=== PATIENT | female | born 1965 | race Caucasian/White ===

== ENCOUNTER 2020-11-01 07:04 | Outpatient (REF) | payer OTHER, SELFPAY | END 2020-11-01 07:05 | disposition home or self-care (01) | LOC: HO.LAB 07:04 | PROVIDERS: Visit Provider Internal Medicine | DX: Z20.828 Contact with and (suspected) exposure to other viral communicable diseases (principal) | CPT/HCPCS: C9803; U0003 ==

== ENCOUNTER 2020-11-26 10:21 | Emergency (ER) | payer OTHER, SELFPAY ==
[2020-11-26 10:24] VITALS: BP 148/85; PULSE 110; RESP 18; TEMP 37.6; O2SAT 96; BMI 25.7
--- NOTE | 2020-11-26 10:42 | XR_ITS ---
EXAMINATION: XR CHEST CLINICAL INFORMATION: Cough. COMPARISON: None TECHNIQUE: Frontal view of the chest was obtained. FINDINGS: No significant abnormality is noted involving the heart, lungs, mediastinum, bony thorax or soft tissues. XR/XR chest 1V IMPRESSION: Unremarkable chest examination.
--- NOTE | 2020-11-26 10:45 | ED_ITS ---
HPI - Fever General Chief Complaint: Fever Stated Complaint: FEVER,BODY ACHES Time Seen by Provider: 11/26/20 10:42 Source: patient Mode of arrival: ambulatory History of Present Illness HPI Narrative: 55-year-old female with no significant past medical history presenting to the ED complaining of fever T-max 100.9?, body aches/myalgias, productive cough, and mild chest tightness x2 days. 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 Denies SOB, abdominal pain, LE edema, recent travel, history of blood clots MD elicited complaint: fever Related Data Previous Rx's Medication Instructions Recorded albuterol sulfate 2 puff INHALATION Q4-6H PRN #6.7 g 11/26/20 Allergies Allergy/AdvReac Type Severity Reaction Status Date / Time penicillin V Allergy Unknown swelling Verified 09/22/19 00:00 Penicillins [PENICILLINS] Allergy Unknown UNKNOWN Unverified 08/18/20 14:50 Review of Systems Review of Systems: Constitutional: No Weight loss, + Fever, No Chills ENT/Mouth: No Ear Pain, No Nasal Congestion, No Sinus Pain, No Hoarseness, No sore throat, No Rhinorrhea Cardiovascular: + Chest tightness, No SOB Respiratory: + Cough, + Sputum, No Wheezing Gastrointestinal: No Nausea, No Vomiting, No Diarrhea, No Constipation, No Abdominal pain Musculoskeletal: No joint pain, + Myalgias, No Joint Swelling Skin: No Skin Lesions, No rash Yes all other systems are reviewed and are negative PMFSH Past Medical History Attestation statement: The following information was validated with the patient. Social History Social History Advance Directives: No Advance Directives Information Provided: No Physical Exam Vital Signs: Vital Signs: Last Vital Signs Temp 97.4 F 11/26/20 11:18 Pulse 71 11/26/20 11:32 Resp 18 11/26/20 10:24 BP 123/87 11/26/20 11:18 Pulse Ox 94 11/26/20 11:32 Body Mass Index 25.7 Const: General: cooperative and healthy appearing Orien tation/consciousness: patient oriented x3 Limitations: no limitations HENMT: Head: Yes normal to inspection Ears: hearing grossly normal bilaterally General nose exam: Normal external nose present Face and sinus: Yes normal facial exam Eyes: General: appearance normal, both eyes and all related structures EOM: EOMs intact bilaterally Neck: Neck: Yes normal visual inspection and Yes no meningeal signs Resp: Effort & Inspection: normal respiratory effort Auscultation: clear to auscultation bilaterally, no rales, no rhonchi and no wheezes Cardio: Rate: regular rate Heart sounds: S1 normal heart sound present and S2 normal heart sound present GI: Inspection: Yes normal to inspection Palpation (GI): Soft to palpation Skin: Rashes: no rashes Wounds: no wounds Neuro: General: patient oriented x3 and no meningeal signs Gait exam (Neuro): Normal gait present Extrem: Other: No LE edema General: Yes normal to inspection Course Course Course Narrative: * Chest x-ray unremarkable. Heart rate improved after Tylenol. Worrisome signs and symptoms and strict return precautions discussed. Patient verbalized understanding feel safe for discharge home MDM - Fever MDM Narrative Medical decision making narrative: 55-year-old female with no significant past medical history presenting to the ED complaining of fever T-max 100.9?, body aches/myalgias, productive cough, and mild chest tightness x2 days. On exam low-grade temp 99.6?, tachycardic likely from fever, NAD/nontoxic appearing, lungs CTA. Concern for viral syndrome/COVID-19. Rule out pneumonia. Low concern for severe sepsis or ACS/PE Plan: COVID-19 testing, CXR, Tylenol, really evaluate Discharge Plan Discharge Clinical Impression: Acute viral syndrome Patient Disposition: Home, Self-Care Instructions: Viral Syndrome (ED) Additional Instructions: Based on your symptoms and history we have sent a COVID-19. Although your RESULT IS PENDING at this time. RESULTS should return within 3-7 days. At this time you will be contacted with either NEGATIVE OR POSITIVE results. -Please wait until we contact you for your results. At this time you will be okay for discharge. Please plan for self quarantine for up to 14 days. Do not expose yourself to others. You may not go to work. If testing does come back negative you may return to activities as long as you are no longer having any symptoms for at least 3 days. Please continue to follow cold instructions and wash your hands frequently. You may take Tylenol as directed on the bottle for pain or fever. CDC Guidelines for home isolation: - Stay away from others - WEAR A MASK if you are sick AND STAY HOME - Cover your mouth and nose with a tissue when you cough or sneeze. Dispose of tissues in a lined trash can and wash your hands immediately with soap and water for at least 20 seconds. If soap and water are not available, clean hands with alcohol-based hand patient services representative that contains at least 60% alcohol. - Clean your hands often with soap and water for at least 20 seconds - Avoid touching your eyes, nose and mouth with unwashed hands - Do not share dishes, drinking glasses, cups, eating utensils, towels, or bedding with other people in your home. After using these items, wash them thoroughly with soap and water or put in the hr specialist. - Clean high-touch surfaces in your isolation area ( sick room and bathroom) every day; let a caregiver clean and disinfect high-touch surfaces in other areas of the home. Clean the area or item with soap and water or another detergent if it is dirty. Then, use a household disinfectant. - Limit contact with pets and animals: If you must care for a pet, wash your hands before and after interacting with them) Prescriptions: New albuterol sulfate 90 mcg/actuation HFA aerosol inhaler 2 puff inhalation Q4-6H PRN (Reason: shortness of breath or wheezing) Qty: 6.7 RF: 0 Referrals: Tiny Soria MD [Primary Care Provider] - 2 days Stand Alone Forms: Work/School Release
[2020-11-26] MEDS: Acetaminophen 325 MG TABLET 650 MG PO (10:59)
[2020-11-26 11:18] VITALS: BP 123/87; PULSE 77; TEMP 36.3; O2SAT 95
[2020-11-26 11:32] VITALS: PULSE 71; O2SAT 94
[2020-11-26 12:47] LABS: Influenza A PCR NEGATIVE (Negative); Influenza B PCR NEGATIVE (Negative); Resp Syncy Virus RNA Qual PCR NEGATIVE (Negative); SARS COV2 PCR INHOUSE POSITIVE (Negative)
== END 2020-11-26 11:56 | disposition home or self-care (01) ==
PROVIDERS: Physician Assistant; Emergency Provider Emergency Medicine Emergency Medical Services; PCP Student in an Organized Health Care Education/Training Program
DX: U07.1 COVID-19 (principal)
CPT/HCPCS: 0241U; 71045; 99283; U0003

== ENCOUNTER 2020-11-30 18:17 | Emergency (ER) | payer OTHER, SELFPAY | END 2020-11-30 20:54 | disposition left against medical advice (07) | PROVIDERS: Emergency Provider Emergency Medicine | DX: Z20.828 Contact with and (suspected) exposure to other viral communicable diseases (principal) ==

== ENCOUNTER 2021-04-27 07:18 | Outpatient (REF) | payer OTHER, SELFPAY ==
[2021-04-27 08:29] LABS: Hematocrit 43.9 % (37-47); Hemoglobin 14.4 g/dl (12.0-16.0); Mean Corpuscular HGB Conc 32.8 g/dl (31.0-35.0); Mean Corpuscular Hemoglobin 30.6 pg (27.0-33.0); Mean Corpuscular Volume 93.2 fL (80-98); Mean Platelet Volume 10.8 fL (9.4-12.3); Platelet Count 187 X10*3/uL (160-400); Red Blood Count 4.71 X10*6/uL (4.20-5.50); Red Cell Distribution Width 13.2 % (11.0-16.0); White Blood Count 5.2 X10*3/uL (4.8-10.8)
[2021-04-27 09:06] LABS: Alanine Aminotransferase 11 U/L (0-31); Albumin Level 4.2 g/dL (3.5-5.0); Alkaline Phosphatase 65 U/L (39-117); Anion Gap 11 (12-20); Aspartate Amino Transferase 13 U/L (5-31); Bilirubin Direct 0.2 mg/dL (0.0-0.5); Bilirubin Total 0.4 mg/dL (0.0-1.0); Blood Urea Nitrogen 11 mg/dL (9-16); Calcium 9.2 mg/dL (8.4-10.2); Carbon Dioxide 26 mmol/L (22-29); Chloride 107 mmol/L (96-108); Cholesterol 204 mg/dL; Estimated Glomerular Filt Rate > 60; Glucose Random 93 mg/dL (60-115); HDL Cholesterol 62 mg/dL; LDL Cholesterol Calculated 130 mg/dl; Potassium 4.4 mmol/L (3.3-5.1); Sodium 140 mmol/L (135-145); Total Protein 6.5 g/dL (6.5-8.0); Triglycerides 61 mg/dL
[2021-04-27 09:12] LABS: Vitamin D 25-OH Total 21.3 ng/mL (>30)
== END 2021-04-27 07:19 | disposition home or self-care (01) ==
LOC: HO.LAB 07:18
PROVIDERS: PCP Student in an Organized Health Care Education/Training Program; Visit Provider Student in an Organized Health Care Education/Training Program
DX: I10 Essential (primary) hypertension (principal); G35 Multiple sclerosis
CPT/HCPCS: 36415; 80048; 80061; 80076; 82306; 85027

== ENCOUNTER 2021-05-04 08:54 | Outpatient (REF) | payer OTHER, SELFPAY ==
--- NOTE | ~2021-05-04 | MM_ITS ---
EXAMINATION: MM SCREENING DIGITAL BREAST TOMOSYNTHESIS, BILATERAL CLINICAL INFORMATION: Screening. Asymptomatic. Benign left breast biopsy decades ago. Family history breast cancer, maternal grandmother. The lifetime risk of breast cancer based on the Tyrer-Cuzick Model is 13%. COMPARISON: Mammography: 01/09/2017, 11/09/2015 (baseline). TECHNIQUE: Digital breast tomosynthesis is performed in both the craniocaudal and mediolateral oblique views along with computer-aided detection (CAD). Synthesized 2D images are generated from the tomosynthesis. FINDINGS: The breasts are heterogeneously dense, which may obscure small masses (ACR BI-RADS breast composition Category c). Parenchymal pattern is similar to prior studies. There is no interval mass or architectural abnormality or abnormal calcifications. Left breast has chronic circumscribed mass retroareolar 12:00 position measuring 2.1 x 1.7 x 1.6 cm, similar to prior studies. There are bilateral scattered vascular calcifications on current study mid upper outer quadrant. The axilla and skin contours are unremarkable. MM/MM tomosynthesis screening BI IMPRESSION: No mammographic evidence of malignancy. ASSESSMENT: BI-RADS 2: Benign RECOMMENDATION: Routine annual mammography screening. This patient's information was entered into a reminder system with a target due date for their next mammogram.
== END 2021-05-04 08:55 | disposition home or self-care (01) ==
LOC: HO.MAMMO 08:54
PROVIDERS: PCP Student in an Organized Health Care Education/Training Program; Visit Provider Student in an Organized Health Care Education/Training Program
DX: Z12.31 Encounter for screening mammogram for malignant neoplasm of breast (principal)
CPT/HCPCS: 77063; 77067

== ENCOUNTER 2021-11-09 08:45 | Outpatient (REF) | payer OTHER, SELFPAY ==
--- NOTE | ~2021-11-09 | XR_ITS ---
EXAMINATION: XR HIP, RIGHT CLINICAL INFORMATION: Right hip pain. COMPARISON: None TECHNIQUE: Two views of the right hip. FINDINGS: The bony alignments are intact. The cortices are intact. Articular margins, joint space appear unremarkable. Soft tissues are unremarkable. Mild osteitis pubis. XR/XR hip RT min 2V IMPRESSION: Unremarkable radiographic appearance of the right hip.
== END 2021-11-09 08:46 | disposition home or self-care (01) ==
LOC: HO.XRAY 08:45
PROVIDERS: PCP Student in an Organized Health Care Education/Training Program; Visit Provider Student in an Organized Health Care Education/Training Program
DX: M25.551 Pain in right hip (principal)
CPT/HCPCS: 73502

== ENCOUNTER 2023-05-14 14:25 | Emergency (ER) | payer MEDICAID, SELFPAY ==
--- NOTE | 2023-05-14 15:48 | ED_ITS ---
HPI - Abdominal Pain General Chief Complaint: Urogenital-Female Stated Complaint: Pain Uterus is Low Time Seen by Provider: 05/14/23 17:20 Source: patient Mode of arrival: ambulatory Limitations: no limitations History of Present Illness HPI narrative: Patient is a 58-year-old female with history of MS, arthritis, overactive bladder, and HTN presenting to the emergency department with complaint of bulging and discomfort in her vagina since this morning. Symptoms are lessened when sitting/laying, worsen with standing and ambulation. She denies any abnormal vaginal discharge. Denies recent fevers. Reports has not urinated since 13:00 today which is abnormal for her. History of one full term vaginal delivery and one miscarriage, tubal ligation. Denies other abdominal surgeries. Denies recent constipation or diarrhea. Denies dysuria or hematuria. She has seen urology in the past, this is who started her on the oxybutynin, but has not seen recently due to insurance issue. PCP has been refilling her oxybutynin. She does not currently have an [facility]. MD elicited complaint: other (vaginal discomfort) Onset (ago): hour(s) Pain Consistency: constant Location: groin Severity: moderate Quality: other (pressure) Radiation: none Exacerbating factors: movement Relieving factors: rest Associated symptoms: denies other symptoms Related Data Previous Rx's Medication Instructions Recorded albuterol sulfate 90 mcg/actuation 2 puff inhalation Q4-6H PRN 11/26/20 aerosol inhaler shortness of breath or wheezing #6.7 grams Allergies Allergy/AdvReac Type Severity Reaction Status Date / Time penicillin V Allergy Unknown swelling Verified 05/14/23 15:57 Penicillins [PENICILLINS] Allergy Unknown UNKNOWN Verified 05/14/23 15:57 Review of Systems Review of Systems As per HPI. Yes all other systems are reviewed and are negative Constitutional: Reports as per HPI PMFSH Social History Social History Smoked in Last 30 Days: Yes Use of substances other than those prescribed or required for medical reasons: No Advance Directives: No Advance Directives Information Provided: No Physical Exam ED Vital Signs: Vital Signs - 24 hr 05/14/23 15:57 05/14/23 18:45 Temperature 96.7 F L 97.8 F Pulse Rate 54 55 Respiratory Rate 16 16 Blood Pressure 106/64 116/50 L Pulse Oximetry 100 96 Oxygen Delivery Method Room Air Room Air BMI result Body Mass Index 24.9 Vital signs have been reviewed and appear to be correct. Blood pressure normal. Heart rate mildly bradycardic. Respiratory rate normal. Temperature normal. Oxygen saturation normal. Const General: cooperative, healthy appearing and no acute distress Orientation/consciousness: oriented to person, oriented to place, oriented to time and patient oriented x3 Limitations: no limitations HENMT Head: Yes normocephalic and Yes atraumatic Ears: external ears normal General nose exam: Normal external nose present Face and sinus: Yes face symmetric Mouth: oropharynx normal and moist mucous membranes Throat: Yes uvula midline Eyes Pupils: Equal, round and reactive pupils present Neck Neck: Yes normal visual inspection and Yes supple Resp Effort & Inspection: normal respiratory effort and able to speak in complete sentences Auscultation: clear to auscultation bilaterally Cardio Rate: regular rate Rhythm: regular rhythm Heart sounds: S1 normal heart sound present and S2 normal heart sound present GI Palpation (GI): Soft to palpation and nontender Auscultation: normoactive bowel sounds Other: Exam chaperoned by FREDY Solis. General: Yes no CVA tenderness External Female Exam: normal external appearance and No externally tender Speculum Exam - Vagina: nontender and other (uterine prolapse, no evidence of abscess, nontender) Back/Spine/Pelvis Back: no CVA tenderness Skin General skin exam: elasticity normal and turgor normal Neuro General: oriented to person, oriented to place, oriented to time, patient oriented x3, moves all extremities, no focal motor deficits and CN's II-XI intact bilaterally Cranial nerves: Yes Equal, round and reactive pupils present Cognition (Neuro): normal cognition Extrem General: Yes full ROM, Yes no pedal edema and Yes no calf tenderness Psych Mental Status: mental status grossly normal Affect: normal affect Thought process: Normal thought process present Course Course Course Narrative: RME: 58yo F w/ PMHx HTN c/o uterine prolapse noted today w/discomfort. reports mild urinary retention. denies constipation. currently takes Oxybutin. denies recent surgeries labs, UA, bladder scan ordered Full HPI, ROS and PE to be performed by primary ED provider. Medical Decision Making Medical Decision Making MDM Narrative: Patient is a 58-year-old female with history of MS, arthritis, overactive bladder, and HTN presenting to the emergency department with complaint of bulging and discomfort in her vagina since this morning. On exam patient is awake, A+Ox3, abdomen soft and nontender, no CVA tenderness, uterine prolapse on pelvic exam, no evidence of infection or abscess. Will bladder scan and check UA to ensure patient does not have urinary retention or UTI. Patient will require follow up with [facility]ATIONS [facility]IATE. Concern for uterine prolapse, urinary retention, possible abscess. 20:14 No evidence of infection on UA, patient's post-void bladder scan reveals no retention. Labs unremarkable. Feel patient is stable for discharge home with [facility] follow up. All results discussed with patient and all questions answered, return precautions discussed at bedside. Patient verbalized understanding of and agreement with plan of care. Differential Diagnosis Differential Diagnoses: The differential diagnosis associated with the presentation includes As above. Admission/Observation Consideration of admission/observation: Escalation of care including admission/observation considered Lab Data MDM Lab Attestation statement: I reviewed the patient's lab results. 05/14/23 16:04 05/14/23 16:04 Labs: Lab Results 05/14/23 05/14/23 05/14/23 Range/Units 16:04 16:04 18:44 WBC 7.2 (4.8-10.8) X10*3/uL RBC 4.55 (4.20-5.50) X10*6/uL Hgb 13.9 (12.0-16.0) g/dl Hct 42.5 (37.0-47.0) % MCV 93.4 (80.0-98.0) fL MCH 30.5 (27.0-33.0) pg MCHC 32.7 (31.0-35.0) g/dl RDW 13.3 (11.0-16.0) % Plt Count 203 (160-400) X10*3/uL MPV 10.3 (9.4-12.3) fL Immature Gran % (Auto) 0.3 (0.0-0.4) % Neut % (Auto) 56.3 (45-73) % Lymph % (Auto) 32.9 (20-40) % [place] % (Auto) 7.6 (2-11) % Eos % (Auto) 2.1 (0-4) % Baso % (Auto) 0.8 (0-2) % Lymph # (Auto) 2.4 (1.2-4.9) X10*3/uL [place] # (Auto) 0.6 (0.1-1.2) X10*3/uL Eos # (Auto) 0.2 (0.0-0.4) X10*3/uL Baso # (Auto) 0.1 (0.0-0.2) X10*3/uL Abs Immat Gran (auto) 0.02 (0.00-0.03) X10*3/uL Absolute Neuts (auto) 4.1 (2.0-8.3) x10*3/uL Absolute Nucleated RBC 0.000 (0.0-0.012) X10*3/uL Nucleated RBC % (auto) 0.0 (0.0-0.2) /100WBC Sodium 144 (135-145) mmol/L Potassium 4.1 (3.3-5.1) mmol/L Chloride 107 (96-108) mmol/L Carbon Dioxide 28 (22-29) mmol/L Anion Gap 13 (12-20) BUN 10 (9-16) mg/dL Creatinine 0.86 (0.5-1.4) mg/dL Estim Creat Clear Calc 68.2 Estimated GFR > 60 Random Glucose 90 (60-115) mg/dL Calcium 9.3 (8.4-10.2) mg/dL Magnesium 2.1 (1.6-2.6) mg/dL Total Bilirubin 0.4 (0.0-1.0) mg/dL Direct Bilirubin 0.1 (0.0-0.5) mg/dL AST 12 (5-31) U/L ALT 9 (0-31) U/L Alkaline Phosphatase 75 (39-117) U/L Total Protein 6.4 L (6.5-8.0) g/dL Albumin 3.9 (3.5-5.0) g/dL Lipase 22 (8-78) U/L Urine Color Yellow Urine Appearance Clear Urine pH 5.5 (5.0-9.0) Ur Specific [place] 1.025 (1.005-1.025) Urine Protein Negative (Neg-Trace) mg/dL Urine Glucose (UA) Negative (Negative) mg/dL Urine Ketones Trace (Negative) mg/dL Urine Blood Negative (Negative) Urine Nitrite Negative (Negative) Ur Leukocyte Esterase Negative (Negative) External Record Review External record reviewed: Inpatient record, Office record and Outpatient record Discharge Plan Discharge Clinical Impression: Uterine prolapse Patient Disposition: Home, Self-Care Instructions: Kegel Exercises for Women (DC), Uterine Prolapse (ED) Additional Instructions: Your evaluation in the emergency department today showed evidence of uterine prolapse. You should follow up with [facility]ATIONS [facility]OCIATE this week for further management. Return to the emergency department if you have difficulty urinating or having a bowel movement, abdominal pain, vaginal discharge or bleeding, fever 100.4F or greater, or for any other concerning symptoms. Prescriptions: No Action albuterol sulfate 90 mcg/actuation HFA aerosol inhaler 2 puff inhalation Q4-6H PRN (Reason: shortness of breath or wheezing) Qty: 6.7 0RF Referrals: Alonzo Edmonds MD [Physician] -
[2023-05-14 15:57] VITALS: BP 106/64; PULSE 54; RESP 16; TEMP 35.9; O2SAT 100; BMI 24.9
[2023-05-14 16:09] LABS: MANUAL DIFF FLAG NO
[2023-05-14 16:10] LABS: Basophils Absolute Auto 0.1 X10*3/uL (0.0-0.2); Basophils Percent Auto 0.8 % (0-2); Eosinophils Absolute Auto 0.2 X10*3/uL (0.0-0.4); Eosinophils Percent Auto 2.1 % (0-4); Hematocrit 42.5 % (37.0-47.0); Hemoglobin 13.9 g/dl (12.0-16.0); Imm Gran Abs Auto 0.02 X10*3/uL (0.00-0.03); Imm Gran Pct Auto 0.3 % (0.0-0.4); Lymphocytes Absolute Auto 2.4 X10*3/uL (1.2-4.9); Lymphocytes Percent Auto 32.9 % (20-40); Mean Corpuscular HGB Conc 32.7 g/dl (31.0-35.0); Mean Corpuscular Hemoglobin 30.5 pg (27.0-33.0); Mean Corpuscular Volume 93.4 fL (80.0-98.0); Mean Platelet Volume 10.3 fL (9.4-12.3); Monocytes Absolute Auto 0.6 X10*3/uL (0.1-1.2); Monocytes Percent Auto 7.6 % (2-11); Neutrophils Absolute Auto 4.1 x10*3/uL (2.0-8.3); Neutrophils Percent Auto 56.3 % (45-73); Platelet Count 203 X10*3/uL (160-400); Red Blood Count 4.55 X10*6/uL (4.20-5.50); Red Cell Distribution Width 13.3 % (11.0-16.0); White Blood Count 7.2 X10*3/uL (4.8-10.8)
[2023-05-14 16:25] LABS: Alanine Aminotransferase 9 U/L (0-31); Albumin Level 3.9 g/dL (3.5-5.0); Alkaline Phosphatase 75 U/L (39-117); Anion Gap 13 (12-20); Aspartate Amino Transferase 12 U/L (5-31); Bilirubin Direct 0.1 mg/dL (0.0-0.5); Bilirubin Total 0.4 mg/dL (0.0-1.0); Blood Urea Nitrogen 10 mg/dL (9-16); Calcium 9.3 mg/dL (8.4-10.2); Carbon Dioxide 28 mmol/L (22-29); Chloride 107 mmol/L (96-108); Creatinine Clr Calc Pharmacy 68.2; Estimated Glomerular Filt Rate > 60; Glucose Random 90 mg/dL (60-115); Lipase 22 U/L (8-78); Magnesium 2.1 mg/dL (1.6-2.6); Potassium 4.1 mmol/L (3.3-5.1); Sodium 144 mmol/L (135-145); Total Protein 6.4 g/dL (6.5-8.0)
[2023-05-14 18:45] VITALS: BP 116/50; PULSE 55; RESP 16; TEMP 36.6; O2SAT 96
[2023-05-14 18:54] LABS: Appearance Urine Clear; Color Urine Yellow; Glucose Urine UA Negative (Negative); Leukocyte Esterase Urine Negative (Negative); Nitrite Urine Negative (Negative); PH 5.5 (5.0-9.0); Specific Gravity - Urine 1.025 (1.005-1.025); Urine Blood Negative (Negative); Urine Ketones Trace mg/dL (Negative); Urine Protein Negative (Neg-Trace)
== END 2023-05-14 20:19 | disposition home or self-care (01) ==
PROVIDERS: Physician Assistant; Emergency Provider Emergency Medicine; PCP Student in an Organized Health Care Education/Training Program
DX: N81.4 Uterovaginal prolapse, unspecified (principal); N32.81 Overactive bladder; I10 Essential (primary) hypertension; Z79.899 Other long term (current) drug therapy
CPT/HCPCS: 36415; 51798; 80048; 80076; 81003; 83690; 83735; 85025; 99283; 99284

== ENCOUNTER 2023-06-11 08:14 | Outpatient (REF) | payer MEDICAID, SELFPAY ==
--- NOTE | ~2023-06-11 | MM_ITS ---
EXAMINATION: MM SCREENING DIGITAL BREAST TOMOSYNTHESIS, BILATERAL CLINICAL INFORMATION: Screening. Asymptomatic. The lifetime risk of breast cancer based on the Tyrer-Cuzick Model is 14%. COMPARISON: Mammography: This study is compared with prior exams dating back to 2017. TECHNIQUE: Digital breast tomosynthesis is performed in both the craniocaudal and mediolateral oblique views along with computer-aided detection (CAD). Synthesized 2D images are generated from the tomosynthesis. FINDINGS: The breasts are heterogeneously dense, which may obscure small masses (ACR BI-RADS breast composition Category c). There are no significant masses, abnormal calcifications, or other abnormalities. MM/MM tomosynthesis screening BI IMPRESSION: No mammographic evidence of malignancy. ASSESSMENT: BI-RADS BI-RADS 1 - Negative RECOMMENDATION: Routine annual mammography screening. 1 year F/U This examination should not preclude the clinical evaluation of a suspicious palpable abnormality. This patient's information was entered into a reminder system with a target due date for their next mammogram.
== END 2023-06-11 08:15 | disposition home or self-care (01) ==
LOC: HO.MAMMO 08:14
PROVIDERS: PCP Student in an Organized Health Care Education/Training Program; Visit Provider Student in an Organized Health Care Education/Training Program
DX: Z12.31 Encounter for screening mammogram for malignant neoplasm of breast (principal)
CPT/HCPCS: 77063; 77067

== ENCOUNTER → 2023-06-11 08:30 | Outpatient (BNV) | payer MEDICAID, SELFPAY | PROVIDERS: PCP Student in an Organized Health Care Education/Training Program; Visit Provider Radiology Diagnostic Radiology | DX: Z12.31 Encounter for screening mammogram for malignant neoplasm of breast (principal) | CPT/HCPCS: 77063; 77067 ==

== ENCOUNTER 2023-06-20 08:52 | Outpatient (AMB) | payer MEDICAID, SELFPAY ==
[2023-06-20 08:52] VITALS: BP 112/70; BMI 24.9
--- NOTE | 2023-06-20 08:52 | MHC.OFFVIS ---
Intake Vital Signs 06/20/23 08:52 Height 5 ft 4 in Weight 145 lb BMI 24.9 BP 112/70 Blood Pressure Location Lt brachial Position Sitting Intake Visit Reasons: Eval Uterine Prolapse Escalator Installer Required: No Accompanied by: Self / Same As Patient Allergies penicillin V Allergy (Unknown, Verified 06/20/23 08:53) swelling Penicillins [PENICILLINS] Allergy (Unknown, Verified 06/20/23 08:53) UNKNOWN Post menopausal: Yes HPI HPI Comments History of Present Illness Details Presenting complaining for bulge per vagina associated with urinary frequency, no leakage of her urine upon sneezing coughing or lifting heavy object, and the patient is complaining of urge incontinence PFSH Surgical History Hx of tubal ligation Family History Mother Multiple myeloma Maternal Aunt Breast cancer Colon cancer Cancer of blood vessel Social History Alcohol intake: current Alcohol intake frequency: a few times a month Patient Tobacco Use Status: Current someday Tobacco user Female Reproductive History Menstrual Age of menopause: 52 Total pregnancies: 2 Number of Living Children: 1 Ab spontaneous: 1 Review of Systems Const All systems reviewed & are unremarkable except as noted in HPI and below Physical Exam Vital Signs: Last Vital Signs BP 112/70 06/20/23 08:52 BMI result Body Mass Index 24.9 General: Yes no CVA tenderness External Female Exam: normal external appearance and normal appearance of the urethra Speculum Exam - Vagina: normal appearance of the vagina, normal palpation, no lesions, no masses and other (Moderate Cystocele central defect and left para vaginal) Speculum Exam - Cervix: normal appearance of the cervix, normal palpation, no lesions, no masses and nontender Bimanual exam- vagina & uterus: normal bimanual exam, normal palpation, uterine size normal, normal palpation, uterine shape normal, No Cervical tenderness present, non-tender and other ([id number] to Avani prolapse) Bimanual Exam- Adnexa, other: normal adnexae Back/Spine/Pelvis Back: no CVA tenderness Assessment & Plan Assessment & Plan (1) Urinary frequency: Code(s): R35.0 - Frequency of micturition Plan: Discussed with the patient differential diagnosis of urinary frequency, will refer to Urogynecology for further management (2) Cystocele with uterine prolapse: Comment: Moderate Central and left paravaginal [id number] to Avani pros Code(s): N81.4 - Uterovaginal prolapse, unspecified Plan: Discussed with the patient the finding on pelvic exam, options of treatment including expectant management, pessary is or surgical management. All pros and cons, risks and benefits of each approach were discussed with the patient of the patient would like to proceed with expectant management for the time being and will consider her decision if her symptoms get worse Orders: Referrals Urogynecology Referral N81.4 - Uterovaginal prolapse, unspecified, R35.0 - Frequency of micturition Coding Level of Care Code New Pt Level 3 (17863) Diagnoses Urinary frequency R35.0 Cystocele with uterine prolapse N81.4
== END 2023-06-20 09:58 | disposition home or self-care (01) ==
LOC: HO.HWS 08:52
PROVIDERS: PCP Student in an Organized Health Care Education/Training Program; Visit Provider Obstetrics & Gynecology
DX: R35.0 Frequency of micturition (principal); N81.4 Uterovaginal prolapse, unspecified
CPT/HCPCS: 99203

== ENCOUNTER → 2023-06-20 08:52 | Outpatient (BNVA) | payer MEDICAID, SELFPAY | PROVIDERS: PCP Student in an Organized Health Care Education/Training Program; Visit Provider Obstetrics & Gynecology | DX: N81.4 Uterovaginal prolapse, unspecified (principal); R35.0 Frequency of micturition | CPT/HCPCS: 99202 ==

== ENCOUNTER 2023-06-26 05:53 | Emergency (ER) | payer MEDICAID, SELFPAY ==
--- NOTE | ~2023-06-26 | XR_ITS ---
EXAMINATION: XR CHEST CLINICAL INFORMATION: Cough COMPARISON: 11/26/2020 TECHNIQUE: Frontal view of the chest was obtained. FINDINGS: The lungs are well expanded. There is no focal consolidation, edema, or effusion. No pneumothorax. The cardiomediastinal silhouette is within normal limits. No acute osseous abnormality. XR/XR chest 1V IMPRESSION: Clear lungs.
[2023-06-26 06:00] VITALS: BP 135/85; PULSE 72; RESP 16; TEMP 36.8; O2SAT 98; BMI 24.5
--- NOTE | 2023-06-26 06:23 | ED_ITS ---
HPI - General Adult General Chief complaint: Upper Respiratory Symptoms Stated complaint: weakness, body numbness Time Seen by Provider: 06/26/23 06:22 Source: patient and family Mode of arrival: ambulatory Limitations: no limitations History of Present Illness HPI narrative: Patient is a 58-year-old female with history of cystocele with uterine prolapse presenting to the emergency department with 10 days of cough productive of yellow/green sputum. Patient and significant other deny fevers when temperature checked but report sweats/chills. She denies ear pain or sore throat. Does endorse intermittent nausea, denies vomiting. Denies abdominal pain, diarrhea, constipation. Reports some urinary frequency which she feels is related to her prolapse. Also reports ongoing intermittent dizziness, worse with standing/movements. States the dizziness has been ongoing for several years and has seen neurologist for same, was told by initial neurologist she did not have MS. Is seeing a new neurologist this week. Feels dizziness has worsened somewhat since URI symptoms began. Denies syncope, headaches, vision changes. Denies any chest pain or dyspnea. Denies any lower extremity edema, calf pain or swelling. complaint: cough Onset (ago): day(s) Location: chest Relieving factors: rest Exacerbating factors: movement Associated symptoms: nausea/vomiting (nausea, denies vomiting) Treatments prior to arrival: none Related Data Home Medications Medication Instructions Recorded Confirmed gabapentin 100 mg capsule 100 mg PO BID 06/20/23 lisinopril 10 mg tablet 10 mg PO DAILY 06/20/23 omeprazole 20 mg capsule,delayed 20 mg PO DAILY 06/20/23 release Previous Rx's Medication Instructions Recorded azithromycin 250 mg tablet See Rx Instructions PO .COMPLEX #6 06/26/23 tabs benzonatate 100 mg capsule 100 mg PO TID PRN cough #14 caps 06/26/23 Allergies Allergy/AdvReac Type Severity Reaction Status Date / Time penicillin V Allergy Unknown swelling Verified 06/20/23 08:53 Penicillins [PENICILLINS] Allergy Unknown UNKNOWN Verified 06/20/23 08:53 Review of Systems Review of Systems: As per HPI. Yes all other systems are reviewed and are negative Constitutional: Constitutional: Reports as per HPI PMFSH Past Medical History Surgical History Hx of tubal ligation Family History Family History Mother Multiple myeloma Maternal Aunt Breast cancer Colon cancer Cancer of blood vessel Social History Social History Alcohol intake: current Alcohol intake frequency: holidays/special occasions only Patient Tobacco Use Status: Current someday Tobacco user Smoked in Last 30 Days: No Use of substances other than those prescribed or required for medical reasons: No Advance Directives: No Advance Directives Information Provided: No Patient : No Physical Exam ED Vital Signs: Vital Signs - 24 hr 06/26/23 06:00 06/26/23 07:16 06/26/23 07:17 Temperature 98.2 F Pulse Rate 72 59 57 Respiratory Rate 16 Blood Pressure 135/85 118/73 122/73 Pulse Oximetry 98 Oxygen Delivery Method Room Air 06/26/23 07:18 Temperature Pulse Rate 70 Respiratory Rate Blood Pressure 113/80 Pulse Oximetry Oxygen Delivery Method BMI result Body Mass Index 24.5 Vital signs have been reviewed and appear to be correct. Blood pressure normal. Heart rate normal. Respiratory rate normal. Temperature normal. Oxygen saturation normal. Const General: cooperative, healthy appearing and no acute distress Orientation/consciousness: oriented to person, oriented to place, oriented to time and patient oriented x3 Limitations: no limitations HENMT Head: Yes normocephalic and Yes atraumatic Ears: external ears normal General nose exam: Normal external nose present Face and sinus: Yes face symmetric Mouth: oropharynx normal and moist mucous membranes Throat: Yes uvula midline Eyes Pupils: Equal, round and reactive pupils present Neck Neck: Yes normal visual inspection and Yes supple Resp Effort & Inspection: normal respiratory effort and able to speak in complete sentences Auscultation: rhonchi throughout Cardio Rate: regular rate Rhythm: regular rhythm Heart sounds: S1 normal heart sound present and S2 normal heart sound present GI Palpation (GI): Soft to palpation and nontender Auscultation: normoactive bowel sounds General: Yes no CVA tenderness Back/Spine/Pelvis Back: no CVA tenderness Skin General skin exam: elasticity normal and turgor normal Neuro General: oriented to person, oriented to place, oriented to time, patient oriented x3, moves all extremities, no focal motor deficits and CN's II-XI intact bilaterally Cranial nerves: Yes Equal, round and reactive pupils present Cognition (Neuro): normal cognition Extrem General: Yes full ROM, Yes no pedal edema and Yes no calf tenderness Psych Mental Status: mental status grossly normal Affect: normal affect Thought process: Normal thought process present Medical Decision Making Medical Decision Making [facility] Narrative: Patient is a 58-year-old female with history of cystocele with uterine prolapse presenting to the emergency department with 10 days of cough productive of yellow/green sputum. On exam patient is awake, A+Ox3, VS WNL, afebrile, normal neurological exam without focal deficits, LS rhonchorous throughout, abd soft, nontender, no CVA tenderness. Given reported symptoms and physical exam findings, initial differential includes bronchitis, pneumonia, viral URI. Positive Joey-Hallpike on right. No concern for PE based on Wells score. Labs notable for absence of leukocytosis, electrolytes WNL, no evidence of MAX. Negative Covid. X-ray notable for no acute abnormality. My interpretation is in agreement with the radiologist's interpretation. No orthostasis observed on VS. No evidence of infection on UA. Feel patient is stable for discharge home. Will prescribe azithromycin and benzonatate for bronchitis. Discussed and demonstrated Josey maneuvers with patient, feel dizziness likely related to BPPV, but instructed patient to keep follow up appointment with neuro this week. All results discussed and questions answered, return precautions discussed at bedside. Patient verbalized understanding of and agreement with plan. Differential Diagnosis Differential Diagnoses: The differential diagnosis associated with the presentation includes As per MDM. Admission/Observation Consideration of admission/observation: Escalation of care including admission/observation considered Lab Data [facility] Lab Attestation statement: I reviewed the patient's lab results. no leukocytosis, no electolye abnormality, no MAX 06/26/23 06:20 06/26/23 06:20 Labs: Lab Results 06/26/23 06/26/23 06/26/23 Range/Units 06:20 06:20 06:20 WBC 7.2 (4.8-10.8) X10*3/uL RBC 4.89 (4.20-5.50) X10*6/uL Hgb 14.9 (12.0-16.0) g/dl Hct 44.5 (37.0-47.0) % MCV 91.0 (80.0-98.0) fL MCH 30.5 (27.0-33.0) pg MCHC 33.5 (31.0-35.0) g/dl RDW 13.2 (11.0-16.0) % Plt Count 193 (160-400) X10*3/uL MPV 10.4 (9.4-12.3) fL Immature Gran % (Auto) 0.3 (0.0-0.4) % Neut % (Auto) 61.9 (45-73) % Lymph % (Auto) 29.2 (20-40) % Gillespie % (Auto) 6.2 (2-11) % Eos % (Auto) 1.7 (0-4) % Baso % (Auto) 0.7 (0-2) % Lymph # (Auto) 2.1 (1.2-4.9) X10*3/uL Gillespie # (Auto) 0.5 (0.1-1.2) X10*3/uL Eos # (Auto) 0.1 (0.0-0.4) X10*3/uL Baso # (Auto) 0.1 (0.0-0.2) X10*3/uL Abs Immat Gran (auto) 0.02 (0.00-0.03) X10*3/uL Absolute Neuts (auto) 4.5 (2.0-8.3) x10*3/uL Absolute Nucleated RBC 0.000 (0.0-0.012) X10*3/uL Nucleated RBC % (auto) 0.0 (0.0-0.2) /100WBC Sodium 141 (135-145) mmol/L Potassium 4.1 (3.3-5.1) mmol/L Chloride 108 (96-108) mmol/L Carbon Dioxide 25 (22-29) mmol/L Anion Gap 12 (12-20) BUN 10 (9-16) mg/dL Creatinine 0.79 (0.5-1.4) mg/dL Estim Creat Clear Calc 68.6 Estimated GFR > 60 Random Glucose 94 (60-115) mg/dL Calcium 8.9 (8.4-10.2) mg/dL Total Bilirubin 0.4 (0.0-1.0) mg/dL AST 12 (5-31) U/L ALT 9 (0-31) U/L Alkaline Phosphatase 77 (39-117) U/L Total Protein 6.5 (6.5-8.0) g/dL Albumin 3.9 (3.5-5.0) g/dL Urine Color Urine Appearance Urine pH (5.0-9.0) Ur Specific [place] (1.005-1.025) Urine Protein (Neg-Trace) mg/dL Urine Glucose (UA) (Negative) mg/dL Urine Ketones (Negative) mg/dL Urine Blood (Negative) Urine Nitrite (Negative) Ur Leukocyte Esterase (Negative) COVID-19 ([facility]) Negative (Negative) COVID-19 Clin Com See Note 06/26/23 Range/Units 07:21 WBC (4.8-10.8) X10*3/uL RBC (4.20-5.50) X10*6/uL Hgb (12.0-16.0) g/dl Hct (37.0-47.0) % MCV (80.0-98.0) fL MCH (27.0-33.0) pg MCHC (31.0-35.0) g/dl RDW (11.0-16.0) % Plt Count (160-400) X10*3/uL MPV (9.4-12.3) fL Immature Gran % (Auto) (0.0-0.4) % Neut % (Auto) (45-73) % Lymph % (Auto) (20-40) % Gillespie % (Auto) (2-11) % Eos % (Auto) (0-4) % Baso % (Auto) (0-2) % Lymph # (Auto) (1.2-4.9) X10*3/uL Gillespie # (Auto) (0.1-1.2) X10*3/uL Eos # (Auto) (0.0-0.4) X10*3/uL Baso # (Auto) (0.0-0.2) X10*3/uL Abs Immat Gran (auto) (0.00-0.03) X10*3/uL Absolute Neuts (auto) (2.0-8.3) x10*3/uL Absolute Nucleated RBC (0.0-0.012) X10*3/uL Nucleated RBC % (auto) (0.0-0.2) /100WBC Sodium (135-145) mmol/L Potassium (3.3-5.1) mmol/L Chloride (96-108) mmol/L Carbon Dioxide (22-29) mmol/L Anion Gap (12-20) BUN (9-16) mg/dL Creatinine (0.5-1.4) mg/dL Estim Creat Clear Calc Estimated GFR Random Glucose (60-115) mg/dL Calcium (8.4-10.2) mg/dL Total Bilirubin (0.0-1.0) mg/dL AST (5-31) U/L ALT (0-31) U/L Alkaline Phosphatase (39-117) U/L Total Protein (6.5-8.0) g/dL Albumin (3.5-5.0) g/dL Urine Color Yellow Urine Appearance Clear Urine pH 5.5 (5.0-9.0) Ur Specific [place] 1.020 (1.005-1.025) Urine Protein Negative (Neg-Trace) mg/dL Urine Glucose (UA) Negative (Negative) mg/dL Urine Ketones Negative (Negative) mg/dL Urine Blood Negative (Negative) Urine Nitrite Negative (Negative) Ur Leukocyte Esterase Negative (Negative) COVID-19 ([facility]) (Negative) COVID-19 Clin Com Independent Interpretation I performed an independent interpretation of an: Plain X-Ray Interpretation: Normal chest Radiology Impression Discussion of test interpretation with radiology: I have reviewed the radiologist's reading. Radiologist Impression: FINDINGS: The lungs are well expanded. There is no focal consolidation, edema, or effusion. No pneumothorax. The cardiomediastinal silhouette is within normal limits. No acute osseous abnormality. XR/XR chest 1V IMPRESSION: Clear lungs. Independent Historian Clinical information obtained from an independent historian. History obtained from or confirmed by: Spouse External Record Review External record reviewed: Inpatient record, Office record and Outpatient record Prescription Management I considered prescription management with: Antibiotic and Other Discharge Plan Discharge Clinical Impression: Bronchitis Patient Disposition: Home, Self-Care Instructions: Acute Bronchitis (ED) Additional Instructions: You were evaluated in the emergency department today for cough. Your chest x- ray did not show evidence of a pneumonia. Your cough is most likely due to bronchitis from a viral illness which will improve with rest and fluids. You are being prescribed an antibiotic called azithromycin, please complete full course as prescribed. You are also being prescribed benzonatate as needed for cough. Please schedule an appointment for follow-up with your primary care physician within 2 days. Return to the emergency department if you experience worsening cough, fever 100.4? F or greater, recurrent vomiting, chest pain, shortness of breath, or any other concerning symptoms. Prescriptions: New azithromycin 250 mg tablet See Rx Instructions .ROUTE .COMPLEX Qty: 6 0RF Rx Instructions: For 250 mg dose pack: take 500 mg today (day 1), then 250 mg for 4 days (days 2-5) benzonatate 100 mg capsule 100 mg PO TID PRN (Reason: cough) Qty: 14 0RF No Action omeprazole 20 mg capsule,delayed release(DR/EC) 20 mg PO DAILY gabapentin 100 mg capsule 100 mg PO BID lisinopril 10 mg tablet 10 mg PO DAILY
[2023-06-26 06:26] LABS: Basophils Absolute Auto 0.1 X10*3/uL (0.0-0.2); Basophils Percent Auto 0.7 % (0-2); Eosinophils Absolute Auto 0.1 X10*3/uL (0.0-0.4); Eosinophils Percent Auto 1.7 % (0-4); Hematocrit 44.5 % (37.0-47.0); Hemoglobin 14.9 g/dl (12.0-16.0); Imm Gran Abs Auto 0.02 X10*3/uL (0.00-0.03); Imm Gran Pct Auto 0.3 % (0.0-0.4); Lymphocytes Absolute Auto 2.1 X10*3/uL (1.2-4.9); Lymphocytes Percent Auto 29.2 % (20-40); MANUAL DIFF FLAG NO; Mean Corpuscular HGB Conc 33.5 g/dl (31.0-35.0); Mean Corpuscular Hemoglobin 30.5 pg (27.0-33.0); Mean Platelet Volume 10.4 fL (9.4-12.3); Monocytes Absolute Auto 0.5 X10*3/uL (0.1-1.2); Monocytes Percent Auto 6.2 % (2-11); Neutrophils Absolute Auto 4.5 x10*3/uL (2.0-8.3); Neutrophils Percent Auto 61.9 % (45-73); Platelet Count 193 X10*3/uL (160-400); Red Blood Count 4.89 X10*6/uL (4.20-5.50); Red Cell Distribution Width 13.2 % (11.0-16.0); White Blood Count 7.2 X10*3/uL (4.8-10.8)
[2023-06-26 06:40] LABS: Alanine Aminotransferase 9 U/L (0-31); Albumin Level 3.9 g/dL (3.5-5.0); Alkaline Phosphatase 77 U/L (39-117); Anion Gap 12 (12-20); Aspartate Amino Transferase 12 U/L (5-31); Bilirubin Total 0.4 mg/dL (0.0-1.0); Blood Urea Nitrogen 10 mg/dL (9-16); COVID-19 Test Negative (Negative); Calcium 8.9 mg/dL (8.4-10.2); Carbon Dioxide 25 mmol/L (22-29); Chloride 108 mmol/L (96-108); Creatinine Clr Calc Pharmacy 68.6; Estimated Glomerular Filt Rate > 60; Glucose Random 94 mg/dL (60-115); IDNOW Serial# 6674DD1D; Potassium 4.1 mmol/L (3.3-5.1); Sodium 141 mmol/L (135-145); Total Protein 6.5 g/dL (6.5-8.0)
[2023-06-26 07:16] VITALS: BP 118/73; PULSE 59
[2023-06-26 07:17] VITALS: BP 122/73; PULSE 57
[2023-06-26 07:18] VITALS: BP 113/80; PULSE 70
[2023-06-26 07:35] LABS: Appearance Urine Clear; Color Urine Yellow; Glucose Urine UA Negative (Negative); Leukocyte Esterase Urine Negative (Negative); Nitrite Urine Negative (Negative); PH 5.5 (5.0-9.0); Urine Blood Negative (Negative); Urine Ketones Negative (Negative); Urine Protein Negative (Neg-Trace)
== END 2023-06-26 07:52 | disposition home or self-care (01) ==
PROVIDERS: Registered Nurse Emergency; Emergency Provider Emergency Medicine
DX: J40 Bronchitis, not specified as acute or chronic (principal); Z20.822 Contact with and (suspected) exposure to COVID-19; R42 Dizziness and giddiness
CPT/HCPCS: 71045; 80053; 81003; 85025; 87635; 99283; 99284

== ENCOUNTER 2023-06-27 09:50 | Outpatient (REF) | payer MEDICAID, SELFPAY ==
[2023-06-27 16:29] LABS: Anion Gap 17 (12-20); Blood Urea Nitrogen 9 mg/dL (9-16); Calcium 9.3 mg/dL (8.4-10.2); Carbon Dioxide 21 mmol/L (22-29); Chloride 107 mmol/L (96-108); Cholesterol 219 mg/dL; Estimated Glomerular Filt Rate > 60; Glucose Random 72 mg/dL (60-115); HDL Cholesterol 65 mg/dL; LDL Cholesterol Calculated 138 mg/dl; Magnesium 2.1 mg/dL (1.6-2.6); Potassium 3.6 mmol/L (3.3-5.1); Sodium 141 mmol/L (135-145); Triglycerides 80 mg/dL
[2023-06-27 16:42] LABS: Vitamin D 25-OH Total 53.7 ng/mL (>30)
== END 2023-06-27 09:51 | disposition home or self-care (01) ==
LOC: HO.CHCLDS 09:50
PROVIDERS: Visit Provider Student in an Organized Health Care Education/Training Program
DX: I10 Essential (primary) hypertension (principal); G35 Multiple sclerosis
CPT/HCPCS: 36415; 80048; 80061; 82306; 83735

== ENCOUNTER 2023-07-01 09:19 | Outpatient (AMB) | payer MEDICAID, SELFPAY ==
--- NOTE | 2023-07-01 09:22 | A.OFFVIS_ITS ---
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 At age 21 she was diagnosed with Multiple Sclerosis - by Dr. Granda. Her symptoms were numbness, speech problems, dizziness , urinary issues. Since then she has been having on and off numbness in her hands legs feet etc, gait issues, neck pain etc.She does not recall being on any medications for MS> she followed with Dr. Granda for 5 years.she was later seen by Dr. Caicedo, Dr. Mayes and had extensive evaluation at [facility] She does not recall any relapses but has been having generalized pain, weakness, sensory complaints. She denies loss of vision, double vision. she has on and off vertigo. she also has generalized fatigue. she reports numbness in srini hands. she has neck pain but no radiating pain. she has difficulty holding her urine - she has prolapsed uterus and scheduled to see a urologist. she says her speech is slurred and has swallowing issues sometimes when her throat is dry. Her mother in 2020 and has been having sleep issues since then. she had a in lab sleep study few years ago and sleep apnea was ruled out. she has generalized fatigue. [facility] Medical History (Updated 07/01/23 @ 10:05 by Abby Trujillo MD) Cystocele with uterine prolapse Gait disturbance GERD (gastroesophageal reflux disease) Headache HTN (hypertension) Numbness and tingling in both hands Plantar fasciitis Surgical History H/O tubal ligation Family History Mother Multiple myeloma Maternal Aunt Breast cancer Colon cancer Cancer of blood vessel Social History Alcohol intake: current Alcohol intake frequency: holidays/special occasions only Patient Tobacco Use Status: Current someday Tobacco user Review of Systems Const Reports daytime sleepiness, Reports fatigue and Reports malaise Eyes Reports blurry vision ENT Reports neck pain Reports urinary urgency Musc Reports neck pain and Reports numbness Neuro Reports numbness Psych Reports depression Endo Reports fatigue Physical Exam Vital Signs: Last Vital Signs Pulse 59 07/01/23 09:25 BP 118/70 07/01/23 09:25 Pulse Ox 99 07/01/23 09:25 Oxygen Delivery Method Room Air 07/01/23 09:25 BMI result Body Mass Index 24.7 Const General: cooperative, healthy appearing and anxious Nutritional Appearance: average body habitus Orientation/consciousness: patient oriented x3 Eyes Pupils: Equal, round and reactive pupils present Neuro General: patient oriented x3, tone normal and moves all extremities Cranial nerves: Yes Facial sensation intact/muscles of mastication intact, Yes Equal, round and reactive pupils present, Yes Bilaterally intact EOM present, Yes Nystagmus not present, Yes Normal facial strength present, Yes Symmetric palate elevation present, Yes Ability to bilaterally rotate head present and Yes Ability to bilaterally elevate shoulders present Cognition (Neuro): normal cognition Speech: Other speech findings present (Neuro) (normal) Gait exam (Neuro): Other gait observations present (drags her feet , can do tandem gait) Motor exam (neuro): 5/5 motor strength present throughout and Normal motor m uscle tone present throughout Deep tendon reflexes (DTR's): Right triceps reflex intensity grade: 3+, Left triceps reflex intensity grade: 3+, Rt Biceps (C5, C6): 3+, Left biceps reflex intensity grade: 3+, Right brachioradialis reflex intensity grade: 3+, Left brachioradialis reflex intensity grade: 3+, Right patellar reflex intensity grade: 3+, Left patellar reflex intensity grade: 3+, Right ankle reflex intensity grade: 3+ and Left ankle reflex intensity grade: 3+ Coordination: [id number] test normal Psych Affect: Labile affect present and Anxious affect present Assessment & Plan Assessment & Plan (1) Gait disturbance: Comment: ? MS Code(s): R26.9 - Unspecified abnormalities of gait and mobility (2) Numbness and tingling in both hands: Code(s): R20.0 - Anesthesia of skin; R20.2 - Paresthesia of skin Plan Reports from [place] - for review ( MRI LP , evoked potential) I will schedule her for EMG NCS UE PT for gait Reports from Dr. Truong. will consider repeat MRI after reviewing records Orders: Orders NE electromyogram (EMG) Today R20.0 - Anesthesia of skin, R20.2 - Paresthesia of skin PT Evaluation and Treatment Today R26.9 - Unspecified abnormalities of gait and mobility Coding Level of Care Code New Pt Level 4 (71823) Diagnoses Gait disturbance R26.9 Numbness and tingling in both hands R20.0; R20.2
[2023-07-01 09:25] VITALS: BP 118/70; PULSE 59; O2SAT 99; BMI 24.7
== END 2023-07-01 10:03 | disposition home or self-care (01) ==
PROVIDERS: PCP Student in an Organized Health Care Education/Training Program; Visit Provider Psychiatry & Neurology Neurology
DX: R26.9 Unspecified abnormalities of gait and mobility (principal); R20.0 Anesthesia of skin; R20.2 Paresthesia of skin
CPT/HCPCS: 99204

== ENCOUNTER → 2023-07-01 09:19 | Outpatient (BNVA) | payer MEDICAID, SELFPAY | PROVIDERS: PCP Student in an Organized Health Care Education/Training Program; Visit Provider Psychiatry & Neurology Neurology | DX: R26.9 Unspecified abnormalities of gait and mobility (principal); R20.0 Anesthesia of skin; R20.2 Paresthesia of skin | CPT/HCPCS: 99202 ==

== ENCOUNTER 2023-07-10 10:22 | Outpatient (REF) | payer OTHER, SELFPAY ==
--- NOTE | 2023-07-10 10:25 | EMG_ITS ---
Please see scanned EMG / Nerve Conduction Report. MTDD
== END 2023-07-10 10:23 | disposition home or self-care (01) ==
LOC: HO.NEURO 10:22
PROVIDERS: Visit Provider Psychiatry & Neurology Neurology
DX: R20.0 Anesthesia of skin (principal); R20.2 Paresthesia of skin
CPT/HCPCS: 95860; 95885; 95907; 95913

== ENCOUNTER 2024-01-06 09:55 | Outpatient (AMB) | payer OTHER, SELFPAY ==
--- NOTE | 2024-01-06 09:59 | A.OFFVIS_ITS ---
Intake Vital Signs 01/06/24 10:01 Height 5 ft 4 in Weight 149 lb 8 oz BMI 25.7 BP 102/70 Blood Pressure Location Rt brachial Position Sitting Respiration 16 Pulse 76 Pulse Source Pulse Oximeter Pulse Oximetry (%) 96 Oxygen Delivery Method Room Air Intake Visit Reasons: F/U Intake Note: Pt presents tot he office for 6 month follow up for gait disturbance. Pollution Control Engineer Required: No Allergies penicillin V Allergy (Unknown, Verified 01/06/24 10:00) swelling Penicillins [PENICILLINS] Allergy (Unknown, Verified 01/06/24 10:00) UNKNOWN Medication List - Last Reconciled 01/06/24 by Abby Trujillo MD gabapentin 100 mg PO BID lisinopril 10 mg PO DAILY omeprazole 20 mg PO DAILY oxybutynin chloride ER 10 mg PO DAILY HPI HPI Comments History of Present Illness Details 58y/o female comes for follow up.I revie wed her MRI C spien T spine and brain from 2019 - no evidence of demyelination. MRI brain showed some white matter changes and cavitary changes ( old lacunar infarcts ) . EMG UE done on was normal . Her main complaints are pain in back neck legs and feet. she calls it achy ,cramps, more with moving.she was told she has fibromyalgia. she reports spinning sensation on and off more when is moving around. she feels like she loses balance few times a week usually lasts 2 minutes and self resolves- for many years, she denies tinnitus.No double vision. Previous history- At age 21 she was diagnosed with Multiple Sclerosis - by Dr. Granda. Her symptoms were numbness, speech problems, dizziness , urinary issues. Since then she has been having on and off numbness in her hands legs feet etc, gait issues, neck pain etc.She does not recall being on any medications for MS> she followed with Dr. Granda for 5 years.she was later seen by Dr. Caicedo, Dr. Mayes and had extensive evaluation at [facility] She does not recall any relapses but has been having generalized pain, weakness, sensory complaints. She denies loss of vision, double vision. she has on and off vertigo. she also has generalized fatigue. she reports numbness in srini hands. she has neck pain but no radiating pain. she has difficulty holding her urine - she has prolapsed uterus and scheduled to see a urologist. she says her speech is slurred and has swallowing issues sometimes when her throat is dry. Her mother in 2020 and has been having sleep issues since then. she had a in lab sleep study few years ago and sleep apnea was ruled out. she has generalized fatigue. [facility] Medical History (Updated 07/01/23 @ 10:05 by Abby Trujillo MD) Numbness and tingling in both hands Gait disturbance GERD (gastroesophageal reflux disease) Headache Plantar fasciitis HTN (hypertension) Cystocele with uterine prolapse Surgical History (Updated 01/06/24 @ 10:06 by Jennifer Abdul CMA) H/O total hysterectomy H/O tubal ligation Family History Mother Multiple myeloma Maternal Aunt Breast cancer Colon cancer Cancer of blood vessel Social History Alcohol intake: current Alcohol intake frequency: holidays/special occasions only Patient Tobacco Use Status: Current someday Tobacco user Physical Exam Vital Signs: Last Vital Signs Pulse 76 01/06/24 10:01 Resp 16 01/06/24 10:01 BP 102/70 01/06/24 10:01 Pulse Ox 96 01/06/24 10:01 Oxygen Delivery Method Room Air 01/06/24 10:01 BMI result Body Mass Index 25.7 Const General: cooperative, healthy appearing and anxious Nutritional Appearance: average body habitus Orientation/consciousness: patient oriented x3 Eyes Pupils: Equal, round and reactive pupils present Neuro General: patient oriented x3, tone normal and moves all extremities Cranial nerves: Yes Facial sensation intact/muscles of mastication intact, Yes Equal, round and reactive pupils present, Yes Bilaterally intact EOM present, Yes Nystagmus not present, Yes Normal facial strength present, Yes Symmetric palate elevation present, Yes Ability to bilaterally rotate head present and Yes Ability to bilaterally elevate shoulders present Cognition (Neuro): normal cognition Speech: Other speech findings present (Neuro) (normal) Gait exam (Neuro): Other gait observations present (drags her feet , can do tandem gait) Motor exam (neuro): 5/5 motor strength present throughout and Normal motor muscle tone present throughout Deep tendon reflexes (DTR's): Right triceps reflex intensity grade: 3+, Left triceps reflex intensity grade: 3+, Rt Biceps (C5, C6): 3+, Left biceps reflex intensity grade: 3+, Right brachioradialis reflex intensity grade: 3+, Left brachioradialis reflex intensity grade: 3+, Right patellar reflex intensity grade: 3+, Left patellar reflex intensity grade: 3+, Right ankle reflex intensity grade: 3+ and Left ankle reflex intensity grade: 3+ Coordination: [id number] test normal Psych Affect: Labile affect present and Anxious affect present Assessment & Plan Assessment & Plan (1) Gait disturbance: Comment: ? MS Code(s): R26.9 - Unspecified abnormalities of gait and mobility (2) Numbness and tingling in both hands: Code(s): R20.0 - Anesthesia of skin; R20.2 - Paresthesia of skin Plan MRI c spine - to r/o cord compression, patient reports gait issues, very hyperreflexic Discuss with PCP about seeing a Fire Management Technician for fibromyalgia , arthritis etc. Reviewed records from [place] I will refer her to PT for gait training. Orders: Orders PT Evaluation and Treatment Today R26.9 - Unspecified abnormalities of gait and mobility MR cervical spine wo con Today R20.0 - Anesthesia of skin, R20.2 - Paresthesia of skin, R26.9 - Unspecified abnormalities of gait and mobility Coding Level of Care Code Est Pt Level 4 (30472) Diagnoses Gait disturbance R26.9 Numbness and tingling in both hands R20.0; R20.2
[2024-01-06 10:01] VITALS: BP 102/70; PULSE 76; RESP 16; O2SAT 96; BMI 25.7
== END 2024-01-06 10:27 | disposition home or self-care (01) ==
LOC: HO.HSMS 09:55
PROVIDERS: PCP Student in an Organized Health Care Education/Training Program; Visit Provider Psychiatry & Neurology Neurology
DX: R26.9 Unspecified abnormalities of gait and mobility (principal); R20.0 Anesthesia of skin; R20.2 Paresthesia of skin
CPT/HCPCS: 99214

== ENCOUNTER → 2024-01-06 09:55 | Outpatient (BNVA) | payer OTHER, SELFPAY | PROVIDERS: PCP Student in an Organized Health Care Education/Training Program; Visit Provider Psychiatry & Neurology Neurology | DX: R26.9 Unspecified abnormalities of gait and mobility (principal); R20.0 Anesthesia of skin; R20.2 Paresthesia of skin | CPT/HCPCS: 99212 ==

== ENCOUNTER 2024-02-05 18:44 | Outpatient (REF) | payer OTHER, SELFPAY ==
--- NOTE | ~2024-02-05 | MR_ITS ---
EXAMINATION: MR CERVICAL SPINE WITHOUT CONTRAST CLINICAL INFORMATION: 58-year-old with self-reported neck pain and gait disturbance with bilateral lower extremity weakness, pain and numbness. Unspecified abnormalities of gait and mobility. COMPARISON: 01/15/2019 MRI TECHNIQUE: MRI of the cervical spine was obtained using routine sequences without contrast. FINDINGS: ALIGNMENT: There is mild lordotic reversal centered at C5-C6. There is approximately 2 mm of anterolisthesis at C3-C4 and C4-C5 and there is trace retrolisthesis at C5-C6. These findings have progressed since the previous study. CRANIOCERVICAL JUNCTION/C1-C2 ARTICULATIONS: Intact and aligned. VISUALIZED INTRACRANIAL STRUCTURES: Note is made of a few small left cerebellar hemispheric infarcts and a small remote infarct in the manuel similar to the previous study. VERTEBRAL BODIES: There is [id number] chronic anterior wedging of the C5 vertebral body, stable from previous study and there is also mild loss of height of C6 stable from previous exam. Otherwise, vertebral body heights are well-maintained. DISC SPACES AND ENDPLATES: There is severe intervertebral disc space height loss at C5-C6, progressed from the previous study, with progression of Schmorl's nodes, disc desiccation and spondylosis at this level. Remaining intervertebral disc space heights are stable from previous exam and appear well-maintained. There is minor anterior marginal spondylosis at C4-C5 progressed from previous study. Minor anterior marginal spondylosis at C6-C7 is minimally progressed. BONE MARROW: There are type I degenerative marrow signal changes seen along the endplates at C5-C6 which have developed since the previous exam. Marrow edema within the C5 vertebral body approaches the superior endplate of C5, which is nonspecific. Cannot exclude a nonhealed fracture of the C5 vertebral body. C2-C3: No disc herniation or canal stenosis. There is facet joint ankylosis on the right stable in appearance. No significant neural foraminal stenosis. C3-C4: Slight unroofing of the posterior disc margin is noted, with posterior disc osteophyte complex asymmetric to the left and mild flattening of the dural sac without cord impingement or canal stenosis. There is severe left-sided and moderate right-sided facet joint arthropathy similar to the previous exam. Mild to moderate degrees of bilateral neural foraminal narrowing are noted which have progressed from previous study, partly related to anterolisthesis. C4-C5: Mild unroofing of the posterior disc margin consistent with mild anterolisthesis, with slight flattening of the ventral dural sac without cord impingement or canal stenosis. There is marked right-sided and mild left-sided facet joint arthropathy with uncovertebral spurring, right more than left, now with moderate right-sided neural foraminal stenosis. C5-C6: Broad-based disc osteophyte complex asymmetric to the left similar to the previous study with flattening of the ventral dural sac and mild chronic left-sided ventral cord deformity stable in appearance. Mild central canal stenosis is stable. There is uncovertebral spurring, left more than right and facet arthropathy with mild right-sided and moderate left-sided neural foraminal stenosis. C6-C7: Shallow left central disc protrusion stable in appearance. No cord impingement or canal stenosis. No significant DJD or neural foraminal stenosis. C7-T1: Normal annular contour. No significant DJD, canal or neural foraminal stenosis. T1-T2: Normal annular contour. No significant DJD, canal or neural foraminal stenosis. SPINAL CORD: The cervical and visualized upper thoracic spinal cord is normal in signal intensity throughout, without focal lesion, edema or syrinx. EXTRACRANIAL SOFT TISSUES: The visualized extracranial head/neck soft tissues are unremarkable within the limitations of the study. Signal voids are seen in the visualized major arterial and venous structures. MR/MR cervical spine wo con IMPRESSION: 1. Lordotic reversal centered at C5-C6 with mild anterolisthesis at C3-C4 and C4-C5 and trace retrolisthesis at C5-C6 progressed from previous exam. 2. Discogenic degenerative changes primarily at C5-C6 progressed from previous exam, with disc osteophyte complex and mild canal stenosis at this level with mild chronic left-sided ventral cord deformity stable in appearance. Posterior disc osteophyte complex asymmetric to the left at C3-C4 with severe left-sided and moderate right-sided facet joint arthropathy similar to previous exam with mild to moderate bilateral neural foraminal stenosis progressed from previous study. 3. Multilevel bilateral facet joint arthropathy and uncovertebral spurring as described above, now with moderate right-sided neural foraminal stenosis at C4-C5 and moderate left-sided neural foraminal stenosis at C5-C6. 4. Marrow edema in the C5 vertebral body approaching the superior endplate of C5 which is nonspecific. Cannot exclude a nonhealed fracture of the C5 vertebral body; however, vertebral body height is stable from the previous exam at this level. If clinically warranted, CT of the cervical spine may be of additional value. 5. 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
== END 2024-02-05 18:45 | disposition home or self-care (01) ==
LOC: HO.MRI 18:44
PROVIDERS: PCP Student in an Organized Health Care Education/Training Program; Visit Provider Psychiatry & Neurology Neurology
DX: R26.9 Unspecified abnormalities of gait and mobility (principal); R20.0 Anesthesia of skin; R20.2 Paresthesia of skin
CPT/HCPCS: 72141

== ENCOUNTER 2024-03-05 13:15 | Outpatient (AMB) | payer OTHER, SELFPAY ==
--- NOTE | 2024-03-05 13:17 | HO.SPINEOV ---
Intake Intake Visit Reasons: neck pain Intake Note: Ms. Valle is here today c/o neck pain. 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 She is a very nice 58-year-old female who has had almost 40 years of a mysterious neurological set of symptoms that include gait imbalance, intermittent periods of numbness and weakness, pain in her legs and her arms, as well as fatigue. Her family seems to think it has been getting worse over time. She has been seen by multiple neurologists. Originally was thought she had MS but then the diagnosis was excluded so at this point she is more less not had any firm diagnosis for what has been going on with her. She does intermittently get neck pain and had a cervical MRI was sent down today to see us. That is not really the main issue that is bothering her, the main thing is the diffuse body pains, numbness, gait imbalance etc.. PMH: She is reasonably healthy other than her neurological condition, history of hypertension, GERD, overactive bladder, fibromyalgia, arthritis, hysterectomy, tubal ligation Social hx: She does not smoke Medications: Lisinopril, omeprazole, oxybutynin, gabapentin, vitamin-D Allergies: Penicillin Physical exam: She is able to stand out of a chair and walk but she is unsteady, she appears to have some degree of rigidity or spasticity in her right leg. Cranial nerve testing reveals a left gaze nystagmus and possibly a beat of nystagmus with upward gaze as well. Pupils are equal responsive reactive to light and her extraocular movements are full. The rest of the cranial nerve testing was intact. She is diffusely hyperreflexic with Terry's and clonus. Her gross motor strength appears normal. Imaging review: She has a cervical MRI done at [facility] showing what appears to be an old stroke in the manuel in the left cerebellum. She has some disc degeneration at C5-6 but no significant central canal stenosis. She has mild to moderate left foraminal stenosis at C5-6. She is has other milder degenerative changes at other levels but nothing significant. Impression: 58-year-old female who has had now almost 40 years of some kind of progressive neurological condition that gives her a host of symptoms as outlined above. She does have neck pain and she does have degenerative disc disease at C5-6 but it is not anything overtly surgical. There is no spinal cord compression to explain the patient's symptoms in the arms and legs. The patient's main complaints are the neurological issues and not the neck pain so I do not think a surgery for her would give her any kind of lasting relief from the symptoms that are actually bothering her. I will defer to your opinion as to whether not these neurological issues need to have any further workup. It sounds like she has had a very thorough evaluation by multiple neurologists but her diagnosis has been elusive. Thank you for allowing us to care for your patient. The total time spent with this visit with this patient was 45 minutes reviewing history, physical exam, cervical spine imaging review, and implementation of treatment plan or further diagnostic testing Michael Mejia MD,PhD [facility] Coding Level of Care Code New Pt Level 4 (23527) Diagnoses Degenerative cervical spinal stenosis M48.02
== END 2024-03-05 13:51 | disposition home or self-care (01) ==
PROVIDERS: PCP Student in an Organized Health Care Education/Training Program; Referring Provider Nurse Practitioner Family; Visit Provider Physician Assistant
DX: M48.02 Spinal stenosis, cervical region (principal)
CPT/HCPCS: 99204

== ENCOUNTER → 2024-03-05 13:15 | Outpatient (BNVA) | payer OTHER, SELFPAY | PROVIDERS: PCP Student in an Organized Health Care Education/Training Program; Visit Provider Physician Assistant | DX: M48.02 Spinal stenosis, cervical region (principal) | CPT/HCPCS: 99202 ==

== ENCOUNTER 2024-04-14 12:26 | Outpatient (AMB) | payer OTHER, SELFPAY ==
--- NOTE | 2024-04-14 12:30 | MHC.OFFVIS ---
Vital Signs 04/14/24 12:31 Height 5 ft 4 in Weight 149 lb BMI 25.6 BP 98/58 L Blood Pressure Location Rt brachial Position Sitting Respiration 16 Pulse 74 Pulse Source Pulse Oximeter Pulse Oximetry (%) 98 Oxygen Delivery Method Room Air Intake Visit Reasons: Gait disorder, Back pain, Neck pain Intake Note: Pt presents to the office for a 3 month follow up for gait disturbance. 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 MRI brain showed some white matter changes and cavitary changes ( old lacunar infarcts ) .She had MRI LS spine few years ago - no report available today. EMG UE done on was normal . Her main complaints are pain in back neck legs and feet. she calls it achy ,cramps, more with moving.she was told she has fibromyalgia.she was seen by Neurospine and they did not think she needs surgical intervention.she is waiting to see a Body Straightener she reports spinning sensation on and off more when is moving around. she feels like she loses balance few times a week usually lasts 2 minutes and self resolves- for many years, she denies tinnitus.No double vision. Previous history- At age 21 she was diagnosed with Multiple Sclerosis - by Dr. Granda. Her symptoms were numbness, speech problems, dizziness , urinary issues. Since then she has been having on and off numbness in her hands legs feet etc, gait issues, neck pain etc.She does not recall being on any medications for MS> she followed with Dr. Granda for 5 years.she was later seen by Dr. Caicedo, Dr. Mayes and had extensive evaluation at [facility] She does not recall any relapses but has been having generalized pain, weakness, sensory complaints. She denies loss of vision, double vision. she has on and off vertigo. she also has generalized fatigue. she reports numbness in srini hands. she has neck pain but no radiating pain. she has difficulty holding her urine - she has prolapsed uterus and scheduled to see a urologist. she says her speech is slurred and has swallowing issues sometimes when her throat is dry. Her mother in 2020 and has been having sleep issues since then. she had a in lab sleep study few years ago and sleep apnea was ruled out. she has generalized fatigue. [facility] Medical History (Updated 04/14/24 @ 12:47 by Abby Trujillo MD) Numbness and tingling of both legs Degenerative cervical spinal stenosis Numbness and tingling in both hands Gait disturbance GERD (gastroesophageal reflux disease) Headache Plantar fasciitis HTN (hypertension) Cystocele with uterine prolapse Surgical History H/O total hysterectomy H/O tubal ligation Family History Mother Multiple myeloma Maternal Aunt Breast cancer Colon cancer Cancer of blood vessel Social History Alcohol intake: current Alcohol intake frequency: holidays/special occasions only Patient Tobacco Use Status: Current someday Tobacco user Physical Exam Vital Signs: Last Vital Signs Pulse 74 04/14/24 12:31 Resp 16 04/14/24 12:31 BP 98/58 L 04/14/24 12:31 Pulse Ox 98 04/14/24 12:31 Oxygen Delivery Method Room Air 04/14/24 12:31 BMI result Body Mass Index 25.6 Const General: cooperative, healthy appearing and anxious Nutritional Appearance: average body habitus Orientation/consciousness: patient oriented x3 Eyes Pupils: Equal, round and reactive pupils present Neuro General: patient oriented x3, tone normal and moves all extremities Cranial nerves: Yes Facial sensation intact/muscles of mastication intact, Yes Equal, round and reactive pupils present, Yes Bilaterally intact EOM present, Yes Nystagmus not present, Yes Normal facial strength present, Yes Symmetric palate elevation present, Yes Ability to bilaterally rotate head present and Yes Ability to bilaterally elevate shoulders present Cognition (Neuro): normal cognition Speech: Other speech findings present (Neuro) (normal) Gait exam (Neuro): Other gait observations present (drags her feet , can do tandem gait) Motor exam (neuro): 5/5 motor strength present throughout and Normal motor muscle tone present throughout Deep tendon reflexes (DTR's): Right triceps reflex intensity grade: 3+, Left triceps reflex intensity grade: 3+, Rt Biceps (C5, C6): 3+, Left biceps reflex intensity grade: 3+, Right brachioradialis reflex intensity grade: 3+, Left brachioradialis reflex intensity grade: 3+, Right patellar reflex intensity grade: 3+, Left patellar reflex intensity grade: 3+, Right ankle reflex intensity grade: 3+ and Left ankle reflex intensity grade: 3+ Coordination: [id number] test normal Psych Affect: Labile affect present and Anxious affect present Assessment & Plan Assessment & Plan (1) Gait disturbance: Comment: hyperreflexia in LE Code(s): R26.9 - Unspecified abnormalities of gait and mobility Category: Medical (2) Numbness and tingling in both hands: Code(s): R20.0 - Anesthesia of skin; R20.2 - Paresthesia of skin Category: Medical (3) Numbness and tingling of both legs: Code(s): R20.0 - Anesthesia of skin; R20.2 - Paresthesia of skin Category: Medical Plan MRI LS spine - to r/o cord compression, patient reports gait issues, very hyperreflexic F/u Body Straightener for fibromyalgia , arthritis etc. Reviewed records from [facility] Orders: Orders MR lumbar spine wo con Today R20.0 - Anesthesia of skin, R20.2 - Paresthesia of skin, R26.9 - Unspecified abnormalities of gait and mobility PT Evaluation and Treatment Today M48.02 - Spinal stenosis, cervical region, R26.9 - Unspecified abnormalities of gait and mobility Coding Level of Care Code Est Pt Level 4 (65160) Diagnoses Gait disturbance R26.9 Numbness and tingling in both hands R20.0; R20.2 Numbness and tingling of both legs R20.0; R20.2
[2024-04-14 12:31] VITALS: BP 98/58; PULSE 74; RESP 16; O2SAT 98; BMI 25.6
== END 2024-04-14 13:40 | disposition home or self-care (01) ==
PROVIDERS: PCP Student in an Organized Health Care Education/Training Program; Visit Provider Psychiatry & Neurology Neurology
DX: R26.9 Unspecified abnormalities of gait and mobility (principal); R20.0 Anesthesia of skin; R20.2 Paresthesia of skin
CPT/HCPCS: 99214

== ENCOUNTER → 2024-04-14 12:26 | Outpatient (BNVA) | payer OTHER, SELFPAY | PROVIDERS: PCP Student in an Organized Health Care Education/Training Program; Visit Provider Psychiatry & Neurology Neurology | DX: R26.9 Unspecified abnormalities of gait and mobility (principal); R20.0 Anesthesia of skin; R20.2 Paresthesia of skin | CPT/HCPCS: 99212 ==

== ENCOUNTER 2024-06-01 18:44 | Outpatient (REF) | payer OTHER, SELFPAY ==
--- NOTE | ~2024-06-01 | MR_ITS ---
EXAMINATION: MR LUMBAR SPINE WITHOUT CONTRAST CLINICAL INFORMATION: Abnormalities of gait and mobility, back pain for 2 years COMPARISON: Lumbar spine x-ray on 10/21/2010 TECHNIQUE: MRI of the lumbar spine was obtained using routine sequences without contrast. FINDINGS: The visualized lumbar vertebrae are intact with normal alignment. Evaluation of the intervertebral discs show: T12/L1: Intervertebral disc height is normal, with normal T2 signal. No focal disc herniation is seen. Bilateral T12/L1 neuroforamina are patent. Bilateral apophyseal joints are intact with normal alignment. L-1/L-2: Intervertebral disc height is normal, with normal T2 signal. No focal disc herniation is seen. Bilateral L1-L2 neuroforamina are patent. Bilateral apophyseal joints are intact with normal alignment. L2/L3: Intervertebral disc height is normal, with normal T2 signal. Mild broad-based disc bulge is seen. Bilateral L2-L3 neuroforamina are patent. Bilateral apophyseal joints are intact with normal alignment. L3/L4: Intervertebral disc height is normal, with mild loss of T2 signal. No focal disc herniation is seen. Bilateral L3-L4 neuroforamina are patent. Bilateral apophyseal joints are intact with normal alignment. L4/L5: Intervertebral disc height is mildly decreased, with mild loss of T2 signal. Mild posterior disc protrusion is seen. Bilateral L4-L5 neuroforamina are patent. Bilateral apophyseal joints are intact with normal alignment. L5/S1: Intervertebral disc height is markedly decreased, with moderate loss of T2 signal. Mild posterior and bilateral foraminal disc protrusion is seen. There is marked asymmetric right L5-S1 neural foraminal stenosis. Bandlike T2 hyperintensity is seen at inferior L5 and superior S1 vertebral endplates. Bilateral apophyseal joints are intact with normal alignment. Conus medullaris is seen normally at L1 level. A T2 hyperintense T1 hypointense expansile mass lesion is seen in the region of filum terminale at upper L3 level, measuring 0.8 cm in AP diameter, 0.8 cm in width, 1.4 cm in vertical height. MR/MR lumbar spine wo con IMPRESSION: 1. 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 2. Advanced L5-S1 degenerative disc disease with mild posterior and bilateral foraminal disc protrusion causing marked asymmetric right L5-S1 neural foraminal stenosis. 3. L5-S1 junction Modic type I degenerative vertebral endplate changes are seen. 4. Mild L4-L5 posterior disc protrusion. 5. Mild L2-L3 broad-based disc bulge.
== END 2024-06-01 18:45 | disposition home or self-care (01) ==
LOC: HO.MRI 18:44
PROVIDERS: PCP Student in an Organized Health Care Education/Training Program; Visit Provider Psychiatry & Neurology Neurology
DX: R26.9 Unspecified abnormalities of gait and mobility (principal); R20.0 Anesthesia of skin; R20.2 Paresthesia of skin
CPT/HCPCS: 72148

== ENCOUNTER 2024-06-16 14:20 | Outpatient (REF) | payer OTHER, SELFPAY ==
--- NOTE | ~2024-06-16 | MM_ITS ---
EXAMINATION: MM SCREENING DIGITAL BREAST TOMOSYNTHESIS, BILATERAL CLINICAL INFORMATION: Screening. Asymptomatic. COMPARISON: Mammography: This study is compared with prior exams dating back to 2017. TECHNIQUE: Digital breast tomosynthesis is performed in both the craniocaudal and mediolateral oblique views along with computer-aided detection (CAD). Synthesized 2D images are generated from the tomosynthesis. FINDINGS: The breasts are heterogeneously dense, which may obscure small masses (ACR BI-RADS breast composition Category c). There are no significant masses, abnormal calcifications, or other abnormalities. Few, unchanged, well-circumscribed, benign masses are present in the retroareolar and upper outer quadrant of the left breast. MM/MM tomosynthesis screening BI IMPRESSION: No mammographic evidence of malignancy. ASSESSMENT: BI-RADS BI-RADS 2 - Benign Findings RECOMMENDATION: Routine annual mammography screening. 1 year F/U This examination should not preclude the clinical evaluation of a suspicious palpable abnormality. This patient's information was entered into a reminder system with a target due date for their next mammogram.
== END 2024-06-16 14:21 | disposition home or self-care (01) ==
LOC: HO.MAMMO 14:20
PROVIDERS: PCP Student in an Organized Health Care Education/Training Program; Visit Provider Student in an Organized Health Care Education/Training Program
DX: Z12.31 Encounter for screening mammogram for malignant neoplasm of breast (principal)
CPT/HCPCS: 77063; 77067

== ENCOUNTER → 2024-06-16 14:45 | Outpatient (BNV) | payer OTHER, SELFPAY | PROVIDERS: PCP Student in an Organized Health Care Education/Training Program; Visit Provider Radiology Diagnostic Radiology | DX: Z12.31 Encounter for screening mammogram for malignant neoplasm of breast (principal) | CPT/HCPCS: 77063; 77067 ==

== ENCOUNTER 2024-07-09 08:38 | Emergency (ER) | payer OTHER, SELFPAY ==
--- NOTE | ~2024-07-09 | XR_ITS ---
EXAMINATION: XR SACRUM AND COCCYX CLINICAL INFORMATION: Pain right side after fall COMPARISON: Lumbar spine MRI 06/01/2024 Lumbar spine radiographs 10/21/2010 TECHNIQUE: 2 views of the sacrum and 2 views of the coccyx were obtained. FINDINGS: There are no fractures. There is some mild degenerative changes seen at the lower facet joints. No significant bone, joint or soft tissue abnormality is demonstrated and appearances are quite similar to 10/21/2010. The previously seen expansile mass in the region of the filum terminale at the level of L3 on the MRI would not be expected to be seen on the current study. XR/XR sacrum coccyx min 2V IMPRESSION: No evidence of an acute osseous injury. Mild degenerative changes in the lower facet joints.
[2024-07-09 08:53] VITALS: BP 115/88; PULSE 68; RESP 18; TEMP 36.2; O2SAT 98; BMI 25.0
--- NOTE | 2024-07-09 09:39 | ED.FALL ---
HPI - Fall General Chief Complaint: Fall Stated Complaint: fell today at [facility] Time Seen by Provider: 07/09/24 09:07 Source: patient Mode of arrival: ambulatory Limitations: no limitations History of Present Illness ED Provider: Gabriele Kaur PA-C HPI Narrative: 59-year-old female with a history of HTN, GERD, chronic neck and back pain who presents to the ER for evaluation of right buttock pain that travels down her leg after she slipped and fell in [facility] today. He reports pain in her tailbone immediately after the fall. She fell onto her right side. She did not hit her head or lose consciousness. She is not on anticoagulation. She reports she is on disability and has chronic neck and back issues and was worried about this injury. MD complaint: fall Fall from: standing Fall witnessed: yes, by bystander Place fall occurred: other ([facility]) Loss of consciousness: none Prolonged down time: no Symptoms prior to fall: none Context: tripped/slipped Location of injury: pelvis Associated symptoms (after fall): denies Related Data Home Medications ?Medication ?Instructions ?Recorded ?Confirmed gabapentin 100 mg capsule 100 mg PO BID 06/20/23 04/14/24 lisinopril 10 mg tablet 10 mg PO DAILY 06/20/23 04/14/24 omeprazole 20 mg capsule,delayed 20 mg PO DAILY 06/20/23 04/14/24 release oxybutynin chloride 10 mg 10 mg PO DAILY 07/01/23 04/14/24 tablet,extended release 24 hr magnesium 200 mg tablet 200 mg PO DAILY 04/14/24 04/14/24 Previous Rx's ?Medication ?Instructions ?Recorded naproxen 500 mg tablet 500 mg PO BID PRN pain #20 tabs 07/09/24 Allergies Allergy/AdvReac Type Severity Reaction Status Date / Time penicillin V Allergy Unknown swelling Verified 07/09/24 08:55 Penicillins [PENICILLINS] Allergy Unknown Rash Verified 07/09/24 08:55 Review of Systems Review of Systems: Yes all other systems are reviewed and are negative [facility] Past Medical History Medical History (Updated 07/09/24 @ 11:31 by RODRIGUEZ Ho) Numbness and tingling of both legs Degenerative cervical spinal stenosis Numbness and tingling in both hands Gait disturbance GERD (gastroesophageal reflux disease) Headache Plantar fasciitis HTN (hypertension) Cystocele with uterine prolapse Surgical History H/O total hysterectomy H/O tubal ligation Family History Family History Mother Multiple myeloma Maternal Aunt Breast cancer Colon cancer Cancer of blood vessel Social History Social History Alcohol intake: current Alcohol intake frequency: holidays/special occasions only Patient Tobacco Use Status: Current someday Tobacco user Advance Directives: No Advance Directives Information Provided: Yes Physical Exam Vital Signs: Vital Signs: Last Vital Signs Temp 97.2 F 07/09/24 08:53 Pulse 68 07/09/24 08:53 Resp 18 07/09/24 08:53 BP 115/88 07/09/24 08:53 Pulse Ox 98 07/09/24 08:53 O2 Del Method Room Air 07/09/24 08:53 BMI result Body Mass Index 25.0 Appearance: Alert. Oriented X3. No acute distress. HEENT: normal external inspection Neck: Normal inspection. Neck supple. No midline tenderness. No step-off deformity. Full range of motion CVS: Normal heart rate and rhythm. Pulses normal. Respiratory: No respiratory distress. Breath sounds normal. Abdomen: Soft and nontender. +BS x4 Skin: Skin warm and dry. Normal skin color. Normal skin turgor. No rashes. Back: Nontender midline lumbar spine, tenderness of the right SI, coccyx area Extremities: No lower extremity edema. No joint swelling. Full range of motion of the right lower extremity. No swelling or tenderness of the right lateral hip, right knee or right ankle. Neuro/psych: Oriented X 3. No motor deficit. No sensory deficit. CN II-XII intact. Normal speech and cognition. Medications Administered Discontinued Medications Generic Name Dose Route Start Last Admin Trade Name Freq PRN Reason Stop Dose Admin Acetaminophen 975 mg 07/09/24 09:20 07/09/24 09:45 Acetaminophen 325 Mg Tablet PO 07/09/24 09:21 975 mg ONCE ONE Administration Ibuprofen 600 mg 07/09/24 09:20 07/09/24 09:45 Ibuprofen 600 Mg Tablet PO 07/09/24 09:21 600 mg ONCE ONE Administration Medical Decision Making Medical Decision Making [facility] Narrative: 59-year-old female with a history of chronic low back pain presents to the ER for evaluation of right coccyx pain after a slip and fall in [place]. No loss of consciousness or head strike. She is not on anticoagulation. She is ambulatory. Recent MRI lumbar spine reviewed. No midline spinal tenderness on exam, doubt acute compression fx or spinous process fx. XR coccyx was done given her tenderness and complaints - XR without acute fracutre. she was given motrin/tylenol with improvement in pain. stable for d/c home w/ NSAID and outpatient follow up PRN. Differential Diagnosis Differential Diagnoses: The differential diagnosis associated with the presentation includes Coccyx fracture, coccyx contusion, hip fracture, lumbar compression fracture, sacral fracture Independent Interpretation I performed an independent interpretation of an: Plain X-Ray Interpretation: no acute pelvic or coccyx fx Radiology Impression Discussion of test interpretation with radiology: I have reviewed the radiologist's reading. Radiologist Impression: CLINICAL INFORMATION: Pain right side after fall COMPARISON: Lumbar spine MRI 06/01/2024 Lumbar spine radiographs 10/21/2010 TECHNIQUE: 2 views of the sacrum and 2 views of the coccyx were obtained. FINDINGS: There are no fractures. There is some mild degenerative changes seen at the lower facet joints. No significant bone, joint or soft tissue abnormality is demonstrated and appearances are quite similar to 10/21/2010. The previously seen expansile mass in the region of the filum terminale at the level of L3 on the MRI would not be expected to be seen on the current study. XR/XR sacrum coccyx min 2V IMPRESSION: No evidence of an acute osseous injury. Mild degenerative changes in the lower facet joints. Independent Historian Clinical information obtained from an independent historian. History obtained from or confirmed by: Spouse External Record Review External record reviewed: Outpatient record and Prior outpatient labs Prescription Management I considered prescription management with: Pain Medication Chronic Conditions Patient?s care impacted by: Other (chronic LBP with degenerative disc disease) Critical Care Time Critical Care Time Critical Care Time: No Discharge Plan Discharge Clinical Impression: Coccyx contusion Qualifiers: Encounter type: initial encounter Qualified Code(s): S30.0XXA - Contusion of lower back and pelvis, initial encounter Patient Disposition: Home, Self-Care Instructions: Coccyx Injury (ED) Additional Instructions: Your x-ray today was normal. Use ice several times per day for the next 48 hours. Take the prescribed anti-inflammatory medication as directed. Also recommend Tylenol 1000 mg every 6-8 hours as needed for pain. Follow up with your doctor as needed. Prescriptions: New naproxen 500 mg tablet 500 mg PO BID PRN (Reason: pain) Qty: 20 0RF No Action magnesium 200 mg tablet 200 mg PO DAILY omeprazole 20 mg capsule,delayed release(DR/EC) 20 mg PO DAILY gabapentin 100 mg capsule 100 mg PO BID lisinopril 10 mg tablet 10 mg PO DAILY oxybutynin chloride 10 mg tablet extended release 24hr 10 mg PO DAILY Referrals: Tiny Soria MD [Primary Care Provider] - Interventions: ED Discharge Assessment Last Done: 07/09/24 11:56 Print Language: Croatian
[2024-07-09] MEDS: Ibuprofen 600 MG TABLET PO (09:45)
[2024-07-09] MEDS: Acetaminophen 325 MG TABLET 975 MG PO (09:45)
[2024-07-09 11:56] VITALS: BP 115/88; PULSE 68; RESP 18; TEMP 36.2; O2SAT 98
== END 2024-07-09 11:57 | disposition home or self-care (01) ==
PROVIDERS: Emergency Provider Student in an Organized Health Care Education/Training Program; PCP Student in an Organized Health Care Education/Training Program
DX: S30.0XXA Contusion of lower back and pelvis, initial encounter (principal); W01.0XXA Fall on same level from slipping, tripping and stumbling without subsequent striking against object, initial encounter; Y93.89 Activity, other specified; Y92.512 Supermarket, store or market as the place of occurrence of the external cause; Y99.9 Unspecified external cause status
CPT/HCPCS: 72220; 99283

== ENCOUNTER 2024-12-19 09:04 | Emergency (ER) | payer OTHER, SELFPAY ==
--- NOTE | ~2024-12-19 | XR_ITS ---
CLINICAL HISTORY: cough 2 view chest x-ray Comparison: CR/SR - XR CHEST 1V - 06/26/23 06:18 EDT Findings: No consolidation or effusion. Normal size heart. No acute fracture. IMPRESSION: 1. No acute findings. This document has been electronically signed by: Winston Pace MD on 12/19/2024 09:51:38
[2024-12-19 09:06] VITALS: BP 123/83; PULSE 92; RESP 19; TEMP 36.6; O2SAT 96; BMI 24.0
[2024-12-19 09:54] VITALS: BP 98/65; PULSE 77; RESP 19; TEMP 36.8; O2SAT 94
--- NOTE | 2024-12-19 10:13 | ED_ITS ---
HPI - URI/Sore Throat General Chief Complaint: Upper Respiratory Symptoms Stated Complaint: diff breathing chest congestion Time Seen by Provider: 12/19/24 09:27 Source: patient Mode of arrival: ambulatory Limitations: no limitations History of Present Illness ED Provider: Alicia Wetzel NP HPI Narrative: Patient is a 59-year-old female with past medical history of GERD, plantar fasciitis, hypertension, cystocele with uterine prolapse who presents emergency department for evaluation of 1 week with respiratory symptoms including productive cough with yellow phlegm, congestion, intermittent shortness of breath, occasional tactile fever. Denies known sick contacts. Report a long history of cigarette smoking but quit approximately 3 years ago. Denies fevers, chills, headache, dizziness, neck pain, neck stiffness, chest pain, sore throat, nausea, vomiting, abdominal pain, numbness or tingling of the extremities, genitourinary symptoms. Related Data Home Medications ?Medication ?Instructions ?Recorded ?Confirmed gabapentin 100 mg capsule 100 mg PO BID 06/20/23 04/14/24 lisinopril 10 mg tablet 10 mg PO DAILY 06/20/23 04/14/24 omeprazole 20 mg capsule,delayed 20 mg PO DAILY 06/20/23 04/14/24 release oxybutynin chloride 10 mg 10 mg PO DAILY 07/01/23 04/14/24 tablet,extended release 24 hr magnesium 200 mg tablet 200 mg PO DAILY 04/14/24 04/14/24 Previous Rx's ?Medication ?Instructions ?Recorded naproxen 500 mg tablet 500 mg PO BID PRN pain #20 tabs 07/09/24 albuterol sulfate 90 mcg/actuation 2 puff inhalation Q4-6H PRN 12/19/24 aerosol inhaler shortness of breath or wheezing #6.7 grams azithromycin 250 mg tablet See Rx Instructions PO .COMPLEX #6 12/19/24 tabs benzonatate 100 mg capsule 100 mg PO TID PRN cough #14 caps 12/19/24 Allergies Allergy/AdvReac Type Severity Reaction Status Date / Time penicillin V Allergy Unknown swelling Verified 12/19/24 09:09 Penicillins [PENICILLINS] Allergy Unknown Rash Verified 12/19/24 09:09 Review of Systems Review of Systems: Yes all other systems are reviewed and are negative PMFSH Past Medical History Attestation statement: The following information was validated with the patient. Source: old records reviewed Medical History Numbness and tingling of both legs Degenerative cervical spinal stenosis Numbness and tingling in both hands Gait disturbance GERD (gastroesophageal reflux disease) Headache Plantar fasciitis HTN (hypertension) Cystocele with uterine prolapse Surgical History H/O total hysterectomy H/O tubal ligation Family History Family History Mother Multiple myeloma Maternal Aunt Breast cancer Colon cancer Cancer of blood vessel Social History Social History Alcohol intake: current Alcohol intake frequency: holidays/special occasions o nly Patient Tobacco Use Status: Current someday Tobacco user Advance Directives: No Advance Directives Information Provided: No Do you have a plan to hurt others: No Plan Physical Exam Vital Signs: Vital Signs: Last Vital Signs Temp 98.2 F 12/19/24 09:54 Pulse 77 12/19/24 09:54 Resp 19 12/19/24 09:54 BP 98/65 12/19/24 09:54 Pulse Ox 94 12/19/24 09:54 O2 Del Method Room Air 12/19/24 09:54 BMI result Body Mass Index 24.0 Appearance: Alert.?Oriented to person, place and time. No acute distress.?Normal affect. Eyes: Pupils equal, round and reactive to light.? ENT: TM normal bilaterally. Pharynx normal.?? Neck: Normal inspection.? Neck supple.??No cervical adenopathy CVS: Heart sounds normal. Normal heart rate and rhythm.? Pulses normal.?? Respiratory: No respiratory distress.? Lung sounds rhonchorous throughout bilaterally? Abdomen: Soft and non-tender. Normoactive bowel sounds. Skin: Skin warm and dry.? Normal skin color.? ? Extremities: No lower extremity edema.? Neuro: Moves all extremities spontaneously. Sensation intact bilaterally. No motor deficits. Ambulates with normal steady gait. Medical Decision Making Medical Decision Making MDM Narrative: Patient is a 59-year-old female with past medical history of GERD, plantar fasciitis, hypertension, cystocele with uterine prolapse presenting to emergency department for evaluation of respiratory symptoms as per HPI. COVID-19 testing _. Influenza testing _. Chest x-ray is without evidence of consolidation or infiltrate to suggest pneumonia. At this time history and physical exam not consistent with ACS/PE. Well-appearing, nontoxic, afebrile, no tachycardia or tachypnea/hypoxia. Speaking clear full sentences, ambulatory with steady gait. Given her history of cigarette smoking I suspect that she likely has some degree of undiagnosed lung disease such as COPD, she is notably no gross throughout auscultation. Discussed plan of care for treatment with azithromycin in addition to benzonatate for cough, albuterol inhaler to use as needed for shortness of breath. Discussed conservative treatment including rest, hydration, Tylenol/ibuprofen as needed for fever and body aches, saline nasal spray, humidifier, rkzx-dzi-[id number] cold medication. Advised to follow-up with primary care provider as needed, discussed reasons to return back to the emergency department. All questions were answered. Patient discharged home in stable condition. Differential Diagnosis Differential Diagnoses: The differential diagnosis associated with the presentation includes ( See narrative above) Admission/Observation Consideration of admission/observation: Escalation of care including admission/observation considered ( see narrative above) Lab Data MDM Lab Attestation statement: I reviewed the patient's lab results. ( see narrative above) Independent Interpretation I performed an independent interpretation of an: Plain X-Ray (See narrative above) Radiology Impression Discussion of test interpretation with radiology: I have reviewed the radiologist's reading. Radiologist Impression: 2 view chest x-ray Comparison: CR/SR - XR CHEST 1V - 06/26/23 06:18 EDT Findings: No consolidation or effusion. Normal size heart. No acute fracture. IMPRESSION: 1. No acute findings. Independent Historian Clinical information obtained from an independent historian. History obtained from or confirmed by: Spouse External Record Review External record reviewed: Outpatient record Prescription Management I considered prescription management with: Pain Medication ( acetaminophen/ibuprofen) Chronic Conditions Patient?s care impacted by: Other (See narrative above) Discharge Plan Discharge Clinical Impression: Bronchitis Patient Disposition: Home, Self-Care Instructions: Acute Bronchitis (ED) Additional Instructions: Chest x-ray does not show evidence of pneumonia. COVID-19/influenza/RSV testing negative. Prescriptions have been sent to your pharmacy for azithromycin, benzonatate to use as needed for cough, albuterol inhaler to use as needed if you are experiencing shortness of breath/difficulty breathing. Be sure to rest, stay well hydrated drinking plenty of fluids, eat small frequent meals. Tylenol/ibuprofen can be used as needed for fever/pain. Sucn-pbi-xsskdif cold medications may be helpful as well for symptoms. Saline nasal spray, humidifier may be helpful for nasal congestion. You may return to the emergency department with any new or worsening symptoms or concerns. Follow-up with your primary care provider as needed. Prescriptions: New azithromycin 250 mg tablet See Rx Instructions .ROUTE .COMPLEX Qty: 6 0RF Rx Instructions: For 250 mg dose pack: take 500 mg today (day 1), then 250 mg for 4 days (days 2-5) benzonatate 100 mg capsule 100 mg PO TID PRN (Reason: cough) Qty: 14 0RF albuterol sulfate 90 mcg/actuation HFA aerosol inhaler 2 puff inhalation Q4-6H PRN (Reason: shortness of breath or wheezing) Qty: 6.7 0RF No Action naproxen 500 mg tablet 500 mg PO BID PRN (Reason: pain) Qty: 20 0RF magnesium 200 mg tablet 200 mg PO DAILY omeprazole 20 mg capsule,delayed release(DR/EC) 20 mg PO DAILY gabapentin 100 mg capsule 100 mg PO BID lisinopril 10 mg tablet 10 mg PO DAILY oxybutynin chloride 10 mg tablet extended release 24hr 10 mg PO DAILY Referrals: Tiny Soria MD [Primary Care Provider] - Print Language: Hungarian
[2024-12-19 11:15] LABS: Influenza A PCR NEGATIVE (Negative); Influenza B PCR NEGATIVE (Negative); Resp Syncy Virus RNA Qual PCR NEGATIVE (Negative); SARS COV2 PCR INHOUSE NEGATIVE (Negative)
[2024-12-19 11:48] VITALS: BP 105/63; PULSE 53; RESP 16; TEMP 36.6; O2SAT 95
[2024-12-19 11:49] VITALS: BP 105/63; PULSE 53; RESP 16; TEMP 36.6; O2SAT 95
== END 2024-12-19 11:50 | disposition home or self-care (01) ==
PROVIDERS: Emergency Provider Emergency Medicine; PCP Student in an Organized Health Care Education/Training Program
DX: J40 Bronchitis, not specified as acute or chronic (principal); R05.9 Cough, unspecified; Z03.818 Encounter for observation for suspected exposure to other biological agents ruled out; I10 Essential (primary) hypertension; Z87.891 Personal history of nicotine dependence; Z79.899 Other long term (current) drug therapy
CPT/HCPCS: 0241U; 71046; 99283

== ENCOUNTER → 2024-12-19 09:10 | Outpatient (BNV) | payer OTHER, SELFPAY | PROVIDERS: PCP Student in an Organized Health Care Education/Training Program; Visit Provider Radiology Diagnostic Radiology | DX: R05.9 Cough, unspecified (principal) | CPT/HCPCS: 71046 ==

== ENCOUNTER 2025-05-03 10:14 | Outpatient (REF) | payer OTHER, SELFPAY ==
--- OUTSIDE RECORDS SUMMARY | 2025-05-03 11:10 | XMS_ITS ---
Author Organization [facility] Address [address] [place] [address] Care Team Providers Care Allied Health Instructor Name Role Phone Tiny Soria Primary Care Provider Akanksha Coelho Unavailable [phone] Allergies Allergen (clinical drug ingredient) Drug/Non Drug Allergy documented on EMR Reaction Allergy Type Onset Date Status sulfamethoxazole / trimethoprim Bactrim Unknown Drug Allergy Active Penicillin Unknown Drug Allergy Active Medications Medication SIG (Take, Route, Frequency, Duration) Notes Start Date End Date Status Vitamin D3 Active Gabapentin Active Magnesium Active Lisinopril Active oxyBUTYnin Active Omeprazole Active Encounters Encounter Location Date Provider Diagnosis [facility] [address] [place] [address] 03/08/2025 Akanksha Soto Plan Of Treatment No Information Progress Notes * Meera FIERROOB:[birth year]10 (59 yo F)Acc No.[id number]:03/08/2025 Progress Note Patient:?Norma FIERRO Provider:?Akanksha Soto DPM :1965???Age:59 Y???Sex:Female D ate:03/08/2025 Address:[address] [place], [place] [address] Pcp:Tiny Soria Subjective: * Chief Complaints: * ??? * Medical History:?Back,Hip,an d Knee pain, Covid-19, Fibromyalgia, High Blood Pressure, Numbness, Psoriasis/eczema, Reflux ( GERD), Chicken pox. * Medications:?Taking Omeprazo le , Taking oxyBUTYnin , Taking Lisinopril , Taking Gabapentin , Taking Vitamin D3 , Taking Magnesium * Allergies:?Penicillin, Bactr im. Objective: * Vitals:? Assessment: Plan: * Treatment: * Images: * The named appointment provid er may or may not be the originator of this progress note, and it is not deemed complete until electronically signed by the appointment provider. Sign off status: Pending * Provider:?Akanksha Soto DPM Date:?0 03/08/2025 Generated for Alberto lundberg/Solange/eTrosasmitting on:?05/03/2025 11:10 AM EDT
[2025-05-04 12:46] LABS: Adenovirus F 40/41 Not Detected (Not Detect.); Astrovirus Not Detected (Not Detect.); Campylobacter Not Detected (Not Detect.); Cryptosporidium Not Detected (Not Detect.); Cyclospora cayetanensis Not Detected (Not Detect.); E. coli EAEC Not Detected (Not Detect.); E. coli EPEC Not Detected (Not Detect.); E. coli ETEC Not Detected (Not Detect.); E. coli STEC Not Detected (Not Detect.); Entamoeba histolytica Not Detected (Not Detect.); Giardia lamblia Not Detected (Not Detect.); Norovirus GI/GII Not Detected (Not Detect.); Plesiomonas shigelloides Not Detected (Not Detect.); Rotavirus A Not Detected (Not Detect.); Salmonella Not Detected (Not Detect.); Sapovirus Not Detected (Not Detect.); Shigella sp./EIEC Not Detected (Not Detect.); Vibrio Not Detected (Not Detect.); Vibrio Cholerae Not Detected (Not Detect.); Yersinia enterocolitica Not Detected (Not Detect.)
== END 2025-05-03 10:15 | disposition home or self-care (01) ==
LOC: HO.CHCLNP 10:14
PROVIDERS: PCP Student in an Organized Health Care Education/Training Program; Visit Provider Student in an Organized Health Care Education/Training Program
DX: R19.7 Diarrhea, unspecified (principal)
CPT/HCPCS: 87507

== ENCOUNTER 2025-06-15 13:47 | Outpatient (AMB) | payer OTHER, SELFPAY ==
--- OUTSIDE RECORDS SUMMARY | 2025-03-08 09:00 | XMS_ITS ---
Author Organization [facility] Address [address] [place] [address] Care Team Providers Care Apprentice Lineman Third Step Name Role Phone Tiny Soria Primary Care Provider Akanksha Coelho Unavailable [phone] Allergies Allergen (clinical drug ingredient) Drug/Non Drug Allergy documented on EMR Reaction Allergy Type Onset Date Status sulfamethoxazole / trimethoprim Bactrim Unknown Drug Allergy Active Penicillin Unknown Drug Allergy Active Medications Medication SIG (Take, Route, Frequency, Duration) Notes Start Date End Date Status Vitamin D3 Active Gabapentin Active Magnesium Active Lisinopril Active oxyBUTYnin Active Omeprazole Active Encounters Encounter Location Date Provider Diagnosis [address] [address] 03/08/2025 Akanksha Soto Plan Of Treatment Next Appt Details Provider Name:Akanksha jenkins, 06/16/2025 04:00:00 PM, [address] [place] [address], [phone], Progress Notes * Meera FIERROOB:[birth year] (60 yo F)Acc No.[id number]:03/08/2025 Progress Note Patient: Sapphire Norma FRANCO Provider: Tyree Soto DPM :1965 A ge:59 Y S ex:Female Date:03/08/2025 Address:[address] [facility] [id number] Pcp:Tiny Soria Subjective: * Chief Complaints: * [...] 0 03/08/2025 Generated for Alberto lundberg/Solange/Torin on: 0 06/15/2025 03:10 PM EDT
--- NOTE | 2025-06-15 14:14 | MHC.OFFVIS ---
Vital Signs 06/15/25 14:15 Height 5 ft 4 in Weight 153 lb 0.013 oz BMI 26.3 BP 86/56 L Blood Pressure Location Lt brachial Position Sitting Pulse 72 Intake Visit Reasons: gerd Intake Note: New pt for initial eval of GERD. FMHx colon cancer (M. Aunt). PCP Dr. Soria due to schedule Colonoscopy. CC; on and off diarrhea and constipation. Mild nausea in the morning. Denies vomiting. Management Developer Required: No Accompanied by: Tre boyfriend Allergies penicillin V Allergy (Unknown, Verified 06/15/25 14:22) swelling Medication List - Last Reconciled 06/15/25 by BARNEY Faustin-ARY famotidine 20 mg PO BEDTIME gabapentin 100 mg PO BID lisinopril 10 mg PO DAILY magnesium 200 mg PO DAILY naproxen 500 mg PO BID PRN oxybutynin chloride ER 10 mg PO DAILY HPI HPI gerd: Details: 60-year-old female with past medical history of hypertension, degenerative cervical spinal stenosis, hyperflexion of left extremity, plantar fasciitis, cystocele is here today for initial consultation. Patient was sent to us by her PCP for evaluation of her epigastric pain. Patient reports that she was started on omeprazole by her PCP, however this was not working. Currently she is taking famotidine which is helping some with symptoms of epigastric pain. However patient reports trouble swallowing that is getting worse.. Patient reports that she feels like food gets stuck in the lower part of her esophagus. Patient reports frequent belching and abdominal bloating. Reports that she is moving her bowels well. [facility] Medical History (Updated 06/15/25 @ 20:08 by NOEMY Faustin) Postprandial epigastric pain Numbness and tingling of both legs Degenerative cervical spinal stenosis Numbness and tingling in both hands Gait disturbance GERD (gastroesophageal reflux disease) Headache Plantar fasciitis HTN (hypertension) Cystocele with uterine prolapse Surgical History H/O total hysterectomy H/O tubal ligation Family History Mother Multiple myeloma Maternal Aunt Breast cancer Colon cancer Cancer of blood vessel Social History Alcohol intake: current Alcohol intake frequency: holidays/special occasions only Patient Tobacco Use Status: Current someday Tobacco user Review of Systems Const Denies weight gain and Denies weight loss ENT Reports no additional complaints, Reports dysphagia and Denies odynophagia Card Reports no additional complaints Resp Reports no additional complaints GI Reports abdominal pain (epigastric), Denies belching, Denies melena, Reports bloating, Denies change in bowel habits, Reports constipation, Reports dysphagia, Denies excessive flatus, Denies dyspepsia, Reports heartburn, Denies diarrhea, Denies loose stools, Denies nausea, Denies odynophagia and Denies vomiting Reports no additional complaints Musc Reports no additional complaints Neuro Reports no additional complaints Psych Reports no additional complaints Endo Reports no additional complaints Physical Exam Vital Signs: Last Vital Signs Pulse 72 06/15/25 14:15 BP 86/56 L 06/15/25 14:15 BMI result Body Mass Index 26.3 Const General: healthy appearing, no acute distress and well developed Nutritional Appearance: well nourished Orientation/consciousness: patient oriented x3 Resp Effort & Inspection: normal respiratory effort, able to speak in complete sentences, no tracheal deviation and symmetric chest movement Auscultation: clear to auscultation bilaterally Cardio Rate: regular rate GI Inspection: Yes normal to inspection and No distended Palpation (GI): Soft to palpation, not firm, nontender and No hepatosplenomegaly present Auscultation: normal bowel sounds General: Yes no CVA tenderness Back/Spine/Pelvis Back: no CVA tenderness Skin General skin exam: elasticity normal, turgor normal and dry skin Neuro General: patient oriented x3 Psych Appearance: grossly normal Mental Status: mental status grossly normal Assessment & Plan Assessment & Plan (1) GERD (gastroesophageal reflux disease): Code(s): K21.9 - Gastro-esophageal reflux disease without esophagitis Category: Medical Qualifiers: Esophagitis presence: esophagitis presence not specified Qualified Code(s): K21.9 - Gastro-esophageal reflux disease without esophagitis (2) Postprandial epigastric pain: Code(s): R10.13 - Epigastric pain Category: Medical (3) Postprandial abdominal bloating: Code(s): R14.0 - Abdominal distension (gaseous) (4) Dysphagia: Code(s): R13.10 - Dysphagia, unspecified Qualifiers: Dysphagia type: esophageal phase Qualified Code(s): R13.19 - Other dysphagia Plan Patient will use famotidine at night time is needed. She will start taking pantoprazole every morning half an hour before breakfast. Avoid dietary triggers and like that snacking. Will check H pylori via stool study. Will check vitamin-D, B12, folate check transglutaminase to rule out celiac, lipase to rule out chronic pancreatitis. Patient will be sent for upper GI with barium swallow. We will send her for colonoscopy and endoscopy. Patient never had colonoscopy in the past. She will return in 2 months and we will discuss going for both procedures. She will call our office if she will have any GI concerning symptoms. She is agreeable to this plan and verbalizes understanding of instructions. She was given the opportunity to ask questions all questions answered. Thank you for allowing me to participate in her care Orders: Orders Vitamin D 25-OH (D2 and D3) Today E55.9 - Vitamin D deficiency, unspecified Lipase Today R10.9 - Unspecified abdominal pain FL upper GI w Ba Swallow Today K21.9 - Gastro-esophageal reflux disease without esophagitis H pylori Ag Stool Today K21.9 - Gastro-esophageal reflux disease without esophagitis Transglutaminase IgA Today R10.9 - Unspecified abdominal pain Vitamin B12 and Folate Today R19.7 - Diarrhea, unspecified Medications: New pantoprazole take one tablet half an hour before breakfast 40 mg PO DAILY 30 tabs 2RF K21.9 - Gastro-esophageal reflux disease without esophagitis Coding Level of Care Code New Pt Level 4 (87161) Diagnoses Gastroesophageal reflux disease, unspecified whether esophagitis present K21.9 Esophagitis presence: esophagitis presence not specified Postprandial epigastric pain R10.13 Postprandial abdominal bloating R14.0 Esophageal dysphagia R13.19 Dysphagia type: esophageal phase Time Spent (min) 45 Comment 35 minutes spent with patient and additional 10 minutes spent reviewing her records
[2025-06-15 14:15] VITALS: BP 86/56; PULSE 72; BMI 26.3
--- OUTSIDE RECORDS SUMMARY | 2025-06-15 15:10 | XMS_ITS | Clinical Summary ---
Author Organization [employer] Address [address] [facility] [address] [place] [address] Care Team Providers Care Network Support Manager Name Role Phone Tiny Soria MD Primary Care Provider [phone] Allergies Active Allergy Reactions Criticality Noted Date Comments Penicillin G Rash Low 02/26/2024 Penicillins Rash,Swelling Low 10/01/2016 Allergy Medications * This document contains information received from the source organization and may not represent a complete record from that organization. albuterol (ProAir HFA) 108 (90 Base) MCG/ACT inhaler inhale 2 puff by inhalation route every 4-6 hrs 11/30/20 20 Active lisinopril 10 MG tablet TAKE ONE TABLET DAILY 90 tablet 3 06/14/20 23 Active gabapentin (Neurontin) 100 MG capsule TAKE TWO CAPSULES BY MOUTH AT BEDTIME 60 capsule 11 06/12/20 24 Active ibuprofen (IBU) 800 MG tablet TAKE ONE TABLET EVERY 8 HOURS NEEDED FOR FEVER 60 tablet 1 12/25/19 25 Active esomeprazole (NexIUM) [address] capsuleIndicati ons:Gastroesoph ageal reflux disease without esophagitis Take 1 capsule (20 mg) by mouth before breakfast. Do not open capsule. 30 capsule 01/19/20 25 026 Active pantoprazole (Protonix) 20 MG EC tablet Take 1 tablet (20 mg) by mouth before breakfast. Do not crush, chew, or split. 30 tablet 03/04/20 25 026 Active oxybutynin (Ditropan) 5 MG tabletIndicatio ns:Urinary incontinence, unspecified type TAKE ONE TABLET BY MOUTH TWICE DAILY 60 tablet 5 03/17/20 25 Active magnesium 100 MG tablet Take 1 tab at bedtime 30 tablet 3 04/29/20 25 Active Calcium Carb-Cholecalci ferol (Calcium 500 + D) 500-3.125 MG-MCG tablet Take 500 mg by mouth Once per day. 90 tablet 3 04/29/20 25 026 Active betamethasone valerate (Valisone) 0.1 % cream APPLY TO THE AFFECTED AREA(S) TWICE DAILY IN THE MORNING AND AT BEDTIME NEEDED 45 g 2 05/17/20 25 Active betamethasone valerate (Valisone) 0.1 % cream Apply topically if needed in the morning and at bedtime (dryness). 45 g 2 01/19/20 25 025 Discontinued Active Problems Problem Noted Date Diagnosed Date Acute viral syndrome 08/14/2024 Anesthesia of skin 08/14/2024 Bronchitis 08/14/2024 Coccyx contusion 08/14/2024 Cystocele with uterine prolapse 08/14/2024 Degenerative cervical spinal stenosis 08/14/2024 Ependymoma 08/14/2024 Headache 08/14/2024 Plantar fasciitis 08/14/2024 Urinary frequency 08/14/2024 GERD (gastroesophageal reflux disease) HTN (hypertension) 08/14/2024 Primary hypertension 05/21/2023 Gait disturbance 04/20/2015 Gastroesophageal reflux disease 04/20/2015 Encounters Date Type Department Care Team Description 05/17/2025 Refill [facility] [address] [place] [address] Tiny Soria MD 2025 Orders Only [facility] [address] [place] [address] Tiny Soria MD Gait disturbance (Primary Dx) 05/07/2025 Telephone [employer] [address] [place] [phone] Tiny Soria MD 05/03/2025 Orders Only [facility] [address] [place] [address] Tiny Soria MD 04/29/2025 11:30 AM EDT Office Visit [facility] [address] [place] [address] Tiny Soria MD Neuropathy (Primary Dx); Encounter for screening for malignant neoplasm of colon; Acute diarrhea; Primary hypertension; Encounter for immunization 04/29/2025 Travel 04/19/[address] [facility] [address] [place] [address] Tiny Soria MD Pre-visit Planning (SDOH screening negative and Tobacco screening negative) 03/16/[address] [facility] [address] [place], [place] [phone] Tiny Soria MD Urinary incontinence, unspecified type from Last 3 Months Immunizations Immunization Administration Dates Next Due Pneumococcal Conjugate PCV 20 04/29/2025 Tdap 04/19/2017 Social History Tobacco Use Types Packs/Day Years Used Date Smoking Tobacco: Former Cigarettes Q uit: 2019 Smokeless Tobacco: Never Tobacco Cessation:Counseling Given: Not Answered Alcohol Use Standard Drinks/Week Comments Defer 0 (1 standard drink = 0.6 oz pur e alcohol) Depression Answer Date Recorded Patient Health Questionnaire-9 Score 2 04/29/2025 Patient Health Questionnaire-9 Score 2 04/29/2025 Last PHQ-9: Questionnaire Data Not on file 0 04/29/2025 Housing Stability Answer Date Recorded What is your housing situation today? I have cornell loera 04/19/[address] you li ve. Do you have problems with any of the following? None of the above 04/19/2025 Food Insecurity Answer Date Recorded Within the past 12 months, y ou worried that your food would run out before you got money to buy more: Never True 04/19/2025 Within the past 12 months,th e food you bought just didn't last and you didn't have enough money to get more: Never True Transportation Answer Date Recorded In the past 12 months, has l ack of transportation kept you from medical appts, meetings, work or from getting things needed for daily living? No 04/19/2025 Utilities Answer Date Recorded In the past 12 months, has t he electric, gas, oil or water company threatened to shut off services in your home? No 04/19/2025 Depression Answer Date Recorded Patient Health Questionnaire-2 Score 0 04/29/2025 Internet Access Answer Date Recorded Internet Access Q1 Yes 04/19/2025 Internet Access Q2 Not on file 04/19/2025 Comments No Sex and Gender Information Value Date Recorded Sex Assigned at Female 10/01/2022 10:14 AM EDT Legal Sex Female 10:14 AM EDT Gender Identity Female 10/01/2022 10:14 AM EDT Sexual Orientation Straight 10/01/2022 10 :14 AM EDT Last Filed Vital Signs Vital Sign Reading Time Taken Comments Blood Pressure 127/83 04/29/2025 11:29 AM EDT Pulse 79 04/29/2025 11:29 AM EDT Temperature 36.4 C (97.6 F) 04/29/2025 11:29 AM EDT Respiratory Rate 18 04/29/2025 11:29 AM EDT Oxygen Saturation 96% 02/26/2024 9:55 AM EDT Inhaled Oxygen Concentration - - Weight 66.7 kg (147 lb) 04/29/2025 11:29 AM EDT Height 160 cm (5' 3 ) 04/29/2025 11:29 AM EDT Body Mass Index 26.04 04/29/2025 11:29 AM EDT Plan of Treatment Health Maintenance Due Date Last Done Comments CT Colonography 1967 Colonoscopy 1967 Colorectal Cancer Screening 1967 FIT DNA/Cologuard 1967 FIT 1967 FOBT 1967 HIV Screening 1967 Sigmoidoscopy 1967 Alcohol/Substance Use Screening 1979 Hepatitis C Screening 1985 Hepatitis B Vaccines (1 of 3 - 19+ 3-dose series) 1986 Zoster Vaccines (1 of 2) 2017 COVID-19 Vaccine (1 - 2023-2 5 season) 2024 Mammogram 06/16/2025 06/16/2024, 06/11/2023, 05/04/2021 Influenza Vaccine (#1) 2025 SDOH Screening 04/19/2026 04/19/2025 Depression Screening 04/29/2026 04/29/2025, 04/29/2025 Disability Screening 04/29/2026 04/29/2025 Tobacco Screening 04/29/2026 04/29/2025 DTaP/Tdap/Td Vaccines (2 - T d or Tdap) 04/19/2027 04/19/2017 Lipid Panel 06/27/2028 06/27/2023, 11/08/2021 RSV Patients and Patients Aged 60 years or older (1 - 1-dose 75+ series) 2042 Cervical Cancer Screening Discontinued HPV/Cotest Discontinued 06/02/2019 Pneumococcal Vaccine: 50+ Years Completed 04/29/2025 HIB Vaccines Aged Out No longer eligi ble based on patient's age to complete this topic HPV Vaccines Aged Out No longer eligi ble based on patient's age to complete this topic Hepatitis A Vaccines Aged Out No long er eligible based on patient's age to complete this topic IPV Vaccines Aged Out No longer eligi ble based on patient's age to complete this topic Meningococcal B Vaccine Aged Out No l onger eligible based on patient's age to complete this topic Meningococcal Vaccine Aged Out No lemuel nolan eligible based on patient's age to complete this topic Pap Smear Discontinued RSV under 20 months Aged Out No longe r eligible based on patient's age to complete this topic Rotavirus Vaccines Aged Out No longer eligible based on patient's age to complete this topic Procedures Procedure Name Priority Date/Time Associated Diagnosis Comments GASTROINTESTINAL PANEL Routine 4:00 AM EDT BI MAMMOGRAM SCREENING TOMOSYNTHESIS BILATERAL Routine 06/16/2024 2:45 PM EDT LIPID PANEL, STANDARD Routine 06/27/2023 9:54 AM EDT Primary hypertension ZZZ HISTORICAL HPV MRNA E6/E7 Routine 06/02/2019 4:15 PM EDT from Last 3 Months or Most Recently Relevant to Health Maintenance Results * Gastrointestinal panel (05/03/2025 4:00 AM EDT) Campylobacter Not Detected Not Detect. [facility] Plesiomonas shigelloides Not Detected Not Detect. [facility] Salmonella Not Detected Not Detect. [facility] Vibrio Not Detected Not Detect. [facility] Vibrio cholerae Not Detected Not Detect. [facility] YERSINIA ENTEROCOLITICA Not Detected Not Detect. [facility] Enteroaggregative E. coli (EAEC) Not Detected Not Detect. [facility] Enteropathogenic E. coli (EPEC) Not Detected Not Detect. [facility] Enterotoxigenic E. coli (ETEC) lt/st Not Detected Not Detect. [facility] Shiga-like toxin-producing E. coli (STEC) stx1/stx2 Not Detected Not Detect. [facility] E coli O157 Not applicable Not Detect. [facility] Comment:E. coli containing t he O157 antigen are a subset ofShiga-like toxin- producing E. coli (STEC). Shigella/Enteroinvasive E. coli (EIEC) Not Detected Not Detect. [facility] Cryptosporidium Not Detected Not Detect. [facility] Cyclospora cayetanensis Not Detected Not Detect. [facility] Entamoeba histolytica Not Detected Not Detect. [facility] Giardia lamblia Not Detected Not Detect. [facility] Adenovirus F 40/41 Not Detected Not Detect. [facility] Astrovirus Not Detected Not Detect. [facility] Norovirus GI/GII Not Detected Not Detect. [facility] Rotavirus A Not Detected Not Detect. [facility] Sapovirus Not Detected Not Detect. [facility] Comment: All results must be correlated with clinical findings.Negative results do not exclude the possibility ofgastrointestinal infection and should not be used as thesole basis for diagnosis, treatment, or other managementdecisions. Virus, bacteria, and parasite nucleic acid maypersist in vivo independently of organism viability.Additionally, some organisms may be carriedasymptomatically.Detection of organism targets does not imply that thecorresponding organisms are infectious or are the causativeagents for clinical symptoms. There is a risk of falsenegative values due to the presence of sequence variants inthe gene targets of the assay, amplification inhibitors inspecimens, or inadequate numbers of organisms foramplification.The identification of several diarrheagenic E. colipathotypes has historically relied upon phenotypiccharacteristics. This panel targets genetic determinantscharacteristic of most pathogenic strains, but may notdetect all strains having phenotypic characteristics of apathotype.The performance of this test has not been established formonitoring treatment of infection with any of the panelorganisms.This assay is performed by Multiplexed PCR, utilizing [employer]. 05/03/2025 4:00 AM EDT 05/03/2025 2:10 PM EDT Tiny Soria MD LAB MICROBIOLOGY - GENERAL ORDER ADRIANO Final Result [facility] [address] [place] [phone] * BI Mammogram Screening Tomosynthesis Bilateral (06/16/2024 2:45 PM EDT) Anatomical Region Laterality Modality Breast Bilateral Mammography 06/16/2024 2:45 PM EDT Narrative 07/08/2024 9:40 AM EDT [address] [place] [address] Mammography Report Signed Patient: Norma Valle MR#: [id number] : 1965 Acct:[id number] Age/Sex: 59 / F ADM Date: 06/16/24 Loc: HO.MAMMO Attending Dr: Tiny Soria MD Ordering Physician: Tiny Soria MD Results: 2Benign Findings Date of Service: 06/16/24 Follow Up: 1 Year From [facility] Mammogram Procedure(s): MM tomosynthesis screening BI Accession Number(s): [id number] cc: Tiny Soria MD EXAMINATION: MM SCREENING DIGITAL BREAST TOMOSYNTHESIS, BILATERAL CLINICAL INFORMATION: Screening. Asymptomatic. COMPARISON: Mammography: This study is compared with prior exams dating back to 2017. TECHNIQUE: Digital breast tomosynthesis is performed in both the craniocaudal and mediolateral oblique views along with computer-aided detection (CAD). Synthesized 2D images are generated from the tomosynthesis. FINDINGS: The breasts are heterogeneously dense, which may obscure small masses (ACR BI-RADS breast composition Category c). There are no significant masses, abnormal calcifications, or other abnormalities. Few, unchanged, well-circumscribed, benign masses are present in the retroareolar and upper outer quadrant of the left breast. MM/MM tomosynthesis screening BI IMPRESSION: No mammographic evidence of malignancy. ASSESSMENT: BI-RADS BI-RADS 2 - Benign Findings RECOMMENDATION: Routine annual mammography screening. 1 year F/U This examination should not preclude the clinical evaluation of a suspicious palpable abnormality. This patient's information was entered into a reminder system with a target due date for their next mammogram. Dictated By: Leora Guaman MD Signed By: <Electronically signed by Leora Guaman MD in OV> 07/08/24 0937 DD/ 1445 TD/TT: Fountain Supervisor: Procedure Note Donotuseinterpreter, Image - 07/08/2024 [facility] [address] [place] [address] Mammography Report Signed Patient: Norma Valle MMR#: [id number] : 1965Acct:[id number] Age/Sex: 59 / FADM Date: 06/16/24 Loc: HO.MAMMO Attending Dr: Tiny Soria MD Ordering Physician: Tiny Soria MDResults: 2Benign Findings Date of Service: 06/16/24Follow Up: 1 Year From [facility] Mammogram Procedure(s): MM tomosynthesis screening BI Accession Number(s): [id number] cc: Tiny Soria MD EXAMINATION: MM SCREENING DIGITAL BREAST TOMOSYNTHESIS, BILATERAL CLINICAL INFORMATION: Screening. Asymptomatic. COMPARISON: Mammography: This study is compared with prior exams dating back to 2017. TECHNIQUE: Digital breast tomosynthesis is performed in both the craniocaudal and mediolateral oblique views along with computer-aided detection (CAD). Synthesized 2D images are generated from the tomosynthesis. FINDINGS: The breasts are heterogeneously dense, which may obscure small masses (ACR BI-RADS breast composition Category c). There are no significant masses, abnormal calcifications, or other abnormalities. Few, unchanged, well-circumscribed, benign masses are present in the retroareolar and upper outer quadrant of the left breast. MM/MM tomosynthesis screening BI IMPRESSION: No mammographic evidence of malignancy. ASSESSMENT: BI-RADS BI-RADS 2 - Benign Findings RECOMMENDATION: Routine annual mammography screening. 1 year F/U This examination should not preclude the clinical evaluation of a suspicious palpable abnormality. This patient's information was entered into a reminder system with a target due date for their next mammogram. Dictated By: Leora Guaman MD Signed By: <Electronically signed by Leora Guaman MD in OV> 07/08/24 0937 DD/ 1445 TD/TT: Fountain Supervisor: us Tiny Soria MD IMG BI PROCEDURES Edited Result - Final * Lipid Panel, Standard (06/27/2023 9:54 AM EDT) Triglycerides 80 mg/dL [facility] Comment:Desirable Triglyceri de: less than 150 mg/dLBorderline High Triglyceride 150-199 mg/dLHigh Triglyceride: 200-499 mg/dLVery High Triglyceride: greater than or equal to 5OO mg/dL Cholesterol 219 mg/dL [facility] Comment:Desirable Cholestero l: less than 200 mg/dLBorderline High Cholesterol: 200-239 mg/dLHigh Cholesterol: greater than 239 mg/dL LDL Cholesterol Calculated 138 mg/dl [facility] Comment:Desirable LDL: less than 100 mg/dLNear Optimal/Above Optimal LDL: 110- 129 mg/dLBorderline High LDL: 130-159 mg/dLHigh LDL: 160-189 mg/dLVery High LDL: greater than or equal to 190 mg/dL HDL Cholesterol 65 mg/dL [facility] Comment:Desirable HDL: great er than 40 mg/dL Note: This HDL assay may give artificially low results in patients with liver disease. Blood Venous blood specimen / Unknown 06/27/2023 9:54 AM EDT 06/27/2023 2:07 PM EDT us Tiny Soria MD LAB BLOOD ORDERABLES Final Resul t [facility] [address] [place], [place] [phone] * HPV mRNA E6/E7 (06/02/2019 4:15 PM EDT) HPV mRNA E6/E7 Not Detected NOT DETECTED [facility] Comment: This test was performed using the APTIMA(R) HPV Assay ([employer] This assay detects E6/E7 viral messenger RNA (mRNA) from 14 high-risk HPV types (16,18,31,33,35,39,45,51, 52,56,58,59,66,68). For additional information please refer to: http://education.Wish Days/faq/RIZ685y8 (This link is being provided for informational/ educational purposes only.) The analytical performance characteristics of this assay have been determined by [employer] [place], [place]. The modifications have not been cleared or approved by the FDA. This assay has been validated pursuant to the CLIA regulations and is used for clinical purposes. [facility], [facility], [address] [place] [address] Rodney You M.D., Ph.D., Director of Laboratories , CLIA [id number] Please note: Effective 08/13/2016, HPV testing will be performed using [employer] APTIMA test which targets mRNA. Detecting mRNA instead of DNA, as in older methods, offers significant improvements in specificity. 06/02/2019 4:15 PM EDT us Tiny Soria MD HISTORICAL/NON ORDERABLE LABS Fi nal Result [facility] [address] from Last 3 Months or Most Recently Relevant to Health Maintenance Insurance [facility] CARE < [address] [id number] Care Teams Network Support Manager Relationship Specialty Start Date End Date Tiny Soria MD [address] [place] [phone] PCP - General Family Medicine 04/20/15
== END 2025-06-15 14:58 | disposition home or self-care (01) ==
LOC: HO.HGI 13:48
PROVIDERS: PCP Student in an Organized Health Care Education/Training Program; Visit Provider Nurse Practitioner Family
DX: K21.9 Gastro-esophageal reflux disease without esophagitis (principal); R10.13 Epigastric pain; R14.0 Abdominal distension (gaseous); R13.19 Other dysphagia
CPT/HCPCS: 99204

== ENCOUNTER → 2025-06-15 13:47 | Outpatient (BNVA) | payer OTHER, SELFPAY | PROVIDERS: PCP Student in an Organized Health Care Education/Training Program; Visit Provider Nurse Practitioner Family | DX: K21.9 Gastro-esophageal reflux disease without esophagitis (principal); R10.13 Epigastric pain; R14.0 Abdominal distension (gaseous); R13.19 Other dysphagia; R19.7 Diarrhea, unspecified | CPT/HCPCS: 99202 ==

== ENCOUNTER 2025-07-13 14:28 | Outpatient (REF) | payer OTHER, SELFPAY ==
--- OUTSIDE RECORDS SUMMARY | 2025-03-08 09:00 | XMS_ITS ---
Author Organization [facility] Address [address] [place] [address] Care Team Providers Care Driver Material Handler Name Role Phone Tiny Soria Primary Care Provider Akanksha Coelho Unavailable [phone] Allergies Allergen (clinical drug ingredient) Drug/Non Drug Allergy documented on EMR Reaction Allergy Type Onset Date Status sulfamethoxazole / trimethoprim Bactrim Unknown Drug Allergy Active Penicillin Unknown Drug Allergy Active Medications Medication SIG (Take, Route, Frequency, Duration) Notes Start Date End Date Status Vitamin D3 Active Gabapentin Active Magnesium Active Lisinopril Active oxyBUTYnin Active Omeprazole Active Encounters Encounter Location Date Provider Diagnosis [facility] [address] [place] [address] 03/08/2025 Akanksha Soto Plan Of Treatment No Information Progress Notes * Meera FIERROOB:[birth year]10 (60 yo F)Acc No.[id number]:03/08/2025 Progress Note Patient: Sapphire BARTHOLOMEWNUBIA Norma Provider: Tyree Soto DPM :1965 A ge:59 Y S ex:Female Date:03/08/2025 [facility] [id number] Pcp:Tiny Soria Subjective: * Chief Complaints: * [...] 03/08/2025 Generated for Alberto lundberg/Solange/Torin on: 0 07/13/2025 03:25 PM EDT
--- NOTE | ~2025-07-13 | MM_ITS ---
EXAMINATION: MM SCREENING DIGITAL BREAST TOMOSYNTHESIS, BILATERAL CLINICAL INFORMATION: Screening. Asymptomatic. COMPARISON: Comparison made to multiple prior, most recent June 16, 2024, and most remote January 09, 2017. TECHNIQUE: Digital breast tomosynthesis is performed in both the craniocaudal and mediolateral oblique views along with computer-aided detection (CAD). FINDINGS: BREAST COMPOSITION: The breasts are heterogeneously dense, which may obscure small masses (ACR BI-RADS breast composition Category c). RIGHT BREAST: No significant masses, suspicious calcifications or other abnormalities are seen. LEFT BREAST: Benign mass in the subareolar region is unchanged from 2017. No significant masses, suspicious calcifications or other abnormalities are seen. MM/MM tomosynthesis screening BI IMPRESSION: BILATERAL BREASTS: Benign, no mammographic evidence of malignancy. Normal interval follow-up is recommended in 12 months. ASSESSMENT: BI-RADS 2 - Benign Findings RECOMMENDATION: Routine annual mammography screening. FOLLOW-UP: 1 year F/U This examination should not preclude the clinical evaluation of a suspicious palpable abnormality. This patient's information was entered into a reminder system with a target due date for their next mammogram. Electronically signed by: Cayetano John MD 07/19/2025 04:41 PM EDT
[2025-07-13 17:07] LABS: Lipase 41 U/L (8-78)
[2025-07-13 17:44] LABS: Folate 9.8 ng/mL (> or = 4.0); Vitamin B12 550 pg/mL (200-900)
[2025-07-18 13:58] LABS: Vitamin D 25-OH, D2 <4 ng/mL; Vitamin D 25-OH, D3 33 ng/mL; Vitamin D 25-OH, Total 33 ng/mL (30-100)
== END 2025-07-13 14:29 | disposition home or self-care (01) ==
LOC: HO.MAMMO 14:28
PROVIDERS: Absent Provider Nurse Practitioner Family; Visit Provider Student in an Organized Health Care Education/Training Program
DX: Z12.31 Encounter for screening mammogram for malignant neoplasm of breast (principal); R10.9 Unspecified abdominal pain; R19.7 Diarrhea, unspecified; E55.9 Vitamin D deficiency, unspecified
CPT/HCPCS: 36415; 77063; 77067; 82306; 82607; 82746; 83690; 86364

== ENCOUNTER → 2025-07-13 14:45 | Outpatient (BNV) | payer OTHER, SELFPAY | PROVIDERS: Absent Provider Nurse Practitioner Family; Visit Provider Radiology Body Imaging | DX: Z12.31 Encounter for screening mammogram for malignant neoplasm of breast (principal) | CPT/HCPCS: 77063; 77067 ==

== ENCOUNTER 2025-07-14 07:32 | Outpatient (REF) | payer OTHER, SELFPAY ==
--- OUTSIDE RECORDS SUMMARY | 2025-03-08 09:00 | XMS_ITS ---
Author Organization [facility] Address [address] [place] [address] Care Team Providers Care Screen Cutter And Trimmer Name Role Phone Tiny Soria Primary Care Provider Akanksha Coelho Unavailable [phone] Allergies Allergen (clinical drug ingredient) Drug/Non Drug Allergy documented on EMR Reaction Allergy Type Onset Date Status sulfamethoxazole / trimethoprim Bactrim Unknown Drug Allergy Active Penicillin Unknown Drug Allergy Active Medications Medication SIG (Take, Route, Frequency, Duration) Notes Start Date End Date Status Vitamin D3 Active Gabapentin Active Magnesium Active Lisinopril Active oxyBUTYnin Active Omeprazole Active Encounters Encounter Location Date Provider Diagnosis [facility] [address] [place] [address] 03/08/2025 Akanksha Soto Plan Of Treatment No Information Progress Notes * Meera FIERROOB:[birth year]10 (60 yo F)Acc No.[id number]:03/08/2025 Progress Note Patient: Sapphire BARTHOLOMEWNUBIA Norma Provider: Tyree Soto DPM :1965 A ge:59 Y S ex:Female Date:03/08/2025 [facility] [facility] Pcp:Tiny Soria Subjective: * Chief Complaints: * [...] 0 03/08/2025 Generated for Alberto lundberg/Solange/Torin on: 07/14/2025 07:34 AM EDT
== END 2025-07-14 07:33 | disposition home or self-care (01) ==
LOC: HO.LNP 07:32
PROVIDERS: Visit Provider Nurse Practitioner Family
DX: K21.9 Gastro-esophageal reflux disease without esophagitis (principal)
CPT/HCPCS: 87338

== ENCOUNTER 2025-08-30 14:36 | Outpatient (AMB) | payer OTHER, SELFPAY ==
--- OUTSIDE RECORDS SUMMARY | 2025-03-08 09:00 | XMS_ITS ---
Author Organization [facility] Address [address] [place] [address] Care Team Providers Care Wool Supplier Name Role Phone Tiny Soria Primary Care Provider Akanksha Coelho Unavailable [phone] Allergies Allergen (clinical drug ingredient) Drug/Non Drug Allergy documented on EMR Reaction Allergy Type Onset Date Status sulfamethoxazole / trimethoprim Bactrim Unknown Drug Allergy Active Penicillin Unknown Drug Allergy Active Medications Medication SIG (Take, Route, Frequency, Duration) Notes Start Date End Date Status Vitamin D3 Active Gabapentin Active Magnesium Active Lisinopril Active oxyBUTYnin Active Omeprazole Active Encounters Encounter Location Date Provider Diagnosis [facility] [address] [place] [address] 03/08/2025 Akanksha Soto Plan Of Treatment No Information Progress Notes * Meera FIERROOB:[birth year]10 (60 yo F)Acc No.[id number]:03/08/2025 Progress Note Patient: Sapphire BARTHOLOMEWNUBIA Norma Provider: Tyree Soto DPM :1965 A ge:59 Y S ex:Female Date:03/08/2025 [facility] [facility] Pcp:Tiny Soria Subjective: * Chief Complaints: * [...] 0 03/08/2025 Generated for Alberto lundberg/Solange/Torin on: 08/30/2025 04:26 PM EDT
--- NOTE | 2025-08-30 14:39 | A.OFFVIS_ITS ---
Vital Signs 08/30/25 14:42 Height 5 ft 4 in Weight 150 lb BMI 25.7 BP 114/72 Blood Pressure Location Rt brachial Position Sitting Pulse 64 Pulse Source Pulse Oximeter Pulse Oximetry (%) 96 Oxygen Delivery Method Room Air Intake Visit Reasons: discuss colo 30 per kait Intake Note: Est pt for mgmt of GERD + Dysphagia. Rediscuss colo. CC: C.O. GERD, epigastric pain, and dysphagia persistence despite current therapies. Pt denies any new GI sx or concerns at this time. 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 She will start taking pantoprazole every morning half an hour before breakfast. Avoid dietary triggers and like that snacking. Will check H pylori via stool study. Will check vitamin- D, B12, folate check transglutaminase to rule out celiac, lipase to rule out chronic pancreatitis. Patient will be sent for upper GI with barium swallow. We will send her for colonoscopy and endoscopy. Patient never had colonoscopy in the past. She will return in 2 months and we will discuss going for both procedures. She will call our office if she will have any GI concerning symptoms. She is agreeable to this plan and verbalizes understanding of instructions. She was given the opportunity to ask questions all questions answered. ? Thank you for allowing me to participate in her care Orders Vitamin D 25-OH (D2 and D3) Today E55.9 Lipase Today R10.9 FL upper GI w Ba Swallow Today K21.9 H pylori Ag Stool Today K21.9 Transglutaminase IgA Today R10.9 Vitamin B12 and Folate Today R19.7 New pantoprazole take one tablet half an hour before breakfast 40 mg PO DAILY 30 tabs 2RF K21.9 TODAY'S VISIT Patient is here today for follow-up and to discuss going for upper endoscopy and colonoscopy. Patient reports that she is taking pantoprazole in every morning and she continues to have epigastric pain and burning. Patient has not changed her diet. Patient continues to smoke cigarettes. Patient has upper GI series scheduled for September 29. Patient reports minimal relief after taking pantoprazole. Patient takes famotidine at bedtime. Tries not to eat late at night, however reports occasional snacking. Patient reports constipation. Patient reports that she has to push in order to have a bowel movement. Hard stool followed by diarrhea. Patient denies melena, hematochezia, unintentional weight loss or ribbon like stools. Reports occasional dyspepsia without dysphagia or odynophagia. [facility] Medical History (Updated 08/30/25 @ 15:24 by Zonia Roth, [facility]) Constipation Postprandial epigastric pain Numbness and tingling of both legs Degenerative cervical spinal stenosis Numbness and tingling in both hands Gait disturbance GERD (gastroesophageal reflux disease) Headache Plantar fasciitis HTN (hypertension) Cystocele with uterine prolapse Surgical History H/O total hysterectomy H/O tubal ligation Family History Mother Multiple myeloma Maternal Aunt Breast cancer Colon cancer Cancer of blood vessel Social History Alcohol intake: current Alcohol intake frequency: holidays/special occasions only Patient Tobacco Use Status: Current someday Tobacco user Review of Systems Const Denies weight gain and Denies weight loss ENT Reports no additional complaints, Reports dysphagia and Denies odynophagia Card Reports no additional complaints Resp Reports no additional complaints GI Reports abdominal pain (epigastric), Denies belching, Denies melena, Reports bloating, Denies change in bowel habits, Reports constipation, Reports dysphagia, Denies excessive flatus, Reports dyspepsia (Occasional), Reports heartburn, Denies diarrhea, Denies loose stools, Denies nausea, Denies odynophagia and Denies vomiting Reports no additional complaints Musc Reports no additional complaints Neuro Reports no additional complaints Psych Reports no additional complaints Endo Reports no additional complaints Physical Exam Vital Signs: Last Vital Signs Pulse 64 08/30/25 14:42 BP 114/72 08/30/25 14:42 Pulse Ox 96 08/30/25 14:42 Oxygen Delivery Method Room Air 08/30/25 14:42 BMI result Body Mass Index 25.7 Const General: healthy appearing, no acute distress and well developed Nutritional Appearance: well nourished Orientation/consciousness: patient oriented x3 Resp Effort & Inspection: normal respiratory effort, able to speak in complete sentences, no tracheal deviation and symmetric chest movement Auscultation: clear to auscultation bilaterally Cardio Rate: regular rate GI Inspection: Yes normal to inspection and No distended Palpation (GI): Soft to palpation, not firm, nontender and No hepatosplenomegaly present Auscultation: normal bowel sounds General: Yes no CVA tenderness Back/Spine/Pelvis Back: no CVA tenderness Skin General skin exam: elasticity normal, turgor normal and dry skin Neuro General: patient oriented x3 Psych Appearance: grossly normal Mental Status: mental status grossly normal Results Reviewed Results Reviewed: Laboratory Tests 07/13/25 15:25 Lipase 41 Vitamin B12 550 25-OH Vitamin D Total 33 Folate 9.8 Tiss Transglutamin IgA <1.0 Assessment & Plan Assessment & Plan (1) GERD (gastroesophageal reflux disease): Code(s): K21.9 - Gastro-esophageal reflux disease without esophagitis Category: Medical Qualifiers: Esophagitis presence: esophagitis presence not specified Qualified Code(s): K21.9 - Gastro-esophageal reflux disease without esophagitis (2) Postprandial epigastric pain: Code(s): R10.13 - Epigastric pain Category: Medical (3) Constipation: Code(s): K59.00 - Constipation, unspecified Category: Medical Qualifiers: Constipation type: slow transit constipation Qualified Code(s): K59.01 - Slow transit constipation (4) Postprandial abdominal bloating: Code(s): R14.0 - Abdominal distension (gaseous) Plan What to expect before during and after procedure discussed with patient. Stressed importance of good bowel prep and clear liquid diet day before procedure. Patient will be sent also for upper endoscopy. She continues to have epigastric pain, occasional dyspepsia with epigastric burning. Will switch PPI to Nexium. Discussed with patient avoiding dietary triggers and late night snacking. Staying upright for minimum 3 hours after meals discussed with patient. Patient will call us if she will have any GI concerning symptoms. Message sent to Surgical schedules tubal procedure for patient. She is agreeable to current plan of care and verbalizes understanding of instructions. She was given the opportunity to ask questions and all questions answered. Thank you for allowing me to participate in her care Orders: Referrals GI Procedure Notification K21.9 - Gastro-esophageal reflux disease without esophagitis, R10.13 - Epigastric pain, Z12.11 - Encounter for screening for malignant neoplasm of colon Medications: New polyethylene glycol 3350 (Miralax) As directed by gastroenterology department at [facility] 238 grams PO ONCE 238 grams 0RF Z12.11 - Encounter for screening for malignant neoplasm of colon esomeprazole magnesium (Nexium) 40 mg PO DAILY 30 caps 3RF K21.9 - Gastro- esophageal reflux disease without esophagitis bisacodyl (Dulcolax (bisacodyl)) 10 mg (2 x 5 mg) PO BEDTIME 180 tabs 4RF Discontinued pantoprazole take one tablet half an hour before breakfast Discontinued Reason: Doctor's Order 40 mg PO DAILY 30 tabs 2RF K21.9 - Gastro-esophageal reflux disease without esophagitis Coding Level of Care Code Est Pt Level 4 (97501) Complex EM visit Add On G2211 Diagnoses Gastroesophageal reflux disease, unspecified whether esophagitis present K21.9 Esophagitis presence: esophagitis presence not specified Postprandial epigastric pain R10.13 Slow transit constipation K59.01 Constipation type: slow transit constipation Postprandial abdominal bloating R14.0 Time Spent (min) 35 Comment 25 minutes spent with patient and additional 10 minutes spent reviewing her records
[2025-08-30 14:42] VITALS: BP 114/72; PULSE 64; O2SAT 96; BMI 25.7
--- OUTSIDE RECORDS SUMMARY | 2025-08-30 16:26 | XMS_ITS | Clinical Summary ---
Author Organization [employer] Address [address] [facility] [address] [place] [address] Care Team Providers Care Crepe Sole Scourer Name Role Phone Tiny Soria MD Primary Care Provider [phone] Allergies Active Allergy Reactions Criticality Noted Date Comments Penicillin G Rash Low 02/26/2024 Penicillins Rash,Swelling Low 10/01/2016 Allergy Medications * This document contains information received from the source organization and may not represent a complete record from that organization. albuterol (ProAir HFA) 108 (90 Base) MCG/ACT inhaler inhale 2 puff by inhalation route every 4-6 hrs 0 Active lisinopril 10 MG tablet TAKE ONE TABLET DAILY 90 tablet 3 3 Active ibuprofen (IBU) 800 MG tablet TAKE ONE TABLET EVERY 8 HOURS NEEDED FOR FEVER 60 tablet 1 5 Active esomeprazole (NexIUM) [address] capsuleIndicatio ns:Gastroesophag eal reflux disease without esophagitis Take 1 capsule (20 mg) by mouth before breakfast. Do not open capsule. 30 capsule 11 5 01/19/20 26 Active pantoprazole (Protonix) 20 MG EC tablet Take 1 tablet (20 mg) by mouth before breakfast. Do not crush, chew, or split. 30 tablet 11 5 03/04/20 26 Active oxybutynin (Ditropan) 5 MG tabletIndication s:Urinary incontinence, unspecified type TAKE ONE TABLET BY MOUTH TWICE DAILY 60 tablet 5 5 Active magnesium 100 MG tablet Take 1 tab at bedtime 30 tablet 3 5 Active Calcium Carb-Cholecalcif jerzy (Calcium 500 + D) 500-3.125 MG-MCG tablet Take 500 mg by mouth Once per day. 90 tablet 3 5 04/29/20 Active betamethasone valerate (Valisone) 0.1 % cream APPLY TO THE AFFECTED AREA(S) TWICE DAILY IN THE MORNING AND AT BEDTIME NEEDED 45 g 2 5 Active gabapentin (Neurontin) 100 MG capsule TAKE TWO CAPSULES EVERY NIGHT AT BEDTIME 60 capsule 11 5 Active Active Problems Problem Noted Date Diagnosed Date Acute viral syndrome 08/14/2024 Anesthesia of skin 08/14/2024 Bronchitis 08/14/2024 Coccyx contusion 08/14/2024 Cystocele with uterine prolapse 08/14/2024 Degenerative cervical spinal stenosis 08/14/2024 Ependymoma (CMS/HCC) 08/14/2024 Headache 08/14/2024 Plantar fasciitis 08/14/2024 Urinary frequency 08/14/2024 GERD (gastroesophageal reflux disease) HTN (hypertension) 08/14/2024 Primary hypertension 05/21/2023 Gait disturbance 04/20/2015 Gastroesophageal reflux disease 04/20/2015 Encounters Date Type Department Care Team Description 07/13/2025 Orders Only GENERIC EXTERNAL DATA DEPARTMENT Provider, Generic External Data 06/18/2025 Refill [facility] [address] [place] [address] Tiny Soria MD from Last 3 Months Immunizations Immunization Administration Dates Next Due Pneumococcal Conjugate PCV 20 04/29/2025 Tdap 04/19/2017 Social History Tobacco Use Types Packs/Day Years Used Date Smoking Tobacco: Former Cigarettes Q uit: 2020 Smokeless Tobacco: Never Tobacco Cessation:Counseling Given: Not [...] of 2) 2017 COVID-19 Vaccine (1 - 2023- season) 2025 Influenza Vaccine (#1) 2025 09/01/2024 SDOH Screening 04/19/2026 04/19/2025 Depression Screening 04/29/2026 04/29/2025, 04/29/20 25 Disability Screening 04/29/2026 04/29/2025 Tobacco Screening 04/29/2026 04/29/2025 Mammogram 07/13/2026 07/13/2025, 06/01, 06/11/2023, Additional history exists DTaP/Tdap/Td Vaccines (2 - Td or Tdap) 04/19/2027 04/19/2017 Lipid Panel 06/27/2028 [...] Procedure Name Priority Date/Time Associated Diagnosis Comments VITAMIN D 25-OH (D2 AND D3) Routine 07/13/2025 3:25 PM EDT TISSUE TRANSGLUTAMINASE AB, IGA Routine 07/13/2025 3:25 PM EDT VITAMIN B12/FOLATE, SERUM PANEL Routine 07/13/2025 3:25 PM EDT LIPASE Routine 07/13/2025 3:25 PM EDT BI MAMMOGRAM SCREENING TOMOSYNTHESIS BILATERAL Routine 07/13/2025 2:35 PM EDT LIPID PANEL, STANDARD Routine 06/27/2023 9:54 AM EDT Primary hypertension ZZZ HISTORICAL HPV MRNA E6/E7 Routine 06/02/2019 4:15 PM EDT from Last 3 Months or Most Recently Relevant to Health Maintenance Results * VITAMIN D 25-OH (D2 AND D3) (07/13/2025 3:25 PM EDT) Vitamin D, 25-OH, D2 <4 ng/mL [facility] Comment:This test was develo ped and its analytical performancecharacteristics have been determined by [employer] [place], [place]. It hasnot been cleared or approved by the U.S. Food and DrugAdministration. This assay has been validated pursuantto the CLIA regulations and is used for clinicalpurposes.THIS TEST WAS PERFORMED AT:[employer]/[id number] [place] [address]MOEFAZLRODNEY CAMPOS MD,PHD Vitamin D, 25-OH, D3 33 ng/mL [facility] Comment:This test was develo ped and its analytical performancecharacteristics have been determined by [employer] [place], [place]. It hasnot been cleared or approved by the U.S. Food and DrugAdministration. This assay has been validated pursuantto the CLIA regulations and is used for clinicalpurposes. Vitamin D, 25-OH, Total 33 30 - 100 ng/mL [facility] Comment:Vitamin D, 25-Hydrox y reports concentrations of twocommon forms, 25-OHD2 and 25-OHD3. 25-OHD3 indicatesboth endogenous production and supplementation.25-OHD2 is an indicator of exogenous sources such asdiet or supplementation. Therapy is based onmeasurement of Total 25-OHD, with levels <20 ng/mLindicative of Vitamin D deficiency, while levelsbetween 20 ng/mL and 30 ng/mL suggest insufficiency.Optimal levels are > or = 30 ng/mL.For additional information, please refer tohttp://education.Pixelligent/faq/VMP862(This link is being provided for informational/educational purposes only.) 07/13/2025 3:25 PM EDT 07/13/2025 3:25 PM EDT Generic External Data Provider LAB BLOOD ORDERAB LES Final Result Performing Organization Address [facility] Co de Phone Number [facility] [address] [place] [phone] * Vitamin B12 (Cobalamin) and Folate Panel, Serum (07/13/2025 3:25 PM EDT) Vitamin B12 550 200 - 900 pg/mL [facility] Comment:NORMAL 200-900 PG/ML INDETERMINATE 160-199 PG/ML DEFICIENT < 160 PG/ML Folate 9.8 > or = 4.0 ng/mL [facility] Comment:Reference Values:> o r = 4.0 ng/mL< 4.0 ng/mL suggests folate deficiency Methotrexate, aminopterin and folinic acid(leucovorin) are chemotherapeutic agents whose molecularstructures are similar to folate; therefore, the Architectfolate assay cannot be used for patients using these drugs. 07/13/2025 3:25 PM EDT 07/13/2025 3:25 PM EDT Generic External Data Provider LAB BLOOD ORDERAB LES Final Result Performing Organization Address [facility] Co de Phone Number [facility] [address] [place] [phone] * Tissue Transglutaminase Antibody, IgA (07/13/2025 3:25 PM EDT) Transglutaminase IgA <1.0 U/mL [facility] Comment:Value Interpretation ----- <15.0 Antibody not detected> or = 15.0 Antibody detectedTHIS TEST WAS PERFORMED AT:[employer] [place] [phone] HULL MD 07/13/2025 3:25 PM EDT 07/13/2025 3:25 PM EDT Generic External Data Provider LAB BLOOD ORDERAB LES Final Result Performing Organization Address [facility] Co de Phone Number [facility] [address] [place] [phone] * Lipase (07/13/2025 3:25 PM EDT) Lipase 41 8 - 78 U/L [facility] 07/13/2025 3:25 PM EDT 07/13/2025 3:25 PM EDT [employer] External Data Provider LAB BLOOD ORDERAB LES Final Result Performing Organization Address [facility] de Phone Number [facility] [address] [place] [phone] * BI Mammogram Screening Tomosynthesis Bilateral (07/13/2025 2:35 PM EDT) Anatomical Region Laterality Modality Breast Bilateral Mammography 07/13/2025 2:35 PM EDT Narrative 07/19/2025 4:43 PM EDT [facility] [address] [place] [address] Mammography Report Signed Patient: Norma Valle MR#: [id number] : 1965 Acct:[id number] Age/Sex: 60 / F ADM Date: 07/13/25 Loc: HO.MAMMO Attending Dr: Tiny Soria MD Ordering Physician: Tiny Soria MD Results: 2Benign Findings Date of Service: 07/13/25 Follow Up: 1 Year From Orig ina Mammogram Procedure(s): MM tomosynthesis screening BI Accession Number(s): [id number] cc: Tiny Soria MD EXAMINATION: MM SCREENING DIGITAL BREAST TOMOSYNTHESIS, BILATERAL CLINICAL INFORMATION: Screening. Asymptomatic. COMPARISON: Comparison made to multiple prior, most recent June 16, 2024, and most remote January 09, 2017. TECHNIQUE: Digital breast tomosynthesis is performed in both the craniocaudal and mediolateral oblique views along with computer-aided detection (CAD). FINDINGS: BREAST COMPOSITION: The breasts are heterogeneously dense, which may obscure small masses (ACR BI-RADS breast composition Category c). RIGHT BREAST: No significant masses, suspicious calcifications or other abnormalities are seen. LEFT BREAST: Benign mass in the subareolar region is unchanged from 2017. No significant masses, suspicious calcifications or other abnormalities are seen. MM/MM tomosynthesis screening BI IMPRESSION: BILATERAL BREASTS: Benign, no mammographic evidence of malignancy. Normal interval follow-up is recommended in 12 months. ASSESSMENT: BI-RADS 2 - Benign Findings RECOMMENDATION: Routine annual mammography screening. FOLLOW-UP: 1 year F/U This examination should not preclude the clinical evaluation of a suspicious palpable abnormality. This patient's information was entered into a reminder system with a target due date for their next mammogram. Electronically signed by: Cayetano John MD 07/19/2025 04:41 PM EDT Dictated By: Cayetano John MD Signed By: <Electronically signed by Cayetano John MD in OV> 07/19/25 1641 DD/ 1435 TD/TT: 07/13/25 1455 Private Eye: Procedure Note Donotuseinterpreter, Image - [facility] [address] [place], [place] [address] Mammography Report Signed Patient: Norma Valle MMR#: [id number] : 1965Acct:[id number] Age/Sex: 60 / FADM Date: 07/13/25 Loc: HO.MAMMO Attending Dr: Tiny Soria MD Ordering Physician: Tiny Soria MDResults: 2Benign Findings Date of Service: 07/13/25Follow Up: 1 Year From Orig inal Mammogram Procedure(s): MM tomosynthesis screening BI Accession Number(s): [id number] cc: Tiny Soria MD EXAMINATION: MM SCREENING DIGITAL BREAST TOMOSYNTHESIS, BILATERAL CLINICAL INFORMATION: Screening. Asymptomatic. COMPARISON: Comparison made to multiple prior, most recent June 16, 2024, and most remote January 09, 2017. TECHNIQUE: Digital breast tomosynthesis is performed in both the craniocaudal and mediolateral oblique views along with computer-aided detection (CAD). FINDINGS: BREAST COMPOSITION: The breasts are heterogeneously dense, which may obscure small masses (ACR BI-RADS breast composition Category c). RIGHT BREAST: No significant masses, suspicious calcifications or other abnormalities are seen. LEFT BREAST: Benign mass in the subareolar region is unchanged from 2017. No significant masses, suspicious calcifications or other abnormalities are seen. MM/MM tomosynthesis screening BI IMPRESSION: BILATERAL BREASTS: Benign, no mammographic evidence of malignancy. Normal interval follow-up is recommended in 12 months. ASSESSMENT: BI-RADS 2 - Benign Findings RECOMMENDATION: Routine annual mammography screening. FOLLOW-UP: 1 year F/U This examination should not preclude the clinical evaluation of a suspicious palpable abnormality. This patient's information was entered into a reminder system with a target due date for their next mammogram. Electronically signed by: Cayetano John MD 07/19/2025 04:41 PM EDT RP Dictated By: Cayetano John MD Signed By: <Electronically signed by Cayetano John MD in OV> 07/19/25 1641 DD/ 1435 TD/TT: 07/13/25 1455 Private Eye: Tiny Soria MD IMG BI PROCEDURES Final Result * Lipid Panel, Standard (06/27/2023 9:54 AM EDT) Triglycerides 80 mg/dL [facility] Comment:Desirable Triglyceri de: less than 150 mg/dLBorderline High Triglyceride 150-199 mg/dLHigh Triglyceride: 200-499 mg/dLVery High Triglyceride: greater than or equal to 5OO mg/dL Cholesterol 219 mg/dL [facility] Comment:Desirable Cholestero l: less than 200 mg/dLBorderline High Cholesterol: 200-239 mg/dLHigh Cholesterol: greater than 239 mg/dL LDL Cholesterol Calculated 138 mg/dl [facility] Comment:Desirable LDL: less than 100 mg/dLNear Optimal/Above Optimal LDL: 110- 129 mg/dLBorderline High LDL: 130-159 mg/dLHigh LDL: 160-189 mg/dLVery High LDL: greater than or equal to 190 mg/dL HDL Cholesterol 65 mg/dL [facility] Comment:Desirable HDL: great er than 40 mg/dL Note: This HDL assay may give artificially low results in patients with liver disease. Blood Venous blood specimen / Unknown 06/27/2023 9:54 AM EDT 06/27/2023 2:07 PM EDT us Tiny Soria MD LAB BLOOD ORDERABLES Final Resul t [facility] [address] [place] [phone] * HPV mRNA E6/E7 (06/02/2019 4:15 PM EDT) HPV mRNA E6/E7 Not Detected NOT DETECTED [facility] Comment: This test was performed using the APTIMA(R) HPV Assay ([employer] This assay detects E6/E7 viral messenger RNA (mRNA) from 14 high-risk HPV types (16,18,31,33,35,39,45,51, 52,56,58,59,66,68). For additional information please refer to: http://education.[employer]/faq/SXL005g7 (This link is being provided for informational/ educational purposes only.) The analytical performance characteristics of this assay have been determined by [employer] [place], [place]. The modifications have not been cleared or approved by the FDA. This assay has been validated pursuant to the CLIA regulations and is used for clinical purposes. Test Performed by [facility], [employer] [place], [address] [place] [address] Rodney Campos M.D., Ph.D., Director of Laboratories , CLIA [id number] Please note: Effective 08/13/2016, HPV testing will be performed using [employer] APTIMA test which targets mRNA. Detecting mRNA instead of DNA, as in older methods, offers significant improvements in specificity. 06/02/2019 4:15 PM EDT us Tiny Soria MD HISTORICAL/NON ORDERABLE LABS Fi nal Result Performing Organization Address City/State/[facility] Co de Phone Number [facility] [address] from Last 3 Months or Most Recently Relevant to Health Maintenance Insurance [facility] ONE CARE < [address] [place] [place] [id number] Care Teams Crepe Sole Scourer Relationship Specialty Start Date End Date Tiny Soria MD [address] [place] [phone] PCP - General Family Medicine 04/20/15
--- OUTSIDE RECORDS SUMMARY | 2025-08-30 16:26 | XMS_ITS | Encounter Summary ---
Author Organization [employer] Address [address] [facility] 7[address] [place] [address] Care Team Providers Care Professor Of Medicine Name Role Phone Tiny Soria MD Primary Care Provider [phone] Reason for Visit * Reason Onset Date Comments Referral 11/23/2024 Encounter Details Date Type Department Care Team ([facility] st Contact Info) Description 11/23/[address] [facility] MEDICINE [address] [place] [address] Tiny Soria MD [address] [place], [place] [phone] Referral Social History Tobacco Use Types Packs/Day Years Used Date Smoking Tobacco: Former Cigarettes Q uit: 2020 Smokeless Tobacco: Never Alcohol Use Standard Drinks/Week Comments Defer 0 (1 standard drink = 0.6 oz pur e alcohol) Depression Answer Date Recorded Patient Health Questionnaire-9 Score 0 05/21/2023 Housing Stability Answer Date Recorded What is your housing situation today? I have cornell loera 09/18/[address] you li ve. Do you have problems with any of the following? None of the above 09/18/2023 Food Insecurity Answer Date Recorded Within the past 12 months, y ou worried that your food would run out before you got money to buy more: Never True 09/18/2023 Within the past 12 months,th e food you bought just didn't last and you didn't have enough money to get more: Never True Transportation Answer Date Recorded In the past 12 months, has l ack of transportation kept you from medical appts, meetings, work or from getting things needed for daily living? No 09/18/2023 Utilities Answer Date Recorded In the past 12 months, has t he electric, gas, oil or water company threatened to shut off services in your home? No 09/18/2023 Depression Answer Date Recorded Patient Health Questionnaire-2 Score 0 05/21/2023 Comments No Sex and Gender Information Value Date Recorded Sex Assigned at Female 10/01/2022 10:14 AM EDT Legal Sex Female 10:14 AM EDT Gender Identity Female 10/01/2022 10:14 AM EDT Sexual Orientation Straight 10/01/2022 10 :14 AM EDT documented as of this encounter Miscellaneous Notes * Telephone Encounter - Alfreda Rosario RN - 11/23/2024 11:20 AM EST Telephone call returned to patient in regards to below message. Patient stated has been talking with pco for a year. Has issues where it feels like she swallows a hard candy and it is stuck. Patient stated she has felt it happen more often and has been telling PCP who told her to go to a gastritisdoctor . Per legacy encounters patient has been having this issue documented since 2021. Patient verbalized understanding and denied having any further questions or concerns at this time. Patient to follow up as needed. * Telephone Encounter - Frank Abdul - 11/23/2024 10:31 AM EST Tc from pt requesting referral for gastroenterology. If any questions you can contact pt at [phone]. documented in this encounter Plan of Treatment Not on file documented as of this encounter Visit Diagnoses Not on filedocumented in this encounter Additional Health Concerns Assessment Noted Time PHQ-9 Depression Total Score: 0 05/21/20 10:07 AM EDT documented as of this encounter Care Teams Professor Of Medicine Relationship Specialty Start Date End Date Tiny Soria MD [address] [place] [phone] PCP - General Family Medicine 04/20/15 documented as of this encounter
--- OUTSIDE RECORDS SUMMARY | 2025-08-30 16:27 | XMS_ITS | Patient Health Record ---
Author Organization [facility] [place] Address [address] [facility] [place] [address] Care Team Providers Care Band Head Saw Operator Name Role Phone Tiny Soria Primary Care Provider Akanksha Coelho Unavailable [phone] Allergies Allergen (clinical drug ingredient) Drug/Non Drug Allergy documented on EMR Reaction Allergy Type Onset Date Status sulfamethoxazole / trimethoprim Bactrim Unknown Drug Allergy Active Penicillin Unknown Drug Allergy Active Reason For Referral No Information Medications Medication SIG (Take, Route, Frequency, Duration) Notes Start Date End Date Status predniSONE 5 MG 1 tablet 4 times a d ay for 3 days, 1 tablet 3 times a day for 3 days, 1 tablet 2 times a day for 3 days, 1 tablet once a day for 3 days Orally; Duration: 12 days 05/13/2025 Active Betamethasone Valerate 0.1 % External; Duration: 23 Days Active Magnesium 250 MG 1 capsule Orally Onc e a day Active Omeprazole Not-Takin g Oyster Shell Calcium + D3 500-10 MG-MCG TAKE ONE TABLET DAILY Oral; Duration: 90 Days Active Lisinopril 10 MG 1 tablet Orally Once a day Active oxyBUTYnin Active Vitamin D3 Active Gabapentin 100 MG 1 capsule at bedtime Orally Once a day Active Immunizations Vaccine Route Administration Date Status Comme nts Influenza Unknown 09/01/2024 Administered Social History Tobacco Use: Social History Observation Description Date Details (start date - stop date) Never Smoker NA - NA Tobacco use other than smoking: Question Answer Notes Are you an other tobacco user? No Tobacco Control (Standard) Question Answer Notes Tobacco use: Nonsmoker Additional Findings: Tobacco non-user Current no nsmoker AUDIT-C (Standard) Question Answer Notes Did you have a drink containing alcohol in the p ast year? 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 Resistant to previous conservative treatment Problem Plantar fascial fibromatosis (43868897) Plantar fasciitis, bilateral (M72.2) Active confirmed Vital Signs Blood pressure diastolic 65 mm Hg 06/16/2025 Height 5ft 4in in 06/16/2025 Blood pressure systolic 128 mm Hg 06/16/2025 Weight 147 lbs 06/16/2025 BMI 25.23 kg/m2 06/16/2025 Procedures Procedure Date Ordered Date Performed Result Body Sit e 29922, J0702- Neuroma/Injection 12/10/2024 N/A Encounters Encounter Location Date Provider Diagnosis [facility] [address] [address] 12/10/2024 Akanksha Soto Pain in left foot M79.672 ; Cedillo's neuroma of left foot G57.62 ; Pain in left ankle and joints of left foot M25.572 ; Bursitis of left foot M77.52 ; Hallux valgus (acquired), left foot M20.12 ; Pain in right foot M79.671 ; Pain in right ankle and joints of right foot M25.571 ; Bursitis of right foot M77.51 ; Hallux valgus (acquired), right foot M20.11 and Plantar fasciitis, bilateral M72.[address] [facility] [address] 05/13/2025 Akanksha Soto Cedillo's neuroma of left foot G57.62 ; Pain in left foot M79.672 ; Pain in left ankle and joints of left foot M25.572 ; Bursitis of left foot M77.52 ; Hallux valgus (acquired), left foot M20.12 ; Pain in right foot M79.671 ; Pain in right ankle and joints of right foot M25.571 ; Bursitis of right foot M77.51 ; Hallux valgus (acquired), right foot M20.11 and Plantar fasciitis, bilateral M72.[address] [facility] [address] 06/16/2025 Akanksha Cedillo's neuroma of left foot G57.62 ; Pain in left foot M79.672 ; Pain in left ankle and joints of left foot M25.572 ; Bursitis of left foot M77.52 ; Hallux valgus (acquired), left foot M20.12 ; Pain in right foot M79.671 ; Pain in right ankle and joints of right foot M25.571 ; Bursitis of right foot M77.51 ; Hallux valgus (acquired), right foot M20.11 and Plantar fasciitis, bilateral M72.[address] [address] 10/14/2024 Akanksha Soto [address] [address] 11/26/2024 Akanksha Soto [address] [address] 12/10/2024 Akanksha Soto [address] [address] 12/10/2024 Akanksha Soto [address] [address] 03/08/2025 Akanksha Soto [address] [address] 05/13/2025 Akanksha Soto Assessments Encounter Date Diagnosis (ICD Code) Assessment Notes Treatment Notes Treatment Clinical Notes Section Notes 12/10/2024 Pain in left foot (ICD-10 - M79.672) 12/10/2024 Cedillo's neuroma of left foot (ICD-10 - G57.62) Resistant to previous conservative treatment Patient Educated with: RICE THERAPY.pdf (RICE THERAPY.pdf) Patient Educated with: INJECTIONTHERA PY.pdf (INJECTIONTHER APY.pdf) Patient Educated with: INJECTIONTHERA PY.pdf (INJECTIONTHER APY.pdf) 05/13/2025 Cedillo's neuroma of left foot (ICD-10 - G57.62) Resistant to previous conservative treatment Patient Educated with: RICE THERAPY.pdf (RICE THERAPY.pdf) Patient Educated with: INJECTIONTHERA PY.pdf (INJECTIONTHER APY.pdf) Patient Educated with: INJECTIONTHERA PY.pdf (INJECTIONTHER APY.pdf) Patient Educated with: RICE THERAPY.pdf (RICE THERAPY.pdf) Patient Educated with: INJECTIONTHERA PY.pdf (INJECTIONTHER APY.pdf) Patient Educated with: INJECTIONTHERA PY.pdf (INJECTIONTHER APY.pdf) 06/16/2025 Cedillo's neuroma of left foot (ICD-10 - G57.62) Resistant to previous conservative treatment 06/16/2025 Pain in left foot (ICD-10 - M79.672) 05/13/2025 Pain in left foot (ICD-10 - M79.672) 12/10/2024 Pain in left ankle and joints of left foot (ICD-10 - M25.572) 12/10/2024 Bursitis of left foot (ICD-10 - M77.52) 05/13/2025 Pain in left ankle and joints of left foot (ICD-10 - M25.572) 06/16/2025 Pain in left ankle and joints of left foot (ICD-10 - M25.572) 05/13/2025 Bursitis of left foot (ICD-10 - M77.52) 06/16/2025 Bursitis of left foot (ICD-10 - M77.52) 12/10/2024 Hallux valgus (acquired), left foot (ICD-10 - M20.12) 12/10/2024 Pain in right foot (ICD-10 - M79.671) 05/13/2025 Hallux valgus (acquired), left foot (ICD-10 - M20.12) 06/16/2025 Hallux valgus (acquired), left foot (ICD-10 - M20.12) 06/16/2025 Pain in right foot (ICD-10 - M79.671) 05/13/2025 Pain in right foot (ICD-10 - M79.671) 12/10/2024 Pain in right ankle and joints of right foot (ICD-10 - M25.571) 05/13/2025 Pain in right ankle and joints of right foot (ICD-10 - M25.571) 12/10/2024 Bursitis of right foot (ICD-10 - M77.51) 06/16/2025 Pain in right ankle and joints of right foot (ICD-10 - M25.571) 06/16/2025 Bursitis of right foot (ICD-10 - M77.51) 12/10/2024 Hallux valgus (acquired), right foot (ICD-10 - M20.11) 05/13/2025 Bursitis of right foot (ICD-10 - M77.51) 05/13/2025 Hallux valgus (acquired), right foot (ICD-10 - M20.11) 12/10/2024 Plantar fasciitis, bilateral (ICD-10 - M72.2) 06/16/2025 Hallux valgus (acquired), right foot (ICD-10 - M20.11) 05/13/2025 Plantar fasciitis, bilateral (ICD-10 - M72.2) 06/16/2025 Plantar fasciitis, bilateral (ICD-10 - M72.2) 12/10/2024 Other Plan Of Treatment Pending Test Test Name Order Date X ray : Foot, left 3V 12/10/2024 X ray : Foot, left 3V 05/13/2025 X ray : Foot, right 3V 12/10/2024 30209, J0702- Neuroma/Injection 12/10/19 25 Insurance Providers Payer Name Payer Address Payer Phone Subscriber Number Group Number Insured Name Patient Relationship to Insured Coverage Start Date Coverage End Date [facility] [employer] Claims [address] [place] [id number] Norma Valle Self - patient is the insured Medical (General) History Medical History History ICD Code Back,Hip,and Knee pain covid-19 Fibromyalgia High Blood Pressure Numbness Psoriasis/eczema Reflux ( GERD) Chicken pox Surgical History Surgery Date(Month/Year) hysterectomy Tubes tied
== END 2025-08-30 15:30 | disposition home or self-care (01) ==
LOC: HO.HGI 14:36
PROVIDERS: PCP Student in an Organized Health Care Education/Training Program; Visit Provider Nurse Practitioner Family
DX: K21.9 Gastro-esophageal reflux disease without esophagitis (principal); R10.13 Epigastric pain; K59.01 Slow transit constipation; R14.0 Abdominal distension (gaseous)
CPT/HCPCS: 99214; G2211

== ENCOUNTER → 2025-08-30 14:36 | Outpatient (BNVA) | payer OTHER, SELFPAY | PROVIDERS: PCP Student in an Organized Health Care Education/Training Program; Visit Provider Nurse Practitioner Family | DX: K21.9 Gastro-esophageal reflux disease without esophagitis (principal); R10.13 Epigastric pain; K59.01 Slow transit constipation; R14.0 Abdominal distension (gaseous) | CPT/HCPCS: 99212 ==

== ENCOUNTER 2025-09-09 13:25 | Outpatient (REF) | payer OTHER, SELFPAY ==
--- OUTSIDE RECORDS SUMMARY | 2025-03-08 09:00 | XMS_ITS ---
Author Organization [facility] Address [address] [place] [address] Care Team Providers Care Traffic Rate Computer Name Role Phone Tiny Soria Primary Care Provider Akanksha Coelho Unavailable [phone] Allergies Allergen (clinical drug ingredient) Drug/Non Drug [...] Provider Diagnosis [facility] [address] [place] [address] 03/08/2025 Akanksha Soto Plan Of Treatment No Information Progress Notes * Meera FIERROOB:[birth year]10 (60 yo F)Acc No.[id number]:03/08/2025 Progress Note Patient: Sapphire BARTHOLOMEWNUBIA Norma Provider: Tyree Soto DPM :1965 A ge:59 Y S ex:Female Date:03/08/2025 [facility] [id number] Pcp:Tiny Soria Subjective: * Chief Complaints: * [...] 0 03/08/2025 Generated for Alberto lundberg/Solange/Torin on: 11:21 AM EDT
--- NOTE | ~2025-09-09 | XR_ITS ---
EXAMINATION: XR HIP, RIGHT CLINICAL INFORMATION: hip pain COMPARISON: 11/09/2021. TECHNIQUE: Two views of the right hip. FINDINGS: No fracture, dislocation, or suspicious bone lesion. There is normal alignment. There is preservation of the right hip joint space. There is normal acetabular coverage. There is normal femoral head contour without evidence of AVN. There is no soft tissue abnormality. XR/XR hip RT min 2V IMPRESSION: Essentially normal right hip radiographs. No significant change from the prior exam. Electronically signed by: Anam Sears MD 09/09/2025 02:10 PM EDT
--- OUTSIDE RECORDS SUMMARY | 2025-09-09 11:30 | XMS_ITS | Encounter Summary ---
Author Organization [employer] Address [address] [place] [address] [address] [address] Care Team Providers Care Domestic Helper Name Role Phone Joan Soto MD Primary Care Provider [phone] Reason for Referral * Consultation (Urgent) - Pending Review Specialty Diagnoses / Procedures Referred By Beatriz nguyen Referred To Contact Urology Diagnoses Microscopic hematuria Tiny Soria MD [address] [place] [address] Phone: tel: fax: Referral ID Status Reason Start Date Expiration Date Visits Requested Visits Authorized [id number] Pending Review Specialty Services Required 09/09/2025 09/09/2026 1 1 Reason for Visit * Reason Comments Hip Pain painful urination Encounter Details Date Type Department Care Team ([facility] st Contact Info) Description 09/09/2025 11:30 AM EDT Office Visit [facility] [address] [place], [place] [phone] Tiny Soria MD [address] [place], [place] [phone] Right hip pain (Primary Dx); Painful urination; Microscopic hematuria Social History Tobacco Use Types Packs/Day Years [...] AM EDT documented as of this encounter Last Filed Vital Signs Vital Sign Reading Time Taken Comments Blood Pressure 137/89 09/09/2025 11:34 AM EDT Pulse 72 09/09/2025 11:34 AM EDT Temperature 36.3 C (97.4 F) 09/09/2025 11:34 AM EDT Respiratory Rate 18 09/09/2025 11:34 AM EDT Oxygen Saturation - - Inhaled Oxygen Concentration - - Weight 68 kg (150 lb) 09/09/2025 11:34 AM EDT Height 160 cm (5' 3 ) 09/09/2025 11:34 AM EDT Body Mass Index 26.57 09/09/2025 11:34 AM EDT documented in this encounter Plan of Treatment Scheduled Orders Name Type Priority Associated Diagnoses Orde r Schedule XR Hip 2 or 3 Views Right Imaging Routine Right hip pain Expected: 09/09/2025, Expires: 09/09/2026 Scheduled Referrals Name Type Priority Associated Diagnoses Orde r Schedule Referral to Urology Outpatient Referral Urgent Microscopic hematuria Expected: 09/09/2025 (Approximate), Expires: 09/09/2026 documented as of this encounter Procedures Procedure Name Priority Date/Time Associated Diagnosis Comments POCT URINALYSIS DIPSTICK Routine 09/09/2025 11:36 AM EDT Painful urination documented in this encounter Results * (ABNORMAL) POCT Urinalysis (09/09/2025 11:36 AM EDT) Color, UA Yellow Clarity, UA Clear Glucose, UA Negative Bilirubin, UA Negative Ketones, UA Negative Spec Grav, UA 1.025 Blood, UA Positive(A) Negative, None Detected Comment:trace-intact pH, UA 5.5 Protein, UA Negative Urobilinogen, UA 0.2 Leukocytes, UA Negative Negative, Rare, Trace Nitrite, UA Negative Negative, None Detected Appearance, UA clear QC Media Lot # [id number] Lot# Expiration Date 6,026 Urine 09/09/2025 11:3 6 AM EDT Tiny Soria MD POINT OF CARE TEST ENTER/EDIT OR DERABLES Final Result documented in this encounter Visit Diagnoses Diagnosis Right hip pain- Primary Pain in joint, pelvic region and thigh Painful urination Dysuria Microscopic hematuria documented in this encounter Additional Health Concerns Assessment Noted Time PHQ-9 Depression Total Score: 2 04/29/20 25 12:00 PM EDT documented as of this encounter Care Teams Domestic Helper Relationship Specialty Start Date End Date Joan oSto MD [address] [place] [phone] PCP - General Internal Medicine 09/09/25 documented as of this encounter
--- OUTSIDE RECORDS SUMMARY | 2025-09-09 13:29 | XMS_ITS | Encounter Summary ---
Author Organization [employer] Address [address] [facility] [address] [place] [address] Care Team Providers Care Director Of Women'S Services Name Role Phone Joan Soto MD Primary Care Provider [phone] Encounter Details Date Type Department Care Team (Latest Contact Info) Description 09/09/2025 Travel Social History Tobacco Use Types Packs/Day Years [...] AM EDT documented as of this encounter Plan of Treatment Not on file documented as of this encounter Visit Diagnoses Not on filedocumented in this encounter Additional Health Concerns Assessment Noted Time PHQ-9 Depression Total Score: 2 04/29/20 12:00 PM EDT documented as of this encounter Care Teams Director Of Women'S Services Relationship Specialty Start Date End Date Joan Soto MD [address] [place] [address] PCP - General Internal Medicine 09/09/25 documented as of this encounter
--- OUTSIDE RECORDS SUMMARY | 2025-09-09 13:29 | XMS_ITS | Patient Health Record ---
Author Organization [facility] gordo Gheens Address [address] [facility] [place] [address] Care Team Providers Care Production Estimator Name Role Phone Tiny Soria Primary Care Provider Akanksha Coelho Unavailable [phone] Allergies Allergen (clinical drug ingredient) Drug/Non Drug [...] Status Risk Notes Problem Acquired hallux valgus (31316773) Hallux valgus (acquired), left foot (M20.12) Active confirmed Problem Acquired hallux valgus (73190292) Hallux valgus (acquired), right foot (M20.11) Active confirmed Problem Cedillo's neuroma of right foot (89544598489518 8) 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 Problem Cedillo's neuroma of left foot (78144025250542 5) 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 Resistant to previous conservative treatment Problem Plantar fascial fibromatosis (87388801) Plantar fasciitis, bilateral (M72.2) Active confirmed Vital Signs Blood pressure diastolic 65 mm Hg 06/16/2025 Height 5ft 4in in 06/16/2025 Blood pressure systolic 128 mm Hg 06/16/2025 Weight 147 lbs 06/16/2025 BMI 25.23 kg/m2 06/16/2025 Procedures Procedure Date Ordered Date Performed Result Body Sit e 03901, J0702- Neuroma/Injection 12/10/2024 N/A Encounters Encounter Location Date Provider Diagnosis [facility] [address] [address] 12/10/2024 Akanksha Soto Pain in left foot [...] foot M20.11 and Plantar fasciitis, bilateral M72.[address] [facility] [address] 05/13/2025 Akanksha Soto Cedillo's neuroma of left [...] foot M20.11 and Plantar fasciitis, bilateral M72.[address] [facility] [address] 06/16/2025 Akanksha Cedillo's neuroma of left foot [...] foot M20.11 and Plantar fasciitis, bilateral M72.[address] [address] 10/14/2024 Akanksha Soto [address] [address] 11/26/2024 Akanksha Soto [address] [address] 12/10/2024 Akanksha Soto [address] [address] 12/10/2024 Akanksha Soto [address] [address] 03/08/2025 Akanksha Soto [address] [address] 05/13/2025 Akanksha Soto Assessments Encounter Date Diagnosis [...] X ray : Foot, right 3V 12/10/2024 19556, J0702- Neuroma/Injection 12/10/19 25 Insurance Providers Payer Name Payer Address Payer Phone Subscriber Number Group Number Insured Name Patient Relationship to Insured Coverage Start Date Coverage End Date [facility] SCO Claims [address] [place] [id number] Norma Valle Self - patient is the insured Medical (General) History Medical History History ICD Code Back,Hip,and Knee pain covid-19 Fibromyalgia High Blood Pressure Numbness Psoriasis/eczema Reflux ( GERD) Chicken pox Surgical History Surgery Date(Month/Year) hysterectomy Tubes tied
--- OUTSIDE RECORDS SUMMARY | 2025-09-09 13:29 | XMS_ITS | Clinical Summary ---
Author Organization [employer] Address [address] [facility] 7t [place] [address] Care Team Providers Care Billing Analyst Name Role Phone Joan Soto MD Primary Care Provider [phone] Allergies Active Allergy Reactions Criticality Noted Date [...] per day. 90 tablet 3 5 04/29/20 26 Active betamethasone valerate (Valisone) 0.1 % cream APPLY TO THE AFFECTED AREA(S) TWICE DAILY IN THE MORNING AND AT BEDTIME NEEDED 45 g 2 5 Active gabapentin (Neurontin) 100 MG capsule TAKE TWO CAPSULES EVERY NIGHT AT BEDTIME 60 capsule 11 5 Active nitrofurantoin, macrocrystal-mon ohydrate, (Macrobid) 100 MG capsule Take 1 capsule (100 mg) by mouth 2 times daily for 5 days. 10 capsule 5 09/14/20 25 Active celecoxib (CeleBREX) 50 MG capsule Take 1 capsule (50 mg) by mouth Once per day. 30 capsule 3 5 10/09/20 25 Active Active Problems Problem Noted Date Diagnosed [...] Encounters Date Type Department Care Team Description 09/09/2025 11:30 AM EDT Office Visit [facility] [address] [place] [address] Tiny Soria MD Right hip pain (Primary Dx); Painful urination; Microscopic hematuria 09/09/2025 Travel 09/07/2025 Telephone [facility] [address] [place] [address] Tiny Soria MD Nurse Triage 07/13/2025 Orders Only GENERIC EXTERNAL DATA DEPARTMENT Provider, Generic External Data 06/18/2025 Refill [facility] [address] [place] [address] Tiny Soria MD from Last 3 Months [...] 18 09/09/2025 11:34 AM EDT Oxygen Saturation 96% 02/26/2024 9:55 AM EDT Inhaled Oxygen Concentration - - Weight 68 kg (150 lb) 09/09/2025 11:34 AM EDT Height 160 cm (5' 3 ) 09/09/2025 11:34 AM EDT Body Mass Index 26.57 09/09/2025 11:34 AM EDT Plan of Treatment Health Maintenance Due Date Last Done Comments CT Colonography 1965 Colonoscopy 1967 Colorectal Cancer Screening 1965 FIT DNA/Cologuard 1967 FIT 1967 FOBT 1967 HIV Screening 1965 Sigmoidoscopy 1967 Alcohol/Substance Use Screening 1979 Hepatitis C Screening 1985 Hepatitis B Vaccines (1 of 3 - 19+ 3-dose series) 1986 Zoster Vaccines (1 of 2) 2017 COVID-19 Vaccine ( - season) 2025 Influenza Vaccine (#1) 2025 09/01/2024 SDOH Screening 04/19/2026 04/19/2025 Depression Screening 04/29/2026 04/29/2025, 04/29/20 25 Disability Screening 04/29/2026 04/29/2025 Tobacco Screening 04/29/2026 04/29/2025 Mammogram 07/13/2026 07/13/2025, 07/05/2024, 06/11/2023, Additional history exists DTaP/Tdap/Td Vaccines (2 [...] Associated Diagnosis Comments POCT URINALYSIS DIPSTICK Routine 025 11:36 AM EDT Painful urination VITAMIN D 25-OH (D2 AND D3) Routine [...] Recently Relevant to Health Maintenance Results * (ABNORMAL) POCT Urinalysis (09/09/2025 11:36 [...] Media Lot # [id number] Lot# Expiration Date Urine 09/09/2025 11:3 6 AM EDT Tiny Soria MD POINT OF CARE TEST ENTER/EDIT OR DERABLES Final Result * VITAMIN D 25-OH (D2 AND D3) (07/13/2025 3:25 PM EDT) Vitamin D, 25-OH, D2 <4 ng/mL [facility] Comment:This test was develo ped and its analytical performancecharacteristics have been determined by [facility] [place], [place]. It hasnot been cleared or approved by the U.S. Food and DrugAdministration. This assay has been validated pursuantto the CLIA regulations and is used for clinicalpurposes.THIS TEST WAS PERFORMED AT:[id number] [place] [address]URDJWVE W. MASON,MD,PHD Vitamin D, 25-OH, D3 33 ng/mL [facility] Comment:This test was develo ped and its analytical performancecharacteristics have been determined by [facility] [place], [place]. It hasnot been cleared or approved by the U.S. Food and DrugAdministration. This assay has been validated pursuantto the CLIA regulations and is used for clinicalpurposes. Vitamin D, 25-OH, Total 33 30 - 100 ng/mL [facility] Comment:Vitamin D, 25-Hydrox y reports [...] = 30 ng/mL.For additional information, please refer tohttp://education.[facility].[employer]/faq/HZO046(This link is being provided for informational/educational purposes only.) 07/13/2025 3:25 PM EDT 07/13/2025 3:25 PM EDT Generic External Data Provider LAB BLOOD ORDERAB LES Final Result Performing Organization Address [facility] Co de Phone Number [facility] [address] [place] [phone] * Vitamin B12 (Cobalamin) and Folate Panel, Serum (07/13/2025 3:25 PM EDT) Pathologist [facility] Vitamin B12 550 200 - 900 pg/mL [facility] Comment:NORMAL 200-900 PG/ML INDETERMINATE 160-199 PG/ML DEFICIENT < 160 PG/ML Folate 9.8 > or = 4.0 ng/mL [facility] Comment:Reference Values:> o r = 4.0 ng/mL< 4.0 ng/mL suggests folate deficiency Methotrexate, aminopterin and folinic acid(leucovorin) are chemotherapeutic agents whose molecularstructures are similar to folate; therefore, the Architectfolate assay cannot be used for patients using these drugs. 07/13/2025 3:25 PM EDT 07/13/2025 3:25 PM EDT [employer] External Data Provider LAB BLOOD ORDERAB LES Final Result Performing Organization Address [facility] de Phone Number [facility] [address] [place] [address] [phone] * Tissue Transglutaminase Antibody, IgA (07/13/2025 3:25 PM EDT) Pathologist [facility] Transglutaminase IgA <1.0 U/mL [facility] Comment:Value Interpretation ----- <15.0 Antibody not detected> or = 15.0 Antibody detectedTHIS TEST WAS PERFORMED AT:[employer] [place] [phone] HULL MD 07/13/2025 3:25 PM EDT 07/13/2025 3:25 PM EDT Generic External Data Provider LAB BLOOD ORDERAB LES Final Result Performing Organization Address [facility]/ZIP Co de Phone Number [facility] [address] [place] [phone] * Lipase (07/13/2025 3:25 PM EDT) Lipase 41 8 - 78 U/L [facility] 07/13/2025 3:25 PM EDT 07/13/2025 3:25 PM EDT Generic External Data Provider LAB BLOOD ORDERAB LES Final Result Performing Organization Address [facility] Co de Phone Number [facility] [address] [place] [phone] * BI Mammogram Screening Tomosynthesis Bilateral (07/13/2025 2:35 PM EDT) Anatomical Region Laterality Modality Breast Bilateral Mammography 07/13/2025 2:35 PM EDT Narrative 07/19/2025 4:43 PM EDT [facility] [address] [place] [address] Mammography Report Signed Patient: Norma Valle MR#: [id number] : 1965 Acct:[id number] Age/Sex: 60 / F ADM Date: 07/13/25 Loc: HO.MAMMO Attending Dr: Tiny Soria MD Ordering Physician: Tiny Soria MD Results: 2Benign Findings Date of Service: 07/13/25 Follow Up: 1 Year From Orig inal Mammogram Procedure(s): MM tomosynthesis screening BI Accession Number(s): [id number] cc: Tiny Soria MD EXAMINATION: MM SCREENING [...] 07/19/25 1641 DD/ 1435 TD/TT: 07/13/25 1455 Business Services Intern: Procedure Note Donotuseinterpreter, Image - 07/19/[facility] [address] [place] [address] Mammography Report Signed Patient: Norma Valle [facility]#: [id number] : 1965Acct:[id number] Age/Sex: 60 / FADM Date: 07/13/25 Loc: HO.MAMMO Attending Dr: Tiny Soria MD Ordering Physician: Tiny Soria MDResults: 2Benign Findings Date of Service: 07/13/25Follow Up: 1 [facility] From [facility] Mamm[facility] Procedure(s): MM tomosynthesis screening BI Accession Number(s): [id number] cc: Tiny Soria MD EXAMINATION: MM SCREENING [...] 07/19/25 1641 DD/ 1435 TD/TT: 07/13/25 1455 Business Services Intern: us Tiny Soria MD [facility] BI PROCEDURES Final Result * Lipid Panel, Standard (06/27/2023 9:54 AM EDT) Triglycerides 80 mg/dL [facility] Comment:Desirable Triglyceri de: less than 150 mg/dLBorderline High Triglyceride 150-199 mg/dLHigh Triglyceride: 200-499 mg/dLVery High Triglyceride: greater than or equal to 5OO mg/dL Cholesterol 219 mg/dL [facility] Comment:Desirable Cholestero l: less than 200 mg/dLBorderline High Cholesterol: 200-239 mg/dLHigh Cholesterol: greater than 239 mg/dL LDL Cholesterol Calculated 138 mg/dl [facility] Comment:Desirable LDL: less than 100 mg/dLNear Optimal/Above Optimal LDL: 110- 129 mg/dLBorderline High LDL: 130-159 mg/dLHigh LDL: 160-189 mg/dLVery High LDL: greater than or equal to 190 mg/dL HDL Cholesterol 65 mg/dL [facility] Comment:Desirable HDL: great er than 40 mg/dL Note: This HDL assay may give artificially low results in patients with liver disease. Blood Venous blood specimen / Unknown 06/27/2023 9:54 AM EDT 06/27/2023 2:07 PM EDT Tiny Soria MD LAB BLOOD ORDERABLES Final Resul t [facility] [address] [place] [phone] * HPV mRNA E6/E7 (06/02/2019 4:15 PM EDT) HPV mRNA E6/E7 Not Detected NOT DETECTED [facility] Comment: This test was performed using the APTIMA(R) HPV Assay ([employer] This assay detects E6/E7 viral messenger RNA (mRNA) from 14 high-risk HPV types (16,18,31,33,35,39,45,51, 52,56,58,59,66,68). For additional information please refer to: http://education.[employer]/faq/JEJ093j8 (This link is being provided for informational/ educational purposes only.) The analytical performance characteristics of this assay have been determined by [employer] [place], [place]. The modifications have not been cleared or approved by the FDA. This assay has been validated pursuant to the CLIA regulations and is used for clinical purposes. Test Performed by [employer], [employer] [facility], [address] [place] [address] Rodney You M.D., Ph.D., Director of Laboratories , [facility] [id number] Please note: Effective 08/13/2016, HPV testing will be performed using [employer]'s APTIMA test which targets mRNA. Detecting mRNA instead of DNA, as in older methods, offers significant improvements in specificity. 06/02/2019 4:15 PM EDT us Tiny Soria MD HISTORICAL/NON ORDERABLE LABS Fi nal Result [facility] [address] from Last 3 Months or Most Recently Relevant to Health Maintenance Insurance [facility] < [address] [place] [id number] Care Teams Billing Analyst Relationship Specialty Start Date End Date Joan Soto MD [address] [place] [phone] PCP - General Internal Medicine 09/09/25
--- OUTSIDE RECORDS SUMMARY | 2025-09-09 13:29 | XMS_ITS | Encounter Summary ---
Author Organization [employer] Address [address] [facility] [address] [place] [address] Care Team Providers Care Liquor Tester Name Role Phone Tiny Soria MD Primary Care Provider [phone] Reason for Visit * Reason Onset Date Comments Nurse Triage 09/07/2025 Encounter Details Date Type Department Care Team ([facility] st Contact Info) Description 09/07/2025 Telephone [facility] [address] [place] [address] Tiny Soria MD [address] [place] [address] Nurse Triage Social History Tobacco Use Types Packs/Day Years [...] encounter Miscellaneous Notes * Telephone Encounter - Radha Cedeño RN - 09/07/2025 10:26 AM EDT T/C returned to pt to triage. Pt reports stomach pain that has been ongoing. Sees [facility] for this and is scheduled for Upper endoscopy 09/29/25. For the past 2 weeks pt has had a new pain located on right side on her hip. Pt reports that pain is intermittent and seems to occur when she steps hard . Pain not happening right now. Pt reports that it isn't very painful, just uncomfortable. Pt deniesvomiting, blood in stool, fever, constipation, changes in voiding urine, numbness of extremities, or any other Sx. Pt reports that she is usually constipated but her concrete building assembler gave her an Rxfor dulcolax 1 week ago that has really helped. Pt only wants to see PCP. Booked for 09/09/25 with PCP. Gave ED precautions: if you start vomiting, have a fever, have severe pain, or have changes in voiding go to the ED. Can apply heat to the area 20 min on, 20 min off as needed for pain. Pt agrees with plan. Protocol Used: Abdominal Pain - Female (Adult) Protocol-Based Disposition: See in Office or Video Visit Today or Tomorrow Positive Triage Question: * Mild pain (e.g., does not interfere with normal activities) and pain comes and goes (cramps) lasts > 48 hours (Exception: This same abdominal pain is a chronic symptom recurrent or ongoing AND present > 4 weeks.) * All higher-acuity triage questions were negative Care Advice Discussed: * Reasons To Call Back - Severe pain lasts over 1 hour - Constant pain lasts over 2 hours - You become worse * Telephone Encounter - Cristóbal Yepez - 09/07/2025 10:07 AM EDT Symptom: Abdominal Pain - Female - Not Outcome: Schedule an urgent appointment (within 4 hours) or talk to a nurse or provider soon Reason: Getting worse The caller accepted this outcome. Duration 2x weeks documented in this encounter Plan of Treatment Not on file documented as of this encounter Visit Diagnoses Not on filedocumented in this encounter Additional Health Concerns Assessment Noted Time PHQ-9 Depression Total Score: 2 04/29/20 25 12:00 PM EDT documented as of this encounter Care Teams Liquor Tester Relationship Specialty Start Date End Date Tiny Soria MD [address] [place] [id number] PCP - General Family Medicine 04/20/15 09/08/25 documented as of this encounter
--- OUTSIDE RECORDS SUMMARY | 2025-09-09 13:29 | XMS_ITS | Encounter Summary ---
Author Organization [employer] Address [address] [facility] [address] [place] [address] Care Team Providers Care Water Filtration Technician Name Role Phone Tiny Soria MD Primary Care Provider [phone] Joan Soto MD Primary Care Provider [phone] Reason for Visit * Reason Onset Date Comments Referral 11/23/2024 Encounter Details Date Type Department Care Team ([facility] st Contact Info) Description 11/23/2024 Telephone [facility] MED[facility]INE [address] [place] [address] Tiny Soria MD [address] [place], [place] [id number] Referral Social History Tobacco Use Types Packs/Day [...] any questions you can contact pt at [phone]. documented in this encounter Plan of Treatment Not on file documented as of this encounter Visit Diagnoses Not on filedocumented in this encounter Additional Health Concerns Assessment Noted Time PHQ-9 Depression Total Score: 0 05/21/20 10:07 AM EDT documented as of this encounter Care Teams Water Filtration Technician Relationship Specialty Start Date End Date Tiny Soria MD [address] [place] [id number] PCP - General Family Medicine 04/20/15 09/08/25 Joan Soto MD [address] [place] [id number] PCP - General Internal Medicine 09/09/25 documented as of this encounter
== END 2025-09-09 13:26 | disposition home or self-care (01) ==
LOC: HO.XRAY 13:25
PROVIDERS: PCP Student in an Organized Health Care Education/Training Program; Visit Provider Student in an Organized Health Care Education/Training Program
DX: M25.551 Pain in right hip (principal)
CPT/HCPCS: 73502

== ENCOUNTER → 2025-09-09 13:27 | Outpatient (BNV) | payer OTHER, SELFPAY | PROVIDERS: PCP Student in an Organized Health Care Education/Training Program; Visit Provider Radiology Diagnostic Radiology | DX: M25.551 Pain in right hip (principal) | CPT/HCPCS: 73502 ==

== ENCOUNTER 2025-09-24 06:19 | Emergency (ER) | payer OTHER, SELFPAY ==
--- NOTE | ~2025-09-24 | CT_ITS ---
EXAMINATION: CT ABDOMEN AND PELVIS WITH CONTRAST CLINICAL INFORMATION: Lower abdominal pain. Bloody stools. COMPARISON: None available. TECHNIQUE: Multidetector volumetric images were obtained from the superior aspect of the liver through the pubic symphysis following administration 85 mL of Omnipaque 350 intravenous contrast. Sagittal and coronal reformatted images were obtained on the technologist's workstation. Oral contrast: No This CT examination was performed using dose optimization techniques as appropriate, variously including the following: *Automated exposure control *Adjustment of mA and/or kV according to patient size (this includes techniques or standardized protocols for targeted exams where dose is matched to indication/reason for exam; i.e. extremities or head) *Use of iterative reconstruction technique. DLP: 461 mGy centimeters. FINDINGS: LUNG BASES: Atelectasis lung bases and lingula. LIVER, GALLBLADDER, AND BILIARY TREE: Liver measures 15 cm. No focal mass. Less than 3 mm hypodensities too small to be fully characterized by CT. Main portal veins and hepatic veins and intrahepatic portion of the IVC are patent. Gallbladder is nondistended. No pericholecystic fluid collection or gallbladder wall thickening. No intrahepatic or extrahepatic biliary ductal dilatation. PANCREAS: No focal mass. No peripancreatic fluid collection. No main pancreatic ductal dilatation. SPLEEN: 10 cm. No focal mass. 2 mm hypodensity too small to be fully characterized. ADRENAL GLANDS: No nodular lesions. KIDNEYS AND URETERS: Normal enhancement pattern of the renal cortex. No hydronephrosis. No gross nephrolithiasis. No enhancing renal mass. No dilatation of the ureters. BLADDER: Fluid-filled. GASTROINTESTINAL TRACT: Collapsed appearance of the left hemicolon mostly the ascending colon and proximal sigmoid colon. Questionable intestinal wall thickening in the descending and sigmoid colon. Gas and fluid-filled mildly prominent distal small bowel loops. Terminal ileum is collapsed with questionable intestinal wall thickening. Appendix is normal. No intestinal obstruction pattern. No pneumoperitoneum. No ascites. No peripheral enhancing fluid collections, peritoneal cavity. ABDOMINAL WALL: Small fat-containing umbilical hernia. LYMPH NODES: Prominent, less than 1.5 cm retroperitoneum lymph nodes. VASCULAR: Mixed plaques in the abdominal aorta wall and iliac arteries. No aneurysm or dissection, abdominal aorta. PELVIC VISCERA: Absent uterus. No masses in the ovaries. OSSEOUS STRUCTURES: Spondylosis L5-S1. Sclerosis and vacuum phenomenon in the sacroiliac joints. No acute fracture or gross listhesis. Degenerative changes in the symphysis pubis. Probable bony island, right hemisacrum. No lytic or blastic lesions. CT/CT abdomen pelvis w IV con IMPRESSION: Concerning acute inflammatory bowel disease in the correct clinical settings. Prominent retroperitoneal lymph nodes. Small fat-containing umbilical hernia. Spondylosis L5-S1. Fleischner guidelines were followed. Electronically signed by: Jorge Bunn MD 09/24/2025 08:29 AM EDT
[2025-09-24 06:22] VITALS: BP 153/89; PULSE 67; RESP 14; TEMP 36.8; O2SAT 95; BMI 25.7
--- NOTE | 2025-09-24 06:28 | ECG_ITS ---
Test Reason : gi bleed Blood Pressure : */* mmHG Vent. Rate : 61 BPM Atrial Rate : 61 BPM P-R Int : 164 ms QRS Dur : 72 ms QT Int : 406 ms P-R-T Axes : 57 37 24 degrees QTcB Int : 408 ms Normal sinus rhythm Normal ECG No previous ECGs available Referred By: Haylie Sotelo Electronically Signed By: RODRIGUE PATEL MD
--- NOTE | 2025-09-24 06:47 | ED.GIBLEED ---
HPI - GI Bleed General Chief complaint: GI Bleed Stated complaint: hematochezia Time Seen by Provider: 09/24/25 06:26 Source: patient, family and old records reviewed Mode of arrival: ambulatory Limitations: no limitations History of Present Illness ED Provider: GANESH HARVEY Narrative: 60 yo female with PMH Of HTN, GERD, headaches, follows with GI due for 1st colonoscopy Oct 12 - she notes she was on oral abx starting 09/09 for UTI (macrobid) notes lower abdominal cramps in waves then brbpr with bowel movements only. No fevers, no vomiting. She is not on blood thinners she has never had this before. She notes she the pain comes and goes. She denies recent travel, sick contacts, food exposures. She has not had yumiko blood come out on its own it is only mixed with stool. She has never had colitis, diverticulitis before. MD complaint: blood streaked stool and gross hematochezia Onset (ago): day(s) (3) Pain Consistency: intermittent Severity: moderate Relieving factors: none Exacerbating factors: bowel movement Associated symptoms: abdominal pain and nausea Treatments Prior to Arrival: none Related Data Home Medications ?Medication ?Instructions ?Recorded ?Confirmed gabapentin 100 mg capsule 100 mg PO BID 06/20/23 06/15/25 lisinopril 10 mg tablet 10 mg PO DAILY 06/20/23 06/15/25 oxybutynin chloride 10 mg 10 mg PO DAILY 07/01/23 06/15/25 tablet,extended release 24 hr magnesium 200 mg tablet 200 mg PO DAILY 04/14/24 06/15/25 famotidine 20 mg tablet 20 mg PO BEDTIME 06/15/25 06/15/25 calcium 500 mg (as 1 tab PO DAILY 08/30/25 carbonate)-vitamin D3 10 mcg (400 unit) tablet (Oyster Shell Calcium-Vitamin D3) Previous Rx's ?Medication ?Instructions ?Recorded naproxen 500 mg tablet 500 mg PO BID PRN pain #20 tabs 07/09/24 bisacodyl 5 mg tablet,delayed 10 mg (2 x 5 mg) PO BEDTIME #180 08/30/25 release (Dulcolax (bisacodyl)) tabs esomeprazole magnesium 40 mg 40 mg PO DAILY #30 caps 08/30/25 capsule,delayed release (Nexium) polyethylene glycol 3350 17 238 g PO ONCE #238 grams 08/30/25 gram/dose oral powder (Miralax) Allergies Allergy/AdvReac Type Severity Reaction Status Date / Time penicillin V Allergy Unknown swelling Verified 09/24/25 06:27 Review of Systems Review of Systems: Constitutional : No Weight loss, No Fever, No Chills ENT/Mouth : No sore throat, No Rhinorrhea Eyes: No Swelling, No Redness Cardiovascular : No Chest Pain, No SOB, No Edema Respiratory : No Cough, No Sputum, No Wheezing Gastrointestinal : Positive Nausea, no Vomiting, no Diarrhea, positive abdominal Pain, pos Hematochezia, No Melena Genitourinary : No Dysuria, No Urinary Frequency, No Hematuria, No Urgency Musculoskeletal : No joint pain, No Myalgias, No Joint Swelling Skin : No Skin Lesions, No rash Neuro : No Weakness, No Numbness, No Dizziness, No Headache All other systems reviewed and are negative. [facility] Past Medical History Attestation statement: The following information was validated with the patient. Source: old records reviewed Medical History Constipation Postprandial epigastric pain Numbness and tingling of both legs Degenerative cervical spinal stenosis Numbness and tingling in both hands Gait disturbance GERD (gastroesophageal reflux disease) Headache Plantar fasciitis HTN (hypertension) Cystocele with uterine prolapse Surgical History H/O total hysterectomy H/O tubal ligation Family History Family History Mother Multiple myeloma Maternal Aunt Breast cancer Colon cancer Cancer of blood vessel Social History Social History Alcohol intake: current Alcohol intake frequency: holidays/special occasions only Patient Tobacco Use Status: Current someday Tobacco user Smoked in Last 30 Days: Yes Use of substances other than those prescribed or required for medical reasons: No Advance Directives: Yes Advance Directives Information Provided: Yes Advance Directives on File: No Do you have a plan to hurt others: No Plan Patient : No Physical Exam Vital Signs: Vital Signs: Last Vital Signs Temp 98.2 F 09/24/25 06:22 Pulse 67 09/24/25 06:22 Resp 14 09/24/25 06:22 BP 153/89 H 09/24/25 06:22 Pulse Ox 95 09/24/25 06:22 O2 Del Method Room Air 09/24/25 06:22 BMI result Body Mass Index 25.7 Appearance: Alert. Oriented X3. No acute distress. Eyes: Pupils equal, round and reactive to light. ENT: Pharynx normal. Neck: Normal inspection. Neck supple. CVS: Normal heart rate and rhythm. Pulses normal. Respiratory: No respiratory distress. Breath sounds normal. Abdomen: Soft and mild lower abd ttp no rebound or guarding Rectal: light brown stool on finger, no hemorrhoids noted Skin: Skin warm and dry. Normal skin color. Normal skin turgor. Extremities: No lower extremity edema. Neuro: Oriented X 3. No motor deficit. No sensory deficit. Medications Administered Discontinued Medications Generic Name Dose Route Start Last Admin Trade Name Freq PRN Reason Stop Dose Admin Lactated Ringer's 1,000 mls @ 999 mls/hr 09/24/25 06:40 09/24/25 08:04 Lr IV 09/24/25 07:40 Infused .Q1H1M ONE Infusion Acetaminophen 1,000 mg in 100 mls @ 400 mls/hr 09/24/25 06:40 09/24/25 07:33 Ofirmev IV 09/24/25 06:54 Infused ONCE ONE Infusion Iohexol 100 ml 09/24/25 08:15 09/24/25 08:15 Iohexol 350 Mg/Ml 100 Ml Infus..Btl IV 09/24/25 08:16 85 ml ONCE ONE Administration Medical Decision Making Medical Decision Making MDM Narrative: 60 yo female with PMH Of HTN, GERD, headaches, follows with GI due for 1st colonoscopy Oct 12 now here with c/o lower abd pain intermittent brb per rectum with recent macrobid use. She has never had GI symptoms before. She does not have an acute abdomen and she is not actively bleeding now. At this time will need labs, CT scan for colitis, diverticular ds, mass, constipation. IVF and IV tylenol for pain ordered. Differential Diagnosis Differential Diagnoses: The differential diagnosis associated with the presentation includes hemorrhoids, colitis, diverticular ds, constipation Admission/Observation Consideration of admission/observation: Escalation of care including admission/observation considered no bleeding here, H/H stable, VS stable, neg guiac some inflammation on CT scan but no fevers, no wbc count and not immunosuppressed will refer to GI and follow up as outpatient Lab Data MDM Lab Attestation statement: I reviewed the patient's lab results. 09/24/25 06:49 09/24/25 06:49 Labs: Lab Results 09/24/25 09/24/25 09/24/25 Range/Units 06:49 06:51 07:09 WBC 7.3 (4.8-10.8) X10*3/uL RBC 4.81 (4.20-5.50) X10*6/uL Hgb 14.7 (12.0-16.0) g/dl Hct 43.9 (37.0-47.0) % MCV 91.3 (80.0-98.0) fL MCH 30.6 (27.0-33.0) pg MCHC 33.5 (31.0-35.0) g/dl RDW 13.4 (11.0-16.0) % Plt Count 191 (160-400) X10*3/uL MPV 10.4 (9.4-12.3) fL Immature Gran % (Auto) 0.3 (0.0-0.4) % Neut % (Auto) 64.8 (45-73) % Lymph % (Auto) 26.3 (20-40) % Bent % (Auto) 6.6 (2-11) % Eos % (Auto) 1.2 (0-4) % Baso % (Auto) 0.8 (0-2) % Lymph # (Auto) 1.9 (1.2-4.9) X10*3/uL Bent # (Auto) 0.5 (0.1-1.2) X10*3/uL Eos # (Auto) 0.1 (0.0-0.4) X10*3/uL Baso # (Auto) 0.1 (0.0-0.2) X10*3/uL Abs Immat Gran (auto) 0.02 (0.00-0.03) X10*3/uL Absolute Neuts (auto) 4.7 (2.0-8.3) x10*3/uL Absolute Nucleated RBC 0.000 (0.0-0.012) X10*3/uL Nucleated RBC % (auto) 0.0 (0.0-0.2) /100WBC PT 11.1 (10.9-12.4) SEC INR 1.0 (0.9-1.1) Sodium 142 (135-145) mmol/L Potassium 4.0 (3.3-5.1) mmol/L Chloride 110 H (96-108) mmol/L Carbon Dioxide 23 (22-29) mmol/L Anion Gap 13 (12-20) BUN 14 (9-16) mg/dL Creatinine 0.88 (0.5-1.4) mg/dL Estim Creat Clear Calc 66.0 Estimated GFR > 60 Random Glucose 100 (60-115) mg/dL Calcium 9.8 (8.4-10.2) mg/dL Magnesium 1.8 (1.6-2.6) mg/dL Total Bilirubin 0.3 (0.0-1.0) mg/dL Direct Bilirubin 0.1 (0.0-0.5) mg/dL AST 20 (5-31) U/L ALT 22 (0-31) U/L Alkaline Phosphatase 75 (39-117) U/L Total Protein 6.7 (6.5-8.0) g/dL Albumin 4.3 (3.5-5.0) g/dL Lipase 33 (8-78) U/L Urine Color Yellow Urine Appearance Clear Urine pH 6.5 (5.0-9.0) Ur Specific [place] <= 1.005 (1.005-1.025) Urine Protein Negative (Neg-Trace) mg/dL Urine Glucose (UA) Negative (Negative) mg/dL Urine Ketones Negative (Negative) mg/dL Urine Blood Negative (Negative) Urine Nitrite Negative (Negative) Ur Leukocyte Esterase Negative (Negative) Stool Occult Blood NEGATIVE (NEGATIVE) Blood Type O Positive Antibody Screen NEGATIVE Independent Interpretation I performed an independent interpretation of an: EKG and CT Scan (inflammatory issue) Interpretation: Rate: 61 Rhythm: NSR [place]: normal Normal P waves. Normal GREG. Normal QRS complex. ST T wave : inverted t waves V1, no YUSUF qTC: 408 prior studies: no acute ischemia The study has been interpreted contemporaneously by me. . Radiology Impression Discussion of test interpretation with radiology: I have reviewed the radiologist's reading. Independent Historian Clinical information obtained from an independent historian. History obtained from or confirmed by: Spouse External Record Review External record reviewed: Outpatient record and Prior outpatient labs Prescription Management I considered prescription management with: Pain Medication and Other Discharge Plan Discharge Clinical Impression: Rectal bleed, Bowel disease, inflammatory Patient Disposition: Home, Self-Care Instructions: Rectal Bleeding (ED) Additional Instructions: no blood on stool study normal labs CT scan mild inflammation but no active bleeding, no mass, no infection would treat with tylenol and bland diet and liquids for 48 hours return for fevers over 100.4, worsening pain, increased bleeding without stool and clots in toilet avoid aspirin call your GI doctor today for follow up Prescriptions: No Action naproxen 500 mg tablet 500 mg PO BID PRN (Reason: pain) Qty: 20 0RF magnesium 200 mg tablet 200 mg PO DAILY gabapentin 100 mg capsule 100 mg PO BID lisinopril 10 mg tablet 10 mg PO DAILY oxybutynin chloride 10 mg tablet extended release 24hr 10 mg PO DAILY famotidine 20 mg tablet 20 mg PO BEDTIME calcium carbonate-vitamin D3 [Oyster Shell Calcium-Vit D3] 500 mg-10 mcg (400 unit) tablet 1 tab PO DAILY esomeprazole magnesium [Nexium] 40 mg capsule,delayed release(DR/EC) 40 mg PO DAILY Qty: 30 3RF bisacodyl [Dulcolax (bisacodyl)] 5 mg tablet,delayed release (DR/EC) 10 mg PO BEDTIME Qty: 180 4RF polyethylene glycol 3350 [Miralax] 17 gram/dose powder 238 g PO ONCE Qty: 238 0RF Rx Instructions: As directed by gastroenterology department at [facility] Stand Alone Forms: Work/School Release Print Language: Azeri
[2025-09-24 06:58] LABS: OBS Int Ctl Valid YES; OBS1 NEGATIVE (NEGATIVE)
[2025-09-24 06:58] LABS: MANUAL DIFF FLAG NO
[2025-09-24 07:02] LABS: Hematocrit 43.9 % (37.0-47.0); Hemoglobin 14.7 g/dl (12.0-16.0); Imm Gran Abs Auto 0.02 X10*3/uL (0.00-0.03); Imm Gran Pct Auto 0.3 % (0.0-0.4); Lymphocytes Absolute Auto 1.9 X10*3/uL (1.2-4.9); Mean Corpuscular HGB Conc 33.5 g/dl (31.0-35.0); Mean Corpuscular Hemoglobin 30.6 pg (27.0-33.0); Mean Corpuscular Volume 91.3 fL (80.0-98.0); NRBC Abs Auto 0.000 X10*3/uL (0.0-0.012); NRBC Pct Auto 0.0 /100WBC (0.0-0.2); Platelet Count 191 X10*3/uL (160-400); Red Blood Count 4.81 X10*6/uL (4.20-5.50); White Blood Count 7.3 X10*3/uL (4.8-10.8)
[2025-09-24] MEDS: Lactated Ringers 1,000 ML 999 ML IV (07:02)
[2025-09-24 07:07] LABS: INTERNATIONAL NORM RATIO 1.0 (0.9-1.1); Prothrombin Time 11.1 SEC (10.9-12.4)
[2025-09-24 07:18] LABS: Appearance Urine Clear; Glucose Urine UA Negative (Negative); PH 6.5 (5.0-9.0); Specific Gravity - Urine <= 1.005 (1.005-1.025)
[2025-09-24 07:25] LABS: Alanine Aminotransferase 22 U/L (0-31); Albumin Level 4.3 g/dL (3.5-5.0); Alkaline Phosphatase 75 U/L (39-117); Anion Gap 13 (12-20); Aspartate Amino Transferase 20 U/L (5-31); Blood Urea Nitrogen 14 mg/dL (9-16); Calcium 9.8 mg/dL (8.4-10.2); Carbon Dioxide 23 mmol/L (22-29); Chloride 110 mmol/L (96-108); Creatinine Clr Calc Pharmacy 66.0; Estimated Glomerular Filt Rate > 60; Lipase 33 U/L (8-78); Magnesium 1.8 mg/dL (1.6-2.6); Potassium 4.0 mmol/L (3.3-5.1); Sodium 142 mmol/L (135-145); Total Protein 6.7 g/dL (6.5-8.0)
--- OUTSIDE RECORDS SUMMARY | 2025-09-24 07:32 | XMS_ITS | Encounter Summary ---
Author Organization [employer] Address [address] [facility] [address] [place] [address] Care Team Providers Care Scrap Metal Processing Worker Name Role Phone Joan Soto MD Primary Care Provider [phone] Encounter Details Date Type Department Care Team ([facility] Contact Info) Description 09/24/2025 Orders Only GENERIC EXTERNAL DATA DEPARTMENT Provider, Generic External Data Social History Tobacco Use Types Packs/Day Years [...] as of this encounter Plan of Treatment Upcoming Encounters Date Type Department Care Team ([facility] Contact Info) Description 09/24/2025 2:45 PM EDT Office Visit [facility] MED & PEDS [address] [place] [address] Lencho Melvin, BANANA ROOM CUTTER [address] [place] [address] Pending Results Name Type Priority Associated Diagnoses Date /Time Type and screen Lab Routine 6:51 AM EDT documented as of this encounter Procedures Procedure Name Priority Date/Time Associated Diagnosis Comments URINALYSIS WITH REFLEX MICROSCOPIC Routine 09/24/2025 7:09 AM EDT OBSX1 Routine 09/24/2025 6:51 AM EDT TYPE AND SCREEN Routine 09/24/2025 6:51 AM EDT CBC WITH AUTO DIFFERENTIAL Routine 09/24/2025 6:49 AM EDT PROTHROMBIN TIME-INR Routine 09/24/2025 6:49 AM EDT MAGNESIUM Routine 09/24/2025 6:49 AM EDT LIPASE Routine 09/24/2025 6:49 AM EDT HEPATIC FUNCTION PANEL Routine 09/24/2025 6:49 AM EDT BASIC METABOLIC PANEL Routine 09/24/2025 6:49 AM EDT documented in this encounter Results * Urinalysis w/reflex microscopic (09/24/2025 7:09 AM EDT) Color Urine Yellow [facility] Appearance Urine Clear [facility] PH 6.5 5.0 - 9.0 [facility] Glucose Urine UA Negative Negative mg/dL [facility] Urine Blood Negative Negative [facility] Specific [place] - Urine <=1.005 1.005 - 1.025 [facility] Urine Protein Negative Neg-Trace mg/dL [facility] Urine Ketones Negative Negative mg/dL [facility] Nitrite Urine Negative Negative [facility] Leukocyte Esterase Urine Negative Negative [facility] 09/24/2025 7:09 AM EDT 09/24/2025 7:16 AM EDT Narrative [facility] - 09/24/2025 7:19 AM EDT Urine, Clean Catch Generic External Data Provider LAB URINE ORDERAB LES Final Result Performing Organization Address [facility]/ZIP Co de Phone Number [facility] [address] [place] [phone] * OBSX1 (09/24/2025 6:51 AM EDT) OBS1 NEGATIVE NEGATIVE [facility] 09/24/2025 6:51 AM EDT 09/24/2025 6:57 AM EDT us Generic External Data Provider LAB BLOOD ORDERAB LES Final Result Performing Organization Address [facility]/ZIP Co de Phone Number [facility] [address] [place] [phone] * Lipase (09/24/2025 6:49 AM EDT) Lipase 33 8 - 78 U/L [facility] 09/24/2025 6:49 AM EDT 09/24/2025 6:57 AM EDT us Generic External Data Provider LAB BLOOD ORDERAB LES Final Result Performing Organization Address City/[facility]/ZIP Co de Phone Number [facility] [address] [place] [phone] * Magnesium (09/24/2025 6:49 AM EDT) Magnesium 1.8 1.6 - 2.6 mg/dL [facility] 09/24/2025 6:49 AM EDT 09/24/2025 6:57 AM EDT Generic External Data Provider LAB BLOOD ORDERAB LES Final Result Performing Organization Address [facility] de Phone Number [facility] [address] [place] [phone] * (ABNORMAL) Basic Metabolic Panel (09/24/2025 6:49 AM EDT) Sodium 142 135 - 145 mmol/L [facility] Potassium 4.0 3.3 - 5.1 mmol/L [facility] Chloride 110(H) 96 - 108 mmol/L [facility] Carbon Dioxide 23 22 - 29 mmol/L [facility] Anion Gap 13 12 - 20 [facility] Urea Nitrogen (BUN) 14 9 - 16 mg/dL [facility] Creatinine, Serum 0.88 0.5 - 1.4 mg/dL [facility] Creatinine Clr Calc Pharmacy 66.0 [facility] Comment:Provided height and weight: 162.56 cm,68.039 kg.eGFR (calculated from the MDRD study equation) and eCrCl(calculated from the Cockcroft-Gault equation) are based ondifferent parameters and may not yield comparable results.If eCrCl result is absurd, please check patient'sheight/weight. Estimated Glomerular Filt Rate >60 [facility] Comment:Chronic Kidney Disea se: Estimated GFR < 60 mL/min/1.81u4Flayux Kidney Disease: Estimated GFR < 15 mL/min/1.73m2 Glucose 100 60 - 115 mg/dL [facility] Calcium 9.8 8.4 - 10.2 mg/dL [facility] 09/24/2025 6:49 AM EDT 09/24/2025 6:57 AM EDT Generic External Data Provider LAB BLOOD ORDERAB LES Final Result Performing Organization Address [facility] de Phone Number [facility] [address] [place] [phone] * Hepatic Function Panel (09/24/2025 6:49 AM EDT) Bilirubin, Total 0.3 0.0 - 1.0 mg/dL [facility] Bilirubin, Direct 0.1 0.0 - 0.5 mg/dL [facility] Aspartate Amino Transferase 20 5 - 31 U/L [facility] Alanine Aminotransferase 22 0 - 31 U/L [facility] Total Protein 6.7 6.5 - 8.0 g/dL [facility] Albumin Level 4.3 3.5 - 5.0 g/dL [facility] Alkaline Phosphatase 75 39 - 117 U/L [facility] 09/24/2025 6:49 AM EDT 09/24/2025 6:57 AM EDT Swipp External Data Provider LAB BLOOD ORDERAB LES Final Result Performing Organization Address [facility] de Phone Number [facility] [address] [place] [phone] * Prothrombin Time-INR (09/24/2025 6:49 AM EDT) Prothrombin Time 11.1 10.9 - 12.4 SEC [facility] INTERNATIONAL NORM RATIO 1.0 0.9 - 1.1 [facility] Comment:INTERNATIONAL NORMAL IZED RATIO (INR) REFERENCE RANGES Reference RangeFor patients not on anticoagulant therapy: 0.9 - 1.1INR ranges for oral anticoagulanttherapy:For prevention and treatment of venous thrombosis and pulmonary embolism: 2.0 - 3.0For acute myocardial infarction with aspirin therapy: 2.0 - 3.0For acute myocardial infarction without aspirin therapy: 3.0 - 4.0For patients with mechanical prosthetic heart valves: 2.5 - 3.5 09/24/2025 6:49 AM EDT 09/24/2025 6:57 AM EDT us Generic External Data Provider LAB BLOOD ORDERAB LES Final Result [facility] [address] [place] [phone] * CBC auto differential (09/24/2025 6:49 AM EDT) White Blood Count 7.3 4.8 - 10.8 X10*3/uL [facility] Red Blood Count 4.81 4.20 - 5.50 X10*6/uL [facility] Hemoglobin 14.7 12.0 - 16.0 g/dl [facility] Hematocrit 43.9 37.0 - 47.0 % [facility] Mean Corpuscular Volume 91.3 80.0 - 98.0 fL [facility] Mean Corpuscular Hemoglobin 30.6 27.0 - 33.0 pg [facility] Mean Corpuscular HGB Conc 33.5 31.0 - 35.0 g/dl [facility] Red Cell Distribution Width 13.4 11.0 - 16.0 % [facility] Platelet Count 191 160 - 400 X10*3/uL [facility] Mean Platelet Volume 10.4 9.4 - 12.3 fL [facility] Neutrophils Percent Auto 64.8 45 - 73 % [facility] Imm Gran Pct Auto 0.3 0.0 - 0.4 % [facility] Lymphocytes Percent Auto 26.3 20 - 40 % [facility] Monocytes Percent Auto 6.6 2 - 11 % [facility] Eosinophils Percent Auto 1.2 0 - 4 % [facility] Basophils Percent Auto 0.8 0 - 2 % [facility] NRBC Pct Auto 0.0 0.0 - 0.2 /100WBC [facility] Neutrophils Absolute Auto 4.7 2.0 - 8.3 x10*3/uL [facility] Imm Gran Abs Auto 0.02 0.00 - 0.03 X10*3/uL [facility] Lymphocytes Absolute Auto 1.9 1.2 - 4.9 X10*3/uL [facility] Monocytes Absolute Auto 0.5 0.1 - 1.2 X10*3/uL [facility] Eosinophils Absolute Auto 0.1 0.0 - 0.4 X10*3/uL [facility] Basophils Absolute Auto 0.1 0.0 - 0.2 X10*3/uL [facility] NRBC Abs Auto 0.000 0.0 - 0.012 X10*3/uL [facility] 09/24/2025 6:49 AM EDT 09/24/2025 6:57 AM EDT us Generic External Data Provider LAB BLOOD ORDERAB LES Final Result [facility] [address] [place] [phone] documented in this encounter Visit Diagnoses Not on filedocumented in this encounter Additional Health Concerns Assessment Noted Time PHQ-9 Depression Total Score: 2 04/29/20 25 12:00 PM EDT documented as of this encounter Care Teams Scrap Metal Processing Worker Relationship Specialty Start Date End Date Joan Soto MD [address] [place] [phone] PCP - General Internal Medicine 09/09/25 documented as of this encounter
--- OUTSIDE RECORDS SUMMARY | 2025-09-24 07:32 | XMS_ITS | Encounter Summary ---
Author Organization [employer] Address [address] [facility] [address] [place] [address] Care Team Providers Care Oil Burner Technician Name Role Phone Tiny Soria MD Primary Care Provider [phone] Joan Soto MD Primary Care Provider [phone] Reason for Visit * Reason Onset Date Comments Referral 11/23/2024 Encounter Details Date Type Department Care Team ([facility] st Contact Info) Description 11/23/2024 Telephone [facility] MEDICINE [address] [place] [address] Tiny Soria MD [address] [place], [place] [phone] Referral Social History Tobacco Use Types Packs/Day [...] any questions you can contact pt at [phone]. documented in this encounter Plan of Treatment Upcoming Encounters Date Type Department Care Team ([facility] st Contact Info) Description 09/24/2025 2:45 PM EDT Office Visit [facility] CHC MED & PEDS [address] [place] [address] Lencho Melvin, TARI [address] [place] [phone] documented as of this encounter Visit Diagnoses Not on filedocumented in this encounter Additional Health Concerns Assessment Noted Time PHQ-9 Depression Total Score: 0 05/21/20 23 10:07 AM EDT documented as of this encounter Care Teams Oil Burner Technician Relationship Specialty Start Date End Date Tiny Soria MD [address] [place] [phone] PCP - General Family Medicine 04/20/15 09/08/25 Joan Soto MD [address] [place] [phone] PCP - General Internal Medicine 09/09/25 documented as of this encounter
--- OUTSIDE RECORDS SUMMARY | 2025-09-24 07:32 | XMS_ITS | Clinical Summary ---
Author Organization [employer] Address [address] [facility] [address] [place] [address] Care Team Providers Care Electrical Instrument Maker Name Role Phone Joan Soto MD Primary Care Provider [phone] Allergies Active Allergy Reactions Criticality Noted Date [...] AT BEDTIME 60 capsule 11 5 Active celecoxib (CeleBREX) 50 MG capsule Take 1 capsule (50 mg) by mouth Once per day. 30 capsule 3 5 10/09/20 25 Active nitrofurantoin, macrocrystal-mon ohydrate, (Macrobid) 100 MG capsule Take 1 capsule (100 mg) by mouth 2 times daily for 5 days. 10 capsule 5 09/14/20 25 Active Problems Problem Noted Date Diagnosed Date [...] Encounters Date Type Department Care Team Description 09/24/2025 Orders Only GENERIC EXTERNAL DATA DEPARTMENT Provider, Generic External Data 09/23/2025 Telephone [facility] [address] [place] [address] Joan Soto MD Nurse Triage 09/09/2025 11:30 AM EDT Office Visit [facility] PEDS [address] [place] [address] Tiny Soria MD Right hip pain (Primary Dx); Painful urination; Microscopic hematuria 09/09/2025 Travel 09/07/2025 Telephone [facility] [address] [place] [address] Tiny Soria MD Nurse Triage 07/13/2025 Orders Only GENERIC EXTERNAL DATA DEPARTMENT Provider, Generic External Data from Last 3 Months Immunizations Immunization Administration [...] 09/09/2025 11:34 AM EDT Plan of Treatment Upcoming Encounters Date Type Department Care Team ([facility] st Contact Info) Description 09/24/2025 2:45 PM EDT Office Visit [facility] PEDS [address] [place], [place] [phone] Lencho Melvin, CONTROL SYSTEMS TECHNICIAN [address] [place], [place] [phone] Health Maintenance Due Date Last Done Comments [...] Tobacco Screening 04/29/2026 04/29/2025 Mammogram 07/13/2026 07/13/2025, 0705/2024, 06/11/2023, Additional history exists DTaP/Tdap/Td Vaccines (2 [...] REFLEX MICROSCOPIC Routine 09/24/2025 7:09 AM EDT TYPE AND SCREEN Routine 09/24/2025 6:51 AM EDT OBSX1 Routine 09/24/2025 6:51 AM EDT LIPASE Routine 09/24/2025 6:49 AM EDT MAGNESIUM Routine 09/24/2025 6:49 AM EDT BASIC METABOLIC PANEL Routine 09/24/2025 6:49 AM EDT HEPATIC FUNCTION PANEL Routine 6:49 AM EDT PROTHROMBIN TIME-INR Routine 09/24/2025 6:49 AM EDT CBC WITH AUTO DIFFERENTIAL Routine 09/24/2025 6:49 AM EDT XR HIP 2 OR 3 VIEWS RIGHT Routine 09/09/2025 2:03 PM EDT Right hip pain POCT URINALYSIS DIPSTICK Routine 025 11:36 AM [...] Recently Relevant to Health Maintenance Results * Urinalysis w/reflex microscopic (09/24/2025 7:09 AM EDT) Color Urine Yellow [facility] Appearance Urine Clear [facility] PH 6.5 5.0 - 9.0 [facility] Glucose Urine UA Negative Negative mg/dL [facility] Urine Blood Negative Negative [facility] Specific [place] - Urine <=1.005 1.005 - 1.025 [facility] Urine Protein Negative Neg-Trace mg/dL [facility] Urine Ketones Negative Negative mg/dL [facility] Nitrite Urine Negative Negative [facility] Leukocyte Esterase Urine Negative Negative [facility] 09/24/2025 7:09 AM EDT 09/24/2025 7:16 AM EDT Narrative [facility] - 09/24/2025 7:19 AM EDT Urine, Clean Catch us Generic External Data Provider LAB URINE ORDERAB LES Final Result Performing Organization Address [facility] de Phone Number [facility] [address] [place] [phone] * OBSX1 (09/24/2025 6:51 AM EDT) Pathologist [facility] OBS1 NEGATIVE NEGATIVE [facility] 09/24/2025 6:51 AM EDT 09/24/2025 6:57 AM EDT us Generic External Data Provider LAB BLOOD ORDERAB LES Final Result Performing Organization Address [facility] Phone Number [facility] [address] [place] [phone] * CBC auto differential (09/24/2025 6:49 AM EDT) [facility] White Blood Count 7.3 4.8 - 10.8 X10*3/uL [facility] Red Blood Count 4.81 4.20 - 5.50 X10*6/uL [facility] Hemoglobin 14.7 12.0 - 16.0 g/dl [facility] Hematocrit 43.9 37.0 - 47.0 % [facility] Mean Corpuscular Volume 91.3 80.0 - 98.0 fL [facility] Mean Corpuscular Hemoglobin 30.6 27.0 - 33.0 pg [facility] Mean Corpuscular HGB Conc 33.5 31.0 - 35.0 g/dl [facility] Red Cell Distribution Width 13.4 11.0 - 16.0 % [facility] Platelet Count 191 160 - 400 X10*3/uL [facility] Mean Platelet Volume 10.4 9.4 - 12.3 fL [facility] Neutrophils Percent Auto 64.8 45 - 73 % [facility] Imm Gran Pct Auto 0.3 0.0 - 0.4 % [facility] Lymphocytes Percent Auto 26.3 20 - 40 % [facility] Monocytes Percent Auto 6.6 2 - 11 % [facility] Eosinophils Percent Auto 1.2 0 - 4 % [facility] Basophils Percent Auto 0.8 0 - 2 % [facility] NRBC Pct Auto 0.0 0.0 - 0.2 /100WBC [facility] Neutrophils Absolute Auto 4.7 2.0 - 8.3 x10*3/uL [facility] Imm Gran Abs Auto 0.02 0.00 - 0.03 X10*3/uL [facility] Lymphocytes Absolute Auto 1.9 1.2 - 4.9 X10*3/uL [facility] Monocytes Absolute Auto 0.5 0.1 - 1.2 X10*3/uL [facility] Eosinophils Absolute Auto 0.1 0.0 - 0.4 X10*3/uL [facility] Basophils Absolute Auto 0.1 0.0 - 0.2 X10*3/uL [facility] NRBC Abs Auto 0.000 0.0 - 0.012 X10*3/uL [facility] 09/24/2025 6:49 AM EDT 09/24/2025 6:57 AM EDT us Generic External Data Provider LAB BLOOD ORDERAB LES Final Result Performing Organization Address City/State/[facility] Co de Phone Number [facility] [address] [place] [phone] * Prothrombin Time-INR (09/24/2025 6:49 AM EDT) Prothrombin Time 11.1 10.9 - 12.4 SEC [facility] INTERNATIONAL NORM RATIO 1.0 0.9 - 1.1 [facility] Comment:INTERNATIONAL NORMAL IZED RATIO (INR) [...] ORDERAB LES Final Result Performing Organization Address [facility] de Phone Number [facility] [address] [place] [phone] * Magnesium (09/24/2025 6:49 AM EDT) Magnesium 1.8 1.6 - 2.6 mg/dL [facility] 09/24/2025 6:49 AM EDT 09/24/2025 6:57 AM EDT Generic External Data Provider LAB BLOOD ORDERAB LES Final Result Performing Organization Address [facility] Phone Number [facility] [address] [place] [phone] * Lipase (09/24/2025 6:49 AM EDT) Only the most recent of2 resultswithin the time period is included. Lipase 33 8 - 78 U/L [facility] 09/24/2025 6:49 AM EDT 09/24/2025 6:57 AM EDT Generic External Data Provider LAB BLOOD ORDERAB LES Final Result Performing Organization Address [facility] de Phone Number [facility] [address] [place] [phone] * Hepatic Function Panel (09/24/2025 6:49 AM EDT) Bilirubin, Total 0.3 0.0 - 1.0 mg/dL [facility] Bilirubin, Direct 0.1 0.0 - 0.5 mg/dL [facility] Aspartate Amino Transferase 20 5 - 31 U/L [facility] Alanine Aminotransferase 22 0 - 31 U/L [facility] Total Protein 6.7 6.5 - 8.0 g/dL [facility] Albumin Level 4.3 3.5 - 5.0 g/dL [facility] Alkaline Phosphatase 75 39 - 117 U/L [facility] 09/24/2025 6:49 AM EDT 09/24/2025 6:57 AM EDT us Generic External Data Provider LAB BLOOD ORDERAB LES Final Result [facility] [address] [place] [phone] * (ABNORMAL) Basic Metabolic Panel (09/24/2025 6:49 AM EDT) Sodium 142 135 - 145 mmol/L [facility] Potassium 4.0 3.3 - 5.1 mmol/L [facility] Chloride 110(H) 96 - 108 mmol/L [facility] Carbon Dioxide 23 22 - 29 mmol/L [facility] Anion Gap 13 12 - 20 [facility] Urea Nitrogen (BUN) 14 9 - 16 mg/dL [facility] Creatinine, Serum 0.88 0.5 - 1.4 mg/dL [facility] Creatinine Clr Calc Pharmacy 66.0 [facility] Comment:Provided height and weight: 162.56 cm,68.039 kg.eGFR (calculated from the MDRD study equation) and eCrCl(calculated from the Cockcroft-Gault equation) are based ondifferent parameters and may not yield comparable results.If eCrCl result is absurd, please check patient'sheight/weight. Estimated Glomerular Filt Rate >60 [facility] Comment:Chronic Kidney Disea se: Estimated GFR < 60 mL/min/1.99z3Qjpgem Kidney Disease: Estimated GFR < 15 mL/min/1.73m2 Glucose 100 60 - 115 mg/dL [facility] Calcium 9.8 8.4 - 10.2 mg/dL [facility] 09/24/2025 6:49 AM EDT 09/24/2025 6:57 AM EDT us Generic External Data Provider LAB BLOOD ORDERAB LES Final Result Performing Organization Address City/State/[facility] Co de Phone Number [facility] [address] [place] [phone] * XR Hip 2 or 3 Views Right (09/09/2025 2:03 PM EDT) Anatomical Region Laterality Modality Lower Extremities, Hip Right Radiograp hic Imaging 09/09/2025 2:03 PM EDT Narrative 09/09/2025 2:13 PM EDT [address] [address] XRay Report Signed Patient: Norma Valle MR#: [id number] : 1965 Acct:[id number] Age/Sex: 60 / F ADM Date: 09/09/25 Loc: HO.XRAY Attending Dr: Tiny Soria MD Ordering Physician: Tiny Soria MD Date of Service: 09/09/25 Procedure(s): XR hip RT min 2V Accession Number(s): [id number] cc: Tiny Soria MD Reason for Exam: hip pain EXAMINATION: XR HIP, RIGHT CLINICAL INFORMATION: hip pain COMPARISON: 11/09/2021. TECHNIQUE: Two views of the right hip. FINDINGS: No fracture, dislocation, or suspicious bone lesion. There is normal alignment. There is preservation of the right hip joint space. There is normal acetabular coverage. There is normal femoral head contour without evidence of AVN. There is no soft tissue abnormality. XR/XR hip RT min 2V IMPRESSION: Essentially normal right hip radiographs. No significant change from the prior exam. Electronically signed by: Anam Sears MD 09/09/2025 02:10 PM EDT Dictated By: Anam Sears MD Signed By: <Electronically signed by Anam Sears MD in OV> 09/09/25 1410 DD/ 140 TD/TT: 09/09/251405 Supervisor Grading: Procedure Note Donotjonyter, Image - 09/09/2025 [place] [address] XRay Report Signed Patient: Norma Valle MMR#: [id number] : 1965Acct:[id number] Age/Sex: 60 / FADM Date: 09/09/25 Loc: HO.XRAY Attending Dr: Tiny Soria MD Ordering Physician: Tiny Soria MD Date of Service: 09/09/25 Procedure(s): XR hip RT min 2V Accession Number(s): [id number] cc: Tiny Soria MD Reason for Exam: hip pain EXAMINATION: XR HIP, RIGHT CLINICAL INFORMATION: hip pain COMPARISON: 11/09/2021. TECHNIQUE: Two views of the right hip. FINDINGS: No fracture, dislocation, or suspicious bone lesion. There is normal alignment. There is preservation of the right hip joint space. There is normal acetabular coverage. There is normal femoral head contour without evidence of AVN. There is no soft tissue abnormality. XR/XR hip RT min 2V IMPRESSION: Essentially normal right hip radiographs. No significant change from the prior exam. Electronically signed by: Anam Sears MD 09/09/2025 02:10 PM EDT Dictated By: Anam Sears MD Signed By: <Electronically signed by Anam Sears MD in OV> 09/09/25 1410 DD/ 1403 TD/TT: 09/09/251405 Supervisor Grading: Tiny Soria MD IMG XR PROCEDURES Final Result * (ABNORMAL) POCT Urinalysis (09/09/2025 11:36 AM [...] EDT) Vitamin D, 25-OH, D2 <4 ng/mL [facility] Comment:This test was develo ped and its analytical performancecharacteristics have been determined by [employer] [place], [place]. It hasnot been cleared or approved by the U.S. Food and DrugAdministration. This assay has been validated pursuantto the CLIA regulations and is used for clinicalpurposes.THIS TEST WAS PERFORMED AT:[employer] [id number] [place] [phone] YOU MD,PHD Vitamin D, 25-OH, D3 33 ng/mL [facility] Comment:This test was develo ped and its analytical performancecharacteristics have been determined by [employer] [place], [place]. It hasnot been cleared or approved by the U.S. Food and DrugAdministration. This assay has been validated pursuantto the CLIA regulations and is used for clinicalpurposes. Vitamin D, 25-OH, Total 33 30 - 100 ng/mL [facility] Comment:Vitamin D, 25-Hydrox y reports [...] = 30 ng/mL.For additional information, please refer tohttp://education.sunne.ws/faq/CZF707(This link is being provided for informational/educational purposes only.) 07/13/2025 3:25 PM EDT 07/13/2025 3:25 PM EDT Generic External Data Provider LAB BLOOD ORDERAB LES Final Result Performing Organization Address [facility] Co de Phone Number [facility] [address] [place] [address] [phone] * Vitamin B12 (Cobalamin) and Folate Panel, Serum (07/13/2025 3:25 PM EDT) Vitamin B12 550 200 - 900 pg/mL [facility] Comment:NORMAL 200-900 PG/ML INDETERMINATE 160-199 PG/ML DEFICIENT < 160 PG/ML Folate 9.8 > or = 4.0 ng/mL [facility] Comment:Reference Values:> o r = 4.0 ng/mL< 4.0 ng/mL suggests folate deficiency Methotrexate, aminopterin and folinic acid(leucovorin) are chemotherapeutic agents whose molecularstructures are similar to folate; therefore, the Architectfolate assay cannot be used for patients using these drugs. 07/13/2025 3:25 PM EDT 07/13/2025 3:25 PM EDT Generic External Data Provider LAB BLOOD ORDERAB LES Final Result Performing Organization Address [facility] Co de Phone Number [facility] [address] [place] [phone] * Tissue Transglutaminase Antibody, IgA (07/13/2025 3:25 PM EDT) Transglutaminase IgA <1.0 U/mL [facility] Comment:Value Interpretation ----- <15.0 Antibody not detected> or = 15.0 Antibody detectedTHIS TEST WAS PERFORMED AT:[employer] [place] [phone] HULL MD 07/13/2025 3:25 PM EDT 07/13/2025 3:25 PM EDT us Generic External Data Provider LAB BLOOD ORDERAB LES Final Result [facility] [address] [place] [phone] * BI Mammogram Screening Tomosynthesis Bilateral (07/13/2025 2:35 PM EDT) Anatomical Region Laterality Modality Breast Bilateral Mammography 07/13/2025 2:35 PM EDT Narrative 07/19/2025 4:43 PM EDT [facility] [address] [place] [address] Mammography Report Signed Patient: Norma Valle MR#: [id number] : 1965 Acct:[id number] Age/Sex: 60 / F ADM Date: 07/13/25 Loc: HO.MAMMO Attending Dr: Tiny Soria MD Ordering Physician: Tiny Soria MD Results: 2Benign Findings Date of Service: 07/13/25 Follow Up: 1 Year From [facility] Mammogram Procedure(s): MM tomosynthesis screening BI Accession Number(s): [id number] cc: Tiny Soria MD EXAMINATION: MM SCREENING [...] 07/19/2025 04:41 PM EDT RP Dictated By: Cayteano John MD Signed By: <Electronically signed by Cayetano John MD in OV> 07/19/25 1641 DD/ 1435 TD/TT: 07/13/25 1455 Supervisor Grading: Procedure Note Donotuseinterpreter, Image - [facility]19/[facility] [address] [place] [address] Mammography Report Signed Patient: Norma Valle [facility]#: [id number] : 1965Acct:[id number] Age/Sex: 60 / FADM Date: 07/13/25 Loc: MAMMO Attending Dr: Tiny Soria MD Ordering Physician: Tiny Soria MDResults: 2Benign Findings Date of Service: 07/13/25Follow Up: 1 Year From Orig ina Mammogram Procedure(s): MM tomosynthesis screening BI Accession Number(s): [id number] cc: Tiny Soria MD EXAMINATION: MM SCREENING [...] 07/19/25 1641 DD/ 1435 TD/TT: 07/13/25 1455 Supervisor Grading: Tiny Soria MD IMG BI PROCEDURES Final Result * Lipid Panel, Standard (06/27/2023 9:54 AM EDT) Triglycerides 80 mg/dL [facility] Comment:Desirable Triglyceri de: less than 150 mg/dLBorderline High Triglyceride 150-199 mg/dLHigh Triglyceride: 200-499 mg/dLVery High Triglyceride: greater than or equal to 5OO mg/dL Cholesterol 219 mg/dL [facility] Comment:Desirable Cholestero l: less than 200 mg/dLBorderline High Cholesterol: 200-239 mg/dLHigh Cholesterol: greater than 239 mg/dL LDL Cholesterol Calculated 138 mg/dl [facility] Comment:Desirable LDL: less than 100 mg/dLNear Optimal/Above Optimal LDL: 110- 129 mg/dLBorderline High LDL: 130-159 mg/dLHigh LDL: 160-189 mg/dLVery High LDL: greater than or equal to 190 mg/dL HDL Cholesterol 65 mg/dL [facility] Comment:Desirable HDL: great er than 40 mg/dL Note: This HDL assay may give artificially low results in patients with liver disease. Blood Venous blood specimen / Unknown 06/27/2023 9:54 AM EDT 06/27/2023 2:07 PM EDT us Tiny Soria MD LAB BLOOD ORDERABLES Final Resul t [facility] [address] [place] [phone] [phone] * HPV mRNA E6/E7 (06/02/2019 4:15 PM EDT) HPV mRNA E6/E7 Not Detected NOT DETECTED [facility] Comment: This test was performed using the APTIMA(R) HPV Assay ([employer] This assay detects E6/E7 viral messenger RNA (mRNA) from 14 high-risk HPV types (16,18,31,33,35,39,45,51, 52,56,58,59,66,68). For additional information please refer to: http://education.LE TOTE/faq/TPJ575j7 (This link is being provided for informational/ educational purposes only.) The analytical performance characteristics of this assay have been determined by [employer] [place], [place]. The modifications have not been cleared or approved by the FDA. This assay has been validated pursuant to the CLIA regulations and is used for clinical purposes. Test Performed by [facility], [employer] [place], [address] [place] [address] Rodney You M.D., Ph.D., Director of Laboratories , CLIA [id number] Please note: Effective 08/13/2016, HPV testing will be performed using [employer]'s APTIMA test which targets mRNA. Detecting mRNA instead of DNA, as in older methods, offers significant improvements in specificity. 06/02/2019 4:15 PM EDT us Tiny Soria MD HISTORICAL/NON ORDERABLE LABS Fi nal Result [facility] [address] from Last 3 Months or Most Recently Relevant to Health Maintenance Insurance [facility] < 65 Care Teams Electrical Instrument Maker Relationship Specialty Start Date End Date Joan Soto MD [address] [place] [address] PCP - General Internal Medicine 09/09/25
--- OUTSIDE RECORDS SUMMARY | 2025-09-24 07:32 | XMS_ITS | Encounter Summary ---
Author Organization [employer] Address [address] [facility] [address] [place] [address] Care Team Providers Care Database Marketing Manager Name Role Phone Joan Soto MD Primary Care Provider [phone] Reason for Visit * Reason Onset Date Comments Nurse Triage 09/23/2025 Encounter Details Date Type Department [facility] Team [facility] Description 09/23/2025 Telephone [facility] [address] [place] [address] Joan Soto MD [address] [place] [phone] Nurse Triage Social History Tobacco Use Types [...] encounter Miscellaneous Notes * Telephone Encounter - Rivka Styles RN - 09/23/2025 9:44 AM EDT T/C to pt for triage. Pt c/o 04/10 right sided lower abdominal pain which radiated to the middle of her back since 09/08/25. Reports she completed medications prescribed by Dr. Rosas on Saturday and symptoms persist. Reports that she does not feel the pain when she is lying down but feels pain and pressure when sitting down. Reports that the pain is making it difficult for her to walk at first but then improves. Pt denies nausea, vomiting, diarrhea, fever. Reports she has been taking medications forconstipation for the past 2 weeks which are helping. Reports last BM was today. Denies constipation. Reports that she noted slight blood in her stool for the last two bowel movements which burned. Reports that she does not think it is related to hemorrhoids. States she is scheduled for a colonoscopy on 10/11/25. Reports that she has been having frequent stomach aches and issues with digestion. Ptdeclines appointment offered today. States her does not get out of work until later. Pt declined to come to [facility]IC at [facility]. Pt agrees to appointment in [facility] tomorrow for evaluation. Reviewed ED pre cautions and encouraged pt to return call if symptoms worsen. Protocol Used: Abdominal Pain - Female (Adult) [...] - Constant pain lasts over 2 hours * Telephone Encounter - Frank Abdul - 09/23/2025 9:20 AM EDT Symptom: Abdominal Pain - Female - Not Outcome: Schedule an urgent appointment (within 4 hours) or talk to a nurse or provider soon Reason: Getting worse Please contact pt at [phone]. documented in this encounter Plan of Treatment Upcoming Encounters Date Type Department Care Team (Late st Contact Info) Description 09/24/2025 2:45 PM EDT Office Visit [facility] MED & PEDS [address] [place] [address] Lencho Melvin CNP [address] [place] [address] documented as of this encounter Visit Diagnoses Not on filedocumented in this encounter Additional Health Concerns Assessment Noted Time PHQ-9 Depression Total Score: 2 04/29/20 25 12:00 PM EDT documented as of this encounter Care Teams Database Marketing Manager Relationship Specialty Start Date End Date Joan Soto MD [address] [place] [address] PCP - General Internal Medicine 09/09/25 documented as of this encounter
[2025-09-24] MEDS: iohexoL 350 MG/ML 100 ML INFUS..BTL IV (08:15)
[2025-09-24 09:21] VITALS: BP 133/67; PULSE 60; RESP 16; TEMP 36.4; O2SAT 97
== END 2025-09-24 09:23 | disposition home or self-care (01) ==
PROVIDERS: Emergency Provider Emergency Medicine; PCP Student in an Organized Health Care Education/Training Program
DX: K62.5 Hemorrhage of anus and rectum (principal); I10 Essential (primary) hypertension; K21.9 Gastro-esophageal reflux disease without esophagitis; K58.9 Irritable bowel syndrome, unspecified
CPT/HCPCS: 36415; 74177; 80048; 80076; 81003; 82272; 83690; 83735; 85025; 85610; 86850; 86900; 86901; 93005; 96361; 96374; 99285; J0131; J7120; Q9967

== ENCOUNTER → 2025-09-24 06:28 | Outpatient (BNV) | payer OTHER, SELFPAY | PROVIDERS: Emergency Provider Emergency Medicine; PCP Student in an Organized Health Care Education/Training Program; Visit Provider Internal Medicine Cardiovascular Disease | DX: K92.2 Gastrointestinal hemorrhage, unspecified (principal) | CPT/HCPCS: 93010 ==

== ENCOUNTER → 2025-09-24 07:08 | Outpatient (BNV) | payer OTHER, SELFPAY | PROVIDERS: Emergency Provider Emergency Medicine; PCP Student in an Organized Health Care Education/Training Program; Visit Provider Radiology Diagnostic Radiology | DX: K42.9 Umbilical hernia without obstruction or gangrene (principal); M47.817 Spondylosis without myelopathy or radiculopathy, lumbosacral region; R59.0 Localized enlarged lymph nodes | CPT/HCPCS: 74177 ==

== ENCOUNTER 2025-09-29 09:44 | Outpatient (REF) | payer OTHER, SELFPAY ==
--- OUTSIDE RECORDS SUMMARY | 2025-03-08 09:00 | XMS_ITS ---
Author Organization [facility] Address [address] [place] [address] Care Team Providers Care Property And Equipment Clerk Name Role Phone Tiny Soria Primary Care Provider Akanksha Coelho Unavailable [phone] Allergies Allergen (clinical drug ingredient) Drug/Non Drug Allergy documented on EMR Reaction Allergy Type Onset Date Status sulfamethoxazole / trimethoprim Bactrim Unknown Drug Allergy Active Penicillin Unknown Drug Allergy Active Medications Medication SIG (Take, Route, Frequency, Duration) Notes Start Date End Date Status Vitamin D3 Active Gabapentin Active Magnesium Active Lisinopril Active oxyBUTYnin Active Omeprazole Active Encounters Encounter Location Date Provider Diagnosis [facility] [address] [place] [address] 03/08/2025 Akanksha Soto Plan Of Treatment No Information Progress Notes * Meera FIERROOB:[birth year]10 (60 yo F)Acc No.[id number]:03/08/2025 Progress Note Patient: Sapphire BARTHOLOMEWNUBIA Norma Provider: Tyree Soto DPM :1965 A ge:59 Y S ex:Female Date:03/08/2025 [facility] [facility] Pcp:Tiny Soria Subjective: * Chief Complaints: * [...] 0 03/08/2025 Generated for Alberto lundberg/Solange/Torin on: 11:38 AM EDT
--- NOTE | ~2025-09-29 | FL_ITS ---
EXAMINATION: XR UPPER GI SERIES WITH SMALL BOWEL CLINICAL INFORMATION: Gastroesophageal reflux disease without esophagitis. COMPARISON: CT abdomen pelvis with IV contrast 09/24/2025 TECHNIQUE: Routine upper GI air contrast study was performed in upright and lying position. FINDINGS: Following oral administration of thick barium and effervescent granules there is normal propagation bolus from the oral cavity through the pharynx, esophagus into stomach without any evidence of obstruction, narrowing or stricture. On placing patient supine and prone there is mild gastroesophageal reflux without hiatal hernia. The mucosal pattern of the stomach, duodenal bulb and sweep is normal. The course, caliber and peristalsis of the stomach is normal. FLUOROSCOPY TIME: 1.58 minutes DOSE AREA PRODUCT: 1894 uGy-m2 (microgray-meter squared) FL/FL upper GI w air w Ba Swallow IMPRESSION: Mild gastroesophageal reflux without hiatal hernia. Electronically signed by: Joseph Rebolledo MD 09/29/2025 12:08 PM EDT
--- OUTSIDE RECORDS SUMMARY | 2025-09-29 11:39 | XMS_ITS | Encounter Summary ---
Author Organization [employer] Address [address] [facility] [address] [place] [address] Care Team Providers Care Straight Edger Name Role Phone Joan Soto MD Primary Care Provider [phone] Encounter Details Date Type Department Care Team ([facility] Contact Info) Description 09/24/2025 Orders Only GENERIC [...] on file documented as of this encounter Procedures Procedure Name Priority Date/Time Associated Diagnosis Comments CT ABDOMEN PELVIS W CONTRAST Routine 09/24/2025 8:06 AM EDT URINALYSIS WITH REFLEX MICROSCOPIC Routine 09/24/2025 7:09 [...] EDT documented in this encounter Results * CT Abdomen Pelvis w/ Contrast (09/24/2025 8:06 AM EDT) Anatomical Region Laterality Modality Body, Pelvis, Abdomen Computed T omography 09/24/2025 8:06 AM EDT Narrative 09/24/2025 8:32 AM EDT [address] [address] [address] Scan Report Signed Patient: Norma Valle MR#: [id number] : 1965 Acct:[id number] Age/Sex: 60 / F ADM Date: 09/24/25 Loc: HO.ED Attending Dr: Ordering Physician: Haylie Sotelo DO Date of Service: 09/24/25 Procedure(s): CT abdomen pelvis w IV con Accession Number(s): [id number] cc: Haylie Sotelo DO; Tiny Soria MD Report Number: [id number]: Total DLP = 461.00 mGy-cm Reason for Exam: lower abdominal pain, bloody stools EXAMINATION: CT ABDOMEN AND PELVIS WITH CONTRAST CLINICAL INFORMATION: Lower abdominal pain. Bloody stools. COMPARISON: None available. TECHNIQUE: Multidetector volumetric images were obtained from the superior aspect of the liver through the pubic symphysis following administration 85 mL of Omnipaque 350 intravenous contrast. Sagittal and coronal reformatted images were obtained on the technologist's workstation. Oral contrast: No This CT examination was performed using dose optimization techniques as appropriate, variously including the following: *Automated exposure control *Adjustment of mA and/or kV according to patient size (this includes techniques or standardized protocols for targeted exams where dose is matched to indication/reason for exam; i.e. extremities or head) *Use of iterative reconstruction technique. DLP: 461 mGy centimeters. FINDINGS: LUNG BASES: Atelectasis lung bases and lingula. LIVER, GALLBLADDER, AND BILIARY TREE: Liver measures 15 cm. No focal mass. Less than 3 mm hypodensities too small to be fully characterized by CT. Main portal veins and hepatic veins and intrahepatic portion of the IVC are patent. Gallbladder is nondistended. No pericholecystic fluid collection or gallbladder wall thickening. No intrahepatic or extrahepatic biliary ductal dilatation. PANCREAS: No focal mass. No peripancreatic fluid collection. No main pancreatic ductal dilatation. SPLEEN: 10 cm. No focal mass. 2 mm hypodensity too small to be fully characterized. ADRENAL GLANDS: No nodular lesions. KIDNEYS AND URETERS: Normal enhancement pattern of the renal cortex. No hydronephrosis. No gross nephrolithiasis. No enhancing renal mass. No dilatation of the ureters. BLADDER: Fluid-filled. GASTROINTESTINAL TRACT: Collapsed appearance of the left hemicolon mostly the ascending colon and proximal sigmoid colon. Questionable intestinal wall thickening in the descending and sigmoid colon. Gas and fluid-filled mildly prominent distal small bowel loops. Terminal ileum is collapsed with questionable intestinal wall thickening. Appendix is normal. No intestinal obstruction pattern. No pneumoperitoneum. No ascites. No peripheral enhancing fluid collections, peritoneal cavity. ABDOMINAL WALL: Small fat-containing umbilical hernia. LYMPH NODES: Prominent, less than 1.5 cm retroperitoneum lymph nodes. VASCULAR: Mixed plaques in the abdominal aorta wall and iliac arteries. No aneurysm or dissection, abdominal aorta. PELVIC VISCERA: Absent uterus. No masses in the ovaries. OSSEOUS STRUCTURES: Spondylosis L5-S1. Sclerosis and vacuum phenomenon in the sacroiliac joints. No acute fracture or gross listhesis. Degenerative changes in the symphysis pubis. Probable bony island, right hemisacrum. No lytic or blastic lesions. CT/CT abdomen pelvis w IV con IMPRESSION: Concerning acute inflammatory bowel disease in the correct clinical settings. Prominent retroperitoneal lymph nodes. Small fat-containing umbilical hernia. Spondylosis L5-S1. Fleischner guidelines were followed. Electronically signed by: Jorge Bunn MD 09/24/2025 08:29 AM EDT Dictated By: Jorge Wilson MD Signed By: <Electronically signed by Jorge Cedeño MD in OV> 09/24/25 0829 DD/ 0806 TD/TT: 09/24/25 0820 Travel Service Consultant: Procedure Note Donotuseinterpreter, Image - 09/24/[address] [address] [address] Scan Report Signed Patient: Norma Valle [facility]#: [id number] : 1965Acct:[id number] Age/Sex: 60 / FADM Date: 09/24/25 Loc: HO.ED Attending Dr: Ordering Physician: Haylie Sotelo DO Date of Service: 09/24/25 Procedure(s): CT abdomen pelvis w IV con Accession Number(s): [id number] cc: Haylie Sotelo DO; Tiny Soria MD Report Number: [id number]: Total DLP = 461.00 mGy-cm Reason for Exam: lower abdominal pain, bloody stools EXAMINATION: CT ABDOMEN AND PELVIS WITH CONTRAST CLINICAL INFORMATION: Lower abdominal pain. Bloody stools. COMPARISON: None available. TECHNIQUE: Multidetector volumetric images were obtained from the superior aspect of the liver through the pubic symphysis following administration 85 mL of Omnipaque 350 intravenous contrast. Sagittal and coronal reformatted images were obtained on the technologist's workstation. Oral contrast: No This CT examination was performed using dose optimization techniques as appropriate, variously including the following: *Automated exposure control *Adjustment of mA and/or kV according to patient size (this includes techniques or standardized protocols for targeted exams where dose is matched to indication/reason for exam; i.e. extremities or head) *Use of iterative reconstruction technique. DLP: 461 mGy centimeters. FINDINGS: LUNG BASES: Atelectasis lung bases and lingula. LIVER, GALLBLADDER, AND BILIARY TREE: Liver measures 15 cm. No focal mass. Less than 3 mm hypodensities too small to be fully characterized by CT. Main portal veins and hepatic veins and intrahepatic portion of the IVC are patent. Gallbladder is nondistended. No pericholecystic fluid collection or gallbladder wall thickening. No intrahepatic or extrahepatic biliary ductal dilatation. PANCREAS: No focal mass. No peripancreatic fluid collection. No main pancreatic ductal dilatation. SPLEEN: 10 cm. No focal mass. 2 mm hypodensity too small to be fully characterized. ADRENAL GLANDS: No nodular lesions. KIDNEYS AND URETERS: Normal enhancement pattern of the renal cortex. No hydronephrosis. No gross nephrolithiasis. No enhancing renal mass. No dilatation of the ureters. BLADDER: Fluid-filled. GASTROINTESTINAL TRACT: Collapsed appearance of the left hemicolon mostly the ascending colon and proximal sigmoid colon. Questionable intestinal wall thickening in the descending and sigmoid colon. Gas and fluid-filled mildly prominent distal small bowel loops. Terminal ileum is collapsed with questionable intestinal wall thickening. Appendix is normal. No intestinal obstruction pattern. No pneumoperitoneum. No ascites. No peripheral enhancing fluid collections, peritoneal cavity. ABDOMINAL WALL: Small fat-containing umbilical hernia. LYMPH NODES: Prominent, less than 1.5 cm retroperitoneum lymph nodes. VASCULAR: Mixed plaques in the abdominal aorta wall and iliac arteries. No aneurysm or dissection, abdominal aorta. PELVIC VISCERA: Absent uterus. No masses in the ovaries. OSSEOUS STRUCTURES: Spondylosis L5-S1. Sclerosis and vacuum phenomenon in the sacroiliac joints. No acute fracture or gross listhesis. Degenerative changes in the symphysis pubis. Probable bony island, right hemisacrum. No lytic or blastic lesions. CT/CT abdomen pelvis w IV con IMPRESSION: Concerning acute inflammatory bowel disease in the correct clinical settings. Prominent retroperitoneal lymph nodes. Small fat-containing umbilical hernia. Spondylosis L5-S1. Fleischner guidelines were followed. Electronically signed by: Jorge Bunn MD 09/24/2025 08:29 AM EDT Dictated By: Jorge Wilson MD Signed By: <Electronically signed by Jorge Cedeño MDin OV> 09/24/25828 DD/ 5 TD/TT: 09/24/25819 Travel Service Consultant: [facility] External Provider IMG CT PROCEDURES Final Result * Urinalysis w/reflex microscopic (09/24/2025 7:09 AM EDT) Color Urine Yellow [facility] Appearance Urine Clear [facility] PH 6.5 5.0 - 9.0 [facility] Glucose Urine UA Negative Negative mg/dL [facility] Urine Blood Negative Negative [facility] Specific [place] - Urine <=1.005 1.005 - 1.025 [facility] Urine Protein Negative Neg-Trace mg/dL [facility] Urine Ketones Negative Negative mg/dL [facility] Nitrite Urine Negative Negative [facility] Leukocyte Esterase Urine Negative Negative [facility] 09/24/2025 7:09 AM EDT 09/24/2025 7:16 AM EDT Narrative [facility] - 09/24/2025 7:19 AM EDT Urine, Clean Catch us Generic External Data Provider LAB URINE ORDERAB LES Final Result Performing Organization Address [facility]/ZIP Co de Phone Number [facility] [address] [place] [phone] * Type and screen (09/24/2025 6:51 AM EDT) Blood Type OP [facility] Antibody Screen NEGATIVE [facility] 09/24/2025 6:51 AM EDT 09/24/2025 6:59 AM EDT Generic External Data Provider LAB BLOOD BANK TE ST ORDERABLES Final Result Performing Organization Address [facility] Co de Phone Number [facility] [address] [place] [phone] * OBSX1 (09/24/2025 6:51 AM EDT) OBS1 NEGATIVE NEGATIVE [facility] 09/24/2025 6:51 AM EDT 09/24/2025 6:57 AM EDT Generic External Data Provider LAB BLOOD ORDERAB LES Final Result Performing Organization Address [facility] Co de Phone Number [facility] [address] [place] [phone] * Lipase (09/24/2025 6:49 AM EDT) Lipase 33 8 - 78 U/L [facility] 09/24/2025 6:49 AM EDT 09/24/2025 6:57 AM EDT Generic External Data Provider LAB BLOOD ORDERAB LES Final Result Performing Organization Address [facility]/ZIP Co de Phone Number [facility] [address] [place] [phone] * Magnesium (09/24/2025 6:49 AM EDT) Magnesium 1.8 1.6 - 2.6 mg/dL [facility] 09/24/2025 6:49 AM EDT 09/24/2025 6:57 AM EDT us Generic External Data Provider LAB BLOOD ORDERAB LES Final Result [facility] [address] [place] [phone] * (ABNORMAL) Basic Metabolic Panel (09/24/2025 6:49 AM EDT) Sodium 142 135 - 145 mmol/L [facility] Potassium 4.0 3.3 - 5.1 mmol/L [facility] Chloride 110(H) 96 - 108 mmol/L [facility] Carbon Dioxide 23 22 - 29 mmol/L [facility] Anion Gap 13 12 - 20 [facility] Urea Nitrogen (BUN) 14 9 - 16 mg/dL [facility] Creatinine, Serum 0.88 0.5 - 1.4 mg/dL [facility] Creatinine Clr Calc Pharmacy 66.0 [facility] Comment:Provided height and weight: 162.56 cm,68.039 kg.eGFR (calculated from the MDRD study equation) and eCrCl(calculated from the Cockcroft-Gault equation) are based ondifferent parameters and may not yield comparable results.If eCrCl result is absurd, please check patient'sheight/weight. Estimated Glomerular Filt Rate >60 [facility] Comment:Chronic Kidney Disea se: Estimated GFR < 60 mL/min/[id number] Kidney Disease: Estimated GFR < 15 mL/min/1.73m2 Glucose 100 60 - 115 mg/dL [facility] Calcium 9.8 8.4 - 10.2 mg/dL [facility] 09/24/2025 6:49 AM EDT 09/24/2025 6:57 AM EDT us Generic External Data Provider LAB BLOOD ORDERAB LES Final Result Performing Organization Address [facility] Co de Phone Number [facility] [address] [place] [phone] * Hepatic Function Panel (09/24/2025 6:49 AM EDT) Bilirubin, Total 0.3 0.0 - 1.0 mg/dL [facility] Bilirubin, Direct 0.1 0.0 - 0.5 mg/dL [facility] Aspartate Amino Transferase 20 5 - 31 U/L [facility] Alanine Aminotransferase 22 0 - 31 U/L [facility] Total Protein 6.7 6.5 - 8.0 g/dL [facility] Albumin Level 4.3 3.5 - 5.0 g/dL [facility] Alkaline Phosphatase 75 39 - 117 U/L [facility] 09/24/2025 6:49 AM EDT 09/24/2025 6:57 AM EDT [employer] External Data Provider LAB BLOOD ORDERAB LES Final Result Performing Organization Address [facility] de Phone Number [facility] [address] [place] [phone] * Prothrombin Time-INR (09/24/2025 6:49 AM EDT) Prothrombin Time 11.1 10.9 - 12.4 SEC [facility] INTERNATIONAL NORM RATIO 1.0 0.9 - 1.1 [facility] Comment:INTERNATIONAL NORMAL IZED RATIO (INR) [...] Provider LAB BLOOD ORDERAB LES Final Result [facility] [address] [place] [phone] * CBC auto differential (09/24/2025 6:49 AM EDT) White Blood Count 7.3 4.8 - 10.8 X10*3/uL [facility] Red Blood Count 4.81 4.20 - 5.50 X10*6/uL [facility] Hemoglobin 14.7 12.0 - 16.0 g/dl [facility] Hematocrit 43.9 37.0 - 47.0 % [facility] Mean Corpuscular Volume 91.3 80.0 - 98.0 fL [facility] Mean Corpuscular Hemoglobin 30.6 27.0 - 33.0 pg [facility] Mean Corpuscular HGB Conc 33.5 31.0 - 35.0 g/dl [facility] Red Cell Distribution Width 13.4 11.0 - 16.0 % [facility] Platelet Count 191 160 - 400 X10*3/uL [facility] Mean Platelet Volume 10.4 9.4 - 12.3 fL [facility] Neutrophils Percent Auto 64.8 45 - 73 % [facility] Imm Gran Pct Auto 0.3 0.0 - 0.4 % [facility] Lymphocytes Percent Auto 26.3 20 - 40 % [facility] Monocytes Percent Auto 6.6 2 - 11 % [facility] Eosinophils Percent Auto 1.2 0 - 4 % [facility] Basophils Percent Auto 0.8 0 - 2 % [facility] NRBC Pct Auto 0.0 0.0 - 0.2 /100WBC [facility] Neutrophils Absolute Auto 4.7 2.0 - 8.3 x10*3/uL [facility] Imm Gran Abs Auto 0.02 0.00 - 0.03 X10*3/uL [facility] Lymphocytes Absolute Auto 1.9 1.2 - 4.9 X10*3/uL [facility] Monocytes Absolute Auto 0.5 0.1 - 1.2 X10*3/uL [facility] Eosinophils Absolute Auto 0.1 0.0 - 0.4 X10*3/uL [facility] Basophils Absolute Auto 0.1 0.0 - 0.2 X10*3/uL [facility] NRBC Abs Auto 0.000 0.0 - 0.012 X10*3/uL [facility] 09/24/2025 6:49 AM EDT 09/24/2025 6:57 AM EDT us Generic External Data Provider LAB BLOOD ORDERAB LES Final Result [facility] [address] [place] [phone] documented in this encounter Visit Diagnoses Not on filedocumented in this encounter Additional Health Concerns Assessment Noted Time PHQ-9 Depression Total Score: 2 04/29/20 25 12:00 PM EDT documented as of this encounter Care Teams Straight Edger Relationship Specialty Start Date End Date Joan Soto MD [address] [place] [phone] PCP - General Internal Medicine 09/09/25 documented as of this encounter
--- OUTSIDE RECORDS SUMMARY | 2025-09-29 11:39 | XMS_ITS | Encounter Summary ---
Author Organization [employer] Address [address] [facility] [place] [address] Care Team Providers Care Leasing Sales Consultant Name Role Phone Tiny Soria MD Primary Care Provider [phone] Joan Soto MD Primary Care Provider Reason for Visit * Reason Onset Date Comments Referral 11/23/2024 Encounter Details Date Type Department Care Team ([facility] st Contact Info) Description 11/23/2024 Telephone [facility] [address] [place] [address] Tiny Soria MD [address] [place], [place] [phone] Referral Social History Tobacco Use Types Packs/Day [...] any questions you can contact pt at [phone]. documented in this encounter Plan of Treatment Not on file documented as of this encounter Visit Diagnoses Not on filedocumented in this encounter Additional Health Concerns Assessment Noted Time PHQ-9 Depression Total Score: 0 05/21/20 10:07 AM EDT documented as of this encounter Care Teams Leasing Sales Consultant Relationship Specialty Start Date End Date Tiny Soria MD [address] [place] [phone] PCP - General Family Medicine 04/20/15 09/08/25 Joan Soto MD [address] [place] [phone] PCP - General Internal Medicine 09/09/25 documented as of this encounter
--- OUTSIDE RECORDS SUMMARY | 2025-09-29 11:39 | XMS_ITS | Patient Health Record ---
Author Organization [facility] [place] Address [address] [facility] [place] [address] Care Team Providers Care Family Practice Medical Doctor Name Role Phone Tiny Soria Primary Care Provider Akanksha Coelho Unavailable [phone] Allergies Allergen (clinical drug ingredient) Drug/Non Drug [...] Status Risk Notes Problem Acquired hallux valgus (03016673) Hallux valgus (acquired), left foot (M20.12) Active confirmed Problem Acquired hallux valgus (38848343) Hallux valgus (acquired), right foot (M20.11) Active confirmed Problem Cedillo's neuroma of right foot (35968823165670 8) 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 Problem Cedillo's neuroma of left foot (70146128474949 5) 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 Resistant to previous conservative treatment Problem Plantar fascial fibromatosis (68641850) Plantar fasciitis, bilateral (M72.2) Active confirmed Vital Signs Blood pressure diastolic 65 mm Hg 06/16/2025 Height 5ft 4in in 06/16/2025 Blood pressure systolic 128 mm Hg 06/16/2025 Weight 147 lbs 06/16/2025 BMI 25.23 kg/m2 06/16/2025 Procedures Procedure Date Ordered Date Performed Result Body Sit e 66187, J0702- Neuroma/Injection 12/10/2024 N/A Encounters Encounter Location Date Provider Diagnosis [facility] [address] [address] 12/10/2024 Akanksha Soto Pain in left foot [...] foot M20.11 and Plantar fasciitis, bilateral M72.[address] [facility] [address] 05/13/2025 Akanksha Soto Cedillo's neuroma of left [...] foot M20.11 and Plantar fasciitis, bilateral M72.[address] [facility] [address] 06/16/2025 Akanksha Cedillo's neuroma of left foot [...] foot M20.11 and Plantar fasciitis, bilateral M72.[address] [address] 10/14/2024 Akanksha Soto [address] [address] 11/26/2024 Akanksha Soto [address] [address] 12/10/2024 Akanksha Soto [address] [address] 12/10/2024 Akanksha Soto [address] [address] 03/08/2025 Akanksha Soto [address] [address] 05/13/2025 Akanksha Soto Assessments Encounter Date Diagnosis [...] X ray : Foot, right 3V 12/10/2024 [address]12, J0702- Neuroma/Injection 12/10/19 25 Insurance Providers Payer Name Payer Address Payer Phone Subscriber Number Group Number Insured Name Patient Relationship to Insured Coverage Start Date Coverage End Date [facility] [employer] Claims [address] [place] [id number] Norma Valle Self - patient is the insured Medical (General) History Medical History History ICD Code Back,Hip,and Knee pain covid-19 Fibromyalgia High Blood Pressure Numbness Psoriasis/eczema Reflux ( GERD) Chicken pox Surgical History Surgery Date(Month/Year) hysterectomy Tubes tied
--- OUTSIDE RECORDS SUMMARY | 2025-09-29 11:39 | XMS_ITS | Clinical Summary ---
Author Organization [employer] Address [address] [facility] 7t [place] [address] Care Team Providers Care Unified Communications Architect Name Role Phone Joan Soto MD Primary Care Provider [phone] Allergies Active Allergy Reactions Criticality Noted Date [...] Date Type Department Care Team Description 09/24/2025 Telephone [facility] [address] [place] [address] Joan Soto MD No Show 09/24/2025 Orders Only GENERIC EXTERNAL DATA DEPARTMENT Provider, Generic External Data 09/23/2025 Telephone [facility] [address] [place] [address] Joan Soto MD Nurse Triage 09/09/2025 11:30 AM EDT Office Visit [facility] [address] [place], [place] [phone] Tiny Soria MD Right hip pain (Primary Dx); Painful urination; Microscopic hematuria 09/09/2025 Travel 09/07/2025 Telephone [facility] [address] [place], [place] [phone] Tiny Soria MD Nurse Triage 07/13/2025 Orders [...] Recently Relevant to Health Maintenance Results * CT Abdomen Pelvis w/ Contrast (09/24/2025 8:06 AM EDT) Anatomical Region Laterality Modality Body, Pelvis, Abdomen Computed T omography 09/24/2025 8:06 AM EDT Narrative 09/24/2025 8:32 AM EDT [place] [address] [address] Scan Report Signed Patient: Norma Valle MR#: [id number] : 1965 Acct:[id number] Age/Sex: 60 / F ADM Date: 09/24/25 Loc: HO.ED Attending Dr: Ordering Physician: Haylie Sotelo DO Date of Service: 09/24/25 Procedure(s): CT abdomen pelvis w IV con Accession Number(s): [id number] cc: Haylie Sotelo DO; Tiny Soria MD Report Number: [id number]: Total DLP = 461.00 mGy-cm Reason for [...] Jorge Bunn MD 09/24/2025 08:29 AM EDT RP Dictated By: Jorge Wilson MD Signed By: <Electronically signed by Jorge Cedeño MD in OV> 09/24/2529 DD/ 0806 TD/TT: 09/24/25 0820 Watch Inspector: Procedure Note Donotuseinterpreter, Image - 09/24/[address] [place] [address] [address] Scan Report Signed Patient: Norma Valle [facility]#: [id number] : 1965Acct:[id number] Age/Sex: 60 / FADM Date: 09/24/25 Loc: HO.ED Attending Dr: Ordering Physician: Haylie Sotelo DO Date of Service: 09/24/25 Procedure(s): CT abdomen pelvis w IV con Accession Number(s): [id number] cc: Haylie Sotelo DO; Tiny Soria MD Report Number: [id number]: Total DLP = 461.00 mGy-cm Reason for [...] Cedeño MDin OV> 09/24/25828 DD/ 5 TD/TT: 09/24/25 08 Watch Inspector: us [facility] External Provider IMG CT PROCEDURES Final Result * Urinalysis w/reflex microscopic (09/24/2025 7:09 AM EDT) Color Urine Yellow [facility] Appearance Urine Clear [facility] PH 6.5 5.0 - 9.0 [facility] Glucose Urine UA Negative Negative mg/dL [facility] Urine Blood Negative Negative [facility] Specific [place] - Urine <=1.005 1.005 - 1.025 [facility] Urine Protein Negative Neg-Trace mg/dL [facility] Urine Ketones Negative Negative mg/dL [facility] Nitrite Urine Negative Negative [facility] Leukocyte Esterase Urine Negative Negative [facility] 09/24/2025 7:09 AM EDT 09/24/2025 7:16 AM EDT Narrative [facility] - 09/24/2025 7:19 AM EDT Urine, Clean Catch Generic External Data Provider LAB URINE ORDERAB LES Final Result [facility] [address] [place] [phone] * OBSX1 (09/24/2025 6:51 AM EDT) OBS1 NEGATIVE NEGATIVE [facility] 09/24/2025 6:51 AM EDT 09/24/2025 6:57 AM EDT us Generic External Data Provider LAB BLOOD ORDERAB LES Final Result [facility] [address] [place] [phone] * Type and screen (09/24/2025 6:51 AM EDT) Blood Type OP [facility] Antibody Screen NEGATIVE [facility] 09/24/2025 6:51 AM EDT 09/24/2025 6:59 AM EDT Generic External Data Provider LAB BLOOD BANK TE ST ORDERABLES Final Result Performing Organization Address City/[facility]/ZIP Co de Phone Number [facility] [address] [place] [phone] * CBC auto differential (09/24/2025 6:49 AM EDT) [facility] Signature White Blood Count 7.3 4.8 - 10.8 X10*3/uL [facility] Red Blood Count 4.81 4.20 - 5.50 X10*6/uL [facility] Hemoglobin 14.7 12.0 - 16.0 g/dl [facility] Hematocrit 43.9 37.0 - 47.0 % [facility] Mean Corpuscular Volume 91.3 80.0 - 98.0 fL [facility] Mean Corpuscular Hemoglobin 30.6 27.0 - 33.0 pg [facility] Mean Corpuscular HGB Conc 33.5 31.0 - 35.0 g/dl [facility] Red Cell Distribution Width 13.4 11.0 - 16.0 % [facility] Platelet Count 191 160 - 400 X10*3/uL [facility] Mean Platelet Volume 10.4 9.4 - 12.3 fL [facility] Neutrophils Percent Auto 64.8 45 - 73 % [facility] Imm Gran Pct Auto 0.3 0.0 - 0.4 % [facility] Lymphocytes Percent Auto 26.3 20 - 40 % [facility] Monocytes Percent Auto 6.6 2 - 11 % [facility] Eosinophils Percent Auto 1.2 0 - 4 % [facility] Basophils Percent Auto 0.8 0 - 2 % [facility] NRBC Pct Auto 0.0 0.0 - 0.2 /100WBC [facility] Neutrophils Absolute Auto 4.7 2.0 - 8.3 x10*3/uL [facility] Imm Gran Abs Auto 0.02 0.00 - 0.03 X10*3/uL [facility] Lymphocytes Absolute Auto 1.9 1.2 - 4.9 X10*3/uL [facility] Monocytes Absolute Auto 0.5 0.1 - 1.2 X10*3/uL [facility] Eosinophils Absolute Auto 0.1 0.0 - 0.4 X10*3/uL [facility] Basophils Absolute Auto 0.1 0.0 - 0.2 X10*3/uL [facility] NRBC Abs Auto 0.000 0.0 - 0.012 X10*3/uL [facility] 09/24/2025 6:49 AM EDT 09/24/2025 6:57 AM EDT us Generic External Data Provider LAB BLOOD ORDERAB LES Final Result [facility] [address] [place] [phone] * Prothrombin Time-INR (09/24/2025 6:49 AM EDT) Prothrombin Time 11.1 10.9 - 12.4 SEC [facility] INTERNATIONAL NORM RATIO 1.0 0.9 - 1.1 [facility] Comment:INTERNATIONAL NORMAL IZED RATIO (INR) [...] ORDERAB LES Final Result Performing Organization Address [facility] de Phone Number [facility] [address] [place] [phone] * Magnesium (09/24/2025 6:49 AM EDT) Magnesium 1.8 1.6 - 2.6 mg/dL [facility] 09/24/2025 6:49 AM EDT 09/24/2025 6:57 AM EDT Generic External Data Provider LAB BLOOD ORDERAB LES Final Result Performing Organization Address [facility] de Phone Number [facility] [address] [place] [phone] * Lipase (09/24/2025 6:49 AM EDT) Only the most recent of2 resultswithin the time period is included. Lipase 33 8 - 78 U/L [facility] 09/24/2025 6:49 AM EDT 09/24/2025 6:57 AM EDT Generic External Data Provider LAB BLOOD ORDERAB LES Final Result Performing Organization Address [facility] de Phone Number [facility] [address] [place] [phone] * Hepatic Function Panel (09/24/2025 6:49 AM EDT) Bilirubin, Total 0.3 0.0 - 1.0 mg/dL [facility] Bilirubin, Direct 0.1 0.0 - 0.5 mg/dL [facility] Aspartate Amino Transferase 20 5 - 31 U/L [facility] Alanine Aminotransferase 22 0 - 31 U/L [facility] Total Protein 6.7 6.5 - 8.0 g/dL [facility] Albumin Level 4.3 3.5 - 5.0 g/dL [facility] Alkaline Phosphatase 75 39 - 117 U/L [facility] 09/24/2025 6:49 AM EDT 09/24/2025 6:57 AM EDT us Generic External Data Provider LAB BLOOD ORDERAB LES Final Result [facility] [address] [place] [phone] * (ABNORMAL) Basic Metabolic Panel (09/24/2025 6:49 AM EDT) Sodium 142 135 - 145 mmol/L [facility] Potassium 4.0 3.3 - 5.1 mmol/L [facility] Chloride 110(H) 96 - 108 mmol/L [facility] Carbon Dioxide 23 22 - 29 mmol/L [facility] Anion Gap 13 12 - 20 [facility] Urea Nitrogen (BUN) 14 9 - 16 mg/dL [facility] Creatinine, Serum 0.88 0.5 - 1.4 mg/dL [facility] Creatinine Clr Calc Pharmacy 66.0 [facility] Comment:Provided height and weight: 162.56 cm,68.039 kg.eGFR (calculated from the MDRD study equation) and eCrCl(calculated from the Cockcroft-Gault equation) are based ondifferent parameters and may not yield comparable results.If eCrCl result is absurd, please check patient'sheight/weight. Estimated Glomerular Filt Rate >60 [facility] Comment:Chronic Kidney Disea se: Estimated GFR < 60 mL/min/1.67x7Ylywqp Kidney Disease: Estimated GFR < 15 mL/min/1.73m2 Glucose 100 60 - 115 mg/dL [facility] Calcium 9.8 8.4 - 10.2 mg/dL [facility] 09/24/2025 6:49 AM EDT 09/24/2025 6:57 AM EDT us Generic External Data Provider LAB BLOOD ORDERAB LES Final Result [facility] [address] [place] [phone] * XR Hip 2 or 3 Views Right (09/09/2025 2:03 PM EDT) Anatomical Region Laterality Modality Lower Extremities, Hip Right Radiograp hic Imaging 09/09/2025 2:03 PM EDT Narrative 09/09/2025 2:13 PM EDT [address] [address] XRay Report Signed Patient: Norma Valle MR#: [id number] : 1965 Acct:[id number] Age/Sex: 60 / F ADM Date: 09/09/25 Loc: HO.XRAY Attending Dr: Tiny Soria MD Ordering Physician: Tiny Soria MD Date of Service: 09/09/25 Procedure(s): XR hip RT min 2V Accession Number(s): [id number] cc: Tiny Soria MD Reason for Exam: [...] OV> 09/09/25 1410 DD/ 140 TD/TT: 09/09/251405 Watch Inspector: Procedure Note Donotuseinterpreter, Image - 09/09/[address] [address] XRay Report Signed Patient: Norma Valle MMR#: [id number] : 1965Acct:[id number] Age/Sex: 60 / FADM Date: 09/09/25 Loc: HO.XRAY Attending Dr: Tiny Soria MD Ordering Physician: Tiny Soria MD Date of Service: 09/09/25 Procedure(s): XR hip RT min 2V Accession Number(s): [id number] cc: Tiny Soria MD Reason for Exam: [...] in OV> 09/09/25 1410 DD/ 1403 TD/TT: 09/09/25 140 Watch Inspector: Tiny Soria MD IMG XR PROCEDURES Final [...] EDT) Vitamin D, 25-OH, D2 <4 ng/mL [facility] Comment:This test was develo ped and its analytical performancecharacteristics have been determined by [employer] [place], [place]. It hasnot been cleared or approved by the U.S. Food and DrugAdministration. This assay has been validated pursuantto the CLIA regulations and is used for clinicalpurposes.THIS TEST WAS PERFORMED AT:[employer] [place] [phone] CAMPOS MD,PHD Vitamin D, 25-OH, D3 33 ng/mL [facility] Comment:This test was develo ped and its analytical performancecharacteristics have been determined by [employer] [place], [place]. It hasnot been cleared or approved by the U.S. Food and DrugAdministration. This assay has been validated pursuantto the CLIA regulations and is used for clinicalpurposes. Vitamin D, 25-OH, Total 33 30 - 100 ng/mL [facility] Comment:Vitamin D, 25-Hydrox y reports [...] = 30 ng/mL.For additional information, please refer tohttp://education.[employer]imple[employer]/faq/AQQ905(This link is being provided for informational/educational purposes only.) 07/13/2025 3:25 PM EDT 07/13/2025 3:25 PM EDT Generic External Data Provider LAB BLOOD ORDERAB LES Final Result Performing Organization Address [facility] Co de Phone Number [facility] [address] [place] [phone] * Vitamin B12 (Cobalamin) and Folate Panel, Serum (07/13/2025 3:25 PM EDT) Vitamin B12 550 200 - 900 pg/mL [facility] Comment:NORMAL 200-900 PG/M L INDETERMINATE 160-199 PG/ML DEFICIENT < 160 PG/ML Folate 9.8 > or = 4.0 ng/mL [facility] Comment:Reference Values:> o r = 4.0 ng/mL< 4.0 ng/mL suggests folate deficiency Methotrexate, aminopterin and folinic acid(leucovorin) are chemotherapeutic agents whose molecularstructures are similar to folate; therefore, the Architectfolate assay cannot be used for patients using these drugs. 07/13/2025 3:25 PM EDT 07/13/2025 3:25 PM EDT [employer] External Data Provider LAB BLOOD ORDERAB LES Final Result Performing Organization Address [facility] de Phone Number [facility] [address] [place] [phone] * Tissue Transglutaminase Antibody, IgA (07/13/2025 3:25 PM EDT) Transglutaminase IgA <1.0 U/mL [facility] Comment:Value Interpretation ----- <15.0 Antibody not detected> or = 15.0 Antibody detectedTHIS TEST WAS PERFORMED AT:[employer] [place] [phone] HULL MD 07/13/2025 3:25 PM EDT 07/13/2025 3:25 PM EDT us Generic External Data Provider LAB BLOOD ORDERAB LES Final Result [facility] [address] [place] [phone] * BI Mammogram Screening Tomosynthesis Bilateral (07/13/2025 2:35 PM EDT) Anatomical Region Laterality Modality Breast Bilateral Mammography 07/13/2025 2:35 PM EDT Narrative 07/19/2025 4:43 PM EDT [address] [place] [address] Mammography Report Signed Patient: Norma Valle MR#: [id number] : 1965 Acct:[id number] Age/Sex: 60 / F ADM Date: 07/13/25 Loc: HO.MAMMO Attending Dr: Tiny Soria MD Ordering Physician: Tiny Soria MD Results: 2Benign Findings Date of Service: 07/13/25 Follow Up: 1 Year From [facility] Mammogram Procedure(s): MM tomosynthesis screening BI Accession Number(s): [id number] cc: Tiny Soria MD EXAMINATION: MM SCREENING [...] 07/19/25 1641 DD/ 1435 TD/TT: 07/13/25 1455 Watch Inspector: Procedure Note Donotuseinterpreter, Image - 07/19/2025 [facility] [address] [place] [address] Mammography Report Signed Patient: Norma Valle [facility]#: [id number] : 1965Acct:[id number] Age/Sex: 60 / FADM Date: 07/13/25 Loc: HO.MAMMO Attending Dr: Tiny Soria MD Ordering Physician: Tiny Soria MDResults: 2Benign Findings Date of Service: 07/13/25Follow Up: 1 Year From [facility] Mammogram Procedure(s): MM tomosynthesis screening BI Accession Number(s): [id number] cc: Tiny Soria MD EXAMINATION: MM SCREENING [...] 07/19/25 1641 DD/ 1435 TD/TT: 07/13/25 1455 Watch Inspector: us Tiny Soria MD IMG BI PROCEDURES Final Result * Lipid Panel, Standard (06/27/2023 9:54 AM EDT) Triglycerides 80 mg/dL [facility] Comment:Desirable Triglyceri de: less than 150 mg/dLBorderline High Triglyceride 150-199 mg/dLHigh Triglyceride: 200-499 mg/dLVery High Triglyceride: greater than or equal to 5OO mg/dL Cholesterol 219 mg/dL [facility] Comment:Desirable Cholestero l: less than 200 mg/dLBorderline High Cholesterol: 200-239 mg/dLHigh Cholesterol: greater than 239 mg/dL LDL Cholesterol Calculated 138 mg/dl [facility] Comment:Desirable LDL: less than 100 mg/dLNear Optimal/Above Optimal LDL: 110- 129 mg/dLBorderline High LDL: 130-159 mg/dLHigh LDL: 160-189 mg/dLVery High LDL: greater than or equal to 190 mg/dL HDL Cholesterol 65 mg/dL [facility] Comment:Desirable HDL: great er than 40 mg/dL Note: This HDL assay may give artificially low results in patients with liver disease. Blood Venous blood specimen / Unknown 06/27/2023 9:54 AM EDT 06/27/2023 2:07 PM EDT Tiny Soria MD LAB BLOOD ORDERABLES Final Resul t [facility] [address] [place] [phone] * HPV mRNA E6/E7 (06/02/2019 4:15 PM EDT) Pathologist [facility] HPV mRNA E6/E7 Not Detected NOT DETECTED [facility] Comment: This test was performed using the APTIMA(R) HPV Assay ([employer] This assay detects E6/E7 viral messenger RNA (mRNA) from 14 high-risk HPV types (16,18,31,33,35,39,45,51, 52,56,58,59,66,68). For additional information please refer to: http://education.B[employer]ak/faq/KSS921j3 (This link is being provided for informational/ educational purposes only.) The analytical performance characteristics of this assay have been determined by [employer] [place], [place]. The modifications have not been cleared or approved by the FDA. This assay has been validated pursuant to the CLIA regulations and is used for clinical purposes. Test Performed by [facility], [employer] [facility], [address] [place] [address] Rodney Campos M.D., Ph.D., Director of Laboratories , CLIA [id number] Please note: Effective 08/13/2016, HPV testing will be performed using [employer]'s APTIMA test which targets mRNA. Detecting mRNA instead of DNA, as in older methods, offers significant improvements in specificity. 06/02/2019 4:15 PM EDT Tiny Soria MD HISTORICAL/NON ORDERABLE LABS Fi nal Result [facility] [address] from Last 3 Months or Most Recently Relevant to Health Maintenance Insurance [facility] < [address] [id number] Care Teams Unified Communications Architect Relationship Specialty Start Date End Date Joan Soto MD [address] [place] [phone] PCP - General Internal Medicine 09/09/25
--- OUTSIDE RECORDS SUMMARY | 2025-09-29 11:39 | XMS_ITS | Encounter Summary ---
Author Organization [employer] Address [address] [place] [address] Care Team Providers Care Yolk Spray Drier Name Role Phone Joan Soto MD Primary Care Provider [phone] Reason for Visit * Reason Onset Date Comments No Show 09/24/2025 Encounter Details Date Type Department Care Team ([facility] Contact Info) Description 09/24/2025 Telephone [facility] [address] [place], [place] [phone] Joan Soto MD [address] [place], [place] [phone] No Show Social History Tobacco Use Types Packs/Day Years [...] encounter Miscellaneous Notes * Telephone Encounter - Rene Chong - 09/24/2025 3:22 PM EDT Pt n/s sick on site: Pt c/o continued 04/10 lower right sided radiating to the middle of the right side of her back since 09/08/25. Reports medications prescribed ineffective. documented in this encounter Plan of Treatment Not on file documented as of this encounter Visit Diagnoses Not on filedocumented in this encounter Additional Health Concerns Assessment Noted Time PHQ-9 Depression Total Score: 2 04/29/20 12:00 PM EDT documented as of this encounter Care Teams Yolk Spray Drier Relationship Specialty Start Date End Date Joan Soto MD [address] [place] [phone] PCP - General Internal Medicine 09/09/25 documented as of this encounter
== END 2025-09-29 09:45 | disposition home or self-care (01) ==
LOC: HO.XRAY 09:44
PROVIDERS: PCP Student in an Organized Health Care Education/Training Program; Visit Provider Nurse Practitioner Family
DX: K21.9 Gastro-esophageal reflux disease without esophagitis (principal)
CPT/HCPCS: 74246

== ENCOUNTER → 2025-09-29 09:46 | Outpatient (BNV) | payer OTHER, SELFPAY | PROVIDERS: PCP Student in an Organized Health Care Education/Training Program; Visit Provider Radiology Diagnostic Radiology | DX: K21.9 Gastro-esophageal reflux disease without esophagitis (principal) | CPT/HCPCS: 74246 ==

== ENCOUNTER 2025-10-11 10:17 | Day surgery (SDC) | payer OTHER, SELFPAY ==
--- OUTSIDE RECORDS SUMMARY | 2025-03-08 09:00 | XMS_ITS ---
Author Organization [facility] Address [address] [place] [address] Care Team Providers Care Steel Roller Name Role Phone Tiny Soria Primary Care Provider Akanksha Coelho Unavailable [phone] Allergies Allergen (clinical drug ingredient) Drug/Non Drug Allergy documented on EMR Reaction Allergy Type Onset Date Status sulfamethoxazole / trimethoprim Bactrim Unknown Drug Allergy Active Penicillin Unknown Drug Allergy Active Medications Medication SIG (Take, Route, Frequency, Duration) Notes Start Date End Date Status Vitamin D3 Active Gabapentin Active Magnesium Active Lisinopril Active oxyBUTYnin Active Omeprazole Active Encounters Encounter Location Date Provider Diagnosis [facility] [address] [place] [address] 03/08/2025 Akanksha Soto Plan Of Treatment No Information Progress Notes * Meera FIERROOB:[birth year]10 (60 yo F)Acc No.[id number]:03/08/2025 Progress Note Patient: Sapphire BARTHOLOMEWNUBIA Norma Provider: Tyree Soot DPM :1965 A ge:59 Y S ex:Female Date:03/08/2025 [facility] [facility] Pcp:Tiny Soria Subjective: * Chief Complaints: * [...] 0 03/08/2025 Generated for Alberto lundberg/Solange/Torin on: 08:59 AM EDT
--- OUTSIDE RECORDS SUMMARY | 2025-09-07 08:59 | XMS_ITS | Encounter Summary ---
Author Organization [employer] Address [address] [facility] [address] [place] [address] Care Team Providers Care Lead Generation Specialist Name Role Phone Tiny Soria MD Primary Care Provider Reason for Visit * Reason Onset Date Comments Referral 11/23/2024 Encounter Details Date Type Department Care Team ([facility] st Contact Info) Description 11/23/2024 Telephone [facility] MEDICINE [address] [place] [address] Tiny Soria MD [address] [place], [place] [phone] Referral Social History Tobacco Use Types Packs/Day [...] any questions you can contact pt at [phone]. documented in this encounter Plan of Treatment Not on file documented as of this encounter Visit Diagnoses Not on filedocumented in this encounter Additional Health Concerns Assessment Noted Time PHQ-9 Depression Total Score: 0 05/21/20 10:07 AM EDT documented as of this encounter Care Teams Lead Generation Specialist Relationship Specialty Start Date End Date Tiny Soria MD [address] [place] [phone] PCP - General Family Medicine 04/20/15 documented as of this encounter
--- OUTSIDE RECORDS SUMMARY | 2025-09-07 08:59 | XMS_ITS | Clinical Summary ---
Author Organization [employer] Address [address] [facility] [address] [place] [address] Care Team Providers Care Automotive Brake Adjuster Name Role Phone Tiny Soria MD Primary Care Provider [phone] Allergies Active Allergy Reactions Criticality Noted Date [...] Provider, Generic External Data 06/18/2025 Refill [facility] [address] [place] [address] Tiny Soria MD from Last 3 Months [...] EDT) Vitamin D, 25-OH, D2 <4 ng/mL [facility] Comment:This test was develo ped and its analytical performancecharacteristics have been determined by [employer] [place], [place]. It hasnot been cleared or approved by the U.S. Food and DrugAdministration. This assay has been validated pursuantto the CLIA regulations and is used for clinicalpurposes.THIS TEST WAS PERFORMED AT:[id number] [place] [address]GZMSMTGRODNEY CAMPOS MD,PHD Vitamin D, 25-OH, D3 33 ng/mL [facility] Comment:This test was develo ped and its analytical performancecharacteristics have been determined by [employer] [facility] [place], [place]. It hasnot been cleared or approved by the U.S. Food and DrugAdministration. This assay has been validated pursuantto the CLIA regulations and is used for clinicalpurposes. Vitamin D, 25-OH, Total 33 30 - 100 ng/mL [facility] Comment:Vitamin D, 25-Hydrox y reports [...] = 30 ng/mL.For additional information, please refer tohttp://education.[employer]/faq/QJJ862(This link is being provided for informational/educational purposes only.) 07/13/2025 3:25 PM EDT 07/13/2025 3:25 PM EDT Generic External Data Provider LAB BLOOD ORDERAB LES Final Result Performing Organization Address [facility] Co de Phone Number [facility] [address] [place] [phone] * Vitamin B12 (Cobalamin) and Folate Panel, Serum (07/13/2025 3:25 PM EDT) Vitamin B12 550 200 - 900 pg/mL [facility] Comment:NORMAL 200-900 PG/ML INDETERMINATE 160-199 PG/ML DEFICIENT < 160 PG/ML Folate 9.8 > or = 4.0 ng/mL [facility] Comment:Reference Values:> o r = 4.0 ng/mL< 4.0 ng/mL suggests folate deficiency Methotrexate, aminopterin and folinic acid(leucovorin) are chemotherapeutic agents whose molecularstructures are similar to folate; therefore, the Architectfolate assay cannot be used for patients using these drugs. 07/13/2025 3:25 PM EDT 07/13/2025 3:25 PM EDT Generic External Data Provider LAB BLOOD ORDERAB LES Final Result Performing Organization Address [facility] Co de Phone Number [facility] [address] [place] [phone] * Tissue Transglutaminase Antibody, IgA (07/13/2025 3:25 PM EDT) Transglutaminase IgA <1.0 U/mL [facility] Comment:Value Interpretation ----- <15.0 Antibody not detected> or = 15.0 Antibody detectedTHIS TEST WAS PERFORMED AT:[facility] [place] [id number] HULL MD 07/13/2025 3:25 PM EDT 07/13/2025 3:25 PM EDT Generic External Data Provider LAB BLOOD ORDERAB LES Final Result Performing Organization Address [facility] Co de Phone Number [facility] [address] [place] [phone] * Lipase (07/13/2025 3:25 PM EDT) Lipase 41 8 - 78 U/L [facility] 07/13/2025 3:25 PM EDT 07/13/2025 3:25 PM EDT ideeli External Data Provider LAB BLOOD ORDERAB LES Final Result Performing Organization Address [facility] de Phone Number [facility] [address] [place] [phone] * BI Mammogram Screening Tomosynthesis Bilateral (07/13/2025 2:35 PM EDT) Anatomical Region Laterality Modality Breast Bilateral Mammography 07/13/2025 2:35 PM EDT Narrative 07/19/2025 4:43 PM EDT [facility] [address] [place] [address] Mammography Report Signed Patient: Norma Valle MR#: [id number] : 1965 Acct:[id number] Age/Sex: 60 / F ADM Date: 07/13/25 Loc: HO.MAMMO Attending Dr: Tiny Soria MD Ordering Physician: Tiny Soria MD Results: 2Benign Findings Date of Service: 07/13/25 Follow Up: 1 Year From Orig ina Mammogram Procedure(s): MM tomosynthesis screening BI Accession Number(s): [id number] cc: Tiny Soria MD EXAMINATION: MM SCREENING [...] 07/19/25 1641 DD/ 1435 TD/TT: 07/13/25 1455 Compliance Representative Dealer: Procedure Note Donotuseinterpreter, Image - 07/19/2025 [facility] [address] [place], [place] [address] Mammography Report Signed Patient: Norma Valle MMR#: [id number] : 1965Acct:[id number] Age/Sex: 60 / FADM Date: 07/13/25 Loc: HO.MAMMO Attending Dr: Tiny Soria MD Ordering Physician: Tiny Soria MDResults: 2Benign Findings Date of Service: 07/13/25Follow Up: 1 Year From Orig inal Mammogram Procedure(s): MM tomosynthesis screening BI Accession Number(s): [id number] cc: Tiny Soria MD EXAMINATION: MM SCREENING [...] 07/19/25 1641 DD/ 1435 TD/TT: 07/13/25 1455 Compliance Representative Dealer: Tiny Soria MD IMG BI PROCEDURES Final Result * Lipid Panel, Standard (06/27/2023 9:54 AM EDT) Triglycerides 80 mg/dL [facility] Comment:Desirable Triglyceri de: less than 150 mg/dLBorderline High Triglyceride 150-199 mg/dLHigh Triglyceride: 200-499 mg/dLVery High Triglyceride: greater than or equal to 5OO mg/dL Cholesterol 219 mg/dL [facility] Comment:Desirable Cholestero l: less than 200 mg/dLBorderline High Cholesterol: 200-239 mg/dLHigh Cholesterol: greater than 239 mg/dL LDL Cholesterol Calculated 138 mg/dl [facility] Comment:Desirable LDL: less than 100 mg/dLNear Optimal/Above Optimal LDL: 110- 129 mg/dLBorderline High LDL: 130-159 mg/dLHigh LDL: 160-189 mg/dLVery High LDL: greater than or equal to 190 mg/dL HDL Cholesterol 65 mg/dL [facility] Comment:Desirable HDL: great er than 40 mg/dL Note: This HDL assay may give artificially low results in patients with liver disease. Blood Venous blood specimen / Unknown 06/27/2023 9:54 AM EDT 06/27/2023 2:07 PM EDT us Tiny Soria MD LAB BLOOD ORDERABLES Final Resul t [facility] [address] [place] [phone] * HPV mRNA E6/E7 (06/02/2019 4:15 PM EDT) HPV mRNA E6/E7 Not Detected NOT DETECTED [facility] Comment: This test was performed using the APTIMA(R) HPV Assay ([employer] This assay detects E6/E7 viral messenger RNA (mRNA) from 14 high-risk HPV types (16,18,31,33,35,39,45,51, 52,56,58,59,66,68). For additional information please refer to: http://education.[employer]/faq/GZZ616o7 (This link is being provided for informational/ educational purposes only.) The analytical performance characteristics of this assay have been determined by [employer] [place], [place]. The modifications have not been cleared or approved by the FDA. This assay has been validated pursuant to the CLIA regulations and is used for clinical purposes. Test Performed by [facility], [employer] [facility] [place], [address] [place] [address] Rdoney Campos M.D., Ph.D., Director of Laboratories , CLIA [id number] Please note: Effective 08/13/2016, HPV testing will be performed using [employer]'s APTIMA test which targets mRNA. Detecting mRNA instead of DNA, as in older methods, offers significant improvements in specificity. 06/02/2019 4:15 PM EDT us Tiny Soria MD HISTORICAL/NON ORDERABLE LABS Fi nal Result Performing Organization Address City/State/[facility] Co de Phone Number [facility] Pending sale to [facility] [address] from Last 3 Months or Most Recently Relevant to Health Maintenance Insurance [facility] ONE CARE < [address] [place] [id number] Care Teams Automotive Brake Adjuster Relationship Specialty Start Date End Date Tiny Soria MD [address] [place] [phone] PCP - General Family Medicine 04/20/15
--- OUTSIDE RECORDS SUMMARY | 2025-09-07 09:00 | XMS_ITS | Patient Health Record ---
Author Organization [facility] gordo Roy Address [address] [facility] [place] [address] Care Team Providers Care Skein Drier Name Role Phone Tiny Soria Primary Care Provider Akanksha Coelho Unavailable [phone] Allergies Allergen (clinical drug ingredient) Drug/Non Drug [...] Status Risk Notes Problem Acquired hallux valgus (01455767) Hallux valgus (acquired), left foot (M20.12) Active confirmed Problem Acquired hallux valgus (00769872) Hallux valgus (acquired), right foot (M20.11) Active confirmed Problem Cedillo's neuroma of right foot (45589481134736 8) 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 Problem Cedillo's neuroma of left foot (65293778533448 5) 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 Resistant to previous conservative treatment Problem Plantar fascial fibromatosis (59732386) Plantar fasciitis, bilateral (M72.2) Active confirmed Vital Signs Blood pressure diastolic 65 mm Hg 06/16/2025 Height 5ft 4in in 06/16/2025 Blood pressure systolic 128 mm Hg 06/16/2025 Weight 147 lbs 06/16/2025 BMI 25.23 kg/m2 06/16/2025 Procedures Procedure Date Ordered Date Performed Result Body Sit e 05497, J0702- Neuroma/Injection 12/10/2024 N/A Encounters Encounter Location Date Provider Diagnosis [facility] [address] [address] 12/10/2024 Akanksha Soto Pain in left foot [...] foot M20.11 and Plantar fasciitis, bilateral M72.[address] [facility] [address] 05/13/2025 Akanksha Soto Cedillo's neuroma of left [...] foot M20.11 and Plantar fasciitis, bilateral M72.2 [facility] [address] 06/16/2025 Akanksha Soto Cedillo's neuroma of left foot [...] foot M20.11 and Plantar fasciitis, bilateral M72.[address] [address] 10/14/2024 Akanksha Soto [address] [address] 11/26/2024 Akanksha Soto [address] [address] 12/10/2024 Akanksha Soto [address] [address] 12/10/2024 Akanksha Soto [address] [address] 03/08/2025 Akanksha Soto [address] [address] 05/13/2025 Akanksha Soto Assessments Encounter Date Diagnosis (ICD Code) Assessment Notes Treatment Notes Treatment Clinical Notes Section Notes 05/13/2025 Cedillo's neuroma of left foot (ICD-10 [...] - G57.62) Resistant to previous conservative treatment 12/10/2024 Pain in left foot (ICD-10 - M79.672) 12/10/2024 Cedillo's neuroma of left foot (ICD-10 - G57.62) Resistant to previous conservative treatment Patient Educated with: RICE THERAPY.pdf (RICE THERAPY.pdf) Patient Educated with: INJECTIONTHERA PY.pdf (INJECTIONTHER APY.pdf) Patient Educated with: INJECTIONTHERA PY.pdf (INJECTIONTHER APY.pdf) 12/10/2024 Pain in left ankle and joints of left foot (ICD-10 - M25.572) 06/16/2025 Pain in left foot (ICD-10 - M79.672) 05/13/2025 Pain in left foot (ICD-10 - M79.672) 05/13/2025 Pain in left ankle and joints of left foot (ICD-10 - M25.572) 06/16/2025 Pain in left ankle and joints of left foot (ICD-10 - M25.572) 12/10/2024 Bursitis of left foot (ICD-10 - M77.52) 06/16/2025 Bursitis of left foot (ICD-10 - M77.52) 12/10/2024 Hallux valgus (acquired), left foot (ICD-10 - M20.12) 05/13/2025 Bursitis of left foot (ICD-10 - M77.52) 05/13/2025 Hallux valgus (acquired), left foot (ICD-10 - M20.12) 06/16/2025 Hallux valgus (acquired), left foot (ICD-10 - M20.12) 12/10/2024 Pain in right foot (ICD-10 - M79.671) 12/10/2024 Pain in right ankle and joints of right foot (ICD-10 - M25.571) 06/16/2025 Pain in right foot (ICD-10 - M79.671) 05/13/2025 Pain in right foot (ICD-10 - M79.671) 05/13/2025 Pain in right ankle and joints of right foot (ICD-10 - M25.571) 06/16/2025 Pain in right ankle and joints of right foot (ICD-10 - M25.571) 12/10/2024 Bursitis of right foot (ICD-10 - M77.51) 12/10/2024 Hallux valgus (acquired), right foot (ICD-10 - M20.11) 06/16/2025 Bursitis of right foot (ICD-10 - M77.51) 05/13/2025 Bursitis of right foot (ICD-10 - M77.51) 05/13/2025 Hallux valgus (acquired), right foot (ICD-10 - M20.11) 06/16/2025 Hallux valgus (acquired), right foot (ICD-10 - M20.11) 12/10/2024 Plantar fasciitis, bilateral (ICD-10 - M72.2) 06/16/2025 Plantar fasciitis, bilateral (ICD-10 - M72.2) 05/13/2025 Plantar fasciitis, bilateral (ICD-10 - M72.2) 12/10/2024 Other Plan Of Treatment Pending Test Test Name Order Date X ray : Foot, left 3V 05/13/2025 X ray : Foot, left 3V 12/10/2024 X ray : Foot, right 3V 12/10/2024 40227, J0702- Neuroma/Injection 12/10/19 25 Insurance Providers Payer Name Payer Address Payer Phone Subscriber Number Group Number Insured Name Patient Relationship to Insured Coverage Start Date Coverage End Date [facility] SCO Claims [address] [place] [id number] Norma Valle Self - patient is the insured Medical (General) History Medical History History ICD Code Back,Hip,and Knee pain covid-19 Fibromyalgia High Blood Pressure Numbness Psoriasis/eczema Reflux ( GERD) Chicken pox Surgical History Surgery Date(Month/Year) hysterectomy Tubes tied
--- NOTE | 2025-10-06 13:19 | HO.ANESPROP2 ---
Documented by User: Marielena Lockett NP 10/06/25 13:21 HPI - Anesthesia Eval Consult details Narrative: 60yo F for Upper Endoscopy and Colonoscopy [facility] Active Problems Active Problems: All Active Problems Constipation (Acute) Postprandial epigastric pain (Acute) Ependymoma (Acute) Numbness and tingling of both legs (Acute) Degenerative cervical spinal stenosis (Acute) Numbness and tingling in both hands (Acute) Gait disturbance (Acute) GERD (gastroesophageal reflux disease) (Acute) Headache (Acute) Plantar fasciitis (Acute) HTN (hypertension) (Acute) Cystocele with uterine prolapse (Acute) Urinary frequency (Acute) Past Medical History Medical History Constipation Postprandial epigastric pain Numbness and tingling of both legs Degenerative cervical spinal stenosis Numbness and tingling in both hands Gait disturbance GERD (gastroesophageal reflux disease) Headache Plantar fasciitis HTN (hypertension) Cystocele with uterine prolapse Family History Family History Mother Multiple myeloma Maternal Aunt Breast cancer Colon cancer Cancer of blood vessel Surgical History Surgical History H/O total hysterectomy H/O tubal ligation Social History Social History Alcohol intake: current Alcohol intake frequency: holidays/special occasions only Patient Tobacco Use Status: Current someday Tobacco user Tobacco use type: Cigarette Use of substances other than those prescribed or required for medical reasons: No Are you DNR?: No Advance Directives: No Advance Directives Information Provided: Yes Patient : No : No Meds Allergies Allergy/AdvReac Type Severity Reaction Status Date / Time penicillin V Allergy Unknown swelling Verified 09/24/25 06:27 avocado AdvReac Intermediate Hives Verified 10/11/25 11:03 egg (eggs) AdvReac Intermediate Abdominal Verified 10/11/25 11:03 Pain Home Medications ?Medication ?Instructions ?Recorded ?Confirmed ?Last Taken ?Type gabapentin 100 mg capsule 100 mg PO BID 06/20/23 10/07/25 Unknown History lisinopril 10 mg tablet 10 mg PO DAILY 06/20/23 10/07/25 Unknown History oxybutynin chloride 10 mg 10 mg PO DAILY 07/01/23 10/07/25 Unknown History tablet,extended release 24 hr magnesium 200 mg tablet 200 mg PO DAILY 04/14/24 10/07/25 Unknown History famotidine 20 mg tablet 20 mg PO BEDTIME 06/15/25 10/07/25 Unknown History calcium 500 mg (as 1 tab PO DAILY 08/30/25 10/07/25 Unknown History carbonate)-vitamin D3 10 mcg (400 unit) tablet (Oyster Shell Calcium-Vitamin D3) pantoprazole 40 mg tablet,delayed 40 mg PO QAM 10/11/25 10/11/25 Unknown History release Exam Pertinent Lab Results Pertinent Lab Results: Laboratory Tests 09/24/25 06:49 WBC 7.3 Hgb 14.7 Hct 43.9 Plt Count 191 Sodium 142 Potassium 4.0 Chloride 110 H Carbon Dioxide 23 BUN 14 Creatinine 0.88 Assessment and Plan Assessment Anesthesia Assessment: Chart Reviewed Documented by User: Adrian Estrada MD 10/11/25 11:58 [facility] Past Medical History Medical History Constipation Postprandial epigastric pain Numbness and tingling of both legs Degenerative cervical spinal stenosis Numbness and tingling in both hands Gait disturbance GERD (gastroesophageal reflux disease) Headache Plantar fasciitis HTN (hypertension) Cystocele with uterine prolapse Functional capacity: independent ambulation Patient : No Family History Family History Mother Multiple myeloma Maternal Aunt Breast cancer Colon cancer Cancer of blood vessel Family history of problems with anesthesia: No Surgical History Surgical History H/O total hysterectomy H/O tubal ligation History of Problems with Anesthesia: No Social History Social History Alcohol intake: current Alcohol intake frequency: holidays/special occasions only Patient Tobacco Use Status: Current someday Tobacco user Tobacco use type: Cigarette Use of substances other than those prescribed or required for medical reasons: No Are you DNR?: No Advance Directives: No Advance Directives Information Provided: Yes Patient : No : No Meds Allergies Allergy/AdvReac Type Severity Reaction Status Date / Time penicillin V Allergy Unknown swelling Verified 09/24/25 06:27 avocado AdvReac Intermediate Hives Verified 10/11/25 11:03 egg (eggs) AdvReac Intermediate Abdominal Verified 10/11/25 11:03 Pain Home Medications ?Medication ?Instructions ?Recorded ?Confirmed ?Last Taken ?Type gabapentin 100 mg capsule 100 mg PO BID 06/20/23 10/07/25 Unknown History lisinopril 10 mg tablet 10 mg PO DAILY 06/20/23 10/07/25 Unknown History oxybutynin chloride 10 mg 10 mg PO DAILY 07/01/23 10/07/25 Unknown History tablet,extended release 24 hr magnesium 200 mg tablet 200 mg PO DAILY 04/14/24 10/07/25 Unknown History famotidine 20 mg tablet 20 mg PO BEDTIME 06/15/25 10/07/25 Unknown History calcium 500 mg (as 1 tab PO DAILY 08/30/25 10/07/25 Unknown History carbonate)-vitamin D3 10 mcg (400 unit) tablet (Oyster Shell Calcium-Vitamin D3) pantoprazole 40 mg tablet,delayed 40 mg PO QAM 10/11/25 10/11/25 Unknown History release Exam Airway Mallampati Class: III TM Dist: >3cm Neck ROM: Full Loose/Missing/Broken Teeth: No Heart: RRR Lungs: CTA Assessment and Plan Assessment Anesthesia Assessment: Anesthesia Plan Discussed and Smoking Cess. Discussed Final Anesthetic Review Family History of Problems with Anesthesia: No History of Problems with Anesthesia: No NPO: Yes ASA Class: II Final Preanesthetic Review: No Changes in Pt Med Stat, Meds/Allgs Chart Reviewed, Consent Obtained/Reviewed and Anes Risks/Benef Reviewed Patient Risk: Low Procedure Risk: Low Anesthetic Plan Anesthetic Plan: MAC: Disposition: Standard PACU
[2025-10-07 13:09] VITALS: BMI 25.7
--- NOTE | 2025-10-11 09:56 | MHC.SHP ---
Pre-Procedural Eval Section A - 24 Hr Update-Section A only Date of Service: 10/11/25 The patient is an INPATIENT: No The patient has been examined within 24 hours of the surgical procedure. The History & Physical has been completed within 30 days and I have reviewed it.: No Section B - Complete if H&P > 30 days Chief Complaint: colon cancer screen, Epigastric pain, GERD Relevant Family History (Specify if Yes): Yes Relevant Social History: Tobacco Use Present Medications: see Short Stay Collaborative assessment Medical History: Significant History (Specimens and Sources: : a- small bowel bxs r/o celiac disease b- gastric antrum bxs r/o h pylori Pre-operative diagnosis: : screening, dysphagia Post-operative Diagnosis: : gastritis, dysphagia, diverticulosis, hemorrhoids) History of Previous Operations: Relevant previous surgery/procedure and date(s) (H/O total hysterectomy H/O tubal ligation) Allergies: Allergies Allergy/AdvReac Type Severity Reaction Status Date / Time penicillin V Allergy Unknown swelling Verified 09/24/25 06:27 Review of Systems Sugical H&P ROS: Negative: Constitution, Cardiovascular, Respiratory and Gastrointestinal Exam Surgical H&P Exam: Normal: Heart, Normal: Lungs, Normal: Extremities and Normal: Abdomen Plan Diagnosis/Plan: Unchanged I have reviewed the history and physical and performed a pertinent physical examination on my patient. No changes have occurred unless specified. Time Spent With Patient Time: Total time managing care of this patient today ____ minutes.
[2025-10-11 11:05] VITALS: BMI 25.5
[2025-10-11 11:20] VITALS: BP 126/88; PULSE 66; RESP 16; TEMP 37.1; O2SAT 95
[2025-10-11] MEDS: Lactated Ringers 1,000 ML 100 ML IVCONT (11:42)
--- NOTE | 2025-10-11 12:01 | HO.OPN-COLON ---
Colonoscopy Operative Note Operative Note Date of Service: 10/11/25 Narrative: FLEXIBLE TRANSORAL UPPER GASTROINTESTINAL ENDOSCOPY WITH BIOPSIES AND COLONOSCOPY TILL CECUM WITH [] Pre-op diagnosis: Colon cancer screening, GERD, epigastric pain, diarrhea Post-op diagnosis: GERD, Gastritis, Nodule GE junction, Colon Polyps, Diverticulosis, hemorrhoids Specimens and Sources: : a- small bowel bxs r/o celiac disease ?b- gastric antrum bxs r/o h pylori ?c- gastric body bxs ?d- ge junction nodule bxs ?e- terminal ileum bxs r/o IBD ?f- right colon bxs r/o microscopic colitis ?g- left colon bxs r/o microscopic colitis ?h- rectal polyp ? Endoscopist:? Maicol Cooper MD Anesthesia:?[facility] [place] UPPER ENDOSCOPY Consent: Indications for the procedure and potential complications of bleeding, perforation, reaction to medications and missed diagnosis were discussed with the patient and informed consent was obtained. Instrument: Olympus GIF H 190 mid size upper endoscope Monitoring: Vital signs and clinical assessment, continuous EKG monitoring, Pulse oximetry, Carbon Dioxide monitoring and blood pressure monitoring were done throughout the procedure. Procedure: The patient was placed in the left lateral decubitis position and pre-procedure medications were administered and a bite block was placed. The endoscope was inserted into the mouth and advanced under direct vision to the third part of duodenum. A careful inspection was made as the upper endoscope was withdrawn including a retroflexed examination of the proximal stomach; Findings and interventions are described below. Findings: Larynx: Normal Esophagus: GE junction at 35 cms. No esophagitis or Casper's. A 4-5 mm benign appearing nodule on the gastric side of GE junction - biopsied. Stomach: Moderate diffuse gastric erythema with nodular appearing mucosa in the gastric body - biopsies were obtained from the gastric body and antrum. Grade 2 flap valve on retroflexed examination of the cardia. Duodenum: Normal bulb and descending duodenum Biopsies were obtained from descending duodenum to check for celiac sprue Intervention: Biopsies as noted above COLONOSCOPY PROCEDURE NOTE Instrument: Olympus PCF H 190 L variable stiffness pediatric colonoscope Monitoring: Vital signs and clinical assessment, intermittent blood pressure monitoring, continuous EKG monitoring, Pulse oximetry and Carbon Dioxide monitoring were done throughout the procedure. Please see anesthesia flowsheet. Colon withdrawl time was 24 minutes. Procedure: The patient was placed in the left lateral decubitis position and pre-procedure medications were administered. After a digital rectal examination of the ano-rectum, the video colonoscope was inserted into the rectum and advanced through the colon to the cecum. The colonoscope was slowly withdrawn in a retrograde panoramic fashion and the colon mucosa was carefully examined including a retroflexed view of the rectum. Findings and interventions are described below. Procedure Difficulty: without difficulty Findings: Terminal Ileum: Distal 10 cms was examined and appeared normal Cecum: Normal Ascending Colon: Normal Transverse Colon: Normal Descending Colon: Normal Sigmoid Colon: Moderate diverticulosis Rectum: A 3-4 mm diminutive appearing polyp - removed with a cold biopsy Ano-rectum: Moderate internal hemorrhoids and hypertrophied anal papilla Colon preparation: Good after some irrigation. [place] Bowel Preparation Scale Right colon; 2 Transverse colon: 2 Left colon; 2 (0 = Unprepared colon segment with mucosa not seen due to solid stool that cannot be cleared. 1 = Portion of mucosa of the colon segment seen, but other areas of the colon segment not well seen due to staining, residual stool and/or opaque liquid. 2 = Minor amount of residual staining, small fragments of stool and/or opaque liquid, but mucosa of colon segment seen well. 3 = Entire mucosa of colon segment seen well with no residual staining, small fragments of stool or opaque liquid) Impression and Post Procedure Diagnosis: Endoscopy Findings: ESOPHAGUS: [] STOMACH: [] DUODENUM: [] Colonoscopy Findings: One small polyp was removed Random biopsies were obtained from TI, right and left colon to rule out IBD/microscopic colitis Moderate diverticulosis seen in the sigmoid colon Moderate hemorrhoids on retroflexed exam. Plan: Pt has a FU appointment on 11/22/25 with Mojgan Roth NP Repeat Colonoscopy in 5 years if polyps are adenomatous and 10 year if polyps are hyperplastic. A summary of above findings and relevant handouts were given to the patient.
[2025-10-11 13:05] VITALS: BP 117/77; PULSE 67; RESP 20; TEMP 36.1; O2SAT 95
[2025-10-11 13:26] VITALS: BP 134/77; PULSE 60; RESP 18; TEMP 36.2; O2SAT 97
== END 2025-10-11 14:12 | disposition home or self-care (01) ==
PROVIDERS: Visit Provider Internal Medicine Gastroenterology
PROC: (CPT 45380; principal; 2025-10-11 12:00)
DX: Z12.11 Encounter for screening for malignant neoplasm of colon (principal); K21.9 Gastro-esophageal reflux disease without esophagitis; R10.13 Epigastric pain; K59.00 Constipation, unspecified; R14.0 Abdominal distension (gaseous); K64.8 Other hemorrhoids; K22.82 Esophagogastric junction polyp; K29.70 Gastritis, unspecified, without bleeding; K63.5 Polyp of colon
CPT/HCPCS: 45380; 43239; 88305; 88313; 88342; J2003; J2250; J2704

== ENCOUNTER → 2025-10-11 10:17 | Outpatient (BNV) | payer OTHER, SELFPAY | PROVIDERS: Visit Provider Internal Medicine Gastroenterology | DX: Z12.11 Encounter for screening for malignant neoplasm of colon (principal); K63.5 Polyp of colon; K57.30 Diverticulosis of large intestine without perforation or abscess without bleeding; K64.8 Other hemorrhoids; K21.9 Gastro-esophageal reflux disease without esophagitis; K22.81 Esophageal polyp; K29.70 Gastritis, unspecified, without bleeding | CPT/HCPCS: 43239; 45380 ==

== ENCOUNTER 2025-10-20 13:15 | Outpatient (AMB) | payer OTHER, SELFPAY ==
--- OUTSIDE RECORDS SUMMARY | 2025-03-08 08:00 | XMS_ITS ---
Author Organization [facility] Address [address] [place] [address] Care Team Providers Care Repairer Pump Name Role Phone Tiny Soria Primary Care Provider Akanksha Coelho Unavailable [phone] Allergies Allergen (clinical drug ingredient) Drug/Non Drug Allergy documented on EMR Reaction Allergy Type Onset Date Status sulfamethoxazole / trimethoprim Bactrim Unknown Drug Allergy Active Penicillin Unknown Drug Allergy Active Medications Medication SIG (Take, Route, Frequency, Duration) Notes Start Date End Date Status Vitamin D3 Active Gabapentin Active Magnesium Active Lisinopril Active oxyBUTYnin Active Omeprazole Active Encounters Encounter Location Date Provider Diagnosis [facility] [address] [place] [address] 03/08/2025 Akanksha Soto Plan Of Treatment No Information Progress Notes * Meera FIERROOB:[birth year] (60 yo F)Acc No.[id number]:03/08/2025 Progress Note Patient: Sapphire BARTHOLOMEWNUBIA Norma Provider: Tyree Soto DPM :1965 A ge:59 Y S ex:Female Date:03/08/2025 [facility] [id number] Pcp:Tiny Soria Subjective: * Chief Complaints: * * Medical History: B ack,Hip,and Knee pain, Covid-19, Fibromyalgia, High Blood Pressure, Numbness, Psoriasis/eczema, Reflux ( GERD), Chicken pox. * Medications: T aking Omeprazole , Taking oxyBUTYnin , Taking Lisinopril , Taking Gabapentin , Taking Vitamin D3 , Taking Magnesium * Allergies: P enicillin, Bactrim. Objective: * Vitals: Assessment: Plan: * Treatment: * Images: * The named appointment provid er may or may not be the originator of this progress note, and it is not deemed complete until electronically signed by the appointment provider. Sign off status: Pending * Provider: Tyree Soto DPM Date: 0 03/08/2025 Generated for Alberto lundberg/Solange/Torin on: 12/21/2024 01:08 AM EST
--- NOTE | 2025-10-20 13:32 | A.OFFVIS_ITS ---
Vital Signs 10/20/25 13:33 Height 5 ft 4 in Weight 148 lb BMI 25.4 BP 128/74 Intake Visit Reasons: vaginal odor Radius Corner Machine Operator Required: No Information Interpreted: non-clinical & clinical Power Screwdriver Operator: Power Screwdriver Operator Present (Mayda Hernandez ) Accompanied by: Self / Same As Patient Allergies penicillin V Allergy (Unknown, Verified 10/20/25 13:42) swelling avocado Adverse Reaction (Intermediate, Verified 10/20/25 13:42) Hives egg (eggs) Adverse Reaction (Intermediate, Verified 10/20/25 13:42) Abdominal Pain HPI Comments Details: Presenting complaining of vaginal odor that started few weeks ago and right- sided pelvic pain. The patient is status post vaginal hysterectomy with questionable BSO in December of 2023. The patient went to the ER end of September 2025 , CT scan showed inflammatory bowel disease, the patient has had recent colonoscopy done since then has been having pelvic pain more on the right associated with diarrhea PFSH Medical History Constipation Postprandial epigastric pain Numbness and tingling of both legs Degenerative cervical spinal stenosis Numbness and tingling in both hands Gait disturbance GERD (gastroesophageal reflux disease) Headache Plantar fasciitis HTN (hypertension) Cystocele with uterine prolapse Surgical History H/O total hysterectomy H/O tubal ligation Family History Mother Multiple myeloma Maternal Aunt Breast cancer Colon cancer Cancer of blood vessel Social History Alcohol intake: current Alcohol intake frequency: holidays/special occasions only Patient Tobacco Use Status: Current someday Tobacco user Tobacco use type: Cigarette Physical Exam Vital Signs: Last Vital Signs BP 128/74 10/20/25 13:33 BMI result Body Mass Index 25.4 Results AMB Urinalysis Dipstick UR Leukocytes Negative Last Edit by Mayda Hernandez CMA on 10/20/25 14:31 UR Nitrite Negative Last Edit by Mayda Hernandez CMA on 10/20/25 14:31 UR Urobilinogen Normal Last Edit by Mayda Hernandez CMA on 10/20/25 14:31 UR Protein Negative Last Edit by Mayda Hernandez CMA on 10/20/25 14:31 UR Ph 7.0 Last Edit by Mayda Hernandez CMA on 10/20/25 14:31 UR Blood Negative Last Edit by Mayda Hernandez CMA on 10/20/25 14:31 UR Specific [place] 1.015 Last Edit by Mayda Hernandez CMA on 10/20/25 14:31 UR Ketone Negative Last Edit by Mayda Hernandez CMA on 10/20/25 14:31 UR Bilirubin Negative Last Edit by Mayda Hernandez CMA on 10/20/25 14:31 UR Glucose Negative Last Edit by Mayda Hernandez CMA on 10/20/25 14:31 Assessment & Plan Assessment & Plan (1) Bacterial vaginosis: Code(s): N76.0 - Acute vaginitis; B96.89 - Other specified bacterial agents as the cause of diseases classified elsewhere Category: Medical Plan: BV panel taken. Will treat with Metrogel vaginal cream 1 application vaginally at bedtime for 5 days . Instructions given to the patient to refrain from sexual activity or to use condoms consistently and correctly during the BV treatment regimen, not to douch, it might increase the risk for relapse, and to call if symptoms persist or recur. (2) Pelvic pain: Code(s): R10.20 - Pelvic and perineal pain unspecified side Category: Medical Plan: Urine dip Pelvic ultrasound ordered The patient was instructed to go to emergency room to be evaluated given her history of inflammatory bowel disease status post colonoscopy few days ago Orders: Orders US pelvic and transvaginal Today R10.20 - Pelvic and perineal pain unspecified side Bacterial Vaginosis Panel Today B96.89 - Other specified bacterial agents as the cause of diseases classified elsewhere, N76.0 - Acute vaginitis AMB Urinalysis Dipstick Today R10.20 - Pelvic and perineal pain unspecified side Medications: New metronidazole 0.75%(37.5mg/5gram) 1 appful vaginal BEDTIME 37.5 grams 0RF 5 days Coding Diagnoses Bacterial vaginosis N76.0; B96.89 Pelvic pain R10.20
[2025-10-20 13:33] VITALS: BP 128/74; BMI 25.4
--- OUTSIDE RECORDS SUMMARY | 2025-10-21 01:09 | XMS_ITS | Encounter Summary ---
Author Organization [employer] Address [address] [facility] [address] [place] [address] Care Team Providers Care Shopper Name Role Phone Joan Soto MD Primary Care Provider [phone] Reason for Visit * Reason Comments Med Refill Encounter Details Date Type Department Care Team ([facility] Contact Info) Description 10/19/2025 Refill [facility] [address] [place], [place] [phone] Tiny Soria MD [address], [place] [phone] Social History Tobacco Use Types Packs/Day Years [...] documented as of this encounter Care Teams Shopper Relationship Specialty Start Date End Date Joan Soto MD [address] [place] [id number] PCP - General Internal Medicine 09/09/25 documented as of this encounter
--- OUTSIDE RECORDS SUMMARY | 2025-10-21 01:09 | XMS_ITS | Encounter Summary ---
Author Organization [employer] Address [address] [facility] [address] [place] [address] Care Team Providers Care Auto Body Service Mechanic Name Role Phone Tiny Soria MD Primary Care Provider [phone] Joan Soto MD Primary Care Provider [phone] Reason for Visit * Reason Onset Date Comments Referral 11/23/2024 Encounter Details Date Type Department Care Team ([facility] st Contact Info) Description 11/23/2024 Telephone [facility] [address] [place] [address] Tiny Soria MD [address] [place], [place] [phone] Referral Social History Tobacco Use Types Packs/Day [...] as needed. * Telephone Encounter - Frank Abudl - 11/23/2024 10:31 AM EST Tc from pt requesting referral for gastroenterology. If any questions you can contact pt at [phone]. documented in this encounter Plan of Treatment Not on file documented as of this encounter Visit Diagnoses Not on filedocumented in this encounter Additional Health Concerns Assessment Noted Time PHQ-9 Depression Total Score: 0 05/21/20 10:07 AM EDT documented as of this encounter Care Teams Auto Body Service Mechanic Relationship Specialty Start Date End Date Tiny Soria MD [address] [place] [id number] PCP - General Family Medicine 04/20/15 09/08/25 Joan Soto MD [address] [place] [address] PCP - General Internal Medicine 09/09/25 documented as of this encounter
--- OUTSIDE RECORDS SUMMARY | 2025-10-21 01:09 | XMS_ITS | Patient Health Record ---
Author Organization [facility] [place] Address [address] [facility] [address] Care Team Providers Care Clinical Engineering Manager Name Role Phone Tiny Soria Primary Care Provider Akanksha Coelho Unavailable [phone] Allergies Allergen (clinical drug ingredient) Drug/Non Drug [...] Status Risk Notes Problem Acquired hallux valgus (37685606) Hallux valgus (acquired), left foot (M20.12) Active confirmed Problem Acquired hallux valgus (02441440) Hallux valgus (acquired), right foot (M20.11) Active confirmed Problem Cedillo's neuroma of right foot ([id number] 8) 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 Problem Cedillo's neuroma of left foot (84121629304521 5) 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 Resistant to previous conservative treatment Problem Plantar fascial fibromatosis (86978470) Plantar fasciitis, bilateral (M72.2) Active confirmed Vital Signs Blood pressure diastolic 65 mm Hg 06/16/2025 Height 5ft 4in in 06/16/2025 Blood pressure systolic 128 mm Hg 06/16/2025 Weight 147 lbs 06/16/2025 BMI 25.23 kg/m2 06/16/2025 Procedures Procedure Date Ordered Date Performed Result Body Sit e 02041, J0702- Neuroma/Injection 12/10/2024 N/A Encounters Encounter Location Date Provider Diagnosis [facility] [address] [address] 12/10/2024 Akanksha Soto Pain in left foot [...] foot M20.11 and Plantar fasciitis, bilateral M72.[address] [facility] [address] 05/13/2025 Akanksha Soto Cedillo's neuroma of left [...] foot M20.11 and Plantar fasciitis, bilateral M72.[address] [facility] [address] 06/16/2025 Akanksha Cedillo's neuroma of left foot [...] foot M20.11 and Plantar fasciitis, bilateral M72.[address] [address] 10/19/2025 Akanksha Soto [address] [address] 11/26/2024 Akanksha Soto [address] [address] 12/10/2024 Akanksha Soto [address] [address] 12/10/2024 Akanksha Soto [address] [address] 03/08/2025 Akanksha Soto [address] [address] 05/13/2025 Akanksha Soto Assessments Encounter Date Diagnosis [...] X ray : Foot, right 3V 12/10/2024 39019, J0702- Neuroma/Injection 12/10/19 25 Insurance Providers Payer Name Payer Address Payer Phone Subscriber Number Group Number Insured Name Patient Relationship to Insured Coverage Start Date Coverage End Date [facility] [employer] Claims [address] [id number] [id number] Norma Valle Self - patient is the insured Medical (General) History Medical History History ICD Code Back,Hip,and Knee pain covid-19 Fibromyalgia High Blood Pressure Numbness Psoriasis/eczema Reflux ( GERD) Chicken pox Surgical History Surgery Date(Month/Year) hysterectomy Tubes tied
--- OUTSIDE RECORDS SUMMARY | 2025-10-21 01:09 | XMS_ITS | Clinical Summary ---
Author Organization [employer] Address [address] [facility] [address] [place] [address] Care Team Providers Care Patent Clerk Name Role Phone Joan Soto MD Primary Care Provider [phone] Allergies Active Allergy Reactions Criticality Noted Date Comments Penicillin G Rash Low 02/26/2024 Penicillins Rash,Swelling Low 10/01/2016 Allergy Medications * This document contains information received from the source organization and may not represent a complete record from that organization. albuterol (ProAir HFA) 108 (90 Base) MCG/ACT inhaler inhale 2 puff by inhalation route every 4-6 hrs 11/30/20 20 Active ibuprofen (IBU) 800 MG tablet TAKE [...] DAILY 60 tablet 5 03/17/20 25 Active Calcium Carb-Cholecalci ferol (Calcium 500 + D) 500-3.125 MG-MCG tablet Take 500 mg by mouth Once per day. 90 tablet 3 04/29/20 25 026 Active betamethasone valerate (Valisone) 0.1 % cream APPLY TO THE AFFECTED AREA(S) TWICE DAILY IN THE MORNING AND AT BEDTIME NEEDED 45 g 2 05/17/20 25 Active gabapentin (Neurontin) 100 MG capsule TAKE TWO CAPSULES EVERY NIGHT AT BEDTIME 60 capsule 11 06/18/20 25 Active magnesium oxide 250 MG tablet TAKE ONE-HALF TABLET AT BEDTIME 15 tablet 3 10/05/20 25 Active lisinopril 10 MG tablet TAKE ONE TABLET DAILY 90 tablet 3 10/20/20 25 Active lisinopril 10 MG tablet TAKE ONE TABLET DAILY 90 tablet 3 06/14/20 23 025 Discontinued magnesium 100 MG tablet Take 1 tab at bedtime 30 tablet 3 04/29/20 25 025 Discontinued celecoxib (CeleBREX) 50 MG capsule Take 1 capsule (50 mg) by mouth Once per day. 30 capsule 3 09/09/20 25 025 Active Problems Problem Noted Date Diagnosed Date [...] Encounters Date Type Department Care Team Description 10/19/[address] [facility] [address] [place] [address] Tiny Soria MD 10/04/[address] [facility] [address] [place] [address] Tiny Soria MD 09/24/[address] [facility] [address] [place] [address] Joan Soto MD No Show 09/24/2025 Orders Only GENERIC EXTERNAL DATA DEPARTMENT Provider, Generic External Data 09/23/2025 Telephone [facility] [address] [place] [address] Joan Soto MD Nurse Triage 09/09/2025 11:30 AM EDT Office Visit [facility] [address] [place] [address] Tiny Soria MD Right hip pain (Primary Dx); Painful urination; Microscopic hematuria 09/09/2025 Travel 09/07/2025 Telephone [facility] [address] [place] [address] Tiny Soria MD Nurse Triage from Last 3 Months Immunizations Immunization Administration [...] Procedure Name Priority Date/Time Associated Diagnosis Comments FL UPPER GI W AIR W BARIUM SWALLOW Routine 09/29/2025 10:[address] ABDOMEN PELVIS W CONTRAST Routine 09/24/2025 8:06 AM EDT URINALYSIS WITH REFLEX MICROSCOPIC Routine 09/24/2025 7:09 AM EDT TYPE AND SCREEN Routine 09/24/2025 6:51 AM EDT OBSX1 Routine 09/24/2025 6:51 AM EDT LIPASE Routine 09/24/2025 6:49 AM EDT MAGNESIUM Routine 09/24/2025 6:49 AM EDT BASIC METABOLIC PANEL Routine 09/24/2025 6:49 AM EDT HEPATIC FUNCTION PANEL Routine 09/24/2025 6:49 AM EDT PROTHROMBIN TIME-INR Routine 09/24/2025 6:49 AM EDT CBC WITH AUTO DIFFERENTIAL Routine 09/24/2025 6:49 AM EDT XR HIP 2 OR 3 VIEWS RIGHT Routine 09/09/2025 2:03 PM EDT Right hip pain POCT URINALYSIS DIPSTICK Routine 09/09/2025 11:36 AM EDT Painful urination BI MAMMOGRAM SCREENING TOMOSYNTHESIS BILATERAL Routine 07/13/2025 2:35 PM EDT LIPID PANEL, STANDARD Routine 06/27/2023 9:54 AM EDT Primary hypertension ZZZ HISTORICAL HPV MRNA E6/E7 Routine 06/02/2019 4:15 PM EDT from Last 3 Months or Most Recently Relevant to Health Maintenance Results * FL Upper GI w/air w/Barium Swallow (09/29/2025 10:16 AM EDT) Anatomical Region Laterality Modality Body Radiographic Kasia ging 09/29/2025 10:1 6 AM EDT Narrative 09/29/2025 12:11 PM EDT [place] [address] Fluoroscopy Report Signed with Addenda Patient: Norma Valle MR#: [id number] : 1965 Acct:[id number] Age/Sex: 60 / F ADM Date: 09/29/25 Loc: SHARON Attending Dr: Zonia SALGUERO Ordering Physician: Zonia Roth Date of Service: 09/29/25 Procedure(s): FL upper GI w air w Ba Swallow Accession Number(s): [id number] cc: Zonia Roth; Tiny Soria MD Reason for Exam: K21.9 - Gastro-esophageal reflux disease without esophagitis ADDENDUM ADDENDUM #1 EXAMINATION: Upper GI air contrast study with barium swallow. Electronically signed by: Joseph Rebolledo MD 09/30/2025 07:02 AM EDT RP Addendum Dictated By: Joseph Rebolledo MD Addendum Signed By: <Electronically signed by Joseph Rebolledo MD in OV> 09/30/25 0702 Addendum Cosigned By: DD/ TD/TT: 09/29/25 EXAMINATION: XR UPPER GI SERIES WITH SMALL BOWEL CLINICAL INFORMATION: Gastroesophageal reflux disease without esophagitis. COMPARISON: CT abdomen pelvis with IV contrast 09/24/2025 TECHNIQUE: Routine upper GI air contrast study was performed in upright and lying position. FINDINGS: Following oral administration of thick barium and effervescent granules there is normal propagation bolus from the oral cavity through the pharynx, esophagus into stomach without any evidence of obstruction, narrowing or stricture. On placing patient supine and prone there is mild gastroesophageal reflux without hiatal hernia. The mucosal pattern of the stomach, duodenal bulb and sweep is normal. The course, caliber and peristalsis of the stomach is normal. FLUOROSCOPY TIME: 1.58 minutes DOSE AREA PRODUCT: 1894 uGy-m2 (microgray-meter squared) FL/FL upper GI w air w Ba Swallow IMPRESSION: Mild gastroesophageal reflux without hiatal hernia. Electronically signed by: Joseph Rebolledo MD 09/29/2025 12:08 PM EDT RP Dictated By: Joseph Rebolledo MD Signed By: <Electronically signed by Joseph Rebolledo MD in OV> 09/29/25 1208 DD/ 1016 TD/TT: 09/29/25 1025 Dental Treatment Coordinator: MERON Procedure Note Donotuseinterpreter, Image - 09/30/[address] [address] Fluoroscopy Report Signed with Addenda Patient: Norma Valle [facility]#: [id number] : 1965Acct:[id number] Age/Sex: 60 / FADM Date: 09/29/25 Loc: SHARON Attending Dr: Zonia Roth [facility] Ordering Physician: Zonia Roth [facility] Date of Service: 09/29/25 Procedure(s): FL upper GI w air w Ba Swallow Accession Number(s): [id number] cc: Zonia Roth [facility]; Tiny Soria MD Reason for Exam: K21.9 - Gastro-esophageal reflux disease withoutesophagitis ADDENDUM ADDENDUM #1 EXAMINATION: Upper GI air contrast study with barium swallow. Electronically signed by: Joseph Rebolledo MD 09/30/2025 07:02 AM EDT RP Addendum Dictated By: Joseph Rebolledo MD Addendum Signed By: <Electronically signed by Joseph Rebolledo MD in OV> 09/30/25 0702 Addendum Cosigned By: DD/ TD/TT: 09/29/25 EXAMINATION: XR UPPER GI SERIES WITH SMALL BOWEL CLINICAL INFORMATION: Gastroesophageal reflux disease without esophagitis. COMPARISON: CT abdomen pelvis with IV contrast 09/24/2025 TECHNIQUE: Routine upper GI air contrast study was performed in upright and lying position. FINDINGS: Following oral administration of thick barium and effervescent granules there is normal propagation bolus from the oral cavity through the pharynx, esophagus into stomach without any evidence of obstruction, narrowing or stricture. On placing patient supine and prone there is mild gastroesophageal reflux without hiatal hernia. The mucosal pattern of the stomach, duodenal bulb and sweep is normal. The course, caliber and peristalsis of the stomach is normal. FLUOROSCOPY TIME: 1.58 minutes DOSE AREA PRODUCT: 1894 uGy-m2 (microgray-meter squared) FL/FL upper GI w air w Ba Swallow IMPRESSION: Mild gastroesophageal reflux without hiatal hernia. Electronically signed by: Joseph Rebolledo MD 09/29/2025 12:08 PM EDT RP Dictated By: Joseph Rebolledo MD Signed By: <Electronically signed by Joseph Rebolledo MD in OV> 09/29/25 1208 DD/ 1016 TD/TT: 09/29/25 1025 Dental Treatment Coordinator: MERON us [facility] Exter nal Provider IMG FLUOROSCOPY PROCEDURES Edited Result - Final * CT Abdomen Pelvis w/ Contrast (09/24/2025 8:06 AM EDT) Anatomical Region Laterality Modality Body, Pelvis, Abdomen Computed T omography 09/24/2025 8:06 AM EDT Narrative 09/24/2025 8:32 AM EDT [place] [address] CT Scan Report Signed Patient: Norma Valle MR#: [id number] : 1965 Acct:[id number] Age/Sex: 60 / F ADM Date: 09/24/25 Loc: HO.ED Attending Dr: Ordering Physician: Haylie Sotelo DO Date of Service: 09/24/25 Procedure(s): CT abdomen pelvis w IV con Accession Number(s): [id number] cc: Haylie Sotelo DO; Tiny Soria MD Report Number: [id number]: Total DLP = 461.00 mGy-cm Reason for [...] by Jorge Cedeño MD in OV> 09/24/25 08 DD/ 5 TD/TT: 09/24/25819 Dental Treatment Coordinator: Procedure Note Donotuseinterpreter, Image - 09/24/[address] [address] [address] Scan Report Signed Patient: Norma Valle [facility]#: [id number] : 1965Acct:[id number] Age/Sex: 60 / FADM Date: 09/24/25 Loc: HO.ED Attending Dr: Ordering Physician: Haylie Sotelo DO Date of Service: 09/24/25 Procedure(s): CT abdomen pelvis w IV con Accession Number(s): [id number] cc: Haylie Sotelo DO; Tiny Soria MD Report Number: [id number]: Total DLP = 461.00 mGy-cm Reason for [...] <Electronically signed by Jorge Cedeño MDin OV> 09/24/25 0829 DD/ 0806 TD/TT: 09/24/25 0820 Dental Treatment Coordinator: us [facility] External Provider IMG CT PROCEDURES Final Result * Urinalysis w/reflex microscopic (09/24/2025 7:09 AM EDT) Color Urine Yellow [facility] Appearance Urine Clear [facility] PH 6.5 5.0 - 9.0 [facility] Glucose Urine UA Negative Negative mg/dL [facility] Urine Blood Negative Negative [facility] Specific [place] - Urine <=1.005 1.005 - 1.025 [facility] Urine Protein Negative Neg-Trace mg/dL [facility] Urine Ketones Negative Negative mg/dL [facility] Nitrite Urine Negative Negative [facility] Leukocyte Esterase Urine Negative Negative [facility] 09/24/2025 7:09 AM EDT 09/24/2025 7:16 AM EDT Narrative [facility] - 09/24/2025 7:19 AM EDT Urine, Clean Catch us Generic External Data Provider LAB URINE ORDERAB LES Final Result Performing Organization Address [facility] Co de Phone Number [facility] [address] [place] [phone] * OBSX1 (09/24/2025 6:51 AM EDT) OBS1 NEGATIVE NEGATIVE [facility] 09/24/2025 6:51 AM EDT 09/24/2025 6:57 AM EDT us Generic External Data Provider LAB BLOOD ORDERAB LES Final Result Performing Organization Address [facility] Co de Phone Number [facility] [address] [place] [phone] * Type and screen (09/24/2025 6:51 AM EDT) Blood Type OP [facility] Antibody Screen NEGATIVE [facility] 09/24/2025 6:51 AM EDT 09/24/2025 6:59 AM EDT us Generic External Data Provider LAB BLOOD BANK TE ST ORDERABLES Final Result Performing Organization Address [facility] Co de Phone Number [facility] [address] [place] [phone] * CBC auto differential (09/24/2025 6:49 AM EDT) White Blood Count 7.3 4.8 - 10.8 X10*3/uL [facility] Red Blood Count 4.81 4.20 - 5.50 X10*6/uL [facility] Hemoglobin 14.7 12.0 - 16.0 g/dl [facility] Hematocrit 43.9 37.0 - 47.0 % [facility] Mean Corpuscular Volume 91.3 80.0 - 98.0 fL [facility] Mean Corpuscular Hemoglobin 30.6 27.0 - 33.0 pg [facility] Mean Corpuscular HGB Conc 33.5 31.0 - 35.0 g/dl [facility] Red Cell Distribution Width 13.4 11.0 - 16.0 % [facility] Platelet Count 191 160 - 400 X10*3/uL [facility] Mean Platelet Volume 10.4 9.4 - 12.3 fL [facility] Neutrophils Percent Auto 64.8 45 - 73 % [facility] Imm Gran Pct Auto 0.3 0.0 - 0.4 % [facility] Lymphocytes Percent Auto 26.3 20 - 40 % [facility] Monocytes Percent Auto 6.6 2 - 11 % [facility] Eosinophils Percent Auto 1.2 0 - 4 % [facility] Basophils Percent Auto 0.8 0 - 2 % [facility] NRBC Pct Auto 0.0 0.0 - 0.2 /100WBC [facility] Neutrophils Absolute Auto 4.7 2.0 - 8.3 x10*3/uL [facility] Imm Gran Abs Auto 0.02 0.00 - 0.03 X10*3/uL [facility] Lymphocytes Absolute Auto 1.9 1.2 - 4.9 X10*3/uL [facility] Monocytes Absolute Auto 0.5 0.1 - 1.2 X10*3/uL [facility] Eosinophils Absolute Auto 0.1 0.0 - 0.4 X10*3/uL [facility] Basophils Absolute Auto 0.1 0.0 - 0.2 X10*3/uL [facility] NRBC Abs Auto 0.000 0.0 - 0.012 X10*3/uL [facility] 09/24/2025 6:49 AM EDT 09/24/2025 6:57 AM EDT Generic External Data Provider LAB BLOOD ORDERAB LES Final Result Performing Organization Address [facility] de Phone Number [facility] [address] [place] [phone] * Prothrombin Time-INR (09/24/2025 6:49 AM EDT) Prothrombin Time 11.1 10.9 - 12.4 SEC [facility] INTERNATIONAL NORM RATIO 1.0 0.9 - 1.1 [facility] Comment:INTERNATIONAL NORMAL IZED RATIO (INR) [...] ORDERAB LES Final Result Performing Organization Address [facility] de Phone Number [facility] [address] [place] [phone] * Magnesium (09/24/2025 6:49 AM EDT) Magnesium 1.8 1.6 - 2.6 mg/dL [facility] 09/24/2025 6:49 AM EDT 09/24/2025 6:57 AM EDT us Generic External Data Provider LAB BLOOD ORDERAB LES Final Result Performing Organization Address City/[facility]/ZIP Co de Phone Number [facility] [address] [place] [phone] * Lipase (09/24/2025 6:49 AM EDT) Pathologist [facility] Lipase 33 8 - 78 U/L [facility] 09/24/2025 6:49 AM EDT 09/24/2025 6:57 AM EDT Generic External Data Provider LAB BLOOD ORDERAB LES Final Result Performing Organization Address [facility] de Phone Number [facility] [address] [place] [phone] * Hepatic Function Panel (09/24/2025 6:49 AM EDT) Bilirubin, Total 0.3 0.0 - 1.0 mg/dL [facility] Bilirubin, Direct 0.1 0.0 - 0.5 mg/dL [facility] Aspartate Amino Transferase 20 5 - 31 U/L [facility] Alanine Aminotransferase 22 0 - 31 U/L [facility] Total Protein 6.7 6.5 - 8.0 g/dL [facility] Albumin Level 4.3 3.5 - 5.0 g/dL [facility] Alkaline Phosphatase 75 39 - 117 U/L [facility] 09/24/2025 6:49 AM EDT 09/24/2025 6:57 AM EDT Generic External Data Provider LAB BLOOD ORDERAB LES Final Result Performing Organization Address [facility] Co de Phone Number [facility] [address] [place] [phone] * (ABNORMAL) Basic Metabolic Panel (09/24/2025 6:49 AM EDT) Sodium 142 135 - 145 mmol/L [facility] Potassium 4.0 3.3 - 5.1 mmol/L [facility] Chloride 110(H) 96 - 108 mmol/L [facility] Carbon Dioxide 23 22 - 29 mmol/L [facility] Anion Gap 13 12 - 20 [facility] Urea Nitrogen (BUN) 14 9 - 16 mg/dL [facility] Creatinine, Serum 0.88 0.5 - 1.4 mg/dL [facility] Creatinine Clr Calc Pharmacy 66.0 [facility] Comment:Provided height and weight: 162.56 cm,68.039 kg.eGFR (calculated from the MDRD study equation) and eCrCl(calculated from the Cockcroft-Gault equation) are based ondifferent parameters and may not yield comparable results.If eCrCl result is absurd, please check patient'sheight/weight. Estimated Glomerular Filt Rate >60 [facility] Comment:Chronic Kidney Disea se: Estimated GFR < 60 mL/min/1.90q6Ukkzmp Kidney Disease: Estimated GFR < 15 mL/min/1.73m2 Glucose 100 60 - 115 mg/dL [facility] Calcium 9.8 8.4 - 10.2 mg/dL [facility] 09/24/2025 6:49 AM EDT 09/24/2025 6:57 AM EDT us Generic External Data Provider LAB BLOOD ORDERAB LES Final Result [facility] [address] [place] [phone] * XR Hip 2 or 3 Views Right (09/09/2025 2:03 PM EDT) Anatomical Region Laterality Modality Lower Extremities, Hip Right Radiograp hic Imaging 09/09/2025 2:03 PM EDT Narrative 09/09/2025 2:13 PM EDT [address] [address] XRay Report Signed Patient: Norma Valle MR#: [id number] : 1965 Acct:[id number] Age/Sex: 60 / F ADM Date: 09/09/25 Loc: HO.XRAY Attending Dr: Tiny Soria MD Ordering Physician: Tiny Soria MD Date of Service: 09/09/25 Procedure(s): XR hip RT min 2V Accession Number(s): [id number] cc: Tiny Soria MD Reason for Exam: [...] OV> 09/09/25 1410 DD/ 1403 TD/TT: 09/09/25 1406 Dental Treatment Coordinator: Procedure Note Donotuseinterpreter, Image - 09/09/2025 [place] [address] XRay Report Signed Patient: Norma Valle MMR#: [id number] : 1965Acct:[id number] Age/Sex: 60 / FADM Date: 09/09/25 Loc: HO.XRAY Attending Dr: Tiny Soria MD Ordering Physician: Tiny Soria MD Date of Service: 09/09/25 Procedure(s): XR hip RT min 2V Accession Number(s): [id number] cc: Tiny Soria MD Reason for Exam: [...] OV> 09/09/25 1410 DD/ 1403 TD/TT: 09/09/25 1406 Dental Treatment Coordinator: Tiny Soria MD IMG XR PROCEDURES Final [...] Media Lot # [id number] Lot# Expiration Date , Urine 09/09/2025 11:3 6 AM EDT Tiny Soria MD POINT OF CARE TEST ENTER/EDIT OR DERABLES Final Result * BI Mammogram Screening Tomosynthesis Bilateral (07/13/2025 2:35 PM EDT) Anatomical Region Laterality Modality Breast Bilateral Mammography 07/13/2025 2:35 PM EDT Narrative 07/19/2025 4:43 PM EDT [facility] [address] [place], [place] [address] Mammography Report Signed Patient: Norma Valle MR#: [id number] : 1965 Acct:[id number] Age/Sex: 60 / F ADM Date: 07/13/25 Loc: HO.MAMMO Attending Dr: Tiny Soria MD Ordering Physician: Tiny Soria MD Results: 2Benign Findings Date of Service: 07/13/25 Follow Up: 1 Year From [facility] M[facility] Procedure(s): MM tomosynthesis screening BI Accession Number(s): [id number] cc: Tiny Soria MD EXAMINATION: MM SCREENING [...] 07/19/25 1641 DD/ 1435 TD/TT: 07/13/25 1455 Dental Treatment Coordinator: Procedure Note Donotuseinterpreter, Image - 07/19/2025 [facility] [address] [place] [address] Mammography Report Signed Patient: Norma Valle MMR#: [id number] : 1965Acct:[id number] Age/Sex: 60 / FADM Date: 07/13/25 Loc: HO.MAMMO Attending Dr: Tiny Soria MD Ordering Physician: Tiny Soria MDResults: 2Benign Findings Date of Service: 07/13/25Follow Up: 1 Year From Orig ina Mammogram Procedure(s): MM tomosynthesis screening BI Accession Number(s): [id number] cc: Tiny Soria MD EXAMINATION: MM SCREENING [...] 07/19/25 1641 DD/ 1435 TD/TT: 07/13/25 1455 Dental Treatment Coordinator: Tiny Soria MD IMG BI PROCEDURES Final Result * Lipid Panel, Standard (06/27/2023 9:54 AM EDT) Triglycerides 80 mg/dL [facility] Comment:Desirable Triglyceri de: less than 150 mg/dLBorderline High Triglyceride 150-199 mg/dLHigh Triglyceride: 200-499 mg/dLVery High Triglyceride: greater than or equal to 5OO mg/dL Cholesterol 219 mg/dL [facility] Comment:Desirable Cholestero l: less than 200 mg/dLBorderline High Cholesterol: 200-239 mg/dLHigh Cholesterol: greater than 239 mg/dL LDL Cholesterol Calculated 138 mg/dl [facility] Comment:Desirable LDL: less than 100 mg/dLNear Optimal/Above Optimal LDL: 110- 129 mg/dLBorderline High LDL: 130-159 mg/dLHigh LDL: 160-189 mg/dLVery High LDL: greater than or equal to 190 mg/dL HDL Cholesterol 65 mg/dL [facility] Comment:Desirable HDL: great er than 40 mg/dL Note: This HDL assay may give artificially low results in patients with liver disease. Blood Venous blood specimen / Unknown 06/27/2023 9:54 AM EDT 06/27/2023 2:07 PM EDT Tiny Soria MD LAB BLOOD ORDERABLES Final Resul t [facility] [address] [place] [phone] * HPV mRNA E6/E7 (06/02/2019 4:15 PM EDT) HPV mRNA E6/E7 Not Detected NOT DETECTED [facility] Comment: This test was performed using the APTIMA(R) HPV Assay ([employer] This assay detects E6/E7 viral messenger RNA (mRNA) from 14 high-risk HPV types (16,18,31,33,35,39,45,51, 52,56,58,59,66,68). For additional information please refer to: http://education.[employer]/faq/CWZ900x0 (This link is being provided for informational/ educational purposes only.) The analytical performance characteristics of this assay have been determined by [employer] [place], [place]. The modifications have not been cleared or approved by the FDA. This assay has been validated pursuant to the CLIA regulations and is used for clinical purposes. Test Performed by [facility], [employer] [facility], [address] [place] [address] Rodney You M.D., Ph.D., Director of Laboratories , CLIA [id number] Please note: Effective 08/13/2016, HPV testing will be performed using [employer]'s APTIMA test which targets mRNA. Detecting mRNA instead of DNA, as in older methods, offers significant improvements in specificity. 06/02/2019 4:15 PM EDT us Tiny Soria MD HISTORICAL/NON ORDERABLE LABS Fi nal Result [facility] Anywhere [address] from Last 3 Months or Most Recently Relevant to Health Maintenance Insurance [facility] < [address] [id number] Care Teams Patent Clerk Relationship Specialty Start Date End Date Joan Soto MD [address] [place] [phone] PCP - General Internal Medicine 09/09/25
== END 2025-10-20 14:07 | disposition home or self-care (01) ==
LOC: HO.HWS 13:16
PROVIDERS: Visit Provider Obstetrics & Gynecology
DX: R10.20 Pelvic and perineal pain unspecified side (principal)

== ENCOUNTER 2025-10-20 13:15 | Outpatient (REF) | payer OTHER, SELFPAY ==
[2025-10-21 03:21] LABS: Bacterial Vaginosis PCR NEGATIVE (Negative); Candida Group PCR NOT DETECTED (Not Detect); Candida glab krusei PCR NOT DETECTED (Not Detect); Trichomonas vaginalis PCR NOT DETECTED (Not Detect)
== END 2025-10-20 13:16 | disposition home or self-care (01) ==
LOC: HO.LNP 13:15
PROVIDERS: Visit Provider Obstetrics & Gynecology
DX: N76.0 Acute vaginitis (principal); B96.89 Other specified bacterial agents as the cause of diseases classified elsewhere; R10.20 Pelvic and perineal pain unspecified side; Z20.2 Contact with and (suspected) exposure to infections with a predominantly sexual mode of transmission; Z98.51 Tubal ligation status
CPT/HCPCS: 81002; 81515

== ENCOUNTER 2025-10-27 08:07 | Emergency (ER) | payer OTHER, SELFPAY ==
--- OUTSIDE RECORDS SUMMARY | 2025-03-08 08:00 | XMS_ITS ---
Author Organization [facility] Address [address] [place] [address] Care Team Providers Care Clerk Guide Name Role Phone Tiny Soria Primary Care Provider Akanksha Coelho Unavailable [phone] Allergies Allergen (clinical drug ingredient) Drug/Non Drug Allergy documented on EMR Reaction Allergy Type Onset Date Status sulfamethoxazole / trimethoprim Bactrim Unknown Drug Allergy Active Penicillin Unknown Drug Allergy Active Medications Medication SIG (Take, Route, Frequency, Duration) Notes Start Date End Date Status Vitamin D3 Active Gabapentin Active Magnesium Active Lisinopril Active oxyBUTYnin Active Omeprazole Active Encounters Encounter Location Date Provider Diagnosis [address] [address] 03/08/2025 Akanksha Soto Plan Of Treatment Next Appt Details Provider Name:Akanksha jenkins, 02/28/2026 03:00:00 PM, [address] [place] [address], [phone], Provider Name:Akanksha jenkins, 03/09/2026 12:00:00 PM, [address] [place] [address], [phone], Provider Name:Akanksha jenkins, 03/14/2026 02:30:00 PM, [address] [place] [address], [phone], Provider Name:Akanksha jenkins, 03/21/2026 02:30:00 PM, [address] [place] [address], [phone], Provider Name:Akanksha Pascal gregory, 03/28/2026 02:30:00 PM, [address] [place] [address], [phone], Progress Notes * Lexx FIERROineDOB:[birth year] (60 yo F)Acc No.[id number]:03/08/2025 Progress Note Patient: Noram FOWLER Provider: Tyree Soto DPM :1965 A ge:59 Y S ex:Female Date:03/08/2025 Address:[address] [place], [place] [id number] Pcp:Tiny Soria Subjective: * Chief Complaints: * [...] DPM Date: 0 03/08/2025 Generated for Alberto lundberg/Solange/Martinsmitting on: 12/27/2024 09:00 AM EST
--- NOTE | ~2025-10-27 | CT_ITS ---
EXAMINATION: CT ABDOMEN AND PELVIS WITH CONTRAST CLINICAL INFORMATION: Right upper quadrant pain COMPARISON: CT 09/24/2025 TECHNIQUE: Multidetector volumetric images were obtained from the superior aspect of the liver through the pubic symphysis following administration 85 mL of Omnipaque 350 intravenous contrast. Sagittal and coronal reformatted images were obtained on the technologist's workstation. Oral contrast: No This CT examination was performed using dose optimization techniques as appropriate, variously including the following: *Automated exposure control *Adjustment of mA and/or kV according to patient size (this includes techniques or standardized protocols for targeted exams where dose is matched to indication/reason for exam; i.e. extremities or head) *Use of iterative reconstruction technique FINDINGS: LUNG BASES: Bibasilar atelectasis. No pericardial or pleural effusion. LIVER, GALLBLADDER, AND BILIARY TREE: Multiple less than 3 mm hypodensities in the liver, stable from previous. These are too small to characterize by CT.No intrahepatic or extrahepatic biliary duct dilatation. The gallbladder is partially distended with no evidence of radiopaque gallstones, gallbladder wall thickening, or obvious pericholecystic inflammatory changes. PANCREAS: Symmetric enhancement. No inflammatory changes. No main pancreatic ductal dilatation. SPLEEN: Unremarkable. ADRENAL GLANDS: Unremarkable. KIDNEYS AND URETERS: Symmetric renal enhancement. No suspicious lesions. No evidence of nephrolithiasis. No ureteral calculi. No hydronephrosis. BLADDER: Unremarkable. GASTROINTESTINAL TRACT: Stomach is nondistended limiting evaluation. Apparent wall prominence of the stomach could be related to lack of distention, other etiologies such as gastritis not excluded. No abnormally dilated small bowel loops. The descending, sigmoid colon and rectum are nondistended. Small volume stool in the large colon. No pericolonic inflammatory changes seen. Appendix appears unremarkable. Peritoneum: No free fluid. No pneumoperitoneum. No fluid collections. No mesenteric inflammatory changes seen. ABDOMINAL WALL: Small fat-containing umbilical hernia. LYMPH NODES: No bulky adenopathy seen. VASCULAR: No aortic aneurysmal dilatation. Portal vein is enhancing. Hepatic veins are enhancing. PELVIC VISCERA: Uterus is absent. No suspicious finding seen. OSSEOUS STRUCTURES: No acute or suspicious osseous abnormality. L5-S1 disc degeneration redemonstrated. CT/CT abdomen pelvis w IV con IMPRESSION: * Prominence of the wall of the stomach,, could be related to lack of distention, other etiologies such as gastritis not excluded. Clinically correlate. * No acute intra-abdominal findings otherwise identified. * Additional findings and details as above. Fleischner guidelines were followed. Electronically signed by: Antonio Pfeiffer MD 10/27/2025 10:06 AM TEETEE
[2025-10-27 08:11] VITALS: BP 124/78; PULSE 67; RESP 16; TEMP 36.9; O2SAT 98; BMI 25.7
--- NOTE | 2025-10-27 08:17 | ED_ITS ---
HPI - General Adult General Chief complaint: Abdominal Pain Stated complaint: Stomach Pain Time Seen by Provider: 10/27/25 08:17 Source: patient Mode of arrival: ambulatory Limitations: no limitations History of Present Illness ED Provider: Dede Russ PA-C HPI narrative: Patient is a 60 year old assigned female at with a history of psoriasis, plantar fasciitis, HTN, and gait disturbance presenting to the emergency department today with persistent right upper quadrant abdominal pain. Patient states that over the last month she has had right upper quadrant abdominal pain that is intermittent and worse with eating. Patient states that she just had a colonoscopy + endoscopy with Dr. Vidal and was told it was OK. Patient denies any other complaints at this time. Related Data Home Medications ?Medication ?Instructions ?Recorded ?Confirmed gabapentin 100 mg capsule 100 mg PO BID 06/20/2310/07 lisinopril 10 mg tablet 10 mg PO DAILY 06/20/2305/26 oxybutynin chloride 10 mg 10 mg PO DAILY 07/01/2305/26 tablet,extended release 24 hr magnesium 200 mg tablet 200 mg PO DAILY 04/14/2405/26 famotidine 20 mg tablet 20 mg PO BEDTIME 06/15/25 calcium 500 mg (as 1 tab PO DAILY 08/30/2505/26 carbonate)-vitamin D3 10 mcg (400 unit) tablet (Oyster Shell Calcium-Vitamin D3) pantoprazole 40 mg tablet,delayed 40 mg PO QAM 5 10/11/25 release Previous Rx's ?Medication ?Instructions ?Recorded naproxen 500 mg tablet 500 mg PO BID PRN pain #20 t abs 07/09/24 esomeprazole magnesium 40 mg 40 mg PO DAILY #30 caps 0 08/30/25 capsule,delayed release (Nexium) metronidazole 0.75 % (37.5 mg/5 1 appful vaginal BEDTI ME 5 days 10/20/25 gram) vaginal gel #37.5 grams ciprofloxacin HCl 500 mg tablet 500 mg PO BID #14 tabs 10/26/25 metronidazole 500 mg tablet 500 mg PO Q8H #21 tabs Allergies Allergy/AdvReac Type Severity Reaction Status Date / Time penicillin V Allergy Unknown swelling Verified 10/27/25 08:14 avocado AdvReac Intermediate Hives Verified 10/27/25 08:14 egg (eggs) AdvReac Intermediate Abdominal Verified 10/27/25 08:14 Pain Review of Systems 2 Constitutional: Constitutional: Reports as per HPI Eyes: Eyes: Reports as per HPI ENT: Reports as per HPI Cardiovascular: Cardiovascular: Reports as per HPI Respiratory: Respiratory: Reports as per HPI Gastrointestinal: Gastrointestinal: Reports as per HPI Genitourinary: Genitourinary: Reports as per HPI Musculoskeletal: Musculoskeletal: Reports as per HPI Integumentary/Breasts: Skin/Breast: Reports as per HPI Neurologic: Reports as per HPI Psychiatric: Psychiatric: Reports as per HPI Endocrine: Endocrine: Reports as per HPI Hematologic/Lymphatic: Hematologic/Lymphatic: Reports as per HPI Allergic/Immunologic: Allergic/Immunologic: Reports as per HPI [facility] Past Medical History Attestation statement: The following information was validated with the patient. Source: old records reviewed and nursing notes reviewed Medical History Constipation Postprandial epigastric pain Numbness and tingling of both legs Degenerative cervical spinal stenosis Numbness and tingling in both hands Gait disturbance GERD (gastroesophageal reflux disease) Headache Plantar fasciitis HTN (hypertension) Cystocele with uterine prolapse Surgical History H/O total hysterectomy H/O tubal ligation Family History Family History Mother Multiple myeloma Maternal Aunt Breast cancer Colon cancer Cancer of blood vessel Social History Social History Alcohol intake: current Alcohol intake frequency: holidays/special occasions only Patient Tobacco Use Status: Current someday Tobacco user Tobacco use type: Cigarette Physical Exam ED Vital Signs: Vital Signs - 24 hr 10/27/25 08:11 10/27/25 10:22 10/27/25 11:48 Temperature 98.5 F 98.2 F 98.2 F Pulse Rate 67 61 61 Respiratory Rate 16 18 18 Blood Pressure 124/78 103/63 103/63 Pulse Oximetry 98 94 94 Oxygen Delivery Method Room Air Room Air Room Air BMI result Body Mass Index 25.7 Const General: cooperative, no acute distress, alert and awake Nutritional Appearance: well nourished Orientation/consciousness: patient oriented x3 HENMT Head: Yes normal to inspection and Yes atraumatic Ears: hearing grossly normal bilaterally and external ears normal General nose exam: Normal external nose present, no nasal discharge noted and no epistaxis Face and sinus: Yes normal facial exam, No abrasion and No laceration Mouth: Normal oral and palatal mucosa present, no drooling and no muffled voice Eyes General: appearance normal, both eyes and all related structures Periorbital: periorbital findings normal Eyelids: Yes eyelids normal Conjunctivae: conjunctivae normal Pupils: Equal, round and reactive pupils present EOM: EOMs intact bilaterally Neck Neck: Yes normal visual inspection and Yes full ROM Resp Effort & Inspection: normal respiratory effort and able to speak in complete sentences GI Palpation (GI): Soft to palpation, not firm, nontender, no guarding and not rigid Neuro General: patient oriented x3, moves all extremities and CN's II-XI intact bilaterally Cranial nerves: Yes Equal, round and reactive pupils present Cognition (Neuro): normal cognition Extrem General: Yes normal to inspection, Yes full ROM and Yes capillary refill normal Psych Appearance: grossly normal Mental Status: mental status grossly normal Affect: normal affect Attitude: cooperative Thought process: Normal thought process present Thought content: Normal thought content present Insight: Good insight present (Psych) Medications Administered Discontinued Medications Generic Name Dose Route Start Last Admin Trade Name Stephanie PRN Reason Stop Dose Admin Iohexol 85 ml 10/27/25 09:24 10/27/25 09:25 Iohexol 350 Mg/Ml 100 Ml Infus..Btl IV 10/27/25 09:25 85 ml ONCE ONE Administration Medical Decision Making Medical Decision Making [facility] Narrative: Patient is a 60 year old assigned female at with a history of psoriasis, plantar fasciitis, HTN, and gait disturbance presenting to the emergency department today with persistent right upper quadrant abdominal pain. Patient's physical exam was as noted in the physical exam portion of this note. Patient's blood work was unremarkable. Patient's CT showed no acute process. I am suspicious the patient is experiencing biliary colic. I explained my physical exam findings as well as all test results to the patient. I answered all questions asked by the patient. I stressed the importance of the patient taking her medication as directed (either prescribed or as the over the counter packaging recommends). I stressed the importance of the patient following up with her primary care provider and with a general surgeon for a HIDA scan. I stressed the importance of the patient returning to the emergency department immediately if her symptoms were to worsen or if she were to develop any dizziness, shortness of breath, difficulty breathing, chest pain, blurry vision, loss of vision, nausea, vomiting, abdominal pain, fever, chills, back pain, or any other complaints. Patient verbalized agreement and understanding with this treatment plan and discharge. Differential Diagnosis Differential Diagnoses: The differential diagnosis associated with the presentation includes Biliary colic Abdominal pain Admission/Observation Consideration of admission/observation: Escalation of care including admission/observation considered Patient would have been admitted to the hospital had her work up had any findings where hospital admission was appropriate and her clinical presentation warranted hospital admission. Lab Data [facility] Lab Attestation statement: I reviewed the patient's lab results. My interpretation of these results are in the [facility] Rationale portion of this note. 10/27/25 08:46 10/27/25 08:46 Labs: Lab Results 10/27/25 Range/Units 08:46 WBC 7.1 (4.8-10.8) X10*3/uL RBC 4.44 (4.20-5.50) X10*6/uL Hgb 13.8 (12.0-16.0) g/dl Hct 40.8 (37.0-47.0) % MCV 91.9 (80.0-98.0) fL MCH 31.1 (27.0-33.0) pg MCHC 33.8 (31.0-35.0) g/dl RDW 13.3 (11.0-16.0) % Plt Count 194 (160-400) X10*3/uL MPV 10.0 (9.4-12.3) fL Immature Gran % (Auto) 0.1 (0.0-0.4) % Neut % (Auto) 61.5 (45-73) % Lymph % (Auto) 30.9 (20-40) % [place] % (Auto) 5.4 (2-11) % Eos % (Auto) 1.3 (0-4) % Baso % (Auto) 0.8 (0-2) % Lymph # (Auto) 2.2 (1.2-4.9) X10*3/uL [place] # (Auto) 0.4 (0.1-1.2) X10*3/uL Eos # (Auto) 0.1 (0.0-0.4) X10*3/uL Baso # (Auto) 0.1 (0.0-0.2) X10*3/uL Abs Immat Gran (auto) 0.01 (0.00-0.03) X10*3/uL Absolute Neuts (auto) 4.4 (2.0-8.3) x10*3/uL Absolute Nucleated RBC 0.000 (0.0-0.012) X10*3/uL Nucleated RBC % (auto) 0.0 (0.0-0.2) /100WBC Sodium 143 (135-145) mmol/L Potassium 3.9 (3.3-5.1) mmol/L Chloride 111 H (96-108) mmol/L Carbon Dioxide 25 (22-29) mmol/L Anion Gap 11 L (12-20) BUN 11 (9-16) mg/dL Creatinine 0.80 (0.5-1.4) mg/dL Estim Creat Clear Calc 72.6 Estimated GFR > 60 Random Glucose 97 (60-115) mg/dL Calcium 9.1 D (8.4-10.2) mg/dL Magnesium 1.9 (1.6-2.6) mg/dL Total Bilirubin 0.4 (0.0-1.0) mg/dL AST 25 (5-31) U/L ALT 35 H (0-31) U/L Alkaline Phosphatase 70 (39-117) U/L Total Protein 6.3 L (6.5-8.0) g/dL Albumin 4.2 (3.5-5.0) g/dL Independent Interpretation I performed an independent interpretation of an: CT Scan Interpretation: My interpretation is in agreement with the radiologist's impression of this imaging study as written below. Radiology Impression Discussion of test interpretation with radiology: I have reviewed the radiologist's reading. Radiologist Impression: EXAMINATION: CT ABDOMEN AND PELVIS WITH CONTRAST CLINICAL INFORMATION: Right upper quadrant pain COMPARISON: CT 09/24/2025 TECHNIQUE: Multidetector volumetric images were obtained from the superior aspect of the liver through the pubic symphysis following administration 85 mL of Omnipaque 350 intravenous contrast. Sagittal and coronal reformatted images were obtained on the technologist's workstation. Oral contrast: No This CT examination was performed using dose optimization techniques as appropriate, variously including the following: *Automated exposure control *Adjustment of mA and/or kV according to patient size (this includes techniques or standardized protocols for targeted exams where dose is matched to indication/reason for exam; i.e. extremities or head) *Use of iterative reconstruction technique FINDINGS: LUNG BASES: Bibasilar atelectasis. No pericardial or pleural effusion. LIVER, GALLBLADDER, AND BILIARY TREE: Multiple less than 3 mm hypodensities in the liver, stable from previous. These are too small to characterize by CT.No intrahepatic or extrahepatic biliary duct dilatation. The gallbladder is partially distended with no evidence of radiopaque gallstones, gallbladder wall thickening, or obvious pericholecystic inflammatory changes. PANCREAS: Symmetric enhancement. No inflammatory changes. No main pancreatic ductal dilatation. SPLEEN: Unremarkable. ADRENAL GLANDS: Unremarkable. KIDNEYS AND URETERS: Symmetric renal enhancement. No suspicious lesions. No evidence of nephrolithiasis. No ureteral calculi. No hydronephrosis. BLADDER: Unremarkable. GASTROINTESTINAL TRACT: Stomach is nondistended limiting evaluation. Apparent wall prominence of the stomach could be related to lack of distention, other etiologies such as gastritis not excluded. No abnormally dilated small bowel loops. The descending, sigmoid colon and rectum are nondistended. Small volume stool in the large colon. No pericolonic inflammatory changes seen. Appendix appears unremarkable. Peritoneum: No free fluid. No pneumoperitoneum. No fluid collections. No mesenteric inflammatory changes seen. ABDOMINAL WALL: Small fat-containing umbilical hernia. LYMPH NODES: No bulky adenopathy seen. VASCULAR: No aortic aneurysmal dilatation. Portal vein is enhancing. Hepatic veins are enhancing. PELVIC VISCERA: Uterus is absent. No suspicious finding seen. OSSEOUS STRUCTURES: No acute or suspicious osseous abnormality. L5-S1 disc degeneration redemonstrated. CT/CT abdomen pelvis w IV con IMPRESSION: * Prominence of the wall of the stomach,, could be related to lack of distention, other etiologies such as gastritis not excluded. Clinically correlate. * No acute intra-abdominal findings otherwise identified. * Additional findings and details as above. Fleischner guidelines were followed. Electronically signed by: Antonio Pfeiffer MD 10/27/2025 10:06 AM [facility] Dictated By: Antonio Pfeiffer MD Signed By: Electronically signed by Antonio Pfeiffer MD 10/27/25 1006 Discharge Plan Discharge Clinical Impression: Biliary colic Patient Disposition: Home, Self-Care Instructions: Biliary Colic (ED) Additional Instructions: Your work up today was reassuring there is no EMERGENT cause for your symptoms. I am suspicious your pain is from biliary colic. You should follow up with a general surgeon to discuss a HIDA scan to measure gallbladder function and potential gallbladder removal. A bland diet will likely help keep your symptoms manageable. IF you are prescribed home medications and/or you are taking over the counter medications at home - it is very important you continue to do so as prescribed / directed unless told otherwise by a healthcare provider. Follow up with your primary care provider. Do your best to stay well hydrated and rest. Return to the emergency department immediately if your symptoms worsen or if you develop any numbness, tingling, dizziness, shortness of breath, difficulty breathing, chest pain, blurry vision, loss of vision, nausea, vomiting, abdominal pain, fever, chills, back pain, or any other complaints. Please see the information below about our Patient Portal. If you are not yet enrolled in the [facility] Patient Portal, you will receive an enrollment email invitation following your visit to any [facility] care setting. You may also self-enroll in the Patient Portal by visiting our website: [email or web address] The following information is required to access the Patient Portal: - Your [facility] [place] - Your personal home email address (must match what is in your electronic medical record, Registration staff can assist with this) - Name - Date of Capabilities of the Patient Portal: - Message some providers - View upcoming appointments - Access your health summary, medical history, and visit history - View current conditions and allergies - View procedure and lab results - View your medications, including guidelines, side effects, and precautions - Complete pre-appointment questionnaires requested by your provider - Ready summary reports of your office visits and procedures To access the Patient Portal Mobile Andrea, follow these directions: - Search [employer] in the Andrea Store or Google Play Store - Download the Andrea - Search for [facility] - Enter your login/password Prescriptions: No Action metronidazole 500 mg tablet 500 mg PO Q8H Qty: 21 0RF ciprofloxacin HCl 500 mg tablet 500 mg PO BID Qty: 14 0RF naproxen 500 mg tablet 500 mg PO BID PRN (Reason: pain) Qty: 20 0RF pantoprazole 40 mg tablet,delayed release (DR/EC) 40 mg PO QAM magnesium 200 mg tablet 200 mg PO DAILY gabapentin 100 mg capsule 100 mg PO BID lisinopril 10 mg tablet 10 mg PO DAILY oxybutynin chloride 10 mg tablet extended release 24hr 10 mg PO DAILY famotidine 20 mg tablet 20 mg PO BEDTIME calcium carbonate-vitamin D3 [Oyster Shell Calcium-Vit D3] 500 mg-10 mcg (400 unit) tablet 1 tab PO DAILY esomeprazole magnesium [Nexium] 40 mg capsule,delayed release(DR/EC) 40 mg PO DAILY Qty: 30 3RF metronidazole 0.75 % (37.5mg/5 gram) gel 1 appful vaginal BEDTIME 5 Days Qty: 37.5 0RF Referrals: [facility] [place] Sur[place] [Provider Group, General Surgery] Referral Note: Call to establish and follow up with a general surgeon for your biliary colic. Tiny Soria MD [Primary Care Provider, Internal Medicine] Interventions: ED Discharge Assessment Last Done: 10/27/25 11:48 Discharge Date/Time: 10/27/25 11:48 Print Language: Macedonian
[2025-10-27 08:50] LABS: MANUAL DIFF FLAG NO
[2025-10-27 08:52] LABS: Hematocrit 40.8 % (37.0-47.0); Hemoglobin 13.8 g/dl (12.0-16.0); Imm Gran Abs Auto 0.01 X10*3/uL (0.00-0.03); Imm Gran Pct Auto 0.1 % (0.0-0.4); Lymphocytes Absolute Auto 2.2 X10*3/uL (1.2-4.9); Mean Corpuscular HGB Conc 33.8 g/dl (31.0-35.0); Mean Corpuscular Hemoglobin 31.1 pg (27.0-33.0); Mean Corpuscular Volume 91.9 fL (80.0-98.0); NRBC Abs Auto 0.000 X10*3/uL (0.0-0.012); NRBC Pct Auto 0.0 /100WBC (0.0-0.2); Platelet Count 194 X10*3/uL (160-400); Red Blood Count 4.44 X10*6/uL (4.20-5.50); White Blood Count 7.1 X10*3/uL (4.8-10.8)
--- OUTSIDE RECORDS SUMMARY | 2025-10-27 09:00 | XMS_ITS | Encounter Summary ---
Author Organization [employer] Address [address] [place] [address] Care Team Providers Care Abrasive Sawyer Name Role Phone Tiny Soria MD Primary Care Provider [phone] Joan Soto MD Primary Care Provider [phone] Reason for Visit * Reason Onset Date Comments Referral 11/23/2024 Encounter Details Date Type Department Care Team ([facility] st Contact Info) Description 11/23/2024 Telephone [facility] [address] [place] [address] Tiny Soria MD [address] [place], [place] [id number] Referral Social History Tobacco Use Types Packs/Day [...] any questions you can contact pt at [phone]. documented in this encounter Plan of Treatment Not on file documented as of this encounter Visit Diagnoses Not on filedocumented in this encounter Additional Health Concerns Assessment Noted Time PHQ-9 Depression Total Score: 0 05/21/20 10:07 AM EDT documented as of this encounter Care Teams Abrasive Sawyer Relationship Specialty Start Date End Date Tiny Soria MD [address] [place] [id number] PCP - General Family Medicine 04/20/15 09/08/25 Joan Soto MD [address] [place] [id number] PCP - General Internal Medicine 09/09/25 documented as of this encounter
--- OUTSIDE RECORDS SUMMARY | 2025-10-27 09:00 | XMS_ITS | Clinical Summary ---
Author Organization [employer] Address [address] [facility] 7[address] [place] [address] Care Team Providers Care Implementation Manager Name Role Phone Joan Soto MD Primary Care Provider [phone] Allergies Active Allergy Reactions Criticality Noted Date [...] crush, chew, or split. 30 tablet 11 03/04/20 25 026 Active oxybutynin (Ditropan) 5 MG tabletIndicatio ns:Urinary incontinence, unspecified type TAKE ONE TABLET BY MOUTH TWICE DAILY 60 tablet 5 5 12:33 PM EST 03/17/20 25 Active Calcium Carb-Cholecalci ferol (Calcium [...] NIGHT AT BEDTIME 60 capsule 11 5 12:33 PM EST 06/18/20 25 Active magnesium oxide 250 MG [...] Encounters Date Type Department Care Team Description 10/26/2025 Telephone [facility] [address] [place] [address] Joan Soto MD pre op appt 10/19/2025 Refill [facility] [address] [place], [place] [phone] Tiny Soria MD 10/04/2025 Refill [facility] [address] [place], [place] [phone] Tiny Soria MD 09/24/2025 Telephone [facility] [address] [place] [address] Joan Soto MD No Show 09/24/2025 Orders Only GENERIC EXTERNAL DATA DEPARTMENT Provider, Generic External Data 09/23/[address] [address] Joan Soto MD Nurse Triage 09/09/2025 11:30 AM EDT Office Visit [facility] [address] [place] [address] Tiny Soria MD Right hip pain (Primary Dx); Painful urination; Microscopic hematuria 09/09/2025 Travel 09/07/[address] [address] Tiny Soria MD Nurse Triage from Last [...] of 2) 2017 COVID-19 Vaccine (1 - season) 2025 Influenza Vaccine (#1) 2025 [...] AM EDT Narrative 09/29/2025 12:11 PM EDT [address] [address] Fluoroscopy Report Signed with Marlen Patient: Norma Valle MR#: [id number] : 1965 Acct:[id number] Age/Sex: 60 / F ADM Date: 09/29/25 Loc: SHARON Attending Dr: Zonia Roth [facility] [facility]- Ordering Physician: Zonia Roth [facility] Date of Service: 09/29/25 Procedure(s): FL upper GI w air w Ba Swallow Accession Number(s): [id number] cc: Zonia Roth [facility]; Tiny Soria MD Reason for Exam: K21.9 [...] 09/29/25 1208 DD/ 1016 TD/TT: 09/29/25 1025 Market Research Intern: MSM Procedure Note Donotuseinterpreter, Image - 09/30/[address] [address] Fluoroscopy Report Signed with Addenda Patient: Norma Valle [facility]#: [id number] : 1965Acct:[id number] Age/Sex: 60 / FADM Date: 09/29/25 Loc: HO.XRAY Attending Dr: Zonia Roth [facility] Ordering Physician: Zonia Roth [facility] Date of Service: 09/29/25 Procedure(s): FL upper GI w air w Ba Swallow Accession Number(s): [id number] cc: [facility]; Tiny Soria MD Reason for [...] Joseph Rebolledo MD 09/29/2025 12:08 PM EDT Dictated By: Joseph Rebolledo MD Signed By: <Electronically signed by Joseph Rebolledo MD in OV> 09/29/25 1208 DD/ 1016 TD/TT: 09/29/25 1025 Market Research Intern: MERON [facility] Exter nal Provider IMG FLUOROSCOPY PROCEDURES Edited Result - Final * CT Abdomen Pelvis w/ Contrast (09/24/2025 8:06 AM EDT) Anatomical Region Laterality Modality Body, Pelvis, Abdomen Computed T omography 09/24/2025 8:06 AM EDT Narrative 09/24/2025 8:32 AM EDT [place] [address] [address] Scan Report Signed Patient: Norma Valle MR#: [id number] : 1965 Acct:[id number] Age/Sex: 60 / F ADM Date: 09/24/25 Loc: .ED Attending Dr: Ordering Physician: Haylie Sotelo DO Date of Service: 09/24/25 Procedure(s): CT abdomen pelvis w IV con Accession Number(s): [id number] cc: Haylie Sotelo DO; Tiny Soria MD Report Number: [id number]: Total DLP = 461.00 mGy-cm Reason for [...] signed by Jorge Cedeño MD in OV> 09/24/25828 DD/ 08 TD/TT: 09/24/25 0820 Market Research Intern: Procedure Note Donotuseinterpreter, Image - 09/24/[address] [address] [address] Scan Report Signed Patient: Norma Valle MMR#: [id number] : 1965Acct:[id number] Age/Sex: 60 / FADM Date: 09/24/25 Loc: HO.ED Attending Dr: Ordering Physician: Haylie Sotelo DO Date of Service: 09/24/25 Procedure(s): CT abdomen pelvis w IV con Accession Number(s): [id number] cc: Haylie Sotelo DO; Tiny Soria MD Report Number: [id number]: Total DLP = 461.00 mGy-cm Reason for [...] OV> 09/24/25828 DD/ 5 TD/TT: 09/24/25 08 Market Research Intern: [facility] External Provider IM CT PROCEDURES Final Result * Urinalysis w/reflex microscopic (09/24/2025 7:09 AM EDT) Pathologist [facility] Color Urine Yellow [facility] Appearance Urine Clear [facility] PH 6.5 5.0 - 9.0 [facility] Glucose Urine UA Negative Negative mg/dL [facility] Urine Blood Negative Negative [facility] Specific [place] - Urine <=1.005 1.005 - 1.025 [facility] Urine Protein Negative Neg-Trace mg/dL [facility] Urine Ketones Negative Negative mg/dL [facility] Nitrite Urine Negative Negative [facility] Leukocyte Esterase Urine Negative Negative [facility] 09/24/2025 7:09 AM EDT 09/24/2025 7:16 AM EDT Narrative [facility] - 09/24/2025 7:19 AM EDT Urine, Clean Catch Generic External Data Provider LAB URINE ORDERAB LES Final Result Performing Organization Address City/[facility] Co de Phone Number [facility] [address] [place] [phone] * OBSX1 (09/24/2025 6:51 AM EDT) [facility] OBS1 NEGATIVE NEGATIVE [facility] 09/24/2025 6:51 AM EDT 09/24/2025 6:57 AM EDT us Generic External Data Provider LAB BLOOD ORDERAB LES Final Result Performing Organization Address [facility] Co de Phone Number [facility] [address] [place] [phone] * Type and screen (09/24/2025 6:51 AM EDT) [facility] Blood Type OP [facility] Antibody Screen NEGATIVE [facility] 09/24/2025 6:51 AM EDT 09/24/2025 6:59 AM EDT us Generic External Data Provider LAB BLOOD BANK TE ST ORDERABLES Final Result [facility] [address] [place], [place] [phone] * CBC auto differential (09/24/2025 6:49 AM EDT) White Blood Count 7.3 4.8 - 10.8 X10*3/uL [facility] Red Blood Count 4.81 4.20 - 5.50 X10*6/uL [facility] Hemoglobin 14.7 12.0 - 16.0 g/dl [facility] Hematocrit 43.9 37.0 - 47.0 % [facility] Mean Corpuscular Volume 91.3 80.0 - 98.0 fL [facility] Mean Corpuscular Hemoglobin 30.6 27.0 - 33.0 pg [facility] Mean Corpuscular HGB Conc 33.5 31.0 - 35.0 g/dl [facility] Red Cell Distribution Width 13.4 11.0 - 16.0 % [facility] Platelet Count 191 160 - 400 X10*3/uL [facility] Mean Platelet Volume 10.4 9.4 - 12.3 fL [facility] Neutrophils Percent Auto 64.8 45 - 73 % [facility] Imm Gran Pct Auto 0.3 0.0 - 0.4 % [facility] Lymphocytes Percent Auto 26.3 20 - 40 % [facility] Monocytes Percent Auto 6.6 2 - 11 % [facility] Eosinophils Percent Auto 1.2 0 - 4 % [facility] Basophils Percent Auto 0.8 0 - 2 % [facility] NRBC Pct Auto 0.0 0.0 - 0.2 /100WBC [facility] Neutrophils Absolute Auto 4.7 2.0 - 8.3 x10*3/uL [facility] Imm Gran Abs Auto 0.02 0.00 - 0.03 X10*3/uL [facility] Lymphocytes Absolute Auto 1.9 1.2 - 4.9 X10*3/uL [facility] Monocytes Absolute Auto 0.5 0.1 - 1.2 X10*3/uL [facility] Eosinophils Absolute Auto 0.1 0.0 - 0.4 X10*3/uL [facility] Basophils Absolute Auto 0.1 0.0 - 0.2 X10*3/uL [facility] NRBC Abs Auto 0.000 0.0 - 0.012 X10*3/uL [facility] 09/24/2025 6:49 AM EDT 09/24/2025 6:57 AM EDT Generic External Data Provider LAB BLOOD ORDERAB LES Final Result Performing Organization Address [facility] de Phone Number [facility] [address] [place] [phone] * Prothrombin Time-INR (09/24/2025 6:49 AM EDT) Prothrombin Time 11.1 10.9 - 12.4 SEC [facility] INTERNATIONAL NORM RATIO 1.0 0.9 - 1.1 [facility] Comment:INTERNATIONAL NORMAL IZED RATIO [...] 6:49 AM EDT 09/24/2025 6:57 AM EDT Quincee External Data Provider LAB BLOOD ORDERAB LES Final Result Performing Organization Address [facility] de Phone Number [facility] [address] [place] [phone] * Magnesium (09/24/2025 6:49 AM EDT) Pathologist [facility] Magnesium 1.8 1.6 - 2.6 mg/dL [facility] 09/24/2025 6:49 AM EDT 09/24/2025 6:57 AM EDT us Generic External Data Provider LAB BLOOD ORDERAB LES Final Result Performing Organization Address City/[facility]/ZIP Co de Phone Number [facility] [address] [place] [phone] * Lipase (09/24/2025 6:49 AM EDT) [facility] Lipase 33 8 - 78 U/L [facility] 09/24/2025 6:49 AM EDT 09/24/2025 6:57 AM EDT us Generic External Data Provider LAB BLOOD ORDERAB LES Final Result Performing Organization Address [facility] Co de Phone Number [facility] [address] [place] [phone] * Hepatic Function Panel (09/24/2025 6:49 AM EDT) [facility] Bilirubin, Total 0.3 0.0 - 1.0 mg/dL [facility] Bilirubin, Direct 0.1 0.0 - 0.5 mg/dL [facility] Aspartate Amino Transferase 20 5 - 31 U/L [facility] Alanine Aminotransferase 22 0 - 31 U/L [facility] Total Protein 6.7 6.5 - 8.0 g/dL [facility] Albumin Level 4.3 3.5 - 5.0 g/dL [facility] Alkaline Phosphatase 75 39 - 117 U/L [facility] 09/24/2025 6:49 AM EDT 09/24/2025 6:57 AM EDT us Generic External Data Provider LAB BLOOD ORDERAB LES Final Result Performing Organization Address City/[facility]/ZIP Co de Phone Number [facility] [address] [place] [phone] * (ABNORMAL) Basic Metabolic Panel (09/24/2025 6:49 AM EDT) Sodium 142 135 - 145 mmol/L [facility] Potassium 4.0 3.3 - 5.1 mmol/L [facility] Chloride 110(H) 96 - 108 mmol/L [facility] Carbon Dioxide 23 22 - 29 mmol/L [facility] Anion Gap 13 12 - 20 [facility] Urea Nitrogen (BUN) 14 9 - 16 mg/dL [facility] Creatinine, Serum 0.88 0.5 - 1.4 mg/dL [facility] Creatinine Clr Calc Pharmacy 66.0 [facility] Comment:Provided height and weight: 162.56 cm,68.039 kg.eGFR (calculated from the MDRD study equation) and eCrCl(calculated from the Cockcroft-Gault equation) are based ondifferent parameters and may not yield comparable results.If eCrCl result is absurd, please check patient'sheight/weight. Estimated Glomerular Filt Rate >60 [facility] Comment:Chronic Kidney Disea se: Estimated GFR < 60 mL/min/1.32r1Fsghtl Kidney Disease: Estimated GFR < 15 mL/min/1.73m2 Glucose 100 60 - 115 mg/dL [facility] Calcium 9.8 8.4 - 10.2 mg/dL [facility] 09/24/2025 6:49 AM EDT 09/24/2025 6:57 AM EDT us Generic External Data Provider LAB BLOOD ORDERAB LES Final Result [facility] [address] [place] [phone] * XR Hip 2 or 3 Views Right (09/09/2025 2:03 PM EDT) Anatomical Region Laterality Modality Lower Extremities, Hip Right Radiograp hic Imaging 09/09/2025 2:03 PM EDT Narrative 09/09/2025 2:13 PM EDT [address] [address] XRay Report Signed Patient: Norma Valle MR#: [id number] : 1965 Acct:[id number] Age/Sex: 60 / F ADM Date: 09/09/25 Loc: HO.XRAY Attending Dr: Tiny Soria MD Ordering Physician: Tiny Soria MD Date of Service: 09/09/25 Procedure(s): XR hip RT min 2V Accession Number(s): [id number] cc: Tiny Soria MD Reason for Exam: [...] 09/09/25 1410 DD/ 1403 TD/TT: 09/09/25 1406 Market Research Intern: Procedure Note Donotuseinterpreter, Image - 09/09/[address] [address] XRay Report Signed Patient: Norma Valle MMR#: [id number] : 1965Acct:[id number] Age/Sex: 60 / FADM Date: 09/09/25 Loc: HO.XRAY Attending Dr: Tiny Soria MD Ordering Physician: Tiny Soria MD Date of Service: 09/09/25 Procedure(s): XR hip RT min 2V Accession Number(s): [id number] cc: Tiny Soria MD Reason for Exam: [...] Anam Sears MD 09/09/2025 02:10 PM EDT RP Dictated By: Anam Sears MD Signed By: <Electronically signed by Anam Sears MD in OV> 09/09/25 1410 DD/ 1403 TD/TT: 09/09/25 1406 Market Research Intern: Tiny Soria MD IMG XR PROCEDURES Final [...] Media Lot # [id number] Lot# Expiration Date [id number] Urine 09/09/2025 11:3 6 AM EDT Tiny Soria MD POINT OF CARE TEST ENTER/EDIT OR DERABLES Final Result * BI Mammogram Screening Tomosynthesis Bilateral (07/13/2025 2:35 PM EDT) Anatomical Region Laterality Modality Breast Bilateral Mammography 07/13/2025 2:35 PM EDT Narrative 07/19/2025 4:43 PM EDT [facility] [address] [place] [address] Mammography Report Signed Patient: Norma Valle MR#: [id number] : 1965 Acct:[id number] Age/Sex: 60 / F ADM Date: 07/13/25 Loc: HO.MAMMO Attending Dr: Tiny Soria MD Ordering Physician: Tiny Soria MD Results: 2Benign Findings Date of Service: 07/13/25 Follow Up: 1 Year From Orig ina Mammogram Procedure(s): MM tomosynthesis screening BI Accession Number(s): [id number] cc: Tiny Soria MD EXAMINATION: MM SCREENING [...] 07/19/25 1641 DD/ 1435 TD/TT: 07/13/25 1455 Market Research Intern: Procedure Note Donotuseinterpreter, Image - 07/19/2025 [facility] [address] [place] [address] Mammography Report Signed Patient: Norma Valle MMR#: [id number] : 1965Acct:[id number] Age/Sex: 60 / FADM Date: 07/13/25 Loc: HO.MAMMO Attending Dr: Tiny Soria MD Ordering Physician: Tiny Soria MDResults: 2Benign Findings Date of Service: 07/13/25Follow Up: 1 Year From Orig ina Mammogram Procedure(s): MM tomosynthesis screening BI Accession Number(s): [id number] cc: Tiny Soria MD EXAMINATION: MM SCREENING [...] 07/19/25 1641 DD/ 1435 TD/TT: 07/13/25 1455 Market Research Intern: Tiny Soria MD IMG BI PROCEDURES Final Result * Lipid Panel, Standard (06/27/2023 9:54 AM EDT) Triglycerides 80 mg/dL [facility] Comment:Desirable Triglyceri de: less than 150 mg/dLBorderline High Triglyceride 150-199 mg/dLHigh Triglyceride: 200-499 mg/dLVery High Triglyceride: greater than or equal to 5OO mg/dL Cholesterol 219 mg/dL [facility] Comment:Desirable Cholestero l: less than 200 mg/dLBorderline High Cholesterol: 200-239 mg/dLHigh Cholesterol: greater than 239 mg/dL LDL Cholesterol Calculated 138 mg/dl [facility] Comment:Desirable LDL: less than 100 mg/dLNear Optimal/Above Optimal LDL: 110- 129 mg/dLBorderline High LDL: 130-159 mg/dLHigh LDL: 160-189 mg/dLVery High LDL: greater than or equal to 190 mg/dL HDL Cholesterol 65 mg/dL [facility] Comment:Desirable HDL: great er than 40 mg/dL Note: This HDL assay may give artificially low results in patients with liver disease. Blood Venous blood specimen / Unknown 06/27/2023 9:54 AM EDT 06/27/2023 2:07 PM EDT Tiny Soria MD LAB BLOOD ORDERABLES Final Resul t [facility] [address] [place] [phone] * HPV mRNA E6/E7 (06/02/2019 4:15 PM EDT) HPV mRNA E6/E7 Not Detected NOT DETECTED [facility] Comment: This test was performed using the APTIMA(R) HPV Assay ([employer] This assay detects E6/E7 viral messenger RNA (mRNA) from 14 high-risk HPV types (16,18,31,33,35,39,45,51, 52,56,58,59,66,68). For additional information please refer to: http://education.qunb/faq/RXE802u5 (This link is being provided for informational/ educational purposes only.) The analytical performance characteristics of this assay have been determined by [employer] [place], [place]. The modifications have not been cleared or approved by the FDA. This assay has been validated pursuant to the CLIA regulations and is used for clinical purposes. Test Performed by [facility], [employer] [place], [address] [place] [address] Rodney You M.D., Ph.D., Director of Laboratories , CLIA [id number] Please note: Effective 08/13/2016, HPV testing will be performed using [employer] APTIMA test which targets mRNA. Detecting mRNA instead of DNA, as in older methods, offers significant improvements in specificity. 06/02/2019 4:15 PM EDT us Tiny Soria MD HISTORICAL/NON ORDERABLE LABS Fi nal Result [facility] Anywhere [address] from Last 3 Months or Most Recently Relevant to Health Maintenance Insurance [facility] < [address] [place] [id number] Care Teams Implementation Manager Relationship Specialty Start Date End Date Joan Soto MD [address] [place] [phone] PCP - General Internal Medicine 09/09/25
--- OUTSIDE RECORDS SUMMARY | 2025-10-27 09:00 | XMS_ITS | Encounter Summary ---
Author Organization [employer] Address [address] [place] [address] Care Team Providers Care Litigation Examiner Name Role Phone Joan Soto MD Primary Care Provider [phone] Reason for Visit * Reason Onset Date Comments No Show 09/24/2025 Encounter Details Date Type Department Care Team ([facility] Contact Info) Description 09/24/2025 Telephone [facility] [address] [place], [place] [phone] Joan Soto MD [address] [place], [place] [phone] No Show Social History Tobacco Use Types [...] encounter Miscellaneous Notes * Telephone Encounter - Snehal De León - 10/26/2025 1:30 PM EST Date of Surgery: 03/09 Surgical procedure being done: excision neuroma left foot Type of anesthesia: MAC Lab needed: / EKG: / Surgeon's name: Akanksha Grullon Facility name: [facility] /Surgery [facility] Surgeon's office number: [phone] Pinky Surgeon's office fax number: [phone] Contact name (person you spoke with): Pinky Last office note from surgeon requested: No Need jessenia note Send Message to Cristóbal Yepez * Telephone Encounter - Rene Chong - 09/24/2025 3:22 PM EDT Pt n/s sick on site: Pt c/o continued 5/10 lower right sided radiating to the middle [...] documented as of this encounter Care Teams Litigation Examiner Relationship Specialty Start Date End Date Joan Soto MD [address] [place] [phone] PCP - General Internal Medicine 09/09/25 documented as of this encounter
--- OUTSIDE RECORDS SUMMARY | 2025-10-27 09:00 | XMS_ITS | Patient Health Record ---
Author Organization [facility] [place] Address [address] [facility] [place] [address] Care Team Providers Care Stunt Double Name Role Phone Tiny Soria Primary Care Provider Akanksha Coelho Unavailable [phone] Allergies Allergen (clinical drug ingredient) Drug/Non Drug [...] Status Risk Notes Problem Acquired hallux valgus (47674045) Hallux valgus (acquired), left foot (M20.12) Active confirmed Problem Acquired hallux valgus (21190151) Hallux valgus (acquired), right foot (M20.11) Active confirmed Problem Cedillo's neuroma of right foot (27739858659383 8) 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 Problem Cedillo's neuroma of left foot (45590206550950 5) 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 Resistant to previous conservative treatment Problem Plantar fascial fibromatosis (95950465) Plantar fasciitis, bilateral (M72.2) Active confirmed Vital Signs Blood pressure diastolic 65 mm Hg 06/16/2025 Height 5ft 4in in 06/16/2025 Blood pressure systolic 128 mm Hg 06/16/2025 Weight 147 lbs 06/16/2025 BMI 25.23 kg/m2 06/16/2025 Procedures Procedure Date Ordered Date Performed Result Body Sit e 11853, J0702- Neuroma/Injection 12/10/2024 N/A Encounters Encounter Location Date Provider Diagnosis [facility] [address] [address] 12/10/2024 Akanksha Soto Pain in left foot [...] foot M20.11 and Plantar fasciitis, bilateral M72.[address] [facility] [address] 05/13/2025 Akanksha Soto Cedillo's neuroma of left [...] foot M20.11 and Plantar fasciitis, bilateral M72.[address] [facility] [address] 06/16/2025 Akanksha Cedillo's neuroma of left foot [...] foot M20.11 and Plantar fasciitis, bilateral M72.[address] [address] 10/19/2025 Akanksha Soto [address] [address] 11/26/2024 Akanksha Soto [address] [address] 12/10/2024 Akanksha Soto [address] [address] 12/10/2024 Akanksha Soto [address] [address] 03/08/2025 Akanksha Soto [address] [address] 05/13/2025 Akanksha Soto Assessments Encounter Date Diagnosis [...] X ray : Foot, right 3V 12/10/2024 [address], J0702- Neuroma/Injection 12/10/19 Next Appt Details Provider Name:Akanksha jenkins, 02/28/2026 03:00:00 PM, [address] [place] [address], [phone], Provider Name:Akanksha jenkins, 03/09/2026 12:00:00 PM, [address] [place] [address], [phone], Provider Name:Akanksha Gwyn jenkins, 03/14/2026 02:30:00 PM, [address] [place] [address], [phone], Provider Name:Akanksha Gwyn jenkins, 03/21/2026 02:30:00 PM, [address] [place] [address], [phone], Provider Name:Akanksha jenkins, 03/28/2026 02:30:00 PM, [address] [place] [address], [phone], Insurance Providers Payer Name Payer Address Payer Phone Subscriber Number Group Number Insured Name Patient Relationship to Insured Coverage Start Date Coverage End Date [facility] [employer] Claims [address] [place] [id number] Norma Valle Self - patient is the insured Medical (General) History Medical History History ICD Code Back,Hip,and Knee pain covid-19 Fibromyalgia High Blood Pressure Numbness Psoriasis/eczema Reflux ( GERD) Chicken pox Surgical History Surgery Date(Month/Year) hysterectomy Tubes tied
--- OUTSIDE RECORDS SUMMARY | 2025-10-27 09:00 | XMS_ITS | Encounter Summary ---
Author Organization [employer] Address [address] [address] Care Team Providers Care Edi Analyst Name Role Phone Joan Soto MD Primary Care Provider [phone] Reason for Visit * Reason Onset Date Comments pre op appt 10/26/2025 Encounter Details Date Type Department Care Team ([facility] st Contact Info) Description 10/26/2025 Telephone [facility] [address] [place] [address] Joan Soto MD [address] [place] [phone] pre op appt Social History Tobacco Use Types Packs/Day Years [...] Encounter - Snehal De León - 10/26/2025 1:35 PM EST Date of Surgery: 03/09 Surgical procedure being done: excision neuroma left foot Type of anesthesia: MAC Lab needed: / EKG: / Surgeon's name: Akanksha Grullon Facility name: [facility] /Surgery [facility] Surgeon's office number: [phone] Pinky Surgeon's office fax number: [phone] Contact name (person you spoke with): Pinky Last office note from surgeon requested: No Need jessenia note PCP DR. Soto Send Message to Cristóbal Yepez documented in this encounter Plan of Treatment Not on file documented as of this encounter Visit Diagnoses Not on filedocumented in this encounter Additional Health Concerns Assessment Noted Time PHQ-9 Depression Total Score: 2 04/29/20 12:00 PM EDT documented as of this encounter Care Teams Edi Analyst Relationship Specialty Start Date End Date Joan Soto MD [address] [place] [address] PCP - General Internal Medicine 09/09/25 documented as of this encounter
[2025-10-27 09:10] LABS: Alanine Aminotransferase 35 U/L (0-31); Albumin Level 4.2 g/dL (3.5-5.0); Alkaline Phosphatase 70 U/L (39-117); Anion Gap 11 (12-20); Aspartate Amino Transferase 25 U/L (5-31); Blood Urea Nitrogen 11 mg/dL (9-16); Calcium 9.1 mg/dL (8.4-10.2); Carbon Dioxide 25 mmol/L (22-29); Chloride 111 mmol/L (96-108); Creatinine Clr Calc Pharmacy 72.6; Estimated Glomerular Filt Rate > 60; Magnesium 1.9 mg/dL (1.6-2.6); Potassium 3.9 mmol/L (3.3-5.1); Sodium 143 mmol/L (135-145); Total Protein 6.3 g/dL (6.5-8.0)
[2025-10-27] MEDS: iohexoL 350 MG/ML 100 ML INFUS..BTL 85 ML IV (09:25)
[2025-10-27 10:22] VITALS: BP 103/63; PULSE 61; RESP 18; TEMP 36.8; O2SAT 94
[2025-10-27 11:48] VITALS: BP 103/63; PULSE 61; RESP 18; TEMP 36.8; O2SAT 94
== END 2025-10-27 11:48 | disposition home or self-care (01) ==
PROVIDERS: Physician Assistant Medical; Emergency Provider Emergency Medicine; PCP Student in an Organized Health Care Education/Training Program
DX: K80.50 Calculus of bile duct without cholangitis or cholecystitis without obstruction (principal); I10 Essential (primary) hypertension; Z88.0 Allergy status to penicillin
CPT/HCPCS: 36415; 74177; 80053; 83735; 85025; 99284; 99285; Q9967

== ENCOUNTER → 2025-10-27 09:02 | Outpatient (BNV) | payer OTHER, SELFPAY | PROVIDERS: Emergency Provider Emergency Medicine; PCP Student in an Organized Health Care Education/Training Program; Visit Provider Radiology Diagnostic Ultrasound | DX: R10.11 Right upper quadrant pain (principal) | CPT/HCPCS: 74177 ==

== ENCOUNTER 2025-11-15 08:08 | Outpatient (AMB) | payer OTHER, SELFPAY ==
--- NOTE | 2025-11-15 08:19 | A.OFFVIS_ITS ---
Vital Signs 11/15/25 08:28 Height 5 ft 4 in Weight 154 lb 2 oz BMI 26.5 Intake Visit Reasons: er request for hida scan Intake Note: Patient presents for [facility] follow-up, biliary colic. ( ER request for hida scan) Pt c/o; RUQ pain radiates toward back, reports nausea, denies vomiting, reports when she eats the first bite has a sour taste , reports she was constipated an d is now having diarrhea, has about x7 bm daily. 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 Accompanied by: Family/Other Allergies penicillin V Allergy (Unknown, Verified 11/15/25 08:30) swelling avocado Adverse Reaction (Intermediate, Verified 11/15/25 08:30) Hives egg (eggs) Adverse Reaction (Intermediate, Verified 11/15/25 08:30) Abdominal Pain Medication List - Last Reviewed 11/15/25 by MARIAH Cunha calcium carbonate-vitamin D3 500 mg-10 mcg (400 unit) (Oyster Shell Calcium- Vitamin D3) 1 tab PO DAILY ciprofloxacin HCl 500 mg PO BID esomeprazole magnesium (Nexium) 40 mg PO DAILY famotidine 20 mg PO BEDTIME gabapentin 100 mg PO BID lisinopril 10 mg PO DAILY magnesium 200 mg PO DAILY metronidazole 0.75%(37.5mg/5gram) 1 appful vaginal BEDTIME 5 days metronidazole 500 mg PO Q8H naproxen 500 mg PO BID PRN oxybutynin chloride ER 10 mg PO DAILY pantoprazole 40 mg PO QAM HPI HPI er request for hida scan: Details: [age] year old female referred for right upper quadrant pain. She has had this periodic right flank pain for several months. She says this started around August 2025. She says that she has seemed to go all the way to the lumbar area he had sometimes she says that she can feel this on the right upper quadrant. She describes seeing amounts of bright blood on wiping after bowel movements. She had been seen by GI and has had EGD and colonoscopy. She was told she had diverticulosis. She also says that she had blood in her urine. She also went to the ER 3 weeks ago because of the right upper quadrant/right flank pain. She had a CAT scan which did not reveal any obvious etiology Because of her right flank pain, she was referred to me for question of biliary colic. She says that she also had surgery for hysterectomy in December, because of a uterine prolapse. She says since then, she has had very irregular bowel movements including frequently alternating diarrhea and constipation She denies any nausea or vomiting She has had this unsteady gait since she was at age of 21. She was told that she had MS at that time but she says that eventually, she says that this was not the MS. She says that her unsteady gait has been worsening over the years. She does see a neurologist. COUNT INCLUDES THE [facility] Medical History (Updated 11/15/25 @ 08:46 by Lakhwinder Valdez MD) Right flank pain Constipation Postprandial epigastric pain Numbness and tingling of both legs Degenerative cervical spinal stenosis Numbness and tingling in both hands Gait disturbance GERD (gastroesophageal reflux disease) Headache Plantar fasciitis HTN (hypertension) Cystocele with uterine prolapse Surgical History H/O total hysterectomy H/O tubal ligation Family History Mother Multiple myeloma Maternal Aunt Breast cancer Colon cancer Cancer of blood vessel Social History Alcohol intake: current Alcohol intake frequency: holidays/special occasions only Patient Tobacco Use Status: Current someday Tobacco user Tobacco use type: Cigarette Review of Systems Const Denies chills and Denies fever(s) Card Denies chest pain, Denies dyspnea and Denies dyspnea on exertion Resp Denies cough, Denies dyspnea and Denies dyspnea on exertion GI Reports hematochezia and Denies change in bowel habits Reports hematuria Musc Denies back pain and Denies limited range of motion Neuro Details: Unsteady with ambulation Denies focal weakness and Denies convulsions Psych Denies depression and Denies mood swings Physical Exam Const General: comfortable and no acute distress Orientation/consciousness: patient oriented x3 Neck Neck: Yes no lymphadenopathy Resp Auscultation: clear to auscultation bilaterally Cardio Rhythm: regular rhythm GI Palpation (GI): Soft to palpation, nontender and no guarding Neuro General: patient oriented x3 Assessment & Plan Assessment & Plan (1) Right flank pain: Code(s): R10.A1 - Flank pain, right side Category: Medical Plan: She has been referred because of right flank pain as well as right upper quadrant pain. She has had this since August,. She says that this has not aggravated by oral intake She had a CAT scan which did not reveal any obvious etiology I am going to order her for an ultrasound of the gallbladder to rule out any gallstones that may be missed easily on a CAT scan I told her that I will see her again in the office thereafter to review the findings and discuss next step in her care She was understand the plan well. Her was with her during the visit. Coding Level of Care Code New Pt Level 3 (87010) Diagnoses Right flank pain R10.A1
[2025-11-15 08:28] VITALS: BMI 26.5
== END 2025-11-15 08:54 | disposition home or self-care (01) ==
LOC: HO.HGS 08:08
PROVIDERS: PCP Student in an Organized Health Care Education/Training Program; Visit Provider Surgery
DX: R10.A1 Flank pain, right side (principal)
CPT/HCPCS: 99203

== ENCOUNTER → 2025-11-15 08:08 | Outpatient (BNVA) | payer OTHER, SELFPAY | PROVIDERS: PCP Student in an Organized Health Care Education/Training Program; Visit Provider Surgery | DX: R10.A1 Flank pain, right side (principal); R10.11 Right upper quadrant pain | CPT/HCPCS: 99202 ==

== ENCOUNTER 2025-11-23 15:15 | Outpatient (REF) | payer OTHER, SELFPAY | END 2025-11-23 15:16 | disposition home or self-care (01) | LOC: HO.LAB 15:15 | PROVIDERS: PCP Student in an Organized Health Care Education/Training Program; Visit Provider Nurse Practitioner Family | DX: R31.29 Other microscopic hematuria (principal); Z13.89 Encounter for screening for other disorder | CPT/HCPCS: 51798; 81003; 88112; 99202 ==

== ENCOUNTER 2025-11-23 15:15 | Outpatient (AMB) | payer OTHER, SELFPAY ==
--- OUTSIDE RECORDS SUMMARY | 2025-03-08 08:00 | XMS_ITS ---
Author Organization [facility] Address [address] [place] [address] Care Team Providers Care Bag Printer Name Role Phone Tiny Soria Primary Care Provider Akanksha Coelho Unavailable [phone] Allergies Allergen (clinical drug ingredient) Drug/Non Drug Allergy documented on EMR Reaction Allergy Type Onset Date Status sulfamethoxazole / trimethoprim Bactrim Unknown Drug Allergy Active Penicillin Unknown Drug Allergy Active Medications Medication SIG (Take, Route, Frequency, Duration) Notes Start Date End Date Status Vitamin D3 Active Gabapentin Active Magnesium Active Lisinopril Active oxyBUTYnin Active Omeprazole Active Encounters Encounter Location Date Provider Diagnosis [address] [address] 03/08/2025 Akanksha Soto Plan Of Treatment Next Appt Details Provider Name:Akanksha jenkins, 02/28/2026 03:00:00 PM, [address] [place] [address], [phone], Provider Name:Akanksha jenkins, 03/09/2026 12:00:00 PM, [address] [place], [address], Provider Name:Akanksha jenkins, 03/14/2026 02:30:00 PM, [address] [place] [address], [phone], Provider Name:Akanksha jenkins, 03/21/2026 02:30:00 PM, [address] [place] [address], [phone], Provider Name:Akanksha Pascal rgegory, 03/28/2026 02:30:00 PM, [address] [place], [phone], Progress Notes * Lexx FIERROineDOB:[birth year] (60 yo F)Acc No.[id number]:03/08/2025 Progress Note Patient: Norma FOWLER Provider: Tyree Soto DPM :1965 A ge:59 Y S ex:Female Date:03/08/2025 Address:[address] [place], [place] [id number] Pcp:Tiny Soria Subjective: * Chief Complaints: * [...] DPM Date: 0 03/08/2025 Generated for Alberto lundberg/Solange/eTyolyitting on: 01/24/2025 04:29 PM EST
--- NOTE | 2025-11-23 15:28 | MHC.OFFVIS ---
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: No Allergies penicillin V Allergy (Unknown, Verified 11/23/25 15:57) swelling avocado Adverse Reaction (Intermediate, Verified 11/23/25 15:57) Hives egg (eggs) Adverse Reaction (Intermediate, Verified 11/23/25 15:57) Abdominal Pain Medication List - Last Reconciled 11/23/25 by BARNEY De La Cruz- calcium carbonate-vitamin D3 500 mg-10 mcg (400 unit) (Oyster Shell Calcium-Vitamin D3) 1 tab PO DAILY esomeprazole magnesium (Nexium) 40 mg PO DAILY famotidine 20 mg PO BEDTIME gabapentin 100 mg PO BID lisinopril 10 mg PO DAILY magnesium 200 mg PO DAILY metronidazole 0.75%(37.5mg/5gram) 1 appful vaginal BEDTIME 5 days naproxen 500 mg PO BID PRN pantoprazole 40 mg PO QAM HPI Comments Details: Norma is a 60-year-old female patient of Dr. Soria. She has a past medical history of constipation, degenerative cervical spine stenosis, GERD, headaches, plantar fasciitis, and hypertension. 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 She reports she was noted to have microscopic hematuria during evaluation and recommendations were made for urology referral for further assessment evaluation. In review of patient's chart it does appear CT of the abdomen and pelvis with IV contrast was performed 10/26 that noted symmetrical renal enhancement. No suspicious lesions. No evidence of nephrolithiasis. No ureteral calculi. No hydronephrosis. The bladder is unremarkable. We did discussed at length potential causes of microscopic hematuria. She does report a longstanding history of nicotine dependence since her early 20s. She reports she has smoked for many years. However she did quit for 5 years in that time span. However has restarted over the last 2 years. She is currently smoking 5 cigarettes a day however previously had smoked more. In office urinalysis results reviewed with the patient today trace microscopic hematuria. She does report a previous history of lower urinary tract symptoms and had previously been on oxybutynin however has since had a complete hysterectomy and feels she has had no bothersome urinary issues. She is vague during today's assessment. She discusses her main concern is her ongoing right-sided middle to lower abdominal discomfort she continues to experience. She denies urinary urgency, urinary frequency, incontinence, nocturia, hematuria, dysuria, foul smelling urine, changes to urinary stream, flank pain, fever, and or chills. She is happy with her current voiding parameters. I discussed reasons for blood in the urine may include but are not limited to kidney stones, cancer in the urinary tract, BPH, kidney stone disease or inflammatory conditions of the urinary tract. I have discussed workup to include cystoscopy evaluation. All questions were otherwise offers no other issues or concerns at this time. [facility] Medical History (Updated 11/23/25 @ 15:[address] [facility]) Right flank pain Constipation Postprandial epigastric pain Numbness and tingling of both legs Degenerative cervical spinal stenosis Numbness and tingling in both hands Gait disturbance GERD (gastroesophageal reflux disease) Headache Plantar fasciitis HTN (hypertension) Cystocele with uterine prolapse Surgical History H/O total hysterectomy H/O tubal ligation Family History Mother Multiple myeloma Maternal Aunt Breast cancer Colon cancer Cancer of blood vessel Social History Alcohol intake: current Alcohol intake frequency: holidays/special occasions only Patient Tobacco Use Status: Current someday Tobacco user Tobacco use type: Cigarette Review of Systems Const All systems reviewed & are unremarkable except as noted in HPI and below Physical Exam Const General: cooperative, healthy appearing, comfortable, no acute distress, well developed, alert and awake Orientation/consciousness: patient oriented x3 Limitations: no limitations HEENT Head: Yes normal to inspection, Yes normocephalic and Yes atraumatic Ears: hearing grossly normal bilaterally Eyes General: appearance normal, both eyes and all related structures Neck Neck: Yes normal visual inspection and Yes trachea midline Chest Chest palpation & inspection: normal inspection of the chest Resp Effort & Inspection: normal respiratory effort and able to speak in complete sentences Cardio Rate: regular rate GI Inspection: Yes normal to inspection General: Yes no CVA tenderness Back/Spine/Pelvis Back: no CVA tenderness Skin General skin exam: no rashes or lesions noted Neuro General: patient oriented x3 Extrem General: Yes normal to inspection Psych Appearance: grossly normal and well kempt Mental Status: mental status grossly normal Speech and movement: Normal speech and movement present and Clear speech present Affect: normal affect Attitude: cooperative Thought process: Normal thought process present Thought content: Normal thought content present Insight: Fair insight present (Psych) Judgement: Fair judgement present (Psych) Office Procedures Post Void Residual Post Residual Void Post Void Residual (PVR): 56 [id number] Void Residual by ultrasound Results AMB Urinalysis, Automated UA Leukoctes 0 Rylan/uL Last Edit by JESENIA Martin on 11/23/25 15:47 UA Nitrite Negative Last Edit by EJSENIA Martin on 11/23/25 15:47 UA Urobilinogen 0.2 mg/dL Last Edit by JESENIA Martin on 11/23/25 15:47 UA Protein 15 mg/dL Last Edit by JESENIA Martin on 11/23/25 15:47 UA pH 6.0 Last Edit by Warner Avila CCM on 11/23/25 15:47 UA Blood 10 Alexei/uL Last Edit by JESENIA Martin on 11/23/25 15:47 UA Specific Gordon 1.030 Last Edit by JESENIA Martin on 11/23/25 15:47 UA Ketone Negative Last Edit by JESENIA Martin on 11/23/25 15:47 UA Bilirubin 0 mg/dL Last Edit by Warner Avila CCM on 11/23/25 15:47 UA Glucose 0 mg/dL Last Edit by Warner Avila CCM on 11/23/25 15:47 Results Reviewed Results Reviewed: Laboratory Last Values Urine pH (Auto) 6.0 11/23/25 15:33 Specific Gordon (Auto) 1.030 11/23/25 15:33 Urine Protein (Auto) 15 mg/dL 11/23/25 15:33 Glucose (UA)(Auto) 0 mg/dL 11/23/25 15:33 Urine Ketones (Auto) Negative 11/23/25 15:33 Urine Blood (Auto) 10 Alexei/uL 11/23/25 15:33 Urine Nitrite (Auto) Negative 11/23/25 15:33 Urine Bilirubin (Auto) 0 mg/dL 11/23/25 15:33 Urine Urobilinogen (Auto) 0.2 mg/dL 11/23/25 15:33 Leukocyte Esterase (Auto) 0 Rylan/uL 11/23/25 15:33 Date of Service: 10/27/25 Procedure(s): CT abdomen pelvis w IV con FINDINGS: LUNG BASES: Bibasilar atelectasis. No pericardial or pleural effusion. LIVER, GALLBLADDER, AND BILIARY TREE: Multiple less than 3 mm hypodensities in the liver, stable from previous. These are too small to characterize by CT.No intrahepatic or extrahepatic biliary duct dilatation. The gallbladder is partially distended with no evidence of radiopaque gallstones, gallbladder wall thickening, or obvious pericholecystic inflammatory changes. PANCREAS: Symmetric enhancement. No inflammatory changes. No main pancreatic ductal dilatation. SPLEEN: Unremarkable. ADRENAL GLANDS: Unremarkable. KIDNEYS AND URETERS: Symmetric renal enhancement. No suspicious lesions. No evidence of nephrolithiasis. No ureteral calculi. No hydronephrosis. BLADDER: Unremarkable. GASTROINTESTINAL TRACT: Stomach is nondistended limiting evaluation. Apparent wall prominence of the stomach could be related to lack of distention, other etiologies such as gastritis not excluded. No abnormally dilated small bowel loops. The descending, sigmoid colon and rectum are nondistended. Small volume stool in the large colon. No pericolonic inflammatory changes seen. Appendix appears unremarkable. Peritoneum: No free fluid. No pneumoperitoneum. No fluid collections. No mesenteric inflammatory changes seen. ABDOMINAL WALL: Small fat-containing umbilical hernia. LYMPH NODES: No bulky adenopathy seen. VASCULAR: No aortic aneurysmal dilatation. Portal vein is enhancing. Hepatic veins are enhancing. PELVIC VISCERA: Uterus is absent. No suspicious finding seen. OSSEOUS STRUCTURES: No acute or suspicious osseous abnormality. L5-S1 disc degeneration redemonstrated. IMPRESSION: * Prominence of the wall of the stomach,, could be related to lack of distention, other etiologies such as gastritis not excluded. Clinically correlate. * No acute intra-abdominal findings otherwise identified. * Additional findings and details as above. Assessment & Plan Assessment & Plan (1) Microhematuria: Code(s): R31.29 - Other microscopic hematuria Category: Medical Plan In office urinalysis results reviewed with the patient today; as noted above; will send for urine cytology. PVR [address] urogram results were reviewed with the patient today; as noted above. We did review potential causes of microscopic hematuria as well as further interventions and risks and benefits of these interventions. We did discussed the importance of limiting/quitting nicotine dependence for overall health and well-being. She currently denies any bothersome urinary issues. Will schedule for in office cystoscopy. Follow-up per doctor's orders; or sooner with any issues, concerns, and or questions. Orders: Orders AMB Urinalysis Automated Today Z13.9 - Encounter for screening, unspecified Urine Cytology Today R31.29 - Other microscopic hematuria Patient Instructions: The patient had an opportunity to ask questions regarding the treatment plan. All questions were answered. Physical exam, labs, and imaging were discussed and reviewed in detail. As well as risks, benefits, and discussion of treatment choices. No major barriers to understanding were identified. The patient expressed understanding and agreement with the above treatment plan. The patient was made aware they should contact our office by phone for worsening of their current condition, the appearance of new symptoms, or with any questions or concerns. Compliance is encouraged with any medications and follow up testing that is ordered. It is a privilege to be allowed the opportunity to participate in? your urological care.? Again, if you have any questions or concerns If you have any questions or concerns please do not hesitate to contact me. The office is [phone]. This note is constructed using voice recognition software. While every effort has been made to ensure accuracy cinema or theatre manager errors may have been included. Yours sincerely, NOEMY De La Cruz Coding Level of Care Code New Pt Level 3 (67965) Diagnoses Microhematuria R31.29 CPT Codes Post Residual Void - PVR CPT Code: 36634-Exat Void Residual by ultrasound ([id number])
--- OUTSIDE RECORDS SUMMARY | 2025-11-23 16:29 | XMS_ITS | Clinical Summary ---
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 albuterol (ProAir HFA) 108 (90 Base) MCG/ACT inhaler inhale 2 puff by inhalation route every 4-6 hrs 0 Active ibuprofen (IBU) 800 MG tablet TAKE [...] BY MOUTH TWICE DAILY 60 tablet 5 10/21/2025 12:33 PM EST 5 Active Calcium Carb-Cholecalcif jerzy (Calcium 500 [...] EVERY NIGHT AT BEDTIME 60 capsule 11 10/21/2025 12:33 PM EST Active celecoxib (CeleBREX) 50 MG capsule Take 1 capsule (50 mg) by mouth Once per day. 30 capsule 3 11/12/2025 3:25 PM EST 5 12/12/19 Active magnesium oxide 250 MG tablet TAKE ONE-HALF TABLET AT BEDTIME 15 tablet 3 Active lisinopril 10 MG tablet TAKE ONE TABLET DAILY 90 tablet 3 5 Active Active Problems Problem Noted Date [...] Encounters Date Type Department Care Team Description 10/27/2025 Orders Only [facility] External Provider, [facility] 10/26/2025 Telephone [facility] [address] [place] [address] Joan Soto MD pre op appt 10/19/2025 Refill [facility] [address] [place] [address] Tiny Soria MD 10/04/2025 Refill [facility] [address] [place], [place] [phone] Tiny Soria MD 09/24/2025 Telephone [facility] [address] [place] [address] Joan Soto MD No Show 09/24/2025 Orders Only GENERIC EXTERNAL DATA DEPARTMENT Provider, Generic External Data 09/23/2025 Telephone [facility] [address] [place] [address] Joan Soto MD Nurse Triage 09/09/2025 11:30 AM EDT Office Visit [facility] [address] [place] [address] Tiny Soria MD Right hip pain (Primary Dx); Painful urination; Microscopic hematuria 09/09/2025 Travel 09/07/2025 Telephone [facility] [address] [place] [address] Tiny Soria MD Nurse Triage from Last [...] Care Team (Late st Contact Info) Description 12/10/2025 2:45 PM EST Office Visit [facility] [address] [place] [address] Marianne Kuo MD [address] [place] [address] 02/08/2026 2:45 PM EDT Office Visit [facility] [address] [place] [address] Marianne Kuo MD [address] [place] [address] Health Maintenance Due Date Last Done Comments CT Colonography 1965 Colonoscopy 1967 Colorectal Cancer Screening 1967 FIT DNA/Cologuard 1967 FIT 1967 FOBT 1965 HIV Screening 1965 Sigmoidoscopy 1967 Alcohol/Substance Use Screening 1979 Hepatitis C Screening 1985 Hepatitis B Vaccines (1 of 3 - 19+ 3-dose series) 1986 Zoster Vaccines (1 of 2) 2017 COVID-19 Vaccine ( - 2024- season) 2025 Influenza Vaccine (#1) 2025 09/01/2024 [...] Comments CT ABDOMEN PELVIS W CONTRAST Routine 10/27/2025 9:21 AM EST FL UPPER GI W AIR W BARIUM [...] Results * CT Abdomen Pelvis w/ Contrast (10/27/2025 9:21 AM EST) Only the most recent of2 resultswithin the time period is included. Anatomical Region Laterality Modality Body, Pelvis, Abdomen Computed T omography 10/27/2025 9:21 AM EST Narrative 10/27/2025 10:08 AM EST [place] [address] CT Scan Report Signed Patient: Norma Valle MR#: [id number] : 1965 Acct:[id number] Age/Sex: 60 / F ADM Date: 10/27/25 Loc: HO.ED Attending Dr: Ordering Physician: Dede Russ Date of Service: 10/27/25 Procedure(s): CT abdomen pelvis w IV con Accession Number(s): [id number] cc: Dede Russ; Tiny Soria MD Report Number: [id number]: Total DLP = 0.00 mGy-cm Reason for Exam: RUQ pain EXAMINATION: CT ABDOMEN AND PELVIS WITH CONTRAST CLINICAL INFORMATION: Right upper quadrant pain COMPARISON: CT 09/24/2025 TECHNIQUE: Multidetector volumetric images were obtained from [...] extremities or head) *Use of iterative reconstruction technique FINDINGS: LUNG BASES: Bibasilar atelectasis. No pericardial or pleural effusion. LIVER, GALLBLADDER, AND BILIARY TREE: Multiple less than 3 mm hypodensities in the liver, stable from previous. These are too small to characterize by CT.No intrahepatic or extrahepatic biliary duct dilatation. The gallbladder is partially distended with no evidence of radiopaque gallstones, gallbladder wall thickening, or obvious pericholecystic inflammatory changes. PANCREAS: Symmetric enhancement. No inflammatory changes. No main pancreatic ductal dilatation. SPLEEN: Unremarkable. ADRENAL GLANDS: Unremarkable. KIDNEYS AND URETERS: Symmetric renal enhancement. No suspicious lesions. No evidence of nephrolithiasis. No ureteral calculi. No hydronephrosis. BLADDER: Unremarkable. GASTROINTESTINAL TRACT: Stomach is nondistended limiting evaluation. Apparent wall prominence of the stomach could be related to lack of distention, other etiologies such as gastritis not excluded. No abnormally dilated small bowel loops. The descending, sigmoid colon and rectum are nondistended. Small volume stool in the large colon. No pericolonic inflammatory changes seen. Appendix appears unremarkable. Peritoneum: No free fluid. No pneumoperitoneum. No fluid collections. No mesenteric inflammatory changes seen. ABDOMINAL WALL: Small fat-containing umbilical hernia. LYMPH NODES: No bulky adenopathy seen. VASCULAR: No aortic aneurysmal dilatation. Portal vein is enhancing. Hepatic veins are enhancing. PELVIC VISCERA: Uterus is absent. No suspicious finding seen. OSSEOUS STRUCTURES: No acute or suspicious osseous abnormality. L5-S1 disc degeneration redemonstrated. CT/CT abdomen pelvis w IV con IMPRESSION: * Prominence of the wall of the stomach,, could be related to lack of distention, other etiologies such as gastritis not excluded. Clinically correlate. * No acute intra-abdominal findings otherwise identified. * Additional findings and details as above. Fleischner guidelines were followed. Electronically signed by: Antonio Pfeiffer MD 10/27/2025 10:06 AM [facility] [place] Dictated By: Antonio Pfeiffer MD Signed By: <Electronically signed by Antonio Pfeiffer MD in OV> 10/27/25 1006 DD/ 0 TD/TT: 10/27/25927 Behavioral Health Clinician: ELEAZAR Procedure Note Donotuseinterpreter, Image - 10/27/[address] [address] [address] Scan Report Signed Patient: Norma Valle [facility]#: [id number] : 1965Acct:[id number] Age/Sex: 60 / FADM Date: 10/27/25 Loc: HO.ED Attending Dr: Ordering Physician: Dede Russ Date of Service: 10/27/25 Procedure(s): CT abdomen pelvis w IV con Accession Number(s): [id number] cc: Dede Russ; Tiny Soria MD Report Number: [id number]: Total DLP = 0.00 mGy-cm Reason for Exam: RUQ pain EXAMINATION: CT ABDOMEN AND PELVIS WITH CONTRAST CLINICAL INFORMATION: Right upper quadrant pain COMPARISON: CT 09/24/2025 TECHNIQUE: Multidetector volumetric images were obtained from [...] extremities or head) *Use of iterative reconstruction technique FINDINGS: LUNG BASES: Bibasilar atelectasis. No pericardial or pleural effusion. LIVER, GALLBLADDER, AND BILIARY TREE: Multiple less than 3 mm hypodensities in the liver, stable from previous. These are too small to characterize by CT.No intrahepatic or extrahepatic biliary duct dilatation. The gallbladder is partially distended with no evidence of radiopaque gallstones, gallbladder wall thickening, or obvious pericholecystic inflammatory changes. PANCREAS: Symmetric enhancement. No inflammatory changes. No main pancreatic ductal dilatation. SPLEEN: Unremarkable. ADRENAL GLANDS: Unremarkable. KIDNEYS AND URETERS: Symmetric renal enhancement. No suspicious lesions. No evidence of nephrolithiasis. No ureteral calculi. No hydronephrosis. BLADDER: Unremarkable. GASTROINTESTINAL TRACT: Stomach is nondistended limiting evaluation. Apparent wall prominence of the stomach could be related to lack of distention, other etiologies such as gastritis not excluded. No abnormally dilated small bowel loops. The descending, sigmoid colon and rectum are nondistended. Small volume stool in the large colon. No pericolonic inflammatory changes seen. Appendix appears unremarkable. Peritoneum: No free fluid. No pneumoperitoneum. No fluid collections. No mesenteric inflammatory changes seen. ABDOMINAL WALL: Small fat-containing umbilical hernia. LYMPH NODES: No bulky adenopathy seen. VASCULAR: No aortic aneurysmal dilatation. Portal vein is enhancing. Hepatic veins are enhancing. PELVIC VISCERA: Uterus is absent. No suspicious finding seen. OSSEOUS STRUCTURES: No acute or suspicious osseous abnormality. L5-S1 disc degeneration redemonstrated. CT/CT abdomen pelvis w IV con IMPRESSION: * Prominence of the wall of the stomach,, could be related to lack of distention, other etiologies such as gastritis not excluded. Clinically correlate. * No acute intra-abdominal findings otherwise identified. * Additional findings and details as above. Fleischner guidelines were followed. Electronically signed by: Antonio Pfeiffer MD 10/27/2025 10:06 AM [facility] [place] Dictated By: Antonio Pfeiffer MD Signed By: <Electronically signed by Antonio Pfeiffer MD in OV> 10/27/25 1006 DD/ 0 TD/TT: 10/27/25927 Behavioral Health Clinician: ELEAZAR [facility] External Provider IMG CT PROCEDURES Final Result * FL Upper GI w/air w/Barium Swallow (09/29/2025 10:16 AM EDT) Anatomical Region Laterality Modality Body Radiographic Kasia ging 09/29/2025 10:1 6 AM EDT Narrative 09/29/2025 12:11 PM EDT [place] [address] Fluoroscopy Report Signed with Addenda Patient: Norma Valle MR#: [id number] : 1965 Acct:[id number] Age/Sex: 60 / F ADM Date: 09/29/25 Loc: HOZHANE Attending Dr: Zonia SALGUERO Ordering Physician: Zonia Roth Date of Service: 09/29/25 Procedure(s): FL upper GI w air w Ba Swallow Accession Number(s): [id number] cc: Zonia Roth; Tiny Soria MD Reason [...] in OV> 09/29/25 1208 DD/ 1016 TD/TT: 09/29/251024 Behavioral Health Clinician[place] [facility] [place] Procedure Note Donotuseinterpreter, Image - 09/30/[address] [address] Fluoroscopy Report Signed with Addenda Patient: Norma Valle [facility]#: [id number] : 1965Acct:[id number] Age/Sex: 60 / FADM Date: 09/29/25 Loc: HO.XRAY Attending Dr: Zonia Roth [facility] Ordering Physician: Zonia Roth Date of Service: 09/29/25 Procedure(s): FL upper GI w air w Ba Swallow Accession Number(s): [id number] cc: Zonia Roth; Tiny Soria MD Reason [...] MD Signed By: <Electronically signed by Joseph Reboleldo MD in OV> 09/29/25 1208 DD/ 1016 TD/TT: 09/29/25 1025 Behavioral Health Clinician: MERON us [facility] Exter nal Provider IMG FLUOROSCOPY PROCEDURES Edited Result - Final * Urinalysis w/reflex microscopic (09/24/2025 7:09 AM EDT) Color Urine Yellow [facility] Appearance Urine Clear [facility] PH 6.5 5.0 - 9.0 [facility] Glucose Urine UA Negative Negative mg/dL [facility] Urine Blood Negative Negative [facility] Specific [place] - Urine <=1.005 1.005 - 1.025 [facility] Urine Protein Negative Neg-Trace mg/dL [facility] Urine Ketones Negative Negative mg/dL [facility] Nitrite Urine Negative Negative [facility] Leukocyte Esterase Urine Negative Negative [facility] 09/24/2025 7:09 AM EDT 09/24/2025 7:16 AM EDT Narrative [facility] - 09/24/2025 7:19 AM EDT Urine, Clean Catch Generic External Data Provider LAB URINE ORDERAB LES Final Result Performing Organization Address [facility]/ZIP Co de Phone Number [facility] [address] [place] [phone] * OBSX1 (09/24/2025 6:51 AM EDT) OBS1 NEGATIVE NEGATIVE [facility] 09/24/2025 6:51 AM EDT 09/24/2025 6:57 AM EDT Generic External Data Provider LAB BLOOD ORDERAB LES Final Result Performing Organization Address [facility]/ZIP Co de Phone Number [facility] [address] [place] [phone] * Type and screen (09/24/2025 6:51 AM EDT) Blood Type OP [facility] Antibody Screen NEGATIVE [facility] 09/24/2025 6:51 AM EDT 09/24/2025 6:59 AM EDT us Generic External Data Provider LAB BLOOD BANK TE ST ORDERABLES Final Result [facility] [address] [place] [phone] * CBC auto differential (09/24/2025 6:49 AM EDT) White Blood Count 7.3 4.8 - 10.8 X10*3/uL [facility] Red Blood Count 4.81 4.20 - 5.50 X10*6/uL [facility] Hemoglobin 14.7 12.0 - 16.0 g/dl [facility] Hematocrit 43.9 37.0 - 47.0 % [facility] Mean Corpuscular Volume 91.3 80.0 - 98.0 fL [facility] Mean Corpuscular Hemoglobin 30.6 27.0 - 33.0 pg [facility] Mean Corpuscular HGB Conc 33.5 31.0 - 35.0 g/dl [facility] Red Cell Distribution Width 13.4 11.0 - 16.0 % [facility] Platelet Count 191 160 - 400 X10*3/uL [facility] Mean Platelet Volume 10.4 9.4 - 12.3 fL [facility] Neutrophils Percent Auto 64.8 45 - 73 % [facility] Imm Gran Pct Auto 0.3 0.0 - 0.4 % [facility] Lymphocytes Percent Auto 26.3 20 - 40 % [facility] Monocytes Percent Auto 6.6 2 - 11 % [facility] Eosinophils Percent Auto 1.2 0 - 4 % [facility] Basophils Percent Auto 0.8 0 - 2 % [facility] NRBC Pct Auto 0.0 0.0 - 0.2 /100WBC [facility] Neutrophils Absolute Auto 4.7 2.0 - 8.3 x10*3/uL [facility] Imm Gran Abs Auto 0.02 0.00 - 0.03 X10*3/uL [facility] Lymphocytes Absolute Auto 1.9 1.2 - 4.9 X10*3/uL [facility] Monocytes Absolute Auto 0.5 0.1 - 1.2 X10*3/uL [facility] Eosinophils Absolute Auto 0.1 0.0 - 0.4 X10*3/uL [facility] Basophils Absolute Auto 0.1 0.0 - 0.2 X10*3/uL [facility] NRBC Abs Auto 0.000 0.0 - 0.012 X10*3/uL [facility] 09/24/2025 6:49 AM EDT 09/24/2025 6:57 AM EDT us Generic External Data Provider LAB BLOOD ORDERAB LES Final Result [facility] [address] [place] [address] [phone] * Prothrombin Time-INR (09/24/2025 6:49 AM EDT) Prothrombin Time 11.1 10.9 - 12.4 SEC [facility] INTERNATIONAL NORM RATIO 1.0 0.9 - 1.1 [facility] Comment:INTERNATIONAL NORMAL IZED RATIO (INR) REFERENCE [...] Final Result Performing Organization Address [facility]/ZIP Co de Phone Number [facility] [address] [place] [phone] * Magnesium (09/24/2025 6:49 AM EDT) Pathologist [facility] Magnesium 1.8 1.6 - 2.6 mg/dL [facility] 09/24/2025 6:49 AM EDT 09/24/2025 6:57 AM EDT Generic External Data Provider LAB BLOOD ORDERAB LES Final Result Performing Organization Address [facility] Co de Phone Number [facility] [address] [place] [address] [phone] * Lipase (09/24/2025 6:49 AM EDT) Pathologist [facility] Lipase 33 8 - 78 U/L [facility] 09/24/2025 6:49 AM EDT 09/24/2025 6:57 AM EDT Generic External Data Provider LAB BLOOD ORDERAB LES Final Result Performing Organization Address [facility] Co de Phone Number [facility] [address] [place] [address] [phone] * Hepatic Function Panel (09/24/2025 6:49 AM EDT) Pathologist [facility] Bilirubin, Total 0.3 0.0 - 1.0 mg/dL [facility] Bilirubin, Direct 0.1 0.0 - 0.5 mg/dL [facility] Aspartate Amino Transferase 20 5 - 31 U/L [facility] Alanine Aminotransferase 22 0 - 31 U/L [facility] Total Protein 6.7 6.5 - 8.0 g/dL [facility] Albumin Level 4.3 3.5 - 5.0 g/dL [facility] Alkaline Phosphatase 75 39 - 117 U/L [facility] 09/24/2025 6:49 AM EDT 09/24/2025 6:57 AM EDT us Generic External Data Provider LAB BLOOD ORDERAB LES Final Result Performing Organization Address City/[facility]/ZIP Co de Phone Number [facility] [address] [place] [phone] * (ABNORMAL) Basic Metabolic Panel (09/24/2025 6:49 AM EDT) Sodium 142 135 - 145 mmol/L [facility] Potassium 4.0 3.3 - 5.1 mmol/L [facility] Chloride 110(H) 96 - 108 mmol/L [facility] Carbon Dioxide 23 22 - 29 mmol/L [facility] Anion Gap 13 12 - 20 [facility] Urea Nitrogen (BUN) 14 9 - 16 mg/dL [facility] Creatinine, Serum 0.88 0.5 - 1.4 mg/dL [facility] Creatinine Clr Calc Pharmacy 66.0 [facility] Comment:Provided height and weight: 162.56 cm,68.039 kg.eGFR (calculated from the MDRD study equation) and eCrCl(calculated from the Cockcroft-Gault equation) are based ondifferent parameters and may not yield comparable results.If eCrCl result is absurd, please check patient'sheight/weight. Estimated Glomerular Filt Rate >60 [facility] Comment:Chronic Kidney Disea se: Estimated GFR < 60 mL/min/1.75q2Brixut Kidney Disease: Estimated GFR < 15 mL/min/1.73m2 Glucose 100 60 - 115 mg/dL [facility] Calcium 9.8 8.4 - 10.2 mg/dL [facility] 09/24/2025 6:49 AM EDT 09/24/2025 6:57 AM EDT us Generic External Data Provider LAB BLOOD ORDERAB LES Final Result [facility] [address] [place] [address] [phone] * XR Hip 2 or 3 Views Right (09/09/2025 2:03 PM EDT) Anatomical Region Laterality Modality Lower Extremities, Hip Right Radiograp hic Imaging 09/09/2025 2:03 PM EDT Narrative 09/09/2025 2:13 PM EDT [address] [address] XRay Report Signed Patient: Norma Valle MR#: [id number] : 1965 Acct:[id number] Age/Sex: 60 / F ADM Date: 09/09/25 Loc: HO.SAMIA Attending Dr: Tiny Soria MD Ordering Physician: Tiny Soria MD Date of Service: 09/09/25 Procedure(s): XR hip RT min 2V Accession Number(s): [id number] cc: Tiny Soria MD Reason for Exam: [...] 09/09/25 1410 DD/ 1403 TD/TT: 09/09/25 1406 Behavioral Health Clinician: Procedure Note Donotuseinterpreter, Image - 09/09/[address] [address] XRay Report Signed Patient: Norma Valle MMR#: [id number] : 1965Acct:[id number] Age/Sex: 60 / FADM Date: 09/09/25 Loc: HO.XRAY Attending Dr: Tiny Soria MD Ordering Physician: Tiny Soria MD Date of Service: 09/09/25 Procedure(s): XR hip RT min 2V Accession Number(s): [id number] cc: Tiny Soria MD Reason for Exam: [...] 09/09/25 1410 DD/ 1403 TD/TT: 09/09/25 1406 Behavioral Health Clinician: Tiny Soria MD IMG XR PROCEDURES Final [...] EDT Narrative 07/19/2025 4:43 PM EDT [facility] [address] [place] [address] Mammography Report Signed Patient: Norma Valle MR#: [id number] : 1965 Acct:[id number] Age/Sex: 60 / F ADM Date: 07/13/25 Loc: HO.MAMMO Attending Dr: Tiny Soria MD Ordering Physician: Tiny Soria MD Results: 2Benign Findings Date of Service: 07/13/25 Follow Up: 1 Year From [facility] Mammogram Procedure(s): MM tomosynthesis screening BI Accession Number(s): [id number] cc: Tiny Soria MD EXAMINATION: MM SCREENING [...] 07/19/25 1641 DD/ 1435 TD/TT: 07/13/25 1455 Behavioral Health Clinician: Procedure Note Donotuseinterpreter, Image - [facility] [address] [place] [address] Mammography Report Signed Patient: Norma Valle MMR#: [id number] : 1965Acct:[id number] Age/Sex: 60 / FADM Date: 07/13/25 Loc: HO.MAMMO Attending Dr: Tiny Soria MD Ordering Physician: Tiny Soria MDResults: 2Benign Findings Date of Service: 07/13/25Follow Up: 1 Year From Orig ina Mammogram Procedure(s): MM tomosynthesis screening BI Accession Number(s): [id number] cc: Tiny Soria MD EXAMINATION: MM SCREENING [...] 07/19/25 1641 DD/ 1435 TD/TT: 07/13/25 1455 Behavioral Health Clinician: us Tiny Soria MD IMG BI PROCEDURES Final Result * Lipid Panel, Standard (06/27/2023 9:54 AM EDT) Triglycerides 80 mg/dL [facility] Comment:Desirable Triglyceri de: less than 150 mg/dLBorderline High Triglyceride 150-199 mg/dLHigh Triglyceride: 200-499 mg/dLVery High Triglyceride: greater than or equal to 5OO mg/dL Cholesterol 219 mg/dL [facility] Comment:Desirable Cholestero l: less than 200 mg/dLBorderline High Cholesterol: 200-239 mg/dLHigh Cholesterol: greater than 239 mg/dL LDL Cholesterol Calculated 138 mg/dl [facility] Comment:Desirable LDL: less than 100 mg/dLNear Optimal/Above Optimal LDL: 110- 129 mg/dLBorderline High LDL: 130-159 mg/dLHigh LDL: 160-189 mg/dLVery High LDL: greater than or equal to 190 mg/dL HDL Cholesterol 65 mg/dL [facility] Comment:Desirable HDL: great er than 40 mg/dL Note: This HDL assay may give artificially low results in patients with liver disease. Blood Venous blood specimen / Unknown 06/27/2023 9:54 AM EDT 06/27/2023 2:07 PM EDT us Tiny Soria MD LAB BLOOD ORDERABLES Final Resul t [facility] [address] [place] [phone] * HPV mRNA E6/E7 (06/02/2019 4:15 PM EDT) HPV mRNA E6/E7 Not Detected NOT DETECTED [facility] Comment: This test was performed using the APTIMA(R) HPV Assay ([employer] This assay detects E6/E7 viral messenger RNA (mRNA) from 14 high-risk HPV types (16,18,31,33,35,39,45,51, 52,56,58,59,66,68). For additional information please refer to: http://education.[employer]/faq/VHP375i4 (This link is being provided for informational/ educational purposes only.) The analytical performance characteristics of this assay have been determined by [employer] [place], [place]. The modifications have not been cleared or approved by the FDA. This assay has been validated pursuant to the CLIA regulations and is used for clinical purposes. Test Performed by [employer] [facility], [address] [place] [address] Rodney You M.D., Ph.D., Director of Laboratories , CLIA [id number] Please note: Effective 08/13/2016, HPV testing will be performed using [employer]s APTIMA test which targets mRNA. Detecting mRNA instead of DNA, as in older methods, offers significant improvements in specificity. 06/02/2019 4:15 PM EDT us Tiny Soria MD HISTORICAL/NON ORDERABLE LABS Fi nal Result [facility] [address] from Last 3 Months or Most Recently Relevant to Health Maintenance Insurance [employer] < [address] [place] [id number] Care Teams Fertilizing Machine Operator Relationship Specialty Start Date End Date Marianne Kuo MD [address] [place] [phone] PCP - General Internal Medicine 11/16/25
--- OUTSIDE RECORDS SUMMARY | 2025-11-23 16:29 | XMS_ITS | Patient Health Record ---
Author Organization [facility] [place] Address [address] [facility] [place] [address] Care Team Providers Care Director Of Health Care Marketing Name Role Phone Tiny Soria Primary Care Provider Akanksha Coelho Unavailable [phone] Allergies Allergen (clinical drug ingredient) Drug/Non Drug [...] Status Risk Notes Problem Acquired hallux valgus (09281756) Hallux valgus (acquired), left foot (M20.12) Active confirmed Problem Acquired hallux valgus (14548152) Hallux valgus (acquired), right foot (M20.11) Active confirmed Problem Cedillo's neuroma of right foot (90974263830373 8) 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 Problem Cedillo's neuroma of left foot (77558848467855 5) 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 Resistant to previous conservative treatment Problem Plantar fascial fibromatosis (25834523) Plantar fasciitis, bilateral (M72.2) Active confirmed Vital Signs Blood pressure diastolic 65 mm Hg 06/16/2025 Height 5ft 4in in 06/16/2025 Blood pressure systolic 128 mm Hg 06/16/2025 Weight 147 lbs 06/16/2025 BMI 25.23 kg/m2 06/16/2025 Procedures Procedure Date Ordered Date Performed Result Body Sit e 73397, J0702- Neuroma/Injection 12/10/2024 N/A Encounters Encounter Location Date Provider Diagnosis [facility] [address] [address] 12/10/2024 Akanksha Soto Pain in left foot [...] foot M20.11 and Plantar fasciitis, bilateral M72.[address] [facility] [address] 05/13/2025 Akanksha Soto Cedillo's neuroma of left [...] foot M20.11 and Plantar fasciitis, bilateral M72.[address] [facility] [address] 06/16/2025 Akanksha Cedillo's neuroma of left foot [...] foot M20.11 and Plantar fasciitis, bilateral M72.[address] [address] 10/19/2025 Akanksha Soto [address] [address] 11/26/2024 Akanksha Soto [address] [address] 12/10/2024 Akanksha Soto [address] [address] 12/10/2024 Akanksha Soto [address] [address] 03/08/2025 Akanksha Soto [address] [address] 05/13/2025 Akanksha Soto Assessments Encounter Date Diagnosis [...] X ray : Foot, right 3V 12/10/2024 30794, J0702- Neuroma/Injection 12/10/19 Next Appt Details Provider Name:Akanksha jenkins, 02/28/2026 03:00:00 PM, [address] [place], [address], Provider Name:Akanksha jenkins, 03/09/2026 12:00:00 PM, [address] [place] [address], [phone], Provider Name:Akanksha Pascal gregory, 03/14/2026 02:30:00 PM, [address] [place] [address], [phone], Provider Name:Akanksha Pascal gregory, 03/21/2026 02:30:00 PM, [address] [place] [address], [address], Provider Name:Akanksha Pascal gregory, 03/28/2026 02:30:00 PM, [address] [place] [address], [phone], Insurance Providers Payer Name Payer Address Payer Phone Subscriber Number Group Number Insured Name Patient Relationship to Insured Coverage Start Date Coverage End Date [facility] [employer] Claims [address] [id number] [id number] Norma Valle Self - patient is the insured Medical (General) History Medical History History ICD Code Back,Hip,and Knee pain covid-19 Fibromyalgia High Blood Pressure Numbness Psoriasis/eczema Reflux ( GERD) Chicken pox Surgical History Surgery Date(Month/Year) hysterectomy Tubes tied
--- OUTSIDE RECORDS SUMMARY | 2025-11-23 16:29 | XMS_ITS | Encounter Summary ---
Author Organization [employer] Address [address] [facility] 7 [place] [address] Care Team Providers Care Patent Attorney Name Role Phone Tiny Soria MD Primary Care Provider [phone] Joan Soto MD Primary Care Provider [phone] Marianne Kuo MD Primary Care Provider [phone] Reason for Visit * Reason Onset Date Comments Referral 11/23/2024 Encounter Details Date Type Department Care Team ([facility] st Contact Info) Description 11/23/2024 Telephone [facility] MEDICINE [address] [place] [address] Tiny Soria MD [address] [place], [place] [phone] Referral Social History Tobacco Use Types Packs/Day Years Used Date Smoking Tobacco: Former Cigarettes Q uit: 2020 Smokeless Tobacco: Never Alcohol Use Standard Drinks/Week Comments Defer 0 (1 standard drink = 0.6 oz pur e alcohol) Depression Answer Date Recorded Patient Health Questionnaire-9 Score 0 05/21/2023 Housing Stability Answer Date Recorded What is your housing situation today? I have cornellbolivar loera 09/18/[address] you [...] any questions you can contact pt at [phone]. documented in this encounter Plan of Treatment Upcoming Encounters Date Type Department Care Team ([facility] st Contact Info) Description 12/10/2025 2:45 PM EST Office Visit [facility] MED & PEDS [address] [place], [place] [phone] Marianne Kuo MD [address] [place], [place] [phone] 02/08/2026 2:45 PM EDT Office Visit [facility] MED & PEDS [address] [place] [address] Marianne Kuo MD [address] [place] [address] documented as of this encounter Visit Diagnoses Not on filedocumented in this encounter Additional Health Concerns Assessment Noted Time PHQ-9 Depression Total Score: 0 05/21/20 23 10:07 AM EDT documented as of this encounter Care Teams Patent Attorney Relationship Specialty Start Date End Date Tiny Soria MD [address] [place] [id number] PCP - General Family Medicine 04/20/15 09/08/25 Joan Soto MD [address] [place] [address] PCP - General Internal Medicine 09/09/25 11/15/25 Marianne Kuo MD [address] [place] [address] PCP - General Internal Medicine 11/16/25 documented as of this encounter
== END 2025-11-23 16:02 | disposition home or self-care (01) ==
LOC: HO.HUSH 15:16
PROVIDERS: PCP Student in an Organized Health Care Education/Training Program; Visit Provider Nurse Practitioner Family
DX: Z13.9 Encounter for screening, unspecified (principal); R31.29 Other microscopic hematuria
CPT/HCPCS: 99203